=== PATIENT | male | born 1950 | race Caucasian/White ===

== ENCOUNTER → 2017-08-23 | Outpatient (CLI) | payer OTHER ==
[~2017-08-23] MED LIST: ASPI81TA28 PO; ATOR-24 PO; ISOS30TA3 PO; LISI20TA3 PO; METO50TA16 PO; NAPR-1169 PO; NTRGSL/4 UT; OMEG10007 PO; PANT40TA PO; TRAM-10 PO
[2017-08-23 12:14] LABS: ESTIMATED AVERAGE GLUCOSE 105 mg/dl; HA1C FLAG Normal (Normal)
[2017-08-23 12:17] LABS: ALT/SGPT 36 U/L (12-78); BLOOD UREA NITROGEN 20 mg/dl (7-18); BUN/CREATININE RATIO 21.2 (10-20); CALCIUM 8.8 mg/dl (8.5-10.1); CARBON DIOXIDE 29 mmol/L (21-32); CHLORIDE 105 mmol/L (98-107); CHOLESTEROL 154 mg/dl (0-200); CREATININE 0.94 mg/dl (0.60-1.40); GLUCOSE 99 mg/dl (70-99); POTASSIUM 4.2 mmol/L (3.5-5.1); SODIUM 140 mmol/L (136-145)
[2017-08-23 12:21] LABS: ALKALINE PHOSPHATASE 67 U/L (45-117); AST/SGOT 23 U/L (15-37); CHOLESTEROL/HDL RATIO 3.3; HDL CHOLESTEROL 46 mg/dl; HEMATOCRIT 42.5 % (42-52); LDL CHOLESTEROL CALCULATED 81 mg/dl; MEAN CELL VOLUME 97.9 fL (80-100); MEAN CORPUSCULAR HEMOGLOBIN 33.6 pg (25-34); MEAN CORPUSCULAR HGB CONC 34.4 g/dl (32-36); MEAN PLATELET VOLUME 10.1 fL (7.4-10.4); PLATELET COUNT 168 K/uL (130-400); RED BLOOD COUNT 4.34 M/uL (4.7-6.1); TRIGLYCERIDES 134 mg/dl (0-150); VERY LOW DENSITY LIPOPROT CALC 27 mg/dl; WHITE BLOOD COUNT 7.11 K/uL (4.8-10.8)
== END | disposition home or self-care (01) ==
LOC: C.LABPBG 08:07
PROVIDERS: ATTEND Family Medicine
DX: E78.5 Hyperlipidemia, unspecified (principal); I25.10 Atherosclerotic heart disease of native coronary artery without angina pectoris

== ENCOUNTER 2017-11-07 10:19 | Inpatient (IN) | payer OTHER ==
[2017-10-24 08:58] VITALS: Ht 170.2 cm; Wt 81.6 kg
--- NOTE | 2017-10-24 09:38 | PAT Medication Instructions ---
Service Date Oct 24, 2017. Current Home Medication List Aspirin (Aspirin Ec), 81 MG PO QAM Atorvastatin (Lipitor), 40 MG PO QPM Fish Oil (Shickley-3), 1,200 MG PO BID Isosorbide Mononitrate Ext Rel (Imdur Ext Rel), 30 MG PO QAM Lidocaine Hcl (Lidocaine), 1 APPLN EX DAILY PRN for Pain Losartan Potassium (Cozaar), 1 TAB PO QAM Metoprolol Tartrate (Lopressor) (Lopressor), 50 MG PO BID Nitroglycerin (Nitrostat), 0.4 MG UT PRN Tramadol (Ultram), 50 MG PO Q6H PRN for Pain Medication Instructions For Your Scheduled Surgery -Continue as directed: Nitroglycerin (Nitrostat), 0.4 MG UT PRN - Hold the following medications 2 weeks prior to surgery: Fish Oil (Shickley-3), 1,200 MG PO BID - Hold the following medications 24 hours prior to surgery: Lidocaine Hcl (Lidocaine), 1 APPLN EX DAILY PRN for Pain - Hold the following medications the morning of surgery: Losartan Potassium (Cozaar), 1 TAB PO QAM - Take the following medications the morning of surgery with a sip of water: Metoprolol Tartrate (Lopressor) (Lopressor), 50 MG PO BID Aspirin (Aspirin Ec), 81 MG PO QAM Isosorbide Mononitrate Ext Rel (Imdur Ext Rel), 30 MG PO QAM Tramadol (Ultram), 50 MG PO Q6H PRN for Pain (if needed, can be taken up to four hours before surgery) - Take the following medications as scheduled the night before surgery: Metoprolol Tartrate (Lopressor) (Lopressor), 50 MG PO BID Atorvastatin (Lipitor), 40 MG PO QPM Tramadol (Ultram), 50 MG PO Q6H PRN for Pain (if needed) If you have any questions please call us at [phone] or [phone] or [phone]
[2017-10-24 10:07] LABS: BASO % 1.1 %; BASO ABS # 0.06 K/uL (0-0.2); EOS % 3.5 %; EOS ABS # 0.19 K/uL (0-0.5); HEMATOCRIT 42.1 % (42-52); HEMOGLOBIN 14.6 g/dL (14.0-18.0); IG# 0.01 K/uL (0.00-0.02); LYMPH % 32.3 %; LYMPH ABS # 1.75 K/uL (1.2-3.4); MEAN CELL VOLUME 95.5 fL (80-100); MEAN CORPUSCULAR HEMOGLOBIN 33.1 pg (25-34); MEAN CORPUSCULAR HGB CONC 34.7 g/dl (32-36); MEAN PLATELET VOLUME 9.4 fL (7.4-10.4); MONO % 12.6 %; MONO ABS # 0.68 K/uL (0.11-0.59); NEUT % 50.3 %; NEUT ABS # 2.72 K/uL (1.4-6.5); PLATELET COUNT 158 K/uL (130-400); RED CELL DISTRIBUTION WIDTH CV 12.6 % (11.5-14.5); RED CELL DISTRIBUTION WIDTH SD 43.8 fL (36.4-46.3); WHITE BLOOD COUNT 5.41 K/uL (4.8-10.8)
[2017-10-24 10:14] LABS: INR 0.9 (0.9-1.1); PTT PATIENT 25.5 SECONDS (21.0-31.0)
--- NOTE | 2017-10-24 10:26 | DIAGNOSTIC IMAGING REPORT ---
TWO VIEW CHEST CLINICAL HISTORY: Preoperative examination. FINDINGS: PA and lateral chest radiographs are compared to correlated with chest CT dated 02/19/2016. The heart is top normal for projection. The mediastinal contour is within normal limits. An accessory azygous fissure is incidentally noted. There is mild elevation of right hemidiaphragm and bibasilar atelectasis. The lungs and pleural spaces are otherwise clear. There is no pneumothorax. The skeletal structures are osteopenic. Degenerative change is noted in the thoracic spine. IMPRESSION: No active disease in the chest. Electronically signed by: Jaden Bah M.D. 10/24/2017 10:25 AM Dictated Date/Time: 10/24/2017 10:24 AM
[2017-10-24 11:30] LABS: CALCIUM 8.7 mg/dl (8.5-10.1); CREATININE 1.03 mg/dl (0.60-1.40); POTASSIUM 4.5 mmol/L (3.5-5.1)
--- NOTE | 2017-11-03 21:11 | HISTORY & PHYSICAL EXAMINATION ---
DATE OF ADMISSION: 11/07/2017 CHIEF COMPLAINT: Left knee pain. HISTORY OF PRESENT ILLNESS: A 67-year-old fairly active gentleman who presents for surgical treatment of his left knee. I last saw him back in May, we put a shot in his knee and really did not help much. He describes mostly medial sided knee pain. The more he walks, the more it hurts. He tries to cut lawn having more and more trouble doing this over the summer months due to pain. His pain gets worse going up and down stairs. He does wear a brace that gives him little bit support and helps a little bit. He would now like to proceed with left knee replacement and like to get it done before the summer months. PAST MEDICAL HISTORY: 1. Hypertension. 2. Back arthritis. 3. Coronary artery disease, status post cardiac stent placement in 2006 at [facility]. PAST SURGICAL HISTORY: Include: 1. Right knee arthroscopy. 2. Right rotator cuff repair. 3. Bilateral herniorrhaphy. 4. Cardiac stent placed at [facility] in 2006. ALLERGIES: 1. NIASPAN/NIACIN 2. PENICILLIN. REACTIONS UNKNOWN. CURRENT MEDICINES: Include: 1. Fish oil twice a day. 2. Atorvastatin 40 mg. 3. Tramadol 50 mg 4 times a day. 4. Metoprolol 50 mg twice a day. 5. Isosorbide 30 mg a day. 6. Aspirin 81 mg a day. 7. Lidocaine cream twice a day. SOCIAL HISTORY: A 67-year-old male. He is . Rare alcohol intake. No tobacco use. Fairly active and does yard work in the summer months. FAMILY HISTORY: Significant for heart disease, no history of diabetes or cancer. REVIEW OF SYSTEMS: Negative for diabetes, neurologic problems, vascular problems, bleeding disorders. Denies any current chest pain or shortness of breath. No evidence of DVT or PE. PHYSICAL EXAMINATION: GENERAL: Physical examination reveals a healthy, pleasant, middle-aged male. He looks to be in good health. HEENT: Benign. NECK: Supple. No lymphadenopathy. LUNGS: Clear to auscultation. HEART: Regular rate and rhythm. ABDOMEN: Soft, nontender, nondistended. EXTREMITIES: Grossly neurovascularly intact except as follows: Examination of left knee reveals the patient ambulates with a slight bit of a limp. He has varus alignment to his knee. Slight varus thrust. He has bony hypertrophy medially. A small knee effusion. Range of motion is 5-120. No instability. No pain with hip motion. X-RAYS: X-rays of the left knee were reviewed. It shows advanced left knee DJD. He has complete loss of his medial joint space. He has tibial, femoral subluxation. ASSESSMENT: A 67-year-old fairly active gentleman with advanced left knee pain and degenerative joint disease. He has failed conservative treatment and would like to have his left knee replaced. PLAN: We will take him to the operating room and do a left total knee replacement. The risks and benefits of this procedure were explained to the patient including but not limited to DVT, PE, , infection, neurological injury, vascular injury, bleeding problem, pain, limited range of motion, stiffness, failure to relieve symptoms, incomplete relief of symptoms, need for further surgery in the future, fracture, leg length inequality, nerve palsy, persistent pain, etc. The patient understands and desires to proceed. Informed consent was obtained. He was seen by his media liaison officer, Dr. Hilario on 10/26/2017 and cleared for surgery. We did talk to him about taking metoprolol the morning of surgery. We will use aspirin for DVT prophylaxis along with TEDs and SCDs. He is planning to be discharged to home to do outpatient therapy. DENIS
[~2017-11-07] VITALS: Ht 170.2 cm; Wt 81.6 kg
[2017-11-07] VITALS (9 sets, daily range): BP systolic 111–169; BP diastolic 61–94; PULSE 53–62; TEMP 36.6–37; O2SAT 95–100
[~2017-11-07 10:19] MED LIST changes: +ACETAMINOPHEN 500 MG TAB PO SCH; +BUPIVACAINE 0.25% 30 ML VIAL ONE; +BUPIVACAINE 0.5 % 5 MG/1 ML PF 10ML VIAL ONE; +BUPIVACAINE LIPOSOME 266 MG, BUPIVACAINE/EPINEPHRINE INJ 50 ML, SODIUM CHLORIDE 0.9% PF... INFIL SCH; +CEFAZOLIN 2000MG IV PUSH 10 ML IV SCH; +FAMOTIDINE 20 MG TAB PO SCH; +GABAPENTIN 300 MG CAP PO SCH; +LACTATED RINGER'S 1000ML 1,000 ML IV SCH; +LACTATED RINGER'S 1000ML 500 ML IV SCH; +LACTATED RINGER'S 1000ML IV SCH; +LIDO1CRE EX; -LISI20TA3 PO; +LOSA100T65 PO; +METOCLOPRAMIDE HCL 10 MG TAB PO SCH; -NAPR-1169 PO; -PANT40TA PO; +SCOPOLAMINE 1.5 MG TDSY TD SCH; +TRANEXAMIC ACID INJ 1,000 MG in SYRINGE 0 ML IV SCH
--- NOTE | 2017-11-07 11:24 | History & Physical Bridge Note ---
H&P Re-Evaluation Bridge Note: I have examined the patient, reviewed the History & Physical and in the interval since the performance of the History & Physical I have noted the following changes of clinical significance: No changes noted
[2017-11-07] MEDS ORDERED: PROPOFOL IV EMULSION 10 MG/ML 20 ML VIAL IV ONE (12:15)
[2017-11-07] MEDS ORDERED: LIDOCAINE HCL 2% 2 ML VIAL (20MG/ML) ONE (12:15)
[2017-11-07] MEDS ORDERED: MIDAZOLAM HCL 1 MG/ML 2ML VIAL ONE ×2 (12:15)
[2017-11-07] MEDS ORDERED: BUPIVACAINE/EPINEPHRINE 0.25% 1:200,000 30 ML VIAL ONE (13:22)
[2017-11-07] MEDS ORDERED: BACITRACIN 50000 UNIT VIAL ONE (13:23)
[2017-11-07] MEDS ORDERED: SODIUM CHLORIDE 0.9% PF 50 ML VIAL ONE (13:23)
[2017-11-07] MEDS ORDERED: BUPIVACAINE LIPOSOME 1/3% 266 MG/20 ML VIAL INFIL ONE (13:23)
[2017-11-07] MEDS ORDERED: LABETALOL HCL IV 5 MG/ML 20ML IV PRN (14:00)
[2017-11-07] MEDS ORDERED: ONDANSETRON INJ 2 MG/ML 2 ML VIAL IV PRN ×2 (14:00→15:30)
[2017-11-07] MEDS ORDERED: FENTANYL CITRATE INJ 50 MCG/1 ML 2 ML VIAL IV PRN (14:00)
[2017-11-07] MEDS ORDERED: EpHEDrine SULFATE INJ 50 MG/ML AMP IV PRN (14:00)
[2017-11-07] MEDS ORDERED: ATROPINE SULFATE 0.1 MG/ML 5ML SYR IV PRN (14:00)
[2017-11-07] MEDS ORDERED: HYDROmorphone INJ 1 MG/ML SYR IV PRN (14:00)
[2017-11-07] MEDS ORDERED: MEPERIDINE HCL 25 MG/ML CARP IV PRN (14:00)
--- NOTE | 2017-11-07 15:27 | [facility] Post Operative Brief Note ---
Immediate Operative Summary Operative Date Nov 07, 2017. Pre-Operative Diagnosis Advanced Left Knee Degenerative Joint Disease and pain Post-Operative Diagnosis Advanced Left Knee Degenerative Joint Disease and pain Procedure(s) Performed Left Total Knee Arthroplasty Surgeon Dr. Talha Garcia Hospitality Recruiter Surgeon(s) Jaun Valdez PA-C Estimated Blood Loss 50ml Findings Consistent with Post-Op Diagnosis Fluids (cc crystalloids) 1500 cc Specimens a. left knee bone and tissue Drains None Anesthesia Type MAC Spinal Regional Complication(s) none Disposition Disposition: Recovery Room / PACU
[2017-11-07] MEDS ORDERED: SILVER SULFADIAZINE 1% CR 50 GM JAR EXT PRN (15:30)
[2017-11-07] MEDS ORDERED: HYDROmorphone INJ 0.5 MG/0.5 ML SYR IV PRN (15:30)
[2017-11-07] MEDS ORDERED: METOCLOPRAMIDE HCL INJ 5 MG/ML 2 ML VIAL IV PRN (15:30)
[2017-11-07] MEDS ORDERED: NITROGLYCERIN 0.4 MG SL PER TAB CHARGE UT PRN (15:30)
[2017-11-07] MEDS ORDERED: MAGNESIUM HYDROXIDE SUSP 30 ML UDC PO PRN (15:30)
[2017-11-07] MEDS ORDERED: ZOLPIDEM TARTRATE 5 MG TAB PO PRN (15:30)
[2017-11-07] MEDS ORDERED: BISACODYL 10 MG SUPP PR PRN (15:30)
[2017-11-07] MEDS ORDERED: DiphenhydrAMINE HCL 50 MG/ML VIAL IV PRN (15:30)
[2017-11-07] MEDS ORDERED: ALUMINUM/MAGNESIUM/SIMETH (MAALOX MAX) 30 ML UDC PO PRN (15:30)
[2017-11-07] MEDS ORDERED: TAMSULOSIN HCL 0.4 MG CAP PO PRN (15:30)
[2017-11-07] MEDS: CHECK SCOPOLAMINE PATCH PLACEMENT SCH ×2 (16:00→23:18)
--- NOTE | 2017-11-07 16:24 | Anesthesiology Progress Note ---
Anesthesia Post Op Note Date & Time Nov 07, 2017 at 16:23 Vital Signs Pain Intensity: 0 Vital Signs Past 12 Hours Date Time Temp Pulse Resp B/P (MAP) Pulse Ox O2 Delivery O2 Flow Rate FiO2 11/07/17 16:20 36.8 58 19 115/57 98 Nasal Cannula 2 11/07/17 16:10 55 15 112/63 100 Nasal Cannula 2 11/07/17 16:00 62 19 106/57 100 Nasal Cannula 2 11/07/17 15:50 54 13 121/63 99 Nasal Cannula 2 11/07/17 15:40 53 17 109/56 99 Nasal Cannula 2 11/07/17 15:32 36.1 62 14 123/55 96 Nasal Cannula 2 11/07/17 11:11 36.8 57 18 169/94 97 Room Air Notes Mental Status: alert / awake / arousable, participated in evaluation Pt Amnestic to Procedure: Yes Nausea / Vomiting: adequately controlled Pain: adequately controlled Airway Patency, RR, SpO2: stable & adequate BP & HR: stable & adequate Hydration State: stable & adequate Neuraxial Anesthesia: was administered, sensory block is resolving Anesthetic Complications: no major complications apparent
--- NOTE | 2017-11-07 16:36 | DIAGNOSTIC IMAGING REPORT ---
Left knee 2 views THE CLINICAL HISTORY: Degenerative arthritis. Postoperative study COMPARISON: Outside radiograph dated 11/02/2017 DISCUSSION: There are postsurgical changes of a total left knee arthroplasty and patellar resurfacing. The femoral and tibial components appear well seated. Overlying skin marcela are evident. There is air within the soft tissues consistent with recent surgery. IMPRESSION: Postsurgical changes of a total left knee arthroplasty. Electronically signed by: Edward Cohen M.D. 11/07/2017 4:35 PM Dictated Date/Time: 11/07/2017 4:34 PM
[2017-11-07] MEDS: D5W AND 1/2NSS + 20MEQ KCL 1,000 ML IV SCH (17:15)
[2017-11-07] MEDS: FERROUS GLUCONATE 324 MG TAB PO SCH (17:48)
[2017-11-07] MEDS: KETOROLAC TROMETHAMINE 15 MG/ML VIAL IV. SCH ×2 (17:49→23:17)
--- NOTE | 2017-11-07 19:36 | OPERATIVE REPORT ---
DATE OF OPERATION: 11/07/2017 SURGEON: Talha Garcia MD. BUSINESS EXCELLENCE LEADER: DARRION Marshall. PREOPERATIVE DIAGNOSIS: Left knee degenerative joint disease. POSTOPERATIVE DIAGNOSIS: Same. PROCEDURE PERFORMED: Left cemented posterior stabilized total knee arthroplasty. COMPLICATIONS: None. ESTIMATED BLOOD LOSS: 50 mL. FLUID REPLACEMENT: 1500 mL crystalloid fluid replacement. TOURNIQUET TIME: 58 minutes at 300 mmHg. ANESTHESIA: Spinal with adductor canal block. DRAINS: None. SPECIMENS: Left knee sent for pathology. OPERATIVE INDICATIONS: The patient is a 67-year-old fairly active gentleman who had a long history of left knee pain and discomfort. He has been through extensive conservative treatment without much relief at all. The injections really did not help much at all. He developed bothering knee pain. 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 He elected to proceed with left total knee arthroplasty. OPERATIVE FINDINGS: Operative findings revealed advanced left knee DJD. He had extensive grade 4 changes of the medial femoral condyle and medial tibial plateau with a fixed varus deformity to his knee. Moderate size joint effusion. OPERATIVE IMPLANTS: Operative implants consisted of: 1. Biomet Vanguard size 67.5 left posterior stabilized femoral component. 2. Biomet size 75 tibial tray. 3. A 10 mm posterior stabilized polyethylene insert. 4. A 31 x 8 all poly patella. OPERATIVE PROCEDURE: The patient taken to the operating room, identified and placed on the operating table in supine position. All contact areas were appropriately padded. IV antibiotics were provided by the anesthesia team. A spinal anesthetic and adductor canal block had been provided in the holding area. Edmonds catheter was placed in a sterile fashion. Left thigh tourniquet was then placed. The left lower extremity was then prepped and draped in the usual sterile fashion. Left leg was elevated and exsanguinated with Esmarch and tourniquet was placed at 300 mmHg. An anterior approach to the left knee was then performed through a longitudinal incision centered over the patella. Sharp dissection was carried through the subcutaneous tissues down to the level of the extensor mechanism. A medial parapatellar arthrotomy incision was made. Some subperiosteal dissection was carried out medially. The fat pad was resected from beneath the patellar tendon. The lateral patellofemoral ligament was released. The patella was everted and the knee was flexed. The osteophytes were taken off the distal femur. The ACL and PCL were then released from the distal femur and the tibia subluxated anteriorly. The external tibial alignment jig was then placed in the anterior face of the tibia and adjusted about 16 mm medially. Proximal tibial cut was made to remove about a millimeter of bone from the most deficient aspect of the medial tibial plateau. Tibia was sized to a size 75. Some osteophytes were taken off medial and posteromedially. Attention was then drawn to the femur. The distal femur was entered with a sharp drill. Intramedullary canal was suctioned. A left 6-degree valgus cutting guide was placed. Distal femoral cutting block was pinned in place. Distal femoral cut was made to take an additional 3 mm of bone off the distal femur. The femur was then sized to a size 67.5. We did downsize this slightly. The AP cutting block was pinned parallel to the epicondylar axis, which was 4 degrees of external rotation. The anterior cut, anterior chamfer cut, posterior cut, posterior chamfer cuts were made. Box cutting guide was placed and adjusted slightly lateral and the box cut was made. The knee was flexed. The remnants of the medial and lateral menisci were excised. The osteophytes were taken off the posterior aspect of the femur. A trial femoral component was placed. Tibial tray was pinned in maximum external rotation and drill and stem punch were used to create defect in proximal tibia for the tibial tray. I then trialed the knee, the 10 mm insert fit most appropriately. It was still a little bit tight, so I did a pretty extensive release medially as it was tight medially. Attention was then drawn to the patella. The patella was cleaned of all soft tissues. Patella thickness measured 22 mm in thickness and was cut down to 13. It was sized to a size 31 patella. Lateral osteophyte was removed. Patella button was placed. Knee was taken through range of motion and the patella tracked nicely with no thumbs test. Attention was then drawn toward placement of the permanent component. All trial components were removed. A bone plug was placed in the distal femur to limit blood loss. A double batch of Palacos G cement was mixed. A left size 67.5 posterior stabilized femoral component, size 75 tibial tray, a 10 mm posterior stabilized polyethylene insert, and a 31 x 8 all poly patella were then cemented in place. Knee was brought out into full extension until cement hardened. A final cement check was then performed. Pericapsular tissues were injected with a total of 100 mL of a combination of 20 mL of Exparel, 30 mL of normal saline, 50 mL of 0.25% Marcaine with epinephrine. The patient did receive 1 gram of tranexamic acid. The tourniquet was then let down for a tourniquet time of 58 minutes. Hemostasis was assured with use of electrocautery. The wound was once again irrigated. The extensor mechanism was then closed with a combination of #1 PDS suture and #1 Vicryl suture in a [id number] fashion. Extensor mechanism was checked and found to be intact. Subcutaneous tissues were then closed with 2-0 Dexon suture in a buried interrupted fashion. Skin was closed with skin marcela. Leg was then cleaned and dried and a sterile dressing of Xeroform, 4 x 4, sterile cast padding and Reagan bandage were applied. The patient was then transferred to the recovery room in stable condition. The patient tolerated the procedure with no complications. All needle and sponge counts were correct at the end of the operation. I attest to the content of the Intraoperative Record and any orders documented therein. Any exception s are noted below.
--- NOTE | 2017-11-07 20:32 | PROGRESS NOTE ---
DATE: 11/07/2017 SUBJECTIVE: A 67-year-old gentleman postop from a left knee replacement. He is doing well. Not have any pain yet. Legs are still numb. No chest pain or shortness of breath. Not feeling dizzy or lightheaded. OBJECTIVE: VITAL SIGNS: Temperature is 36.6. Vital signs stable. GENERAL: Reveals a healthy, pleasant, middle-aged male. He is sitting up on the bed and looks pretty comfortable. He is talking to his and eating his dinner. LUNGS: Clear to auscultation. HEART: Regular rate and rhythm. ABDOMEN: Soft, nontender, nondistended. EXTREMITIES: Grossly neurovascularly intact except as follows: Examination of the left leg reveals the dressing to be clean, dry and intact. Leg is well aligned. He has no significant sensory or motor function yet. He has got brisk refill with good distal pulses. IMAGING DATA: X-rays of the left knee from recovery room were reviewed. It shows a left cemented stabilized total knee arthroplasty. Component looks to be in good position. No signs of problems. ASSESSMENT: A 67-year-old gentleman postop from a left knee replacement, doing pretty well. Pain is controlled. The block is still in effect. PLAN: 1. DVT prophylaxis including thigh-high TEDs and aspirin. 2. PT/OT. Weightbear as tolerated. Left total knee protocol. 3. Pain control. Doing well with current pain regimen. Obviously, as his spinal wears off, we will need to add oral medicines. 4. IV antibiotics x24 hours. 5. Disposition: He is planning to discharge to home likely with some home health once adequately recovered. DENIS
[2017-11-07] MEDS: OXYCODONE HCL IR 5 MG TAB (IMMEDIATE RELEASE) PO PRN (21:12)
[2017-11-07] MEDS: ASPIRIN 325 MG ECTAB PO SCH (21:13)
[2017-11-07] MEDS: SENNA 8.6 MG TAB PO SCH (21:13)
[2017-11-07] MEDS: DOCUSATE SODIUM 100 MG CAP PO SCH (21:13)
[2017-11-07] MEDS: ATORVASTATIN 40 MG TAB PO SCH (21:14)
[2017-11-07] MEDS: METOPROLOL TARTRATE 50 MG TAB PO SCH (21:14)
[2017-11-07] MEDS: ACETAMINOPHEN 500 MG TAB PO SCH (21:22)
[2017-11-07] MEDS: TAPENTADOL ER 50 MG TABCR PO SCH (21:22)
[2017-11-07] MEDS: CEFAZOLIN IV 2,000 MG in SYRINGE 5 ML IV SCH (21:23)
[2017-11-07] MEDS ORDERED: TRANEXAMIC ACID INJ 1,000 MG in SODIUM CHLORIDE 0.9% 100ML 100 ML IV SCH (22:00)
[2017-11-08] MEDS: D5W AND 1/2NSS + 20MEQ KCL 1,000 ML IV SCH ×2 (01:04→08:58)
[2017-11-08 03:20] VITALS: BP 135/85; PULSE 60; TEMP 36.8; O2SAT 94
[2017-11-08] MEDS: OXYCODONE HCL IR 5 MG TAB (IMMEDIATE RELEASE) PO PRN ×3 (03:34→19:21)
[2017-11-08] MEDS: KETOROLAC TROMETHAMINE 15 MG/ML VIAL IV. SCH ×4 (05:40→23:21)
[2017-11-08] MEDS: ACETAMINOPHEN 500 MG TAB PO SCH ×3 (05:40→22:30)
[2017-11-08] MEDS: CEFAZOLIN IV 2,000 MG in SYRINGE 5 ML IV SCH (05:42)
[2017-11-08 06:28] LABS: HEMATOCRIT 36.6 % (42-52); HEMOGLOBIN 12.7 g/dL (14.0-18.0); MEAN CELL VOLUME 94.8 fL (80-100); MEAN CORPUSCULAR HEMOGLOBIN 32.9 pg (25-34); MEAN CORPUSCULAR HGB CONC 34.7 g/dl (32-36); MEAN PLATELET VOLUME 9.8 fL (7.4-10.4); PLATELET COUNT 129 K/uL (130-400); RED CELL DISTRIBUTION WIDTH CV 12.9 % (11.5-14.5); RED CELL DISTRIBUTION WIDTH SD 44.3 fL (36.4-46.3); WHITE BLOOD COUNT 7.35 K/uL (4.8-10.8)
[2017-11-08 06:45] VITALS: BP 129/76; PULSE 64; TEMP 37.4; O2SAT 91
[2017-11-08 07:02] LABS: CALCIUM 7.8 mg/dl (8.5-10.1); CREATININE 0.93 mg/dl (0.60-1.40); POTASSIUM 4.2 mmol/L (3.5-5.1)
[2017-11-08] MEDS: CHECK SCOPOLAMINE PATCH PLACEMENT SCH ×3 (07:15→23:21)
[2017-11-08] MEDS: METOPROLOL TARTRATE 50 MG TAB PO SCH ×2 (08:58→22:32)
[2017-11-08] MEDS: FERROUS GLUCONATE 324 MG TAB PO SCH ×3 (08:58→19:16)
[2017-11-08] MEDS: DOCUSATE SODIUM 100 MG CAP PO SCH ×2 (08:58→22:29)
[2017-11-08] MEDS: ASPIRIN 325 MG ECTAB PO SCH ×2 (08:59→22:29)
[2017-11-08] MEDS: MULTIVITAMIN TAB PO SCH (08:59)
[2017-11-08] MEDS: ISOSORBIDE MONONITRATE 30 MG TABCR PO SCH (08:59)
[2017-11-08] MEDS: PANTOprazole SOD 40 MG TAB PO SCH (08:59)
[2017-11-08] MEDS: LOSARTAN POTASSIUM 50 MG TAB PO SCH (09:00)
[2017-11-08] MEDS: TAPENTADOL ER 50 MG TABCR PO SCH ×2 (09:08→22:29)
--- NOTE | 2017-11-08 09:34 | PROGRESS NOTE ---
DATE: 11/08/2017 SUBJECTIVE: A 67-year-old gentleman postop day #1 from a left knee replacement. He is doing pretty well. He had a pretty good night. No chest pain or shortness of breath. Not feeling dizzy or lightheaded. OBJECTIVE: VITAL SIGNS: Temperature 37.4. Vital signs stable. GENERAL: Physical examination reveals a healthy, pleasant, middle-aged male. He is sitting up in bed and looks pretty comfortable this morning. EXTREMITIES: Examination of the left leg reveals the dressing to be clean, dry and intact. Leg is well aligned. He can dorsiflex and plantarflex his foot appropriately. Good brisk refill. Good distal pulse. LABORATORY DATA: Hemoglobin 12.7. Hematocrit 36.6. Electrolytes are stable. ASSESSMENT: A 67-year-old gentleman postop day #1 from a left knee replacement, doing pretty well. Pain is controlled. He is neurologically intact. PLAN: 1. DVT prophylaxis including thigh-high TEDs, SCDs, and aspirin twice a day. 2. PT/OT. Weightbear as tolerated. Left total knee protocol. 3. Pain control. Doing pretty well with current pain regimen. 4. Disposition: He is planning to be discharged to home likely with some home health once adequately recovered.
--- NOTE | 2017-11-08 10:59 | Anesthesiology Progress Note ---
Anesthesia Post Op Note Date & Time Nov 08, 2017 at 10:59 Vital Signs Vital Signs Past 12 Hours Date Time Temp Pulse Resp B/P (MAP) Pulse Ox O2 Delivery O2 Flow Rate FiO2 11/08/17 07:21 Room Air 11/08/17 06:45 37.4 64 17 129/76 (93) 91 Room Air 11/08/17 03:20 36.8 60 18 135/85 (102) 94 Room Air 11/07/17 23:20 Room Air 11/07/17 23:15 37.0 58 18 156/86 (109) 96 Room Air Notes Mental Status: alert / awake / arousable, participated in evaluation Pt Amnestic to Procedure: Yes Nausea / Vomiting: adequately controlled Pain: adequately controlled Airway Patency, RR, SpO2: stable & adequate BP & HR: stable & adequate Hydration State: stable & adequate Neuraxial Anesthesia: sensory block resolved Anesthetic Complications: no major complications apparent
[2017-11-08 11:14] VITALS: BP 104/60; PULSE 52; TEMP 37.1; O2SAT 92
[2017-11-08 14:56] VITALS: BP 120/72; PULSE 59; TEMP 36.8; O2SAT 95
[2017-11-08] MEDS: ATORVASTATIN 40 MG TAB PO SCH (22:29)
[2017-11-08] MEDS: SENNA 8.6 MG TAB PO SCH (22:29)
[2017-11-08 22:50] VITALS: BP 143/76; PULSE 74; TEMP 37.5; O2SAT 95
[2017-11-08 22:53] VITALS: TEMP 37.3
[2017-11-09] MEDS: KETOROLAC TROMETHAMINE 15 MG/ML VIAL IV. SCH ×2 (05:30→12:00)
[2017-11-09] MEDS: ACETAMINOPHEN 500 MG TAB PO SCH (05:31)
[2017-11-09 06:40] VITALS: BP 134/79; PULSE 62; TEMP 36.8; O2SAT 95
[2017-11-09] MEDS: FERROUS GLUCONATE 324 MG TAB PO SCH (07:29)
[2017-11-09] MEDS: OXYCODONE HCL IR 5 MG TAB (IMMEDIATE RELEASE) PO PRN (07:29)
[2017-11-09] MEDS: ISOSORBIDE MONONITRATE 30 MG TABCR PO SCH (07:30)
[2017-11-09] MEDS: MULTIVITAMIN TAB PO SCH (07:30)
[2017-11-09] MEDS: LOSARTAN POTASSIUM 50 MG TAB PO SCH (07:30)
[2017-11-09] MEDS: PANTOprazole SOD 40 MG TAB PO SCH (07:30)
[2017-11-09] MEDS: CHECK SCOPOLAMINE PATCH PLACEMENT SCH (07:30)
[2017-11-09] MEDS ORDERED: ASPEC325 PO (07:31)
[2017-11-09] MEDS ORDERED: ACET-24 PO (07:31)
[2017-11-09] MEDS ORDERED: TRAM-10 PO (07:31)
--- NOTE | 2017-11-09 07:33 | Discharge Instructions ---
Discharge Instructions Date of Service Nov 09, 2017. Admission Reason for Admission: Left Knee Degenerative Joint Disease Discharge Discharge Diagnosis / Problem: Left Knee REplacement Discharge Goals Goal(s): Decrease discomfort, Improve function, Increase independence, Improve disease control, Therapeutic intervention Activity Recommendations Activity Limitations: per Instructions/Follow-up section Weightbearing Status: Left weightbearing . Instructions / Follow-Up Instructions / Follow-Up ACTIVITY RECOMMENDATIONS: Physical Therapy: * You will go to physical therapy three times each week for four to six weeks after your surgery in order to regain your knee range of motion and to retrain your knee to work properly. * It is just as important to make sure you are getting your knee perfectly straight as it is to regain your knee bend. * Taking a pain pill an hour before therapy can help you have a more productive and comfortable therapy session. Home Exercise: * You were shown a series of exercises (heel props, heel slides, etc.) in the hospital. Do these exercises three to four times each day including the exercises you were shown in physical therapy. Walking: * Get up and walk several times each day. For the first four weeks, try not to stand or walk for more than one hour at a time. If you do stand or walk for more than one hour, you will not hurt anything, but your knee and leg will likely swell. * As you feel comfortable, you may change from the walker or crutches to a cane and then to independent walking. MEDICATIONS: New Medicine: * You will likely be taking one or more of these medications: 1. Tramadol - A quick and shorter-acting pain medication. Take one to two tablets every four to six hours to lessen your pain. 2. Aspirin - Thins your blood to lessen the chance of forming a blood clot. * The most common side effects of pain medicine and iron are nausea and constipation. If nausea or constipation is too much of a problem or if you have any questions about your new medicines or doses, call [facility] at . We will try to help you manage these issues. VERY IMPORTANT TO READ AND REVIEW" Pain: * The immediate post-operative period after knee replacement surgery is often quite painful. * You are given a prescription for pain medicine. You should take it, as directed, when you need it, especially before physical therapy and before going to bed. Pain that interferes with sleep is very common and can last several months. * You will likely need pain medicine for the first four to six weeks. It will not stop all of the pain. The pain will lessen and as you feel better, you may change to milder pain medicine such as Tylenol. * The most common side effects of pain medicine are nausea and constipation, so don't take more than you need. SPECIAL CARE INSTRUCTIONS: TEDs/Elastic Stockings: * The white elastic stockings help limit swelling and prevent blood clots from forming in your legs. The more you wear them, the more they work. * Wear them for six weeks after knee replacement surgery and four weeks after partial knee replacement. Prevention of Infection: * Take antibiotics one hour before any dental cleaning, dental work, urological procedure, gastrointestinal procedure or any invasive surgery in order to prevent your new joint from getting infected. * You may get the antibiotics from the doctor performing the procedure or you may call our office at before and we will call in a prescription to the pharmacy of your choice. Things to Watch For: * Drainage from the incision site that occurs more than one week after your surgery. * Severely increased knee/leg pain or swelling. * Increased redness at the incision site. * Fever above 102 degrees Fahrenheit. * Unusual chest pain or shortness of breath. * Unusual pain or burning with urination. Call [facility] at with any of the above problems or if you have any questions about your medicines or recovery. FOLLOW UP VISIT: Make an appointment to see your doctor for approximately two weeks after surgery for a progress check and staple removal by calling the office at . Current Hospital Diet Patient's current hospital diet: Regular Diet Discharge Diet Recommended Diet: Regular Diet Procedures Procedures Performed: Left Total Knee Arthroplasty Pending Studies Studies pending at discharge: no Laboratory Results Hemoglobin A1c Test 08/23/17 08:11 Range/Units Estimated Average Glucose 105 mg/dl Hemoglobin A1c 5.3 4.5-5.6 % Lipid Panel Test 08/23/17 08:11 Range/Units Triglycerides Level 134 0-150 mg/dl Cholesterol Level 154 0-200 mg/dl HDL Cholesterol 46 mg/dl Cholesterol/HDL Ratio 3.3 LDL Cholesterol, Calculated 81 mg/dl Medical Emergencies . Who to Call and When: Medical Emergencies: If at any time you feel your situation is an emergency, please call 911 immediately. . Non-Emergent Contact Non-Emergency issues call your: Surgeon . "Provider Documentation" section prepared by Talha Garcia. . VTE Core Measure Inpt VTE Proph given/why not?: Other Anticoagulation, T.E.D. Stockings, SCD's
--- NOTE | 2017-11-09 07:36 | PROGRESS NOTE ---
DATE: 11/09/2017 SUBJECTIVE: A 67-year-old gentleman postop day 2 from a left knee replacement. He is doing well. Pain is controlled. No chest pain or shortness of breath. Not feeling dizzy or lightheaded. Anxious to get home and out of the hospital. OBJECTIVE: VITAL SIGNS: Temperature 36.8. Vital signs stable. GENERAL: Reveals a healthy, pleasant, middle-aged male. He is sitting up in his bedside chair eating breakfast and looks comfortable. EXTREMITIES: Examination of the left leg reveals the dressing to be clean, dry and intact. Calf is soft and supple. He can dorsiflex and plantarflex his foot appropriately. He is neurologically intact. ASSESSMENT: A 67-year-old gentleman postop day 2 from left knee replacement, doing well. Pain is controlled. He is neurologically intact. PLAN: 1. DVT prophylaxis including thigh-high TEDs, SCDs, and aspirin twice a day. 2. PT/OT. Weight bear as tolerated. Left total knee protocol. 3. Pain control. Doing well with current pain regimen. 4. Disposition: Plan to discharge to home with some home health later today.
[2017-11-09] MEDS: TAPENTADOL ER 50 MG TABCR PO SCH (07:51)
[2017-11-09] MEDS: ASPIRIN 325 MG ECTAB PO SCH (08:05)
[2017-11-09] MEDS: DOCUSATE SODIUM 100 MG CAP PO SCH (08:05)
[2017-11-09] MEDS: METOPROLOL TARTRATE 50 MG TAB PO SCH (08:06)
[2017-11-09 10:01] VITALS: BP 134/79; PULSE 62; TEMP 36.8; O2SAT 95
== END 2017-11-09 13:29 | disposition home health service (06) | DRG 470 ==
LOC: C.ACU 10:19 → C.3E 15:32 → ENRESERV 16:17
PROVIDERS: ADMIT Orthopaedic Surgery Sports Medicine; ATTEND Orthopaedic Surgery Sports Medicine
PROC: 0SRD0J9 Replacement of Left Knee Joint with Synthetic Substitute, Cemented, Open Approach (ICD-10-PCS; principal; 2017-11-07 13:00)
DX: M17.12 Unilateral primary osteoarthritis, left knee (principal); I10 Essential (primary) hypertension; I25.10 Atherosclerotic heart disease of native coronary artery without angina pectoris; Z95.5 Presence of coronary angioplasty implant and graft; Z88.0 Allergy status to penicillin; Z79.82 Long term (current) use of aspirin; Z82.49 Family history of ischemic heart disease and other diseases of the circulatory system

== ENCOUNTER 2022-10-11 07:44 | Inpatient (IN) ==
--- NOTE | 2022-09-07 15:52 | PAT Medication Instructions ---
Medication Instructions Date of Service September 07, 2022 Home Medications Medication Instructions Recorded potassium chloride 20 mEq 10 meq PO BID #45 tabs 05/26/21 tablet,extended release folic acid 1 mg tablet 1 mg PO DAILY #90 tabs 12/24/21 tramadol 50 mg tablet 50 mg PO Q6H PRN pain #120 tabs 03/15/22 losartan 100 mg tablet 100 mg PO HS #90 tabs 03/24/22 metoprolol tartrate 25 mg tablet 25 mg PO BID #180 tabs 03/24/22 diclofenac sodium 1 % topical gel 2 g topical QID PRN pain #100 grams 03/26/22 ferrous sulfate 325 mg (65 mg 325 mg PO BID #180 tabs 06/14/22 iron) tablet isosorbide mononitrate 60 mg 60 mg PO QAM #90 tabs 08/02/22 tablet,extended release 24 hr omega-3 acid ethyl esters 1 gram capsule 1 cap PO BID aspirin 81 mg tablet,delayed release 81 mg PO QAM acetaminophen 650 mg tablet,extended release (Tylenol Arthritis Pain) 650 mg PO BID potassium chloride 20 mEq tablet,extended release 10 meq PO BID folic acid 1 mg tablet 1 mg PO DAILY tramadol 50 mg tablet 50 mg PO Q6H PRN pain losartan 100 mg tablet 100 mg PO HS metoprolol tartrate 25 mg tablet 25 mg PO BID diclofenac sodium 1 % topical gel 2 g topical QID PRN pain ferrous sulfate 325 mg (65 mg iron) tablet 325 mg PO BID isosorbide mononitrate 60 mg tablet,extended release 24 hr 60 mg PO QAM atorvastatin 80 mg tablet 80 mg PO QAM cholecalciferol (vitamin D3) 125 mcg (5,000 unit) capsule 125 mcg PO QAM cyanocobalamin (vitamin B-12) 1,000 mcg tablet 1,000 mcg PO QAM hydrochlorothiazide 25 mg tablet 25 mg PO QAM nitroglycerin 0.4 mg sublingual tablet 0.4 mg sublingual UD PRN Chest Pain nortriptyline 25 mg capsule 25 mg PO HS Continue as directed nitroglycerin 0.4 mg sublingual tablet 0.4 mg sublingual UD PRN Chest Pain (if needed) ASK your surgeon for instructions diclofenac sodium 1 % topical gel 2 g topical QID PRN pain ASK your prescriber and surgeon nortriptyline 25 mg capsule 25 mg PO HS aspirin 81 mg tablet,delayed release 81 mg PO QAM STOP taking 2 weeks before surgery (or as soon as possible if surgery is within 2 weeks) omega-3 acid ethyl esters 1 gram capsule 1 cap PO BID DO NOT take the morning of surgery potassium chloride 20 mEq tablet,extended release 10 meq PO BID folic acid 1 mg tablet 1 mg PO DAILY ferrous sulfate 325 mg (65 mg iron) tablet 325 mg PO BID cholecalciferol (vitamin D3) 125 mcg (5,000 unit) capsule 125 mcg PO QAM cyanocobalamin (vitamin B-12) 1,000 mcg tablet 1,000 mcg PO QAM hydrochlorothiazide 25 mg tablet 25 mg PO QAM Take morning of surgery With a small sip of water, OTHERWISE NOTHING TO EAT OR DRINK AFTER MIDNIGHT: acetaminophen 650 mg tablet,extended release (Tylenol Arthritis Pain) 650 mg PO BID tramadol 50 mg tablet 50 mg PO Q6H PRN pain (if needed) metoprolol tartrate 25 mg tablet 25 mg PO BID isosorbide mononitrate 60 mg tablet,extended release 24 hr 60 mg PO QAM atorvastatin 80 mg tablet 80 mg PO QAM Take evening before surgery acetaminophen 650 mg tablet,extended release (Tylenol Arthritis Pain) 650 mg PO BID potassium chloride 20 mEq tablet,extended release 10 meq PO BID tramadol 50 mg tablet 50 mg PO Q6H PRN pain (if needed) losartan 100 mg tablet 100 mg PO HS metoprolol tartrate 25 mg tablet 25 mg PO BID ferrous sulfate 325 mg (65 mg iron) tablet 325 mg PO BID Other Notes If you have any questions please call us at [phone] or [phone] or [phone] or [phone]
--- NOTE | 2022-09-13 13:31 | Anesthesiology Consultation ---
Date of Service September 13, 2022 Assessment & Plan (1) Encounter for pre-operative examination: - COVID screening: Per assessment on 09/13: No known COVID-19 positive contacts or current COVID-19 related symptoms. Travel screen negative. Patient vaccinated. At surgeon discretion if preop Covid testing being done. - Cardiology addendum (07/20/22): "Based on the patient's functional status without limiting cardiopulmonary symptoms, normal LV systolic function, negative dobutamine stress echocardiogram January 2022 -- patient is an acceptable surgical risk to proceed with surgery as scheduled provide any take his usual doses of Aspirin 81 mg and Imdur ER 60 mg of morning of surgery with sips of water" Chart Review Chart Review: Acceptable Risk for Surgery and Patient seen in Pre Admission Testing Teaching & Discussion Pre-Anesthesia Teaching/Discussion Notes: Instructed NPO after midnight before surgery,except medications with 15 cc of water. Medication instructions provided according to the PAT guidelines. History Surgery Operation Date: 10/11/22 11:05 Proposed Procedures p L4-S1 Decompression and Fusion, Spinal Cord Monitoring - Jeff James DO Height/Weight Height: 5 ft 7 in Weight: 84.1 kg Allergies Allergy/AdvReac Type Severity Reaction Status Date / Time Penicillins Allergy Mild Unknown Verified 09/13/22 13:44 (remote reaction) niacin Allergy Unknown Itchy and Verified 09/08/22 14:24 hot Medications Home Medications Medication Instructions Recorded Confirmed Last Taken omega-3 acid ethyl esters 1 gram 1 cap PO BID 06/04/19 09/07/22 04/05/20 capsule aspirin 81 mg tablet,delayed 81 mg PO QAM 06/06/19 09/07/22 04/05/20 release acetaminophen 650 mg 650 mg PO BID 03/13/20 09/07/22 04/05/20 tablet,extended release (Tylenol Arthritis Pain) potassium chloride 20 mEq 10 meq PO BID #45 tabs 05/26/21 09/07/22 Unknown tablet,extended release folic acid 1 mg tablet 1 mg PO DAILY #90 tabs 12/24/21 09/07/22 Unknown tramadol 50 mg tablet 50 mg PO Q6H PRN pain #120 tabs 03/15/22 09/07/22 Unknown losartan 100 mg tablet 100 mg PO HS #90 tabs 03/24/22 09/07/22 Unknown metoprolol tartrate 25 mg tablet 25 mg PO BID #180 tabs 03/24/22 09/07/22 Unknown diclofenac sodium 1 % topical gel 2 g topical QID PRN pain #100 grams 03/26/22 09/07/22 Unknown ferrous sulfate 325 mg (65 mg 325 mg PO BID #180 tabs 06/14/22 09/07/22 Unknown iron) tablet isosorbide mononitrate 60 mg 60 mg PO QAM #90 tabs 08/02/22 09/07/22 Unknown tablet,extended release 24 hr atorvastatin 80 mg tablet 80 mg PO QAM 09/07/22 09/07/22 Unknown cholecalciferol (vitamin D3) 125 125 mcg PO QAM 09/07/22 09/07/22 Unknown mcg (5,000 unit) capsule cyanocobalamin (vitamin B-12) 1,000 mcg PO QAM 09/07/22 09/07/22 Unknown 1,000 mcg tablet hydrochlorothiazide 25 mg tablet 25 mg PO QAM 09/07/22 09/07/22 Unknown nitroglycerin 0.4 mg sublingual 0.4 mg sublingual UD PRN Chest Pain 09/07/22 09/07/22 Unknown tablet nortriptyline 25 mg capsule 25 mg PO HS 09/07/22 09/07/22 Unknown Past Medical History Medical History Allergic rhinitis CAD (coronary artery disease) PCI x 2 (2006) JORDAN to LAD (2018) Cervical disc disease GERD (gastroesophageal reflux disease) History of COVID-19 Summer 2021 (home test), rhinorrhea > resolved Hx of fracture of nose Multiple, no surgical intervention Hyperlipidemia Hypertension Lumbar disc disease Lumbar spinal stenosis Osteoarthritis Peptic ulcer disease hx Exercise / Class Metabolic Activity III < 4 Walking/Shop/Light housework Past Family History Family History Father Coronary heart disease Myocardial infarction Prostate cancer Colorectal cancer Mother Lung disease Brother Anxiety Cardiac disorder Depression Denies family history of Ovarian cancer Breast cancer Past Surgical History Surgical History H/O hernia repair R/L inguinal H/O repair of left rotator cuff History of esophagogastroduodenoscopy (EGD) History of heart artery stent PCI x 2 (2006) JORDAN to LAD (2019) History of total knee arthroplasty Left Hx of colonoscopy S/P cardiac cath 2006, 2018 (BINTA Kim) S/P carpal tunnel release Right wrist Status post open reduction and internal fixation (ORIF) of fracture Left elbow Past Anesthesia History No Hx of Anesthesia Complications and No Family Hx of Anesthesia Complications History of PONV No Hx of PONV and No Hx of Motion Sickness Social History Smoking Status: Never smoker Do You Dip or Chew Tobacco: No Hx Alcohol Use: No (No ETOH x 30 years) Hx Substance Use: No substance use type: does not use Review of Systems Occasional exertional SOB s/p unremarkable stress echo/PCP workup- no recent changes/stable. Patient denies chest pain, fever, chills, cough, wheezing, palpitations. Physical Exam Vital Signs VITALS BP 111/76 P 67 TEMP 98.5 SP02 95%RA RESP 18 PHYSICAL Mildly decreased cervical extension range of motion. Full TMJ range of motion. TMD 4 finger breaths Mallampati Score 3 Dentition: several missing teeth Lungs: clear throughout to auscultation Cardiac: regular rate and rhythm, no murmurs noted Spine: normal Carotid arteries: negative bruit Extremities: no edema + Hall Lab Results Anesthesia Preop Results Results Anesthesia Widget: WBC 6.63 K/ul (4.8-10.8) 09/13/22 Hgb 15.4 g/dl (14.0-18.0) 09/13/22 Hct 43.4 % (40.1-51.0) 09/13/22 Plt 181 K/uL (130-400) 09/13/22 Na 138 mmol/L (136-145) 09/13/22 K 3.6 mmol/L (3.5-5.1) 09/13/22 Cl 102 mmol/L (98-107) 09/13/22 CO2 30 mmol/L (21-32) 09/13/22 BUN 19 mg/dl (6-23) 09/13/22 Creat 1.10 mg/dl (0.6-1.4) 09/13/22 Glucose Level 101 mg/dl (70-99(Fasting)) H 09/13/22 PT 10.1 Seconds (9.0-12.0) 09/13/22 PTT 26.9 Seconds (21.0-31.0) 09/13/22 INR 0.9 (0.9-1.1) 09/13/22 Urine Color Yellow 09/13/22 Urine Appearance Clear (Clear) 09/13/22 Urine pH 5.5 (4.5-7.5) 09/13/22 Urine Specific [place] 1.013 (1.000-1.030) 09/13/22 Urine Protein Negative (Negative) 09/13/22 Urine Glucose (UA) Negative (Negative) 09/13/22 Urine Ketones Negative (Negative) 09/13/22 Urine Blood Negative (Negative) 09/13/22 Urine Nitrite Negative (Negative) 09/13/22 Urine Bilirubin Negative (Negative) 09/13/22 Urine Urobilinogen Negative (Negative) 09/13/22 Urine Leukocyte Esterase Negative (Negative) 09/13/22 Blood Type A Positive 09/13/22 Antibody Screen NEGATIVE 09/13/22 Testing Electrocardiogram Date: 09/13/22 Findings: + NSR @ (60) Chest X-Ray Date: 09/13/22 FINDINGS: There is mild elevation the right hemidiaphragm. Bibasilar linear densities favor subsegmental atelectasis or scarring. Otherwise, no new focal lung consolidations to suggest a pneumonia. No evidence for pulmonary edema. The heart is top normal in size. No pneumothorax. No pleural effusions. Calcified mediastinal lymph nodes again noted. IMPRESSION: No significant change compared to the prior study. No acute process. Stress Test Date: 02/22/22 Type: DSE Negative dobutamine stress echo/ECG for ischemia 96% MPHR. No chest pain reported. Rest echo EF 60-65%. Mild cLVH. No significant valvular disease. Type I DD. Cardiac Catheterization Date: 03/01/19 Significant proximal LAD stenosis of 70% reduced to 0% residual after placement of Xience JORDAN. Nonobstructive circumflex and RCA disease. Normal EF. COVID-19 Risk Screen Screening Information COVID-19 Screen Date: 09/13/22 Exposure 21 Days Family/Household +COVID Last 21 Days: No Exposure 10 Days Any COVID Exposure Last 10 Days: No Symptoms Last 10 Days Experienced COVID Sx Last 10 Days: No + COVID 0-90 Days COVID + in Last 0-90 Days: No
[~2022-10-11 07:44] MED LIST changes: -ASPI81TA28 PO; -ATOR-24 PO; -BUPIVACAINE 0.25% 30 ML VIAL ONE; -BUPIVACAINE 0.5 % 5 MG/1 ML PF 10ML VIAL ONE; -BUPIVACAINE LIPOSOME 266 MG, BUPIVACAINE/EPINEPHRINE INJ 50 ML, SODIUM CHLORIDE 0.9% PF... INFIL SCH; -CEFAZOLIN 2000MG IV PUSH 10 ML IV SCH; +CLINDAMYCIN/D5W 900 MG/50 ML BAG IV SCH; +CeleBREX 200 MG CAP PO SCH; -FAMOTIDINE 20 MG TAB PO SCH; -ISOS30TA3 PO; -LACTATED RINGER'S 1000ML 1,000 ML IV SCH; -LACTATED RINGER'S 1000ML 500 ML IV SCH; -LACTATED RINGER'S 1000ML IV SCH; -LIDO1CRE EX; -LOSA100T65 PO; +LR 15ML/HR IV SCH; -METO50TA16 PO; -METOCLOPRAMIDE HCL 10 MG TAB PO SCH; -NTRGSL/4 UT; -OMEG10007 PO; -SCOPOLAMINE 1.5 MG TDSY TD SCH; -TRAM-10 PO; -TRANEXAMIC ACID INJ 1,000 MG in SYRINGE 0 ML IV SCH
[2022-10-11] MEDS ORDERED: fentaNYL citrate 100 MCG/2 ML VIAL IV PRN (08:12)
[2022-10-11] MEDS ORDERED: ATROPINE SULFATE 0.1 MG/ML 10ML SYR IV PRN (08:12)
[2022-10-11] MEDS ORDERED: ONDANSETRON INJ 2 MG/ML 2 ML VIAL IV PRN ×2 (08:12→17:06)
[2022-10-11] MEDS ORDERED: ePHEDrine sulfate 50 MG/ML AMP IV PRN (08:12)
[2022-10-11] MEDS ORDERED: PROMETHAZINE HCL 6.25 MG in SODIUM CHLORIDE 0.9% 50 ML IV PRN (08:12)
[2022-10-11] MEDS ORDERED: MIDAZOLAM HCL 1 MG/ML 2ML VIAL ONE (10:33)
[2022-10-11] MEDS ORDERED: ROCURONIUM BROMIDE 10 MG/ML 5 ML VIAL IV ONE (10:33)
[2022-10-11] MEDS ORDERED: PROPOFOL IV EMULSION 10 MG/ML 20 ML VIAL IV ONE (10:33)
[2022-10-11] MEDS ORDERED: fentaNYL citrate 100 MCG/2 ML VIAL ONE (10:33)
[2022-10-11] MEDS ORDERED: LIDOCAINE 2% MPF LOCAL 5 ML VIAL INFIL ONE (10:33)
--- NOTE | 2022-10-11 11:36 | History & Physical Bridge Note ---
Date of Service October 11, 2022 History & Physical Bridge Note I have examined the patient, reviewed the History & Physical and in the interval since the performance of the History & Physical I have noted the following changes of clinical significance: no changes noted
--- NOTE | 2022-10-11 11:37 | History & Physical Report ---
Date of Service October 11, 2022 Assessment & Plan (1) Neurogenic claudication due to lumbar spinal stenosis: Plan: L4-S1 decompression and fusion History of Present Illness Chief Complaint: Back and leg pain Primary Care Provider: Talha Matias This is a 72-year-old male that presents with chronic persistent back and leg pain after failing steps course of nonoperative care is here for surgical invention. Allergies Allergy/AdvReac Type Severity Reaction Status Date / Time Penicillins Allergy Mild Unknown Verified 10/11/22 08:15 (remote reaction) niacin Allergy Unknown Itchy and Verified 10/11/22 08:15 hot Home Medications Medication Instructions Recorded Confirmed Type omega-3 acid ethyl esters 1 gram 1 cap PO BID 06/04/19 10/11/22 History capsule aspirin 81 mg tablet,delayed 81 mg PO QAM 06/06/19 10/11/22 History release acetaminophen 650 mg 650 mg PO BID 03/13/20 10/11/22 History tablet,extended release (Tylenol Arthritis Pain) potassium chloride 20 mEq 10 meq PO BID #45 tabs 05/26/21 10/11/22 Rx tablet,extended release folic acid 1 mg tablet 1 mg PO DAILY #90 tabs 12/24/21 10/11/22 Rx tramadol 50 mg tablet 50 mg PO Q6H PRN pain #120 tabs 03/15/22 10/11/22 Rx losartan 100 mg tablet 100 mg PO HS #90 tabs 03/24/22 10/11/22 Rx metoprolol tartrate 25 mg tablet 25 mg PO BID #180 tabs 03/24/22 10/11/22 Rx diclofenac sodium 1 % topical gel 2 g topical QID PRN pain #100 grams 03/26/22 10/11/22 Rx ferrous sulfate 325 mg (65 mg 325 mg PO BID #180 tabs 06/14/22 10/11/22 Rx iron) tablet isosorbide mononitrate 60 mg 60 mg PO QAM #90 tabs 08/02/22 10/11/22 Rx tablet,extended release 24 hr atorvastatin 80 mg tablet 80 mg PO QAM 09/07/22 10/11/22 History cholecalciferol (vitamin D3) 125 125 mcg PO QAM 09/07/22 10/11/22 History mcg (5,000 unit) capsule cyanocobalamin (vitamin B-12) 1,000 mcg PO QAM 09/07/22 10/11/22 History 1,000 mcg tablet hydrochlorothiazide 25 mg tablet 25 mg PO QAM 09/07/22 10/11/22 History nitroglycerin 0.4 mg sublingual 0.4 mg sublingual UD PRN Chest Pain 09/07/22 10/11/22 History tablet nortriptyline 25 mg capsule 25 mg PO HS 09/07/22 10/11/22 History Past Med/Surg History Medical History Allergic rhinitis CAD (coronary artery disease) PCI x 2 (2007) JORDAN to LAD (2019) Cervical disc disease GERD (gastroesophageal reflux disease) History of COVID-19 Summer 2021 (home test), rhinorrhea > resolved Hx of fracture of nose Multiple, no surgical intervention Hyperlipidemia Hypertension Lumbar disc disease Lumbar spinal stenosis Osteoarthritis Peptic ulcer disease hx Surgical History H/O hernia repair R/L inguinal H/O repair of left rotator cuff History of esophagogastroduodenoscopy (EGD) History of heart artery stent PCI x 2 (2007) JORDAN to LAD (2019) History of total knee arthroplasty Left Hx of colonoscopy S/P cardiac cath 2006, 2018 (BINTA Kim) S/P carpal tunnel release Right wrist Status post open reduction and internal fixation (ORIF) of fracture Left elbow Family History Father Coronary heart disease Myocardial infarction Prostate cancer Colorectal cancer Mother Lung disease Brother Anxiety Cardiac disorder Depression Denies family history of Ovarian cancer Breast cancer Social History Smoking Status: Never smoker Second Hand Exposure: Yes (parents smoked); Do You Dip or Chew Tobacco: No; Tobacco Cessation Education Requested by Patient: No Hx Alcohol Use: No Hx Substance Use: No Preferred Language: Serbian Communication Ability: Effective Visual Impairment: No Limitations Hearing Ability: Normal Jewel Gauger Required: No Beliefs That Will Affect Care: None marital status: Current Living Situation: Spouse and Family Current Living Situation Comment: Lives w/ spouse and granddaughter current occupational status: disabled Other Information That Helps Us Care for You: No Feels Safe at Home: Yes Safety Concerns: Feels Safe At This Time Childhood Exposure to Second-Hand Smoke: Yes caffeine: No during the past year weight has: remained stable Dental Care, Regularly: No Physical Activity Frequency: Does not Exercise Seatbelt Use: always Sunscreen Use: No Assistive Devices: None Physical Exam Physical Exam: Patient is alert and oriented Heart regular rhythm Lungs clear Results & Data Results & Data ([facility]) Vital Signs (Past 12 Hours) Vital Signs Temp Pulse Resp BP Pulse Ox O2 Del Method 10/11/22 08:23 36.8 C 56 L 20 122/77 97 Room Air
[2022-10-11] MEDS ORDERED: ONDANSETRON INJ 2 MG/ML 2 ML VIAL ONE (11:45)
[2022-10-11] MEDS ORDERED: DEXAMETHASONE SOD INJ 4 MG/ML VIAL ONE (11:45)
[2022-10-11] MEDS ORDERED: BUPIVACAINE/EPINEPHRINE 0.25% 1:200,000 30 ML VIAL ONE (11:55)
[2022-10-11] MEDS: ceFAZolin 330 MG/ML 1 GM VIAL ONE ×2 (12:49→14:32)
[2022-10-11] MEDS ORDERED: FLOSEAL HEMOSTATIC MATRIX 10ML TOP ONE (12:50)
[2022-10-11] MEDS ORDERED: PHENYLEPHRINE HCL 10 MG/ML VIAL ONE (12:51)
[2022-10-11] MEDS ORDERED: PHENYLEPHRINE 100MCG/ML 5ML SYR ONE (12:51)
--- NOTE | 2022-10-11 13:57 | Operative Report ---
Post Operative Report Pre & Post Diagnosis Operation Date: 10/11/22 09:35 Pre-Op Diagnosis: Spinal Stenosis, Lumbar Region with Neurogenic Claudication Post-Op Diagnosis: Spinal Stenosis, Lumbar Region with Neurogenic Claudication I identified the patient and participated in the time-out.: Yes Procedure Operation Date: 10/11/22 09:35 Actual Procedures #1 lumbar decompression bilateral medial facetectomies and foraminotomies L3-L4, L4-5 and L5-S1. #2 posterior spinal fusion L4-S1. #3 placement posterior instrumentation L4-S1. #4 interbody fusion L4-L5 L5-S1. #5 placement of Spira 15 x 26 mm at L4-5 and 10 x 26 mm at L5-S1. #6 placement locally harvested morselized autograft in the posterior gutters. #7 placement of I factor combined with V toss in the interbody space and posterior gutters. Surgeon Jeff James, Financial Recording Clerk Lucy Staton Estimated Blood Loss 200 Findings Consistent with Post-Op Diagnosis Specimens None Indications This is a 72-year-old male who presents above-mentioned diagnosis after an extensive course of nonoperative care is here for surgical invention. Description of Procedure Patient was met with identified informed consent obtained. Patient was then taken to the operative suite underwent a patient placed in prone position the Tyler table top Manas frame. All bony prominences well-padded eyes inspected to ensure no external pressure placed upon the. This point the lumbar spine was prepped and draped in a sterile fashion. Sharp dissection with the assistance of Bovie cautery was performed down to and exposing the lamina transverse processes of L4-5 and sacral ala bilaterally. From caudal to cephalad fashion complete laminectomy of L5 L4 and partial anatomy of L3 was performed including bilateral medial facetectomies and foraminotomies addressing severe spinal stenosis. Pedicle screws then placed in L4-L5 and S1 levels bilaterally with assistance of fluoroscopy and appropriate sized dolores placed. By way the transforaminal approach and right complete discectomy of L5-S1 was performed endplates curetted to subcortical being bone and a 10 x 26 mm spiral cage with I factor tapped in position. Then proceeded to L4-L5 and again by way of a transforaminal approach and right complete discectomy performed endplates cur etted to subcortical bleeding bone and a 15 x 26 mm spiral cage with I factor tapped in position. Rods were then locked into final position bilaterally. The transverse processes of L4-5 and sacral ala burred to subcortical bleeding bone. I factor combined with V toss and locally harvested morselized autograft was placed in the posterior gutters. 15 round MATTHEW drain inserted. Incision was then closed with 1 Vicryl in the fascia 2-0 Vicryl subcutaneously and 4 Monocryl for final skin closure. Steri-Strips dressings placed. Patient awakened taken to PACU stable condition. Please note Lucy Staton was present at the entire procedure involved in patient positioning complex portions of the surgery and final skin closure. I attest to the content of the Intraoperative Record and any orders documented therein. Any exceptions are noted below.
--- NOTE | 2022-10-11 14:40 | Fluoroscopy Report ---
FL lumbar spine 2-3V CLINICAL HISTORY: L4-S1 DECOMPRESSION AND FUSION POSSIBLE INTERBODY COMPARISON STUDY: None. FLUOROSCOPY TIME: 30 seconds. FINDINGS: 2 fluoroscopic spot images of the lumbar spine demonstrate posterior decompression fusion f rom L4 to S1 with pedicle screws and rods. The hardware is intact. Disc spacers are placed. IMPRESSION: Fluoroscopic assistance provided for L4-S1 posterior decompression and fusion. ACT 112: Negative or not required by law. Electronically signed by: Ed Blancas M.D. 10/11/2022 2:38 PM
[2022-10-11] MEDS ORDERED: ETOMIDATE 2 MG/ML 20 ML VIAL IV ONE (15:05)
[2022-10-11] MEDS ORDERED: KETOROLAC 30 MG/ML VIAL ONE (15:40)
[2022-10-11] MEDS ORDERED: ALBUMIN HUMAN 5% 12.5 GM/250 ML VIAL IV ONE (15:42)
[2022-10-11] MEDS ORDERED: KETOROLAC 30 MG/ML VIAL IV ONE (15:42)
[2022-10-11] MEDS ORDERED: SUCCINYLCHOLINE CHLORIDE 20 MG/ML 10 ML VIAL IV ONE (15:53)
[2022-10-11] MEDS ORDERED: GLYCOPYRROLATE 0.2 MG/ML VIAL ONE (16:05)
[2022-10-11] MEDS ORDERED: NEOSTIGMINE METHYLSULFATE 1 MG/ML 10ML VIAL ONE (16:05)
--- NOTE | 2022-10-11 16:37 | Anesthesiology Progress Note ---
Date of Service October 11, 2022 Anesthesia Post Procedure Vital Signs Vital Signs: Temp Pulse Pulse Resp BP Pulse Ox O2 Del Method 10/11/22 16:32 66 13 112/61 97 Oxymask 10/11/22 16:25 36.6 C 65 17 109/59 L 94 Oxymask 10/11/22 16:15 66 21 102/57 L 95 Oxymask 10/11/22 16:05 62 17 104/54 L 95 Oxymask 10/11/22 15:55 63 15 94/54 L 94 Oxymask 10/11/22 15:45 36.5 C 59 L 14 95/53 L 94 Oxymask 10/11/22 15:35 60 16 90/63 L 94 Oxymask 10/11/22 15:25 59 L 18 101/55 L 95 Oxymask 10/11/22 15:15 57 L 17 86/54 L 94 Oxymask 10/11/22 14:55 58 L 17 100/62 95 Oxymask 10/11/22 14:45 59 L 19 100/56 L 96 Oxymask 10/11/22 14:35 65 16 86/62 L 99 Oxymask 10/11/22 14:25 65 15 77/49 L 97 Oxymask 10/11/22 15:05 58 L 17 94/55 L 95 Oxymask 10/11/22 14:15 36.1 C L 66 14 96/59 L 97 Oxymask 10/11/22 08:23 36.8 C 56 L 20 122/77 97 Room Air O2 Flow Rate 10/11/22 16:32 4 10/11/22 16:25 4 10/11/22 16:15 4 10/11/22 16:05 4 10/11/22 15:55 4 10/11/22 15:45 4 10/11/22 15:35 4 10/11/22 15:25 4 10/11/22 15:15 4 10/11/22 14:55 4 10/11/22 14:45 4 10/11/22 14:35 6 10/11/22 14:25 8 10/11/22 15:05 4 10/11/22 14:15 8 10/11/22 08:23 Pain Intensity Back: Pain Intensity: 5 Transfer of Care Handoff Completed per policy Notes Mental Status: alert / awake / arousable and participated in evaluation Patient Amnestic to Procedure: Yes Nausea / Vomiting: adequately controlled Pain: adequately controlled Airway Patency, RR, SpO2: stable & adequate BP & HR: stable & adequate Hydration State: stable & adequate Anesthetic Complications: no major complications apparent
[2022-10-11] MEDS ORDERED: MAGNESIUM HYDROXIDE SUSP 30 ML UDC PO PRN (17:06)
[2022-10-11] MEDS ORDERED: traMADol HCL 50 MG TABLET PO PRN (17:06)
[2022-10-11] MEDS ORDERED: LORazepam 2 MG/1 ML VIAL IV PRN (17:06)
[2022-10-11] MEDS ORDERED: NITROGLYCERIN SL 0.4 MG/TAB TAB SL PRN (17:06)
[2022-10-11] MEDS ORDERED: oxyCODONE HCL IR 5 MG TAB (IMMEDIATE RELEASE) PO PRN (17:06)
[2022-10-11] MEDS ORDERED: DO NOT ADMINISTER PNEUMOCOCCAL VACCINE PRN (17:06)
[2022-10-11] MEDS ORDERED: FAMOTIDINE 20 MG TAB PO PRN (17:06)
[2022-10-11] MEDS ORDERED: hydrOXYzine HCl 25 MG TAB PO PRN (17:06)
[2022-10-11] MEDS ORDERED: DO NOT ADMINISTER FLU VACCINE PRN (17:06)
[2022-10-11] MEDS ORDERED: HYDROmorphone INJ 1 MG/ML SYRINGE IV PRN (17:06)
[2022-10-11] MEDS ORDERED: ONDANSETRON 4 MG OD TAB PO PRN (17:06)
[2022-10-11] MEDS ORDERED: ACETAMINOPHEN 1,000 MG/100 ML VIAL IV PRN (17:06)
[2022-10-11] MEDS ORDERED: SOD PHOSPHATE/SOD BIPHOSPHATE ENEMA 132 ML BTL PR PRN (17:06)
[2022-10-11] MEDS ORDERED: NALOXONE HCL 0.4 MG/1 ML VIAL/CARP IV PRN (17:06)
[2022-10-11] MEDS ORDERED: ALUMINUM/MAGNESIUM SUSP 30 ML UDC PO PRN (17:06)
[2022-10-11] MEDS ORDERED: PROMETHAZINE HCL 12.5 MG in SODIUM CHLORIDE 0.9% 50 ML IV PRN (17:06)
[2022-10-11] MEDS ORDERED: diphenhydrAMINE Capsule 25 MG CAP PO PRN (17:06)
[2022-10-11] MEDS ORDERED: bisacodyL 10 MG SUPP PR PRN (17:06)
[2022-10-11] MEDS ORDERED: HYDROmorphone INJ 0.5 MG/0.5 ML SYR IV PRN (17:06)
[2022-10-11] MEDS ORDERED: METOCLOPRAMIDE HCL INJ 5 MG/ML 2 ML VIAL IV PRN (17:06)
[2022-10-11] MEDS ORDERED: LORazepam 0.5 MG TAB PO PRN (17:06)
[2022-10-11] MEDS: SODIUM CHLORIDE 0.9% 1000ML 1,000 ML IV SCH (17:33)
--- NOTE | 2022-10-11 18:34 | Consultation ---
Date of Consultation October 11, 2022 Assessment & Plan (1) Neurogenic claudication due to lumbar spinal stenosis: POD# 0 s/p decompression and fusion under the care of Dr. James. Per ortho for pain control, wound care, anticoagulation and activities Monitor H&H, hemoglobin 13.8 yesterday; trend in a.m. EBL 200 mL continue incentive spirometry PT/OT when appropriate (2) CAD (coronary artery disease): S/P JORDAN to LAD 2017 On aspirin; continue (3) Hypertension: Takes HCTZ, Imdur, losartan, metoprolol; continue Normotensive postop (4) Hyperlipidemia: takes Atorvastatin; continue (5) Depression: Takes nortriptyline; continue Plan Disposition PCP: Dr. Matias CODE STATUS: Full code VTE prophylaxis: Teds and SCDs per admitting team A total of 44 minutes was spent with greater than 50% of that time personally reviewing all current laboratory work and diagnostic imaging studies obtained in the ED. Additionally, I was able to review the patients past medication reconciliation and history with direct visualization in the patients chart. Included in the time above, a portion of that time was spent assessing the patie nt while discussing and collaborating with specialists, if necessary, and making medical decisions regarding orders to be placed. All of the aforementioned completed while collaborating wit Dr. Bullock for a full treatment plan. Please see his addendum for further details. Supervising Physician Co-Signing Physician Notes Seen at bedside for medical consult for lumbar decompression and fusion. Patient reports low back pain radiating down to right greater than left lower extremity prior to surgery, reports improvement in the symptoms. Patient is not on blood thinner, is on aspirin at home. Patient denies any new acute problems or fever or sore throat or cough in the last 1 week preceding surgery. Patient seems rested, not in acute distress. Upon examination: Patient on 2 L nasal cannula oxygen, no BLE edema, distal neurovascular status normal, lower back dressing clean dry and intact, MATTHEW drain with moderate serosanguineous collection noted, heart lungs and abdomen examination fairly WNL. Rest of the examination as above. I have seen and examined the patient and have discussed the case with the provider above. I agree with the assessment and plan as stated. History of Present Illness Requesting Physician: Dr. James Reason for Consultation: Postop medical management Attending Physician: Jeff James, DO History of Present Illness Mr. Hernandez is a 72-year-old male that presented to [facility] for L4-S1 decompression and fusion surgery under the care of Dr. James after failed conservative management. Patient has a past medical history that includes CAD diagnosed 2006 and a JORDAN to the LAD in 2019, HTN, HLD, OA, PVD, depression. Patient tolerated the surgical procedure well with 200 mL EBL. When I examined the patient he was sitting upright in his hospital bed in no apparent distress. He is AOx4 and denies numbness or tingling in his lower extremities, loss of bowel or bladder, chest pain, dizziness, headache, shortness of breath, nausea, vomiting, diarrhea. Patient tolerated clear liquid diet without complications. [facility] hospitalist were consulted for postoperative medical management. Please see A/P for further details. Thank you kindly for involving the hospitalist group with this patient. We are available via [employer] text 24 7. Allergies Allergy/AdvReac Type Severity Reaction Status Date / Time Penicillins Allergy Mild Unknown Verified 10/11/22 08:15 (remote reaction) niacin Allergy Unknown Itchy and Verified 10/11/22 08:15 hot Home Medications Medication Instructions Recorded Confirmed Type omega-3 acid ethyl esters 1 gram 1 cap PO BID 06/04/19 10/11/22 History capsule aspirin 81 mg tablet,delayed 81 mg PO QAM 06/06/19 10/11/22 History release acetaminophen 650 mg 650 mg PO BID 03/13/20 10/11/22 History tablet,extended release (Tylenol Arthritis Pain) potassium chloride 20 mEq 10 meq PO BID #45 tabs 05/26/21 10/11/22 Rx tablet,extended release folic acid 1 mg tablet 1 mg PO DAILY #90 tabs 12/24/21 10/11/22 Rx tramadol 50 mg tablet 50 mg PO Q6H PRN pain #120 tabs 03/15/22 10/11/22 Rx losartan 100 mg tablet 100 mg PO HS #90 tabs 03/24/22 10/11/22 Rx metoprolol tartrate 25 mg tablet 25 mg PO BID #180 tabs 03/24/22 10/11/22 Rx diclofenac sodium 1 % topical gel 2 g topical QID PRN pain #100 grams 03/26/22 10/11/22 Rx ferrous sulfate 325 mg (65 mg 325 mg PO BID #180 tabs 06/14/22 10/11/22 Rx iron) tablet isosorbide mononitrate 60 mg 60 mg PO QAM #90 tabs 08/02/22 10/11/22 Rx tablet,extended release 24 hr atorvastatin 80 mg tablet 80 mg PO QAM 09/07/22 10/11/22 History cholecalciferol (vitamin D3) 125 125 mcg PO QAM 09/07/22 10/11/22 History mcg (5,000 unit) capsule cyanocobalamin (vitamin B-12) 1,000 mcg PO QAM 09/07/22 10/11/22 History 1,000 mcg tablet hydrochlorothiazide 25 mg tablet 25 mg PO QAM 09/07/22 10/11/22 History nitroglycerin 0.4 mg sublingual 0.4 mg sublingual UD PRN Chest Pain 09/07/22 10/11/22 History tablet nortriptyline 25 mg capsule 25 mg PO HS 09/07/22 10/11/22 History oxycodone 5 mg tablet 5 mg PO Q6H PRN pain, severe #30 10/12/22 Rx tabs tramadol 50 mg tablet 50 mg PO Q6H PRN pain, moderate 10/12/22 Rx #30 tabs Patient History Medical History Allergic rhinitis CAD (coronary artery disease) PCI x 2 (2006) JORDAN to LAD (2018) Cervical disc disease Depression GERD (gastroesophageal reflux disease) History of COVID-19 Summer 2021 (home test), rhinorrhea > resolved Hx of fracture of nose Multiple, no surgical intervention Hyperlipidemia Hypertension Lumbar disc disease Lumbar spinal stenosis Osteoarthritis Peptic ulcer disease hx Surgical History H/O hernia repair R/L inguinal H/O repair of left rotator cuff History of esophagogastroduodenoscopy (EGD) History of heart artery stent PCI x 2 (2006) JORDAN to LAD (2019) History of total knee arthroplasty Left Hx of colonoscopy S/P cardiac cath 2006, 2018 (BINTA Kim) S/P carpal tunnel release Right wrist Status post open reduction and internal fixation (ORIF) of fracture Left elbow Family History Father Coronary heart disease Myocardial infarction Prostate cancer Colorectal cancer Mother Lung disease Brother Anxiety Cardiac disorder Depression Denies family history of Ovarian cancer Breast cancer Social History Smoking Status: Never smoker Second Hand Exposure: Yes (parents smoked); Do You Dip or Chew Tobacco: No; Tobacco Cessation Education Requested by Patient: No Hx Alcohol Use: No Hx Substance Use: No Preferred Language: Syriac Communication Ability: Effective Visual Impairment: No Limitations Hearing Ability: Normal Portfolio Lead Required: No Beliefs That Will Affect Care: None marital status: Current Living Situation: Spouse and Family Current Living Situation Comment: Lives w/ spouse and granddaughter current occupational status: disabled Other Information That Helps Us Care for You: No Feels Safe at Home: Yes Safety Concerns: Feels Safe At This Time Childhood Exposure to Second-Hand Smoke: Yes caffeine: No during the past year weight has: remained stable Dental Care, Regularly: No Physical Activity Frequency: Does not Exercise Seatbelt Use: always Sunscreen Use: No Assistive Devices: Walker Review of Systems Review of Systems: Neuro: (-) Falls, trauma, slurred speech HEENT: (-) CREWS, dizziness, dysphagia, visual or auditory changes CV: (-) CP, palpitations, swelling Resp: (-) SOB GI: (-) appetite changes, N/V/D, bowel changes : (-) urinary changes Skin: (-) rashes Psych: (-) anxiety, depression Physical Exam Physical Exam: Neuro: AAOx4, PERRLA, no aphagia, memory changes, CNII-XII grossly intact HEENT: head normocephalic, moist mucus membranes CV: S1/S2, (-) M/G/R, (-) edema, cap refill < 3 seconds MATTHEW drain x1 naeem red blood Resp: Lungs CTA in all shepherd. On RA GI: Abdomen S/NT/ND, Ax4 bowel sounds, (-) CVA tenderness Musculoskeletal: 5/5 B/L UE strength, 5/5 B/L LE strength. No gait disturbance Skin: (-) rashes , (-) erythema. Lower back vertical surgical dressing clean dry intact Psych: euthymic mood Results & Data ([facility]) Vital Signs (Past 12 Hours) Vital Signs Temp Pulse Pulse Resp BP Pulse Ox O2 Del Method 10/11/22 17:45 36.3 C L 65 18 120/67 96 Oxymask 10/11/22 17:00 Oxymask 10/11/22 17:15 36.7 C 61 16 102/59 L 99 Nasal Cannula 10/11/22 16:45 36.7 C 71 16 107/66 96 Oxymask 10/11/22 16:35 66 13 112/61 97 Oxymask 10/11/22 16:25 36.6 C 65 17 109/59 L 94 Oxymask 10/11/22 16:15 66 21 102/57 L 95 Oxymask 10/11/22 16:05 62 17 104/54 L 95 Oxymask 10/11/22 15:55 63 15 94/54 L 94 Oxymask 10/11/22 15:45 36.5 C 59 L 14 95/53 L 94 Oxymask 10/11/22 15:35 60 16 90/63 L 94 Oxymask 10/11/22 15:25 59 L 18 101/55 L 95 Oxymask 10/11/22 15:15 57 L 17 86/54 L 94 Oxymask 10/11/22 14:55 58 L 17 100/62 95 Oxymask 10/11/22 14:45 59 L 19 100/56 L 96 Oxymask 10/11/22 14:35 65 16 86/62 L 99 Oxymask 10/11/22 14:25 65 15 77/49 L 97 Oxymask 10/11/22 15:05 58 L 17 94/55 L 95 Oxymask 10/11/22 14:15 36.1 C L 66 14 96/59 L 97 Oxymask 10/11/22 08:23 36.8 C 56 L 20 122/77 97 Room Air O2 Flow Rate 10/11/22 17:45 2 10/11/22 17:00 4 10/11/22 17:15 3 10/11/22 16:45 4 10/11/22 16:35 4 10/11/22 16:25 4 10/11/22 16:15 4 10/11/22 16:05 4 10/11/22 15:55 4 10/11/22 15:45 4 10/11/22 15:35 4 10/11/22 15:25 4 10/11/22 15:15 4 10/11/22 14:55 4 10/11/22 14:45 4 10/11/22 14:35 6 10/11/22 14:25 8 10/11/22 15:05 4 10/11/22 14:15 8 10/11/22 08:23 Diagnostic Findings Lumbar Spine X-Ray 10/11/22 09:35 FL lumbar spine 2-3V CLINICAL HISTORY: L4-S1 DECOMPRESSION AND FUSION POSSIBLE INTERBODY COMPARISON STUDY: None. FLUOROSCOPY TIME: 30 seconds. FINDINGS: 2 fluoroscopic spot images of the lumbar spine demonstrate posterior decompression fusion from L4 to S1 with pedicle screws and rods. The hardware is intact. Disc spacers are placed. IMPRESSION: Fluoroscopic assistance provided for L4-S1 posterior decompression and fusion. ACT 112: Negative or not required by law. Electronically signed by: Ed Blancas M.D. 10/11/2022 2:38 PM
[2022-10-11] MEDS: ACETAMINOPHEN 500 MG TAB PO PRN ×2 (20:04→20:12)
[2022-10-11] MEDS: CLINDAMYCIN/D5W 600 MG/50 ML BAG IV SCH (20:04)
[2022-10-11] MEDS: DOCUSATE SODIUM/SENNA 50/8.6MG TAB PO SCH (20:12)
[2022-10-11] MEDS: FERROUS SULFATE 325 MG TAB PO SCH (20:12)
[2022-10-11] MEDS: LOSARTAN POTASSIUM 50 MG TAB PO SCH (20:12)
[2022-10-11] MEDS: METOPROLOL TARTRATE 25 MG TAB PO SCH (20:13)
[2022-10-11] MEDS: NORTRIPTYLINE HCL 25 MG CAP PO SCH (20:32)
[2022-10-12] MEDS ORDERED: SODIUM CHLORIDE 0.9% 500 ML IV SCH (03:45)
[2022-10-12] MEDS: SODIUM CHLORIDE 0.9% 1000ML 1,000 ML IV SCH ×2 (05:00→15:52)
[2022-10-12] MEDS: CLINDAMYCIN/D5W 600 MG/50 ML BAG IV SCH (05:00)
[2022-10-12] MEDS: POLYETHYLENE (MIRALAX) 17 GM PACK PO SCH ×3 (05:15→18:21)
[2022-10-12] MEDS: FERROUS SULFATE 325 MG TAB PO SCH ×2 (08:06→21:16)
[2022-10-12] MEDS: CHOLECALCIFEROL 5,000 UNITS 125 MCG TAB PO SCH (08:06)
[2022-10-12] MEDS: FOLIC ACID 1 MG TAB PO SCH (08:07)
[2022-10-12] MEDS: CYANOCOBALAMIN (B-12) 500 MCG TABLET PO SCH (08:08)
[2022-10-12] MEDS: ASPIRIN 81 MG ECTAB PO SCH (08:08)
[2022-10-12] MEDS: ATORVASTATIN 40 MG TAB PO SCH (08:08)
[2022-10-12] MEDS: dexAMETHasone 6 MG in SYRINGE 0 ML IV SCH (08:09)
[2022-10-12 08:21] LABS: Basophils # (auto) 0.01 K/uL (0-0.2); Basophils % (auto) 0.1 %; Hematocrit (blood only) 33.7 % (40.1-51.0); Hemoglobin 11.6 g/dl (14.0-18.0); Immature Granulocytes # (auto) 0.06 K/uL (0.00-0.02); Immature Granulocytes % (auto) 0.5 %; Lymphocytes # (auto) 1.24 K/uL (1.2-3.4); Lymphocytes % (auto) 9.9 %; Mean Corpuscular Hemoglobin 34.1 pg (25.0-34.0); Mean Corpuscular Hgb Conc 34.4 g/dL (32.0-36.0); Mean Corpuscular Volume 99.1 fL (80.0-100.0); Mean Platelet Volume 9.3 fL (9.4-12.4); Monocytes # (auto) 1.16 K/uL (0.24-0.82); Monocytes % (auto) 9.3 %; Neutrophils # (auto) 10.03 K/uL (1.4-6.5); Neutrophils % (auto) 80.2 %; Platelet Count 144 K/uL (130-400); RDW Coefficient of Variation 12.4 % (11.5-14.5); RDW Standard Deviation 45.6 fL (36.4-46.3)
--- NOTE | 2022-10-12 08:28 | Orthopedic Progress Note ---
Date of Service October 12, 2022 Assessment & Plan (1) Neurogenic claudication due to lumbar spinal stenosis: Plan: This time initiate physical therapy monitor his MATTHEW operatively discharge home in the next day or so. Admission and Anticipated Discharge Date Admission Date: October 11, 2022 Subjective Patient's back pain is controlled leg symptoms improved Physical Exam Physical Exam: On exam he is in bed. Is comfortable. Is good strength testin g. Results & Data ([facility]) Vital Signs (Past 12 Hours) Vital Signs Temp Pulse Pulse Resp BP BP Pulse Ox 10/12/22 08:03 99/62 L 10/12/22 07:56 10/12/22 07:32 36.6 C 70 16 98/64 L 95 10/12/22 05:58 95/68 L 10/12/22 03:19 36.7 C 70 16 95/59 L 96/61 L 94 10/11/22 22:31 36.7 C 73 16 105/65 94 O2 Del Method O2 Flow Rate 10/12/22 08:03 10/12/22 07:56 Nasal Cannula 1 10/12/22 07:32 Room Air 10/12/22 05:58 10/12/22 03:19 Nasal Cannula 1 10/11/22 22:31 Nasal Cannula 3.0
[2022-10-12 08:49] LABS: BUN Creatinine Ratio 24.5 (10-20); Calcium 7.8 mg/dl (8.5-10.1); Creatinine Clr Calc Pharmacy 74.4 ml/min; Est GFR (African American) 94.2 ml/min; Est GFR (Non-African American) 81.2 ml/min; Potassium 3.9 mmol/L (3.5-5.1)
[2022-10-12] MEDS: METOPROLOL TARTRATE 25 MG TAB PO SCH ×2 (09:53→21:16)
[2022-10-12] MEDS: hydroCHLOROthiazide 25 MG TAB PO SCH (09:53)
[2022-10-12] MEDS: ISOSORBIDE MONO EXTENDED REL 60 MG TABCR PO SCH (09:54)
--- NOTE | 2022-10-12 13:37 | Hospitalist Progress Note ---
Date of Service October 12, 2022 Assessment & Plan (1) Neurogenic claudication due to lumbar spinal stenosis: Plan (1) Neurogenic claudication due to lumbar spinal stenosis: s/p Lumbar Sx 10/11/22 Acute blood loss anemia/likely postoperative w/ some dilutional component POD# 1 s/p decompression and fusion under the care of Dr. James. Per ortho for pain control, wound care, anticoagulation and activities Monitor H&H, hemoglobin above 11, patient without any chest pain or headache or dizziness or other symptoms. continue incentive spirometry PT/OT when appropriate (2) CAD (coronary artery disease): S/P JORDAN to LAD 2017 On aspirin; continue (3) Hypertension: Takes HCTZ, Imdur, losartan, metoprolol; continue Normotensive postop (4) Hyperlipidemia: takes Atorvastatin; continue (5) Depression: Takes nortriptyline; continue Admission and Anticipated Discharge Date Admission Date: October 11, 2022 Subjective Patient seen and examined at bedside as a follow-up of medical management for status post lumbar decompression and fusion for neurogenic claudication due to lumbar spinal stenosis. Patient was sitting up in chair, on room air, NAD, reports eating okay, is moving gas, he had to move his bowel, reports pain under control, reports LLE radicular symptoms getting better, denies other review of symptoms. Physical Exam Physical Exam: GENERAL: Alert and oriented x3. NAD, on RA. HEENT: No pallor, no icterus. Pupils equal, round and reactive to light. Oral mucosa moist. NECK: No JVD, no neck masses. HEART: S1 and S2 heard. Regular rate and rhythm. No murmur, no gallop. RESPIRATORY SYSTEM: Normal AP diameter. No accessory muscle use. No wheezing, no crackles. ABDOMEN: Soft, bowel sounds present, nontender, no distention. CENTRAL NERVOUS SYSTEM: No facial droop. Speech is clear. Obeys simple commands. Moves extremities. EXTREMITIES: No edema, no erythema seen. Back with clean dressing without soakage, MATTHEW drain with moderate serosanguineous collection noted. Results & Data Results & Data ([facility]) Vital Signs (Past 12 Hours) Vital Signs Temp Pulse Pulse Resp BP BP Pulse Ox 10/12/22 10:44 91 10/12/22 09:59 92 10/12/22 09:52 85 115/65 10/12/22 08:03 99/62 L 10/12/22 07:56 10/12/22 07:32 36.6 C 70 16 98/64 L 95 10/12/22 05:58 95/68 L 10/12/22 03:19 36.7 C 70 16 95/59 L 96/61 L 94 O2 Del Method O2 Flow Rate 10/12/22 10:44 10/12/22 09:59 Room Air 10/12/22 09:52 10/12/22 08:03 10/12/22 07:56 Nasal Cannula 1 10/12/22 07:32 Room Air 10/12/22 05:58 10/12/22 03:19 Nasal Cannula 1
[2022-10-12] MEDS: NORTRIPTYLINE HCL 25 MG CAP PO SCH (21:16)
[2022-10-12] MEDS: LOSARTAN POTASSIUM 50 MG TAB PO SCH (21:16)
[2022-10-12] MEDS: DOCUSATE SODIUM/SENNA 50/8.6MG TAB PO SCH (21:16)
[2022-10-13] MEDS: POLYETHYLENE (MIRALAX) 17 GM PACK PO SCH ×3 (00:31→13:33)
[2022-10-13] MEDS: METOPROLOL TARTRATE 25 MG TAB PO SCH (09:06)
[2022-10-13] MEDS: dexAMETHasone 6 MG in SYRINGE 0 ML IV SCH (09:06)
[2022-10-13] MEDS: ISOSORBIDE MONO EXTENDED REL 60 MG TABCR PO SCH (09:07)
[2022-10-13] MEDS: ATORVASTATIN 40 MG TAB PO SCH (09:07)
[2022-10-13] MEDS: FERROUS SULFATE 325 MG TAB PO SCH (09:07)
[2022-10-13] MEDS: CYANOCOBALAMIN (B-12) 500 MCG TABLET PO SCH (09:07)
[2022-10-13] MEDS: hydroCHLOROthiazide 25 MG TAB PO SCH (09:07)
[2022-10-13] MEDS: CHOLECALCIFEROL 5,000 UNITS 125 MCG TAB PO SCH (09:08)
[2022-10-13] MEDS: FOLIC ACID 1 MG TAB PO SCH (09:08)
[2022-10-13] MEDS: ASPIRIN 81 MG ECTAB PO SCH (09:08)
[2022-10-13 09:16] LABS: Hematocrit (blood only) 32.5 % (40.1-51.0); Hemoglobin 11.2 g/dl (14.0-18.0); Mean Corpuscular Hemoglobin 34.5 pg (25.0-34.0); Mean Corpuscular Hgb Conc 34.5 g/dL (32.0-36.0); Mean Platelet Volume 9.3 fL (9.4-12.4); Platelet Count 139 K/uL (130-400); RDW Coefficient of Variation 12.3 % (11.5-14.5); Red Blood Count 3.25 M/uL (4.63-6.08); White Blood Count 11.49 K/ul (4.8-10.8)
--- NOTE | 2022-10-13 10:09 | Discharge Summary ---
Date of Service October 13, 2022 Admission HPI Per Admitting Provider This is a 72-year-old male that presents with chronic persistent back and leg pain after failing steps course of nonoperative care is here for surgical invention. Principal Diagnosis Lumbar spinal stenosis with neurogenic claudication Discharge Data Allergies Allergy/AdvReac Type Severity Reaction Status Date / Time Penicillins Allergy Mild Unknown Verified 10/11/22 08:15 (remote reaction) niacin Allergy Unknown Itchy and Verified 10/11/22 08:15 hot Consultations 10/11/22 17:06 Consult Hospitalist Routine Procedures Performed Operation Date: 10/11/22 09:35 Actual Procedures p L4-S1 Decompression, Possible L4-S1 Fusion, Spinal Cord Monitoring(Not Applicable) - Jeff James DO Ordered Studies 10/11/22 09:35 [place] lumbar spine 2-3V Routine Hospital Course (1) Neurogenic claudication due to lumbar spinal stenosis: Patient with lumbar decompression fusion tolerated this well was taken to orthopedic for postoperative. Postop day 1 is up and ambulating Lino postop day #2. MATTHEW drain decreased appropriate. Pain well controlled. Excellent strength testing. Safely discharged home. Discharge orders instructions from the chart for further review. Total Time Total Time Spent Total Time Spent (In Minutes): 20 minutes Discharge Plan Discharge Items Patient Disposition: Home - Self-Care Reason For Visit: Spinal Stenosis, Lumbar Region with Neurogenic Discharge Diagnosis: Lumbar spinal stenosis with neurogenic claudication Activity: As commented below Non-emergency contact: Primary Care Provider Call non-emergency contact if: you have any medication questions Follow-up/Referrals: Talha Matias [Primary Care Provider] - Diet: Regular Addtl Attending Provider Instructions: ACTIVITY RECOMMENDATIONS: SELF CARE INSTRUCTIONS AFTER THORACIC/LUMBAR FUSIONS 1. You may walk to your tolerance. It is good exercise for your legs and back. Expect some back and intermittent leg aches and pains. 2. You may perform "counter-top" level activities (make a sandwich, gaby with a project, etc.). 3. No bending or lifting of more than 10 pounds or back twisting of any nature (roll like a log when turning in bed). 4. You may ride in a car for 20-30 minutes at a time. No driving until after your first visit with your doctor. 5. Frequent changes of position and restricting sitting to 30 minutes at a time will help limit the amount of back spasms and stiffness you may experience. 6. You may discontinue the use of ambulatory aids (cane, crutches, etc.) once your strength and confidence allow. 7. You may transmission line engineer the shower and let water strike your incision when you arrive home at least once daily. Do not take a tub bath, sit in a hot tub or go into a swimming pool until after your first recheck in the office. SPECIAL CARE INSTRUCTIONS: VERY IMPORTANT TO READ AND REVIEW A. Your surgical incision has been closed with a cosmetic suture under the skin that will dissolve in about 6 weeks. In 14 days, you can use a pair of clean scissors and cut the suture that is left outside of the skin at the ends of your incision. 1. The small skin tapes can be removed 7 days after surgery if they have not fallen off by that point. 2. You may keep the wound open to air as much as possible to promote healing after post-op day number 5 unless told otherwise by your doctor. 3. If you think the wound looks like it is becoming infected (redness or worsening drainage) and/or you are experiencing fever, chill or worsening back pain and muscle spasms, contact the office so that we may evaluate you as soon as possible. B. Complications are uncommon, but please contact us if you have any signs or symptoms of: 1. wound infection (fever higher than 102.5 degrees F, redness, separation of wound, drainage, or increasing pain from the incision) 2. blood clots in legs (pain, swelling, redness and warmth in legs) 3. urinary tract infection (fever higher than 102.5 degrees F, burning upon urination or increased frequency of urination) 4. nerve problems (inability to walk on your toes or heels, numbness, loss of bowel or bladder control) 5. any other symptoms that concern you C. Please call the office at if you have any concerns or questions about your operation or recovery. D. No smoking! Smoking drastically decreases the chance of a solid fusion. E. Do not take any anti-inflammatory medications (Indocin, Advil, Motrin, Aspirin, Naprosyn, etc.) as these may inhibit the chance of a solid fusion. Tylenol is okay to take for pain. MANAGING PAIN AFTER SPINAL SURGERY 1. Narcotic medication is intended for short-term use and will be provided for surgical pain. Surgical pain usually lasts for a period of 4-6 weeks. Narcotic medication includes Percocet, Vicodin, Darvocet, Tylenol #3 or Lortab. 2. Longer-term pain is more appropriately treated with non-narcotic medication such as Tylenol ES. 3. Muscle spasm is not appropriately treated with narcotics. Muscle relaxers such as Soma, Flexeril or Skelaxin can be used along with Tylenol ES. 4. Remember that we all live with some "aches and pains". This is not unusual or uncommon after an injury or as we get older. a. Back pain is expected and may include muscle spasms for 4 to 6 weeks after surgery. The pain should gradually improve. If the pain worsens for no apparent reason, please contact the office. b. Intermittent leg pain may also be experienced and should not be concerned about unless it worsens for no apparent reason. If so, please contact the office. 5. We will provide appropriate medication within the normal guidelines of their prescribed use. We will also be very cautious and aware of potential abuse and extended duration of patients' medication needs. a. Pain medications are for your comfort and to assist with sleep and rest so that the tissue can heal. They are not provided in order to return to normal activity and should not be used through the day. To do so or worsening pain at night can result from ongoing tissue damage and development of tolerance to the prescribed medicine. 6. Please allow 2-3 days to process refills. Prescriptions will not be mailed but must be picked up at the office. FOLLOW UP VISIT: Keep your scheduled follow-up appointment. Any questions, please call the office at . Pending Studies at Discharge: No Stand-Alone Forms: [facility] [employer] Runner, Smoking Cessation Medications and DC Order Prescriptions: New tramadol 50 mg tablet 50 mg PO Q6H PRN (Reason: pain, moderate) Qty: 30 0RF oxycodone 5 mg tablet 5 mg PO Q6H PRN (Reason: pain, severe) Qty: 30 0RF Continued potassium chloride 20 mEq tablet extended release 10 meq PO BID Qty: 45 5RF folic acid 1 mg tablet 1 mg PO DAILY Qty: 90 1RF tramadol 50 mg tablet 50 mg PO Q6H PRN (Reason: pain) Qty: 120 0RF metoprolol tartrate 25 mg tablet 25 mg PO BID Qty: 180 1RF losartan 100 mg tablet 100 mg PO HS Qty: 90 1RF diclofenac sodium 1 % gel 2 g topical QID PRN (Reason: pain) Qty: 100 5RF ferrous sulfate 325 mg (65 mg iron) tablet 325 mg PO BID Qty: 180 1RF Label Comments: dr stopped medication until further notice. isosorbide mononitrate 60 mg tablet extended release 24 hr 60 mg PO QAM Qty: 90 3RF omega-3 acid ethyl esters 1 gram capsule 1 cap PO BID aspirin 81 mg tablet,delayed release (DR/EC) 81 mg PO QAM acetaminophen [Tylenol Arthritis Pain] 650 mg tablet extended release 650 mg PO BID nortriptyline 25 mg Capsule 25 mg PO HS atorvastatin 80 mg tablet 80 mg PO QAM cyanocobalamin (vitamin B-12) 1,000 mcg tablet 1,000 mcg PO QAM nitroglycerin 0.4 mg tablet, sublingual 0.4 mg SL UD PRN (Reason: Chest Pain) hydrochlorothiazide 25 mg tablet 25 mg PO QAM cholecalciferol (vitamin D3) 125 mcg (5,000 unit) capsule 125 mcg PO QAM Discharge Orders: Discharge Order (Routine); Ordered 10/13/22 Ordered By: Jeff James Admission Data Admit Date/Time: 10/11/22 14:01 Attending Provider: Jeff James Admit Provider: Jeff James Primary Care Provider: Talha Matias Other Providers: Sinai Salguero
--- NOTE | 2022-10-13 14:46 | Hospitalist Progress Note ---
Date of Service October 13, 2022 Assessment & Plan (1) Neurogenic claudication due to lumbar spinal stenosis: Plan (1) Neurogenic claudication due to lumbar spinal stenosis: s/p Lumbar Sx 10/11/22 Acute blood loss anemia/likely postoperative w/ some dilutional component POD# 2 s/p decompression and fusion under the care of Dr. James. Per ortho for pain control, wound care, anticoagulation and activities Monitor H&H, hemoglobin above 11, patient without any chest pain or headache or dizziness or other symptoms. continue incentive spirometry PT/ot. (2) CAD (coronary artery disease): S/P JORDAN to LAD 2017 On aspirin; continue (3) Hypertension: Takes HCTZ, Imdur, losartan, metoprolol; continue Normotensive postop (4) Hyperlipidemia: takes Atorvastatin; continue (5) Depression: Takes nortriptyline; continue Admission and Anticipated Discharge Date Admission Date: October 11, 2022 Subjective Patient seen and examined at bedside as a follow-up of medical management for status post lumbar decompression and fusion for neurogenic claudication due to lumbar spinal stenosis. Patient was standing/talking over the phone, on room air, NAD, reports eating okay, is moving bowels, reports pain under control, reports no LLE radicular symptoms, denies other review of symptoms. Physical Exam Physical Exam: GENERAL: Alert and oriented x3. NAD, on RA. HEENT: No pallor, no icterus. Pupils equal, round and reactive to light. Oral mucosa moist. NECK: No JVD, no neck masses. HEART: S1 and S2 heard. Regular rate and rhythm. No murmur, no gallop. RESPIRATORY SYSTEM: Normal AP diameter. No accessory muscle use. No wheezing, no crackles. ABDOMEN: Soft, bowel sounds present, nontender, no distention. CENTRAL NERVOUS SYSTEM: No facial droop. Speech is clear. Obeys simple commands. Moves extremities. EXTREMITIES: No edema, no erythema seen. Back with clean dressing without soakage. Results & Data Results & Data ([facility]) Vital Signs (Past 12 Hours) Vital Signs Temp Pulse Resp BP Pulse Ox O2 Del Method O2 Flow Rate 10/13/22 12:23 36.7 C 69 18 112/66 93 Room Air 10/13/22 09:45 93 Room Air 10/13/22 09:05 Nasal Cannula 1 10/13/22 07:41 36.6 C 74 18 120/76 94 Nasal Cannula 1
== END 2022-10-13 15:18 | disposition home or self-care (01) | DRG 454 ==
LOC: ASU 07:44 → 3W 14:01

== ENCOUNTER 2024-06-15 14:12 | Inpatient (IN) ==
--- NOTE | 2024-06-15 14:28 | Emergency Department Note ---
Impression & Plan Syncope, Acute dehydration, ALEXANDRA (acute kidney injury) ED Provider Note NAME: MIKE OLSON AGE: 74 SEX: M : 1950 ARRIVES VIA: Ambulance INFORMANT: Patient, ED PROVIDER(S): Mitch Griffith DO CHIEF COMPLAINT: Syncope HPI: The patient is a 74-year-old male who presented to the emergency department for an evaluation after having a syncopal episode. The patient is status post cervical spine fusion. The patient was initially seen in our facility for neck pain and right sided weakness. Ultimately he was diagnosed with cervical radiculopathy and transferred to [facility] for surgical management. He did have surgical management. He has recovered from this nicely. He had an episode today where he was on the commode moving his bowels. He stated he was not straining but he had a syncopal episode. He denies having any headache or nausea at this time. He denies having any chest pain or difficulty breathing. He states he has not been drinking as much as usual. The patient denies having any lower extremity pain or swelling. ROS: See above HPI for pertinent positives & negatives. A total of 10 systems reviewed and were otherwise negative. PAST MEDICAL HISTORY: See Below PAST SURGICAL HISTORY: See Below FAMILY HISTORY: See Below SOCIAL HISTORY: See Below HOME MEDICATIONS: See Below ALLERGIES: See Below VITALS: See Below PHYSICAL EXAMINATION: GENERAL: Patient is awake alert in no acute distress patient is resting comfortably and showing no signs of anxiety EYES: The conjunctivae are clear. The pupils are round and reactive. EARS, NOSE, MOUTH AND THROAT: The nose is without any evidence of any deformity. Mucous membranes are moist. NECK: Rigid cervical collar was in place postoperatively. The posterior cervical spine does have a postoperative site which is clean. There is no erythema drainage or dehiscence noted. RESPIRATORY: Normal respiratory effort is noted there is no evidence of wheezing rhonchi or rales CARDIOVASCULAR: Regular rate and rhythm noted there no murmurs rubs or gallops normal S1 normal S2. GASTROINTESTINAL: The abdomen is soft. Abdomen is nontender. MUSCULOSKELETAL/EXTREMITIES: There is no evidence of gross deformity full range of motion is noted in the hips and shoulders. SKIN: There is no obvious evidence of any rash. There are no petechiae, pallor or cyanosis noted. NEUROLOGIC: Patient is awake alert and oriented x3 strength is symmetric patellar reflexes are 2+ bilaterally MEDICAL DECISION MAKING: The patient is a 74-year-old male who is status post cervical spine fusion who presented to the emergency department after having a syncopal episode. The patient has no focal neurologic deficits. He is having intermittent episodes of vision issues but at this time his NIH is 0. The patient was found to be hypotensive. His creatinine is also elevated compared to baseline. This could be just postoperative recovery but the patient's son came the emergency department with him and is very concerned about his father. He does not feel as though he is doing well. The patient initially refused inpatient rehab. His son is concerned that he might need inpatient rehab. He was treated with IV fluids in the emergency department. I discussed the patient's laboratory and radiographic studies with him and his family. Because of their concerns I discussed the case with the on-call [facility] hospitalist. Triage Nursing notes reviewed. Prior medical records reviewed Vital Signs: reviewed and remarkable for initial hypotension. Differential diagnosis: Vasovagal event, dehydration, infection, hypoglycemia, electrolyte abnormalities, cardiac sources, intracerebral event, pulmonary embolism, seizure, toxicologic, neurologic, as well as other pathologies. ER treatment provided: See below Diagnostics interpreted by me: ECG: EKG was obtained in the emergency department. My interpretation is normal sinus rhythm at 63 bpm. There is no ectopy. There is no acute ST segment abnormalities noted. This was compared to a tracing from June 04, 2024. No changes were noted. Cardiac Monitoring: An order was placed for continuous cardiac monitoring. The monitor shows a rate of 88 bpm with sinus rhythm. Laboratory studies: As stated above and show below. Imaging studies: See below. Radiographic imaging was reviewed by myself Consultation(s): I discussed this case with Rachelle who is on for the [facility]ist group. Past Med/Surg History Problem List (Updated 06/15/24 @ 16:28 by Mitch Griffith DO) ALEXANDRA (acute kidney injury) (Acute) Acute dehydration (Acute) Syncope (Acute) Edema of spinal cord (Acute) Cervical radiculopathy (Acute) Hypotension due to medication Depression Neurogenic claudication due to lumbar spinal stenosis Encounter for pre-operative examination Esophageal dysphagia Vitamin D deficiency TOBIN (dyspnea on exertion) Abnormal stress echocardiogram On anticoagulant therapy Hyperlipidemia Lumbar disc disease Cervical disc disease Osteoarthritis GERD (gastroesophageal reflux disease) Lumbar spinal stenosis Allergic rhinitis CAD (coronary artery disease) (Chronic) PCI x 2 (2007) JORDAN to LAD (2019) History of heart artery stent (Chronic) PCI x 2 (2007) JORDAN to LAD (2019) Hypertension (Chronic) Medical History Hx of fracture of nose Multiple, no surgical intervention History of COVID-19 Summer 2021 (home test), rhinorrhea > resolved Peptic ulcer disease hx Surgical History Hx of colonoscopy History of esophagogastroduodenoscopy (EGD) Status post open reduction and internal fixation (ORIF) of fracture Left elbow S/P carpal tunnel release Right wrist S/P cardiac cath 2006, 2018 (PH Julio) H/O hernia repair R/L inguinal H/O repair of left rotator cuff History of total knee arthroplasty Left Family History Father Coronary heart disease Myocardial infarction Prostate cancer Colorectal cancer Mother Lung disease Brother Anxiety Cardiac disorder Depression Denies family history of Ovarian cancer Breast cancer Social History Smoking Status: Never smoker Second Hand Exposure: Yes (parents smoked); Do You Dip or Chew Tobacco: No; Hx Alcohol Use: No (No ETOH x 30 years) Hx Substance Use: No Preferred Language: Sinhala Communication Ability: Effective Visual Impairment: No Limitations Hearing Ability: Normal 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 Beliefs That Will Affect Care: None marital status: Current Living Situation: Spouse and Family Current Living Situation Comment: Lives w/ spouse and granddaughter current occupational status: disabled Feels Safe at Home: Yes Childhood Exposure to Second-Hand Smoke: Yes Diet: regular caffeine: No during the past year weight has: remained stable Dental Care, Regularly: No Physical Activity Frequency: Does not Exercise Seatbelt Use: always Sunscreen Use: No Assistive Devices: Walker Allergies Allergies Allergy/AdvReac Type Severity Reaction Status Date / Time Penicillins Allergy Mild Unknown Verified 04/21/24 16:48 (remote reaction) niacin Allergy Unknown Itchy and Verified 04/21/24 16:48 hot Home Meds Home Medications Medication Instructions Recorded Confirmed omega-3 acid ethyl esters 1 gram 1 cap PO BID 06/04/19 06/04/24 capsule aspirin 81 mg tablet,delayed 81 mg PO QAM 06/06/19 06/04/24 release acetaminophen 650 mg 650 mg PO Q6H PRN Pain 03/13/20 06/04/24 tablet,extended release (Tylenol Arthritis Pain) cholecalciferol (vitamin D3) 125 125 mcg PO QAM 09/07/22 06/04/24 mcg (5,000 unit) capsule cyanocobalamin (vitamin B-12) 1,000 mcg PO QAM 09/07/22 06/04/24 1,000 mcg tablet nitroglycerin 0.4 mg sublingual 0.4 mg sublingual UD PRN Chest Pain 09/07/22 06/04/24 tablet diclofenac sodium 1 % topical gel 2 g topical QID PRN JOINT PAIN 04/21/24 06/04/24 gabapentin 300 mg capsule 300 mg PO TID 04/21/24 06/04/24 potassium chloride 20 mEq 20 meq PO QAM 04/21/24 06/04/24 tablet,extended release cyclobenzaprine 10 mg tablet 10 mg PO HS PRN Pain 06/04/24 06/04/24 Previous Rx's Medication Instructions Recorded folic acid 1 mg tablet 1 mg PO DAILY #90 tabs 12/24/21 losartan 100 mg tablet 100 mg PO HS #90 tabs 03/24/22 atorvastatin 80 mg tablet 80 mg PO QAM #90 tabs 08/04/23 isosorbide mononitrate 60 mg 60 mg PO QAM #90 tabs 08/11/23 tablet,extended release 24 hr metoprolol tartrate 25 mg tablet 25 mg PO BID #180 tabs 04/18/24 Results & Data (ED) Vital Signs Vital Signs - 24 hr 06/15/24 14:23 06/15/24 14:23 06/15/24 14:27 Temperature 36.4 C L Temperature Source Oral Pulse Rate - Lying Pulse Rate - Sitting Pulse Rate - Standing Pulse Rate 71 68 Pulse Rate from SpO2 Sensor Respiratory Rate 20 Blood Pressure - Lying Blood Pressure - Sitting Blood Pressure- Standing Blood Pressure 92/56 L Blood Pressure Mean 68 Pulse Oximetry 95 Oxygen Delivery Method Room Air Room Air Sepsis Recent Fever Within 48 Hours No Sepsis New/Unexplained Change in Mental Status No Sepsis Action Taken by Nursing No Action Required 06/15/24 14:27 06/15/24 15:00 06/15/24 15:57 Temperature Temperature Source Pulse Rate - Lying 62 Pulse Rate - Sitting 66 Pulse Rate - Standing 68 Pulse Rate 70 62 Pulse Rate from SpO2 Sensor 69 Respiratory Rate 21 15 Blood Pressure - Lying 109/68 Blood Pressure - Sitting 122/73 Blood Pressure- Standing 142/73 H Blood Pressure 88/56 L 97/61 L Blood Pressure Mean 66 73 Pulse Oximetry 94 Oxygen Delivery Method Sepsis Recent Fever Within 48 Hours Sepsis New/Unexplained Change in Mental Status Sepsis Action Taken by Nursing 06/15/24 15:57 06/15/24 16:00 06/15/24 16:30 Temperature Temperature Source Pulse Rate - Lying Pulse Rate - Sitting Pulse Rate - Standing Pulse Rate 78 68 68 Pulse Rate from SpO2 Sensor 64 68 Respiratory Rate 36 H 18 27 H Blood Pressure - Lying Blood Pressure - Sitting Blood Pressure- Standing Blood Pressure 109/68 122/73 93/69 L Blood Pressure Mean 81 89 77 Pulse Oximetry 88 L 96 Oxygen Delivery Method Sepsis Recent Fever Within 48 Hours Sepsis New/Unexplained Change in Mental Status Sepsis Action Taken by Shelter Medications Current Medication List: was personally reviewed by me Laboratory Data Attestation: I reviewed the patient's lab results. 06/15/24 14:30 06/15/24 14:30 Lab Results 06/15/24 06/15/24 Range/Units 14:30 16:19 WBC 10.03 (4.8-10.8) K/ul RBC 3.90 L (4.70-6.10) M/uL Hgb 12.8 L (14.0-18.0) g/dl Hct 39.1 L (42.0-52.0) % MCV 100.3 H (80.0-100.0) fL MCH 32.8 (25.0-34.0) pg MCHC 32.7 (32.0-36.0) g/dL RDW Std Deviation 48.0 H (36.4-46.3) fL RDW Coeff of Delmis 13.2 (11.5-14.5) % Plt Count 262 (130-400) K/uL MPV 9.1 L (9.4-12.4) fL Immature Gran % (Auto) 1.7 % Neut % (Auto) 64.0 % Lymph % (Auto) 17.2 % [place] % (Auto) 14.9 % Eos % (Auto) 1.7 % Baso % (Auto) 0.5 % Neut # (Auto) 6.42 (1.40-6.50) K/uL Lymph # (Auto) 1.73 (1.20-3.40) K/uL [place] # (Auto) 1.49 H (0.11-0.59) K/uL Eos # (Auto) 0.17 (0.00-0.50) K/uL Baso # (Auto) 0.05 (0.00-0.20) K/uL Immature Gran # (Auto) 0.17 (0.01-0.20) K/uL PT 10.3 (9.0-12.0) Seconds INR 0.9 (0.9-1.1) APTT 25 (21-31) Seconds PTT Ratio 0.9 Sodium 136 (136-145) mmol/L Potassium 4.5 (3.5-5.1) mmol/L Chloride 100 (98-107) mmol/L Carbon Dioxide 31 (21-32) mmol/L Anion Gap 5 (3-11) BUN 32 H (6-23) mg/dl Creatinine 1.64 H (0.6-1.4) mg/dl Est Cr Clr Drug Dosing 20.7 ml/min Est GFR ( Amer) 47.4 ml/min Est GFR (Non-Af Amer) 40.9 ml/min BUN/Creatinine Ratio 19.5 (10-20) Glucose 121 H (70-99(Fasting)) mg/dl Calcium 9.2 (8.6-10.3) mg/dl Magnesium 2.4 (1.7-2.4) mg/dl Total Bilirubin 0.7 (0.2-1.0) mg/dl AST 25 (13-39) U/L ALT 36 (7-52) U/L Alkaline Phosphatase 75 (34-104) U/L Total Creatine Kinase 62 (30-223) U/L Troponin I High Sens 3.6 (0-20) pg/ml Total Protein 6.5 (6.0-8.3) gm/dl Albumin 3.4 (3.4-5.0) gm/dl Globulin 3.1 (2.5-4.0) gm/dl Albumin/Globulin Ratio 1.1 (0.9-2) TSH 3.231 (0.300-4.500) uIu/ml Urine Color Yellow Urine Appearance Clear (Clear) Urine pH 6.0 (4.5-7.5) Ur Specific [place] 1.011 (1.000-1.030) Urine Protein Negative (Negative) Urine Glucose (UA) Negative (Negative) Urine Ketones Negative (Negative) Urine Blood Negative (Negative) Urine Nitrite Negative (Negative) Urine Bilirubin Negative (Negative) Urine Urobilinogen Negative (Negative) Ur Leukocyte Esterase Negative (Negative) Administered Medications Discontinued Medications Sodium Chloride (Nss) 1,000 mls @ 999 mls/hr IV .Q1H1M ONE Stop: 06/15/24 15:23 Last Infusion: 06/15/24 16:24 Dose: Infused Documented By: Admin: 06/15/24 14:47 Dose: 999 mls/hr Documented By: BONY Imaging Data Attestation: I personally reviewed and interpreted this imaging study as follows: My Impression: CT the brain was obtained in the emergency department. I interpretation is no intracranial hemorrhage or mass effect, final report below. 1 view chest x-ray was obtained in the emergency department. My interpretation is no free air or definite infiltrate, final report below. Radiologist's Impression: Cervical Spine CT 06/15/24 14:23 CT cervical spine wo con CLINICAL HISTORY: post op syncope TECHNIQUE: Multidetector row helical CT of the cervical spine was performed without administration of intravenous contrast. Coronal and sagittal reformations were obtained. Automated dose lowering techniques and/or adjustment according to patient size were utilized for this exam. Comparison: Comparison is made to cervical spine CT 04/21/2024 FINDINGS: No acute fractures or subluxations are identified. Degenerative changes are seen in the visualized spine. Posterior fixation hardware is seen. The alignment is normal. Subcutaneous emphysema is seen. There is a small amount of soft tissue edema which is likely postoperative. IMPRESSION: Expected postsurgical changes in this patient status post C1-C4 fixation. No evidence of acute fracture. ACT 112: Negative or not required by law. Electronically signed by: Justin Alonzo M.D. 06/15/2024 3:20 PM Chest X-Ray 06/15/24 14:23 XR chest 1V portable CLINICAL HISTORY: syncope TECHNIQUE: Single frontal radiograph of the chest was obtained. Comparison: Comparison is made to chest radiograph 06/04/2024 FINDINGS: No lines and tubes are seen. Calcified aortic knob is seen. Elevation of the right hemidiaphragm is seen. No evidence of pleural effusion or pneumothorax. IMPRESSION: No acute chest disease. ACT 112: Negative or not required by law. Electronically signed by: Justin Alonzo M.D. 06/15/2024 3:[address] 06/15/24 14:23 CT head/brain wo con CLINICAL HISTORY: 74 years-old Male with syncope. Acute syncope TECHNIQUE: Multiple axial CT images of the head were obtained without contrast. A dose lowering technique was utilized adhering to the principles of ALARA. COMPARISON: CT cervical spine same day, brain MRI June 04, 2024 FINDINGS: No acute intracranial hemorrhage, midline shift, intracranial mass, hydrocephalus, territorial ischemia or abnormal extra-axial collection. Age related involutional changes. The calvarium is intact. The paranasal sinuses, mastoid air cells, and middle ear cavities are clear. Postoperative changes of the upper cervical spine are partially imaged. IMPRESSION: No acute intracranial abnormality. ACT 112: Negative or not required by law. The above report was generated using voice recognition software. It may contain grammatical, syntax or spelling errors. Electronically signed by: Tommy Nicole M.D. 06/15/2024 3:32 PM Discharge Plan Visit Data Chief Complaint: Syncope Stated Complaint: SYNCOPE ED Provider: Mitch Griffith Discharge Problem: Syncope, Acute dehydration, ALEXANDRA (acute kidney injury) Patient Disposition: Being Evaluated by Hospitalist Forms Stand Alone Forms: [facility] Prescriptions Prescriptions: No Action folic acid 1 mg tablet 1 mg PO DAILY Qty: 90 1RF losartan 100 mg tablet 100 mg PO HS Qty: 90 1RF atorvastatin 80 mg tablet 80 mg PO QAM Qty: 90 3RF isosorbide mononitrate 60 mg tablet extended release 24 hr 60 mg PO QAM Qty: 90 3RF metoprolol tartrate 25 mg tablet 25 mg PO BID Qty: 180 3RF omega-3 acid ethyl esters 1 gram capsule 1 cap PO BID aspirin 81 mg tablet,delayed release (DR/EC) 81 mg PO QAM acetaminophen [Tylenol Arthritis Pain] 650 mg tablet extended release 650 mg PO Q6H PRN (Reason: Pain) cyanocobalamin (vitamin B-12) 1,000 mcg tablet 1,000 mcg PO QAM nitroglycerin 0.4 mg tablet, sublingual 0.4 mg SL UD PRN (Reason: Chest Pain) cholecalciferol (vitamin D3) 125 mcg (5,000 unit) capsule 125 mcg PO QAM gabapentin 300 mg capsule 300 mg PO TID diclofenac sodium [Voltaren] 1 % Gel 2 g TOPICAL QID PRN (Reason: JOINT PAIN) potassium chloride 20 mEq tablet extended release 20 meq PO QAM cyclobenzaprine 10 mg tablet 10 mg PO HS PRN (Reason: Pain) Referrals Referrals: Mayo Friend MD [Primary Care Provider] - Discharge Problem: Syncope Qualifiers: Syncope type: unspecified Qualified Code(s): R55 - Syncope and collapse
[2024-06-15 14:44] LABS: Basophils # (auto) 0.05 K/uL (0.00-0.20); Basophils % (auto) 0.5 %; Eosinophils # (auto) 0.17 K/uL (0.00-0.50); Eosinophils % (auto) 1.7 %; Hematocrit (blood only) 39.1 % (42.0-52.0); Hemoglobin 12.8 g/dl (14.0-18.0); Immature Granulocytes # (auto) 0.17 K/uL (0.01-0.20); Immature Granulocytes % (auto) 1.7 %; Lymphocytes # (auto) 1.73 K/uL (1.20-3.40); Lymphocytes % (auto) 17.2 %; Mean Corpuscular Hemoglobin 32.8 pg (25.0-34.0); Mean Corpuscular Hgb Conc 32.7 g/dL (32.0-36.0); Mean Corpuscular Volume 100.3 fL (80.0-100.0); Mean Platelet Volume 9.1 fL (9.4-12.4); Monocytes # (auto) 1.49 K/uL (0.11-0.59); Monocytes % (auto) 14.9 %; Neutrophils # (auto) 6.42 K/uL (1.40-6.50); Platelet Count 262 K/uL (130-400); RDW Coefficient of Variation 13.2 % (11.5-14.5); White Blood Count 10.03 K/ul (4.8-10.8)
[2024-06-15] MEDS: SODIUM CHLORIDE 0.9% 1,000 ML IV ONE (14:47)
[2024-06-15 14:57] LABS: Albumin Globulin Ratio 1.1 (0.9-2); Albumin Level 3.4 gm/dl (3.4-5.0); BUN Creatinine Ratio 19.5 (10-20); Bilirubin,Total 0.7 mg/dl (0.2-1.0); Calcium 9.2 mg/dl (8.6-10.3); Creatinine Clr Calc Pharmacy 20.7 ml/min; Est GFR (African American) 47.4 ml/min; Est GFR (Non-African American) 40.9 ml/min; Globulin 3.1 gm/dl (2.5-4.0); Magnesium 2.4 mg/dl (1.7-2.4); Potassium 4.5 mmol/L (3.5-5.1); Total Protein 6.5 gm/dl (6.0-8.3)
[2024-06-15 15:03] LABS: Troponin I High Sensitivity 3.6 pg/ml (0-20)
--- NOTE | 2024-06-15 15:10 | XRay Report ---
XR chest 1V portable CLINICAL HISTORY: syncope TECHNIQUE: Single frontal radiograph of the chest was obtained. Comparison: Comparison is made to chest radiograph 06/04/2024 FINDINGS: No lines and tubes are seen. Calcified aortic knob is seen. Elevation of the right hemidiaphragm is s een. No evidence of pleural effusion or pneumothorax. IMPRESSION: No acute chest disease. ACT 112: Negative or not required by law. Electronically signed by: Justin Alonzo M.D. 06/15/2024 3:08 PM
[2024-06-15 15:12] LABS: Thyroid Stimulating Hormone 3.231 uIu/ml (0.300-4.500)
--- NOTE | 2024-06-15 15:21 | CT Scan Report ---
CT cervical spine wo con CLINICAL HISTORY: post op syncope TECHNIQUE: Multidetector row helical CT of the cervical spine was performed without administration of intravenous contrast. Coronal and sagittal reformations were obtained. Automated dose lowering techn iques and/or adjustment according to patient size were utilized for this exam. Comparison: Comparison is made to cervical spine CT 04/21/2024 FINDINGS: No acute fractures or subluxations are identified. Degenerative changes are seen in the visualized sp ine. Posterior fixation hardware is seen. The alignment is normal. Subcutaneous emphysema is seen. Th ere is a small amount of soft tissue edema which is likely postoperative. IMPRESSION: Expected postsurgical changes in this patient status post C1-C4 fixation. No evidence of acute fractu re. ACT 112: Negative or not required by law. Electronically signed by: Justin Alonzo M.D. 06/15/2024 3:20 PM
--- NOTE | 2024-06-15 15:34 | CT Scan Report ---
CT head/brain wo con CLINICAL HISTORY: 74 years-old Male with syncope. Acute syncope TECHNIQUE: Multiple axial CT images of the head were obtained without contrast. A dose lowering tech nique was utilized adhering to the principles of ALARA. COMPARISON: CT cervical spine same day, brain MRI June 04, 2024 FINDINGS: No acute intracranial hemorrhage, midline shift, intracranial mass, hydrocephalus, territorial ischem ia or abnormal extra-axial collection. Age related involutional changes. The calvarium is intact. The paranasal sinuses, mastoid air cells, and middle ear cavities are clear . Postoperative changes of the upper cervical spine are partially imaged. IMPRESSION: No acute intracranial abnormality. ACT 112: Negative or not required by law. The above report was generated using voice recognition software. It may contain grammatical, syntax o r spelling errors. Electronically signed by: Tommy Nicole M.D. 06/15/2024 3:32 PM
--- NOTE | 2024-06-15 15:37 | Electrocardiogram Report ---
Test Reason : Blood Pressure : */* mmHG Vent. Rate : 63 BPM Atrial Rate : 63 BPM P-R Int : 136 ms QRS Dur : 64 ms QT Int : 372 ms P-R-T Axes : 13 -4 8 degrees QTcB Int : 380 ms Normal sinus rhythm Normal ECG When compared with ECG of 04-Jun-2024 16:05, QRS duration has decreased ST now depressed in Anterior leads Confirmed by Mitch Hernandez ([id number]) on 06/15/2024 3:37:07 PM Referred By: REFERRED SELF Confirmed By: Mitch Hernandez
[2024-06-15 15:45] LABS: INR 0.9 (0.9-1.1); Partial Thromboplastin Ratio 0.9; Partial Thromboplastin Time 25 Seconds (21-31); Prothrombin Time 10.3 Seconds (9.0-12.0)
[2024-06-15 16:27] LABS: Appearance Urine Clear (Clear); Bilirubin Urine Negative (Negative); Blood Urine Negative (Negative); Color Urine Yellow; Glucose Urine UA Negative (Negative); Ketones Urine Negative (Negative); Leukocyte Esterase Urine Negative (Negative); Nitrite Urine Negative (Negative); Protein Urine Negative (Negative); Specific Gravity Urine 1.011 (1.000-1.030); Urobilinogen Urine Negative (Negative)
--- NOTE | 2024-06-15 17:14 | History & Physical Report ---
<Statement entered by Jose A Muñiz MD - 06/17/24 10:16> Attending Addendum: Case reviewed with the advanced practitioner. I have personally performed a history and physical examination on the patient. I have reviewed the advanced practitioner's documentation on the date of service referenced in note, and I agree with, and take responsibility for the plan of care. Syncope likely 2/2 orthostatic hypotension given hypotensive presentation in the ED. Responded well to IVF with significant symptom improvement. Will monitor. Date of Service June 15, 2024 Assessment & Plan (1) Syncope: Plan Dalton Hernandez is a 74y/o M with PMHx of HLD, HTN, esophageal dysphagia, generalized osteoarthritis, CAD s/p LAD stent placement, benign neoplasm of the colon, chronic lower back pain, chronic right-sided upper and lower extremity weakness, degenerative disc disease, prediabetes and other problems listed below who presented to the ED via EMS for evaluation after a syncopal episode. Patient was recently seen in [facility] ED on 06/04/24 due to worsening chronic right- sided upper and lower extremity weakness. Patient has history of cervical radiculopathy. He was on steroids twice since that diagnosis was made in April. He was having significant difficulty ambulating due to the increasing weakness. Cervical spine MRI at that time revealed severe multilevel degenerative disc disease and facet arthrosis within the cervical spine in addition to minimal right-sided cord edema at the C1 level. Case was discussed with Dr. James - decided patient needed transferred. Ultimately patient was transferred to [facility] for further evaluation. He was evaluated by neurosurgery at [facility]. He underwent surgical intervention with neurosurgery on 06/08/24 including segmental fixation of posterior cervical spine C1 through C4. The patient was also evaluated by rheumatology while admitted given concern for possible inflammatory arthropathy. Rheumatoid factor and anti cyclic citrullinated protein antibodies were both negative. No other physical examination or imaging manifestations of rheumatoid arthritis were noted. He was advised to follow-up with rheumatology outpatient if he were to develop inflammatory symptoms in the future. His symptoms improved post-surgically with improved strength. He also worked with PT/OT - however he denied rehabilitation placement. He was discharged home from [facility] on 06/12/24 with home health services. ASA on hold until 06/23/24 per neurosurgery recommendations. He is scheduled to see neurosurgery at [facility] on 06/26/24. He has a O'Brien-J hard collar for OOB use and therapy [not needed while resting in bed/sleeping]. He was also instructed to follow-up with vascular surgery due to ICA stenosis noted on neck CTA. Syncopal Episode: Mildly anemic with Hgb of 12.8 - anemia workup in AM. No active source of bleeding per patient. Head CT negative. CXR negative. Cervical spine CT shows expected post-surgical changes in this patient status post C1-C4 fixation. Syncope likely 2/2 dehydration and hypotension. Patient was hypotensive with SBP in 90s on arrival. SBP improved to 120s s/p 1L NSS in ED. Additional 500cc NSS bolus and 1L NSS ordered. Orthostatic vitals pending. UA negative. Will hold off on additional IV fluids for now. Closely monitor BP. Cervical Radiculopathy S/P Recent Cervical Spine Operation: Underwent segmental fixation of posterior cervical spine C1-C4 on 06/08/24 at [facility]. He has a O'Brien-J hard collar for OOB use and therapy. He is scheduled to see neurosurgery at [facility] on 06/26/24. ASA on hold until 06/23/24 per neurosurgery recommendations. PT/OT evals pending. Can continue home Flexeril HS PRN, gabapentin. HTN: Continue Imdur for now --> hold for SBP<150. Will hold losartan dosing for tonight, continue metoprolol tartrate. HLD: Chronic, stable. Continue home atorvastatin. DVT Prophylaxis: SCDs/TEDs for now. Code Status: FULL CODE PCP: Mayo Friend MD Disposition: Admit to Med/Surg + Telemetry Patient seen in collaboration with Dr. Muñiz. Please see addendum. I spent a total of 60 minutes coordinating, documenting, and providing care for this patient excluding time spent in the performance of separately billed services. This included personally reviewing all current laboratories and imaging studies, medical reconciliation, outpatient chart review and discussion with specialists. This chart was completed in part utilizing Speech Voice Recognition Software. Grammatical errors, random word insertions, pronoun errors, and incomplete sentences are an occasional consequence of this system due to software limitations, ambient noise, and hardware issues. Any formal questions or concerns about the content, text, or information contained within the body of this dictation should be directly addressed to the provider for clarification. History of Present Illness Chief Complaint: Syncope Primary Care Provider: Mayo Friend MD Dalton Hernandez is a 74y/o M with PMHx of HLD, HTN, esophageal dysphagia, generalized osteoarthritis, CAD s/p LAD stent placement, benign neoplasm of the colon, chronic lower back pain, chronic right-sided upper and lower extremity weakness, degenerative disc disease, prediabetes and other problems listed below who presented to the ED via EMS for evaluation after a syncopal episode. History obtained from patient, family at bedside and associated chart review. Patient was recently seen in [facility] ED on 06/04/24 due to worsening chronic right- sided upper and lower extremity weakness. Patient has history of cervical radiculopathy. He was on steroids twice since that diagnosis was made in April. He was having significant difficulty ambulating due to the increasing weakness. Cervical spine MRI at that time revealed severe multilevel degenerative disc disease and facet arthrosis within the cervical spine in addition to minimal right-sided cord edema at the C1 level. Case was discussed with Dr. James - decided patient needed transferred. Ultimately patient was transferred to [facility] for further evaluation. He was evaluated by neurosurgery at [facility] and repeat imaging was obtained. 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 Multilevel degenerative changes causing varying degrees of bilateral bony neural foraminal narrowing, most severe on the right at T11-T12 and on the left at T10-T11. Neck CTA with focal atherosclerotic stenosis of the proximal right ICA measuring 65% by NASCET criteria. Focal atherosclerotic stenosis of the proximal left ICA measuring 69% by NASCET criteria. Focal stenoses involving the V2 segments of both vertebral arteries at the C5-6 level due to extrinsic compression by degenerative osteophytes. He underwent surgical intervention with neurosurgery on 06/08/24 including segmental fixation of posterior cervical spine C1 through C4. The patient was also evaluated by rheumatology while admitted given concern for possible inflammatory arthropathy. Rheumatoid factor and anti cyclic citrullina aimee protein antibodies were both negative. No other physical examination or imaging manifestations of rheumatoid arthritis were noted. He was advised to follow-up with rheumatology outpatient if he were to develop inflammatory symptoms in the future. His symptoms improved post-surgically with improved strength. He also worked with PT/OT - however he denied rehabilitation placement. He was discharged home from [facility] on 06/12/24 with home health services. ASA on hold until 06/23/24 per neurosurgery recommendations. He is scheduled to see neurosurgery at [facility] on 06/26/24. He has a O'Brien-J hard collar for OOB use and therapy [not needed while resting in bed/sleeping]. He was also instructed to follow-up with vascular surgery due to ICA stenosis noted on neck CTA. Patient reports he was passing a bowel movement on the toilet today when he subsequently passed out. Did not hit his head. His son was home to assist him immediately as this was a witnessed event. He is currently living at home with the assistance of his son since having his cervical spine operation done at [facility]. Patient states he has not been hydrating appropriately, but has been eating. Mentions he has not been that active recently since having his neck operation. He reports that they checked his blood pressure after the syncopal event and it was pretty low, he is unsure of the exact reading. Denies any lightheadedness or dizziness. Thought maybe his c-collar was too tight and that was what caused him to pass out. No chest pain or SOB. All imaging in the ED was negative for any acute findings. Reports he feels much better in the ED after receiving IV fluids. Agreeable to staying at least overnight for close observation and PT/OT evaluations in the morning. Allergies Allergy/AdvReac Type Severity Reaction Status Date / Time Penicillins Allergy Mild Unknown Verified 04/21/24 16:48 (remote reaction) niacin Allergy Unknown Itchy and Verified 04/21/24 16:48 hot Home Medications Medication Instructions Recorded Confirmed Type omega-3 acid ethyl esters 1 gram 1 cap PO BID 06/04/19 06/15/24 History capsule aspirin 81 mg tablet,delayed 81 mg PO UD 06/06/19 06/15/24 History release acetaminophen 650 mg 650 mg PO Q6H PRN Pain 03/13/20 06/15/24 History tablet,extended release (Tylenol Arthritis Pain) folic acid 1 mg tablet 1 mg PO DAILY #90 tabs 12/24/21 06/15/24 Rx losartan 100 mg tablet 100 mg PO HS #90 tabs 03/24/22 06/15/24 Rx cholecalciferol (vitamin D3) 125 125 mcg PO QAM 09/07/22 06/15/24 History mcg (5,000 unit) capsule cyanocobalamin (vitamin B-12) 1,000 mcg PO QAM 09/07/22 06/15/24 History 1,000 mcg tablet nitroglycerin 0.4 mg sublingual 0.4 mg sublingual UD PRN Chest Pain 09/07/22 06/15/24 History tablet atorvastatin 80 mg tablet 80 mg PO QAM #90 tabs 08/04/23 06/15/24 Rx isosorbide mononitrate 60 mg 60 mg PO QAM #90 tabs 08/11/23 06/15/24 Rx tablet,extended release 24 hr metoprolol tartrate 25 mg tablet 25 mg PO BID #180 tabs 04/18/24 06/15/24 Rx gabapentin 300 mg capsule 300 mg PO TID 04/21/24 06/15/24 History Biofreeze 1 applic topical DIRECTED PRN 06/15/24 06/15/24 History Pain cyclobenzaprine 10 mg tablet 10 mg PO HS PRN Pain 06/15/24 06/15/24 History oxycodone 5 mg tablet 5 mg PO Q8H PRN Severe Pain (Scale 06/15/24 06/15/24 History Score 7-10) polyethylene glycol 3350 17 17 g PO DAILY PRN Constipation 06/15/24 06/15/24 History gram/dose oral powder Past Med/Surg History Problem List ALEXANDRA (acute kidney injury) (Acute) Acute dehydration (Acute) Syncope (Acute) Edema of spinal cord (Acute) Cervical radiculopathy (Acute) Hypotension due to medication Depression Neurogenic claudication due to lumbar spinal stenosis Encounter for pre-operative examination Esophageal dysphagia Vitamin D deficiency TOBIN (dyspnea on exertion) Abnormal stress echocardiogram On anticoagulant therapy Hyperlipidemia Lumbar disc disease Cervical disc disease Osteoarthritis GERD (gastroesophageal reflux disease) Lumbar spinal stenosis Allergic rhinitis CAD (coronary artery disease) (Chronic) PCI x 2 (2006) JORDAN to LAD (2018) History of heart artery stent (Chronic) PCI x 2 (2006) JORDAN to LAD (2018) Hypertension (Chronic) Medical History Hx of fracture of nose Multiple, no surgical intervention History of COVID-19 Summer 2021 (home test), rhinorrhea > resolved Peptic ulcer disease hx Surgical History Hx of colonoscopy History of esophagogastroduodenoscopy (EGD) Status post open reduction and internal fixation (ORIF) of fracture Left elbow S/P carpal tunnel release Right wrist S/P cardiac cath 2018 (BINTA Kim) H/O hernia repair R/L inguinal H/O repair of left rotator cuff History of total knee arthroplasty Left Family History Father Coronary heart disease Myocardial infarction Prostate cancer Colorectal cancer Mother Lung disease Brother Anxiety Cardiac disorder Depression Denies family history of Ovarian cancer Breast cancer Social History Smoking Status: Never smoker Second Hand Exposure: Yes (parents smoked); Do You Dip or Chew Tobacco: No; Hx Alcohol Use: No (No ETOH x 30 years) Hx Substance Use: No Preferred Language: [place]an Communication Ability: Effective Visual Impairment: No Limitations Hearing Ability: Normal Joint Cutter Machine Required: No Beliefs That Will Affect Care: None marital status: Current Living Situation: Spouse and Family Current Living Situation Comment: Lives w/ spouse and granddaughter current occupational status: disabled Feels Safe at Home: Yes Childhood Exposure to Second-Hand Smoke: Yes Diet: regular caffeine: No during the past year weight has: remained stable Dental Care, Regularly: No Physical Activity Frequency: Does not Exercise Seatbelt Use: always Sunscreen Use: No Assistive Devices: Walker Review of Systems Review of Systems: At least ten systems reviewed and negative, except as noted in the HPI. Physical Exam 2 Physical Exam: General Appearance: WD/WN, vitals as above, NAD, laying back in bed, pleasant, conversing. A+Ox3, euthymic affect. HEENT: Normocephalic, atraumatic. PERRL, conjunctivae normal, anicteric sclerae, oropharynx appears mildly dry. Neck: Normal visual inspection, trachea midline, cervical collar in place. Respiratory: Normal respiratory effort, lungs clear to auscultation, no wheeze, rales, rhonchi. No accessory muscle use. Cardiovascular: Regular rate, rhythm, no murmur, normal peripheral pulses, no BLE edema. Vessels: No JVD. Abdomen/GI: Normal bowel sounds, soft, nontender, no hepatosplenomegaly. Extremities/Musculoskeletal: No cyanosis or clubbing, extremities motor strength significantly improved on the right side. Neurologic: EOMI, no focal deficits, CN's II-XI not formally tested but appear grossly intact bilaterally. Skin: No rashes, normal color, warm/dry. Results & Data Results & Data Vital Signs (Past 12 Hours) Vital Signs Temp Pulse Resp BP Pulse Ox O2 Del Method 06/15/24 16:30 68 27 H 93/69 L 06/15/24 16:00 68 18 122/73 96 06/15/24 15:57 78 36 H 109/68 88 L 06/15/24 15:00 62 15 97/61 L 06/15/24 14:27 70 21 88/56 L 94 06/15/24 14:27 68 06/15/24 14:23 Room Air 06/15/24 14:23 36.4 C L 71 20 92/56 L 95 Room Air Laboratory Results Short CBC 06/15/24 Range/Units 14:30 WBC 10.03 (4.8-10.8) K/ul Hgb 12.8 L (14.0-18.0) g/dl Hct 39.1 L (42.0-52.0) % Plt Count 262 (130-400) K/uL BMP 06/15/24 14:30 Sodium 136 Potassium 4.5 Chloride 100 Carbon Dioxide 31 BUN 32 H Creatinine 1.64 H Glucose 121 H Calcium 9.2 Cardiac Enzymes 06/15/24 Range/Units 14:30 Total Creatine Kinase 62 (30-223) U/L Liver Function 06/15/24 Range/Units 14:30 Total Bilirubin 0.7 (0.2-1.0) mg/dl AST 25 (13-39) U/L ALT 36 (7-52) U/L Alkaline Phosphatase 75 (34-104) U/L Albumin 3.4 (3.4-5.0) gm/dl Urine 06/15/24 Range/Units 16:19 Urine Color Yellow Urine Appearance Clear (Clear) Urine pH 6.0 (4.5-7.5) Ur Specific [place] 1.011 (1.000-1.030) Urine Protein Negative (Negative) Urine Glucose (UA) Negative (Negative) Diagnostic Findings Cervical Spine CT 06/15/24 14:23 CT cervical spine wo con CLINICAL HISTORY: post op syncope TECHNIQUE: Multidetector row helical CT of the cervical spine was performed without administration of intravenous contrast. Coronal and sagittal reformations were obtained. Automated dose lowering techniques and/or adjustment according to patient size were utilized for this exam. Comparison: Comparison is made to cervical spine CT 04/21/2024 FINDINGS: No acute fractures or subluxations are identified. Degenerative changes are seen in the visualized spine. Posterior fixation hardware is seen. The alignment is normal. Subcutaneous emphysema is seen. There is a small amount of soft tissue edema which is likely postoperative. IMPRESSION: Expected postsurgical changes in this patient status post C1-C4 fixation. No evidence of acute fracture. ACT 112: Negative or not required by law. Electronically signed by: Justin Alonzo M.D. 06/15/2024 3:20 PM Chest X-Ray 06/15/24 14:23 XR chest 1V portable CLINICAL HISTORY: syncope TECHNIQUE: Single frontal radiograph of the chest was obtained. Comparison: Comparison is made to chest radiograph 06/04/2024 FINDINGS: No lines and tubes are seen. Calcified aortic knob is seen. Elevation of the right hemidiaphragm is seen. No evidence of pleural effusion or pneumothorax. IMPRESSION: No acute chest disease. ACT 112: Negative or not required by law. Electronically signed by: Justin Alonzo M.D. 06/15/2024 3:[address] 06/15/24 14:23 CT head/brain wo con CLINICAL HISTORY: 74 years-old Male with syncope. Acute syncope TECHNIQUE: Multiple axial CT images of the head were obtained without contrast. A dose lowering technique was utilized adhering to the principles of ALARA. COMPARISON: CT cervical spine same day, brain MRI June 04, 2024 FINDINGS: No acute intracranial hemorrhage, midline shift, intracranial mass, hydrocephalus, territorial ischemia or abnormal extra-axial collection. Age related involutional changes. The calvarium is intact. The paranasal sinuses, mastoid air cells, and middle ear cavities are clear. Postoperative changes of the upper cervical spine are partially imaged. IMPRESSION: No acute intracranial abnormality. ACT 112: Negative or not required by law. The above report was generated using voice recognition software. It may contain grammatical, syntax or spelling errors. Electronically signed by: Tommy Nicole M.D. 06/15/2024 3:32 PM Medications Administered Discontinued Medications Sodium Chloride (Nss) 1,000 mls @ 999 mls/hr IV .Q1H1M ONE Stop: 06/15/24 15:23 Last Infusion: 06/15/24 16:24 Dose: Infused Documented By: Admin: 06/15/24 14:47 Dose: 999 mls/hr Documented By: NA Code Status & VTE Plan Code Status FULL CODE (1) Syncope Syncope type: unspecified Qualified Code(s): R55 - Syncope and collapse
[2024-06-15] MEDS: SODIUM CHLORIDE 0.9% 500 ML IV SCH (18:09)
[2024-06-15] MEDS: SODIUM CHLORIDE 0.9% 500 ML IV ONE (18:10)
--- OUTSIDE RECORDS SUMMARY | 2024-06-15 19:23 | External Medical Summary | Summary of Care ---
Author Name Unknown Organization [facility] Address [address] [place] [address] Phone [phone] Care Team Providers Care Portrait Consultant Name Role Phone Mayo Friend MD Primary Care Provide r Encounter Details Date Type Department Care Team (Late st Contact Info) Description 06/04/2024 Orders Only Family Medicine [address] [phone] Mayo Friend MD [address] [place] [address] [place] [phone] Allergies Active Allergy Reactions Criticality Noted Date Comments Niacin 12/31/2010 Jittery, trouble sleeping, heart racing Penicillins Anaphylaxis High 10/26/2006 As a young kid had injections of penicillin whenever he had a runny nose and he does not recall the reaction but his mother told him he was allergic. He has not had penicillin as an adult. Penicillins 04/05/2020 documented as of this encounter (statuses as of 06/15/2024) Medications Medication Sig Dispensed Refills Start Date End Date Status NITROSTAT 0.4 MG SL SUBLIndications:Other chest pain DISSOLVE ONE TABLET UNDER TONGUE EVERY 5 MINUTES NEEDED FOR CHESTPAIN. MAX OF 3 TABLETS 25 Tab 5 08/27/2014 Active metoprolol tartrate (LOPRESSOR) 25 MG Tablet Take 1 Tablet by mouth in the morning and 1 Tablet before bedtime. Active losartan (COZAAR) 100 MG Tablet Take 1 Tablet by mouth at bedtime. Active Folic Acid 1 MG Oral Tablet Take 1 Tablet by mouth in the morning. 02/16/2024 Active Diclofenac Sodium 1 % External Gel (Voltaren) Apply 2 g topically to affected area 4 times a day as needed for Pain. Apply to joints Active Isosorbide Mononitrate ER 60 MG Oral Tablet Extended Release 24 Hour (Imdur) Take 1 Tablet by mouth in the morning. Active Mzahf-7-Dane Eth Est (Dietary) 1 GM Oral Capsule Take 1 g by mouth in the morning and 1 g before bedtime. Active Acetaminophen ER 650 MG Oral Tablet Extended Release (Acetaminophen 8 Hour) Take 1 Tablet by mouth every 8 hours as needed. Active Cyanocobalamin 1000 MCG Oral Tablet (Cyanocobalamin) Take 1 Tablet by mouth in the morning. Active Vitamin D 125 MCG (5000 UT) Oral Capsule Take by mouth. Active Atorvastatin Calcium 80 MG Oral Tablet (Lipitor)Indications: Coronary artery disease involving [place]ki[place] coronary artery of [place]ki[place] heart without angina pectoris Take 1 Tablet by mouth every evening. 02/28/2024 Active Zoster Vac Recomb Adjuvanted 50 MCG/0.5ML Intramuscular Suspension Reconstituted (Shingrix)Indications :Need for shingles vaccine Inject 0.5 mL into a large muscle now and repeat dose in 60 to 180 days 1 Each 1 04/10/2024 Active Cyclobenzaprine HCl 10 MG Oral Tablet (Flexeril)Indications :Neck pain,DDD (degenerative disc disease), cervical Take 1 Tablet by mouth at bedtime as needed for Pain. 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 FAM HX-DIABETES MELLITUS 01/25/2003 Hyperlipidemia with target LDL less than 100 Overview: ICD-10 update of inactive term documented as of this encounter (statuses as of 06/15/2024) Resolved Problems Problem Noted Date Diagnosed Date Resolved Date Generalized weakness 06/05/2024 024 Edema of spinal cord 06/05/2024 024 Prediabetes 03/12/2024 06/14/2024 Overview: Per Prediabetes protocol Acute blood loss anemia 04/07/202002/01 Fall from roof 04/06/2020 02/28/2024 Closed fracture of transvers e process of lumbar vertebra 04/06/2020 02/28/2024 Overview: L2-L5 fx Sacral fracture 04/06/2020 02/28/2024 Overview: Inferior left sacral ala Pelvis ilium fracture 04/06/20202023 Overview: Bilateral medial iliac fracture Fracture of olecranon process of left ulna 04/06/2020 02/28/2024 Intramuscular hematoma 04/06/202002/27 Overview: Medial left gluteal with extravasation Closed fracture of ilium 04/06/2020 Overview: Bilateral medial iliac fractures Dyslipidemia, goal LDL below 70 04/13/2010 02/23/2012 Dyslipidemia, goal LDL below 100 09/11/2009 12/31/2010 Overview: Per Lipid Taxonomy. Biceps tendon rupture 01/25/20072023 Atherosclerosis of [place]ki[place] coronary artery 10/29/2006 02/28/2024 Overview: stent to LAD PURE HYPERCHOLESTEROLEM 01/25/200309/02 Overview: Per Lipid Taxonomy. Arora's cyst of knee 024 Overview: left Postsurgical percutaneous tr ansluminal coronary angioplasty status 02/28/2024 Generalized osteoarthrosis, unspecified site 04/28/2015 Primary localized osteoarthrosis, lower leg 02/28/2024 Overview: especially left medial compartment knee documented as of this encounter (statuses as of 06/15/2024) Immunizations Name Administration Dates Next Due COVID-19 mRNA, LNP-s, No Pre serve, 2-Dose Series (Pfizer) 09/01/2021 Pneumococcal Polysaccharide PPV23 (Pneumovax) 11/17/2006 Seasonal Influenza, Trivalen t, (IIV3), with Preserv, (Fluzone) 07/03/2014,07/03/2013,06/13/2012,07/22,08/03/2006 Varicella Zoster Vaccine (Adult) 06/14/2013 documented as of this encounter Social History Tobacco Use Types Packs/Day Years Used Date Smoking Tobacco: Never Smokeless Tobacco: Never Alcohol Use Standard Drinks/Week Comments Not Currently 0 (1 standard drink = 0.6 oz pur e alcohol) hasn't drank in 40 years Sex and Gender Information Value Date Recorded Sex Assigned at Not on file Gender Identity Not on file Sexual Orientation Not on file Job Start Date Occupation Industry Not on file Not on file Not on file documented as of this encounter Functional Status Functional Status Response Date of Assess ment Are you deaf or do you have serious difficulty h earing? No 04/05/2020 Are you blind or do you have serious difficulty seeing, even when wearing glasses? No 04/05/2020 Do you have serious difficul ty walking or climbing stairs? (5 years old or older) No 04/05/2020 Do you have difficulty dress ing or bathing? (5 years old or older) No 04/05/2020 Because of a physical, menta l, or emotional condition, do you have difficulty doing errands alone such as visiting a doctor s office or shopping? (15 years old or older) No 04/05/20 20 Cognitive Status Response Date of Assessm ent Because of a physical, menta l, or emotional condition, do you have serious difficulty concentrating, remembering, or making decisions? (5 years old or older) No 04/05/2020 documented as of this encounter Plan of Treatment Upcoming Encounters Date Type Department Care Team (Late st Contact Info) Description 06/20/2024 11:20 AM EDT Office Visit [address] [place] [phone] Mayo Friend MD [address] [place] [address] [place] [phone] 06/25/2024 9:40 AM EDT Office Visit [address] [place] [phone] Jenae Jolly PA-C [address] [place] [address] [place] [phone] 06/26/2024 9:30 AM EDT Office Visit Neurosurgery, [place] [address] [place] [address] Khadar Mayer MD [address] [place] [address] 10/08/2024 1:00 PM EST Office Visit Dermatology [address] [place] [address] Jeni Stevens PA-C [address] [place] [address] [place] [address] 12/17/2024 10:00 AM EDT Office Visit [address] [place] [phone] Mayo Friend MD [address] [place] [address] [place] [phone] Scheduled Procedures Name Priority Associated Diagnoses Date/Ti me COLONOSCOPY FLEXIBLE PROXIMAL DIAGNOSTIC Recall History of colon polyps Health Maintenance Due Date Last Done Comments Cologuard 1996 Sigmoidoscopy 1996 DTap/Tdap Vaccines (1 - Tdap) 01/17/2003 01/16/2003, 01/16/2003 Zoster Vaccines (2 of 3) 08/09/2013 06/14/2013 Fecal Occult Blood Test 11/02/2013 11/02/2012 Adult Wellness Visit 2017 COVID-19 Vaccine ( season) 2024 04/19/2022, 09/01/2021, 01/29/2021, Additional history exists Influenza Vaccine (FLU shot) (#1) 2024 06/16/2020, 07/19/2019, 07/08/2017, Additional history exists Depression Screening 02/27/2025 02/28/2024 GFR 06/11/2025 06/11/2024, 0905/2024, 06/09/2024, Additional history exists Colonoscopy 11/16/2025 11/16/2022, 11/03, 12/11/2012 Colorectal Cancer Screening 11/16/2025 Albumin/Creatinine Ratio 02/27/2027 02/28/2024 Lipid Panel 02/27/2029 02/28/2024, 06/0 11/2014, 05/03/2013, Additional history exists Pneumococcal Vaccine: 65+ Years Completed 12/10/2019, 08/09/2017, 11/17/2006 RETIRED - COLONOSCOPY-EVERY 5 YRS AGES 18-100 Discontinued 11/16/2022, 11/16/2022, 12/11/2012 HPV (Gardasil) Vaccine Aged Out No lo nger eligible based on patient's age to complete this topic Hepatitis B Vaccine Aged Out No longe r eligible based on patient's age to complete this topic MENINGOCOCCAL (MENACTRA/MENVEO) Aged Out No longer eligible based on patient's age to complete this topic documented as of this encounter Medical Devices Implanted Type Area Supervisor Blood Donor Recruiters Device Identifier Shelf Expiration Date Model / Serial / Lot Plate 2.7 3.5 Prx Ol 2h Lt 73 - [id number] Implanted:Qty: 1 on 04/06/2020 by Van Virk DO at OR [facility] Left: Elbow SYNTHES 02.107.102 / / Screw Slf Tap Strdr 2.7x38mm - [id number] Implanted:Qty: 1 on 04/06/2020 by Van Virk DO at OR [facility] Left: Elbow SYNTHES 02.118.538 / / Screw Selftap 3.5x24 204.824 - [id number] Implanted:Qty: 1 on 04/06/2020 by Van Virk DO at OR [facility] Left: Elbow SYNTHES 204.824 / / Screw Selftap 3.5x28 204.828 - [id number] Implanted:Qty: 1 on 04/06/2020 by Van Virk DO at OR [facility] Left: Elbow SYNTHES 204.828 / / Screw Slftap T8 2.7x16mm - [id number] Implanted:Qty: 1 on 04/06/2020 by Van Virk DO at OR [facility] Left: Elbow SYNTHES 02.211.016 / / Screw Slftap T8 2.7x10mm - [id number] Implanted:Qty: 2 on 04/06/2020 by Van Virk DO at OR [facility] Left: Elbow SYNTHES 02.211.010 / / Screw Slftap T8 2.7x12mm - [id number] Implanted:Qty: 1 on 04/06/2020 by Van Virk DO at OR [facility] Left: Elbow SYNTHES 02.211.012 / / Screw Slftap T8 2.7x50mm - [id number] Implanted:Qty: 1 on 04/06/2020 by Van Virk DO at OR [facility] Left: Elbow SYNTHES 02.211.050 / / Screw Set [id number] - [id number] Implanted:Qty: 8 on 06/08/2024 by Khadar Mayer MD at OR [facility] N/A: Spine Cervical LUIZA : SPINE [id number] / / Lu[place] Screw Implanted:Qty: 1 on 06/08/2024 by Khadar Mayer MD at OR [facility] N/A: Spine Cervical [id number] / / Luiza [place] Screw Implanted:Qty: 1 on 06/08/2024 by Khadar Mayer MD at OR [facility] N/A: Spine Cervical [id number] / / [place] Screw Implanted:Qty: 4 on 06/08/2024 by Khadar Mayer MD at OR [facility] N/A: Spine Cervical [id number] / / [place] Screw Implanted:Qty: 2 on 06/08/2024 by Khadar Mayer MD at OR [facility] N/A: Spine Cervical [id number] / / [place] 3.5 X 55mm Abiel Implanted:Qty: 2 on 06/08/2024 by Khadar Mayer MD at OR [facility] [id number] / / Vitoss Bimodal Foam Pack [facility] - [id number] Implanted:Qty: 1 on 06/08/2024 by Khadar Mayer MD at OR [facility] N/A: Spine Cervical LUIZA : SPINE 10/30/2025 [id number] / / [id number] documented as of this encounter Procedures Procedure Name Priority Date/Time Associated Diagnosis Comments RADIOLOGY EXAM - MRI (IMAGES ONLY, NO REPORT) Routine 06/04/2024 4:30 PM EDT documented in this encounter Results * RADIOLOGY EXAM - MRI (IMAGES ONLY, NO REPORT) (06/04/2024 4:30 PM EDT) 06/04/2024 4:29 PM EDT Narrative Scheduling, Silent - 06/15/2024 1:15 AM EDT This is an imaging study not interpreted or resulted by a [facility] or [facility] contracted radiologist. Mayo Friend MD RAD MRI-MRA documented in this encounter Advance Directives * Full Code (Latest Code Status on File) Date Activated Date Inactivated Comments 06/08/2024 3:57 PM 06/12/2024 7:09 PM This order re flects the patients wishes and were consensually agreed upon. Question Answer Comments Discussion of Advance Direct jus occurred with: Not Discussed due to patient's condition * Full Code Date Activated Date Inactivated Comments 06/05/2024 5:12 AM 06/08/2024 3:57 PM This order ref lects the patients wishes and were consensually agreed upon. Question Answer Comments Discussion of Advance Directives occurred with: Patient * Full Code Date Activated Date Inactivated Comments 04/06/2020 10:01 PM 04/08/2020 7:48 PM This order re flects the patients wishes and were consensually agreed upon. Question Answer Comments Discussion of Advance Directives occurred with: Patient Healthcare Agents on File Name Relationship Healthcare Agent Relationship Communication [facility] calvin (per Health Care Power of Etl Data Architect document) Care Teams Portrait Consultant Relationship Specialty Start Date End Date Mayo Friend MD [address] [place] [address] [place] [phone] PCP - General Family Medicine 02/28/24 documented as of this encounter
--- OUTSIDE RECORDS SUMMARY | 2024-06-15 19:23 | External Medical Summary | Summary of Care ---
Author Name Unknown Organization [facility] Address [address] [place] [address] Phone [phone] Care Team Providers Care Side Panel Hanger Name Role Phone Mayo Friend MD Primary Care Provide r Reason for Referral * Evaluate & Treat - Unlimited Visits (Within 3 days (urgent)) - Authorized Specialty Diagnoses / Procedures Referred By Deni urias Referred To Contact Package Dyer Diagnoses Generalized weakness Nae Barrientos, [facility] Stenographer [address] [place] [address] Referral ID Status Reason Start Date Expiration Date Visits Requested Visits Authorized [id number] Authorized Specialty Services Required 06/14/2024 [id number] Question Answer Referral Priority Within 3 days (urgent) Where should this appointment be scheduled? [facility] Type Case Management Complex Case Management [facility] Device(s) Requested Other (See Comment) Comments Primary Package Dyer: Nae Monroy at Home patient: No Is the patient already enrolled with another [facility] device/service? (If no, will need to "push the button") No Does the patient have a physical address? (If no, provide physical address if requesting device) Yes Requested Devices/IVR: IVR Non complex siria Start date: 06/19/2024 How many weeks: 3 If want time other than 9am, note time here: Reason for Visit * Reason Comments [facility] Care Coordination Services Encounter Details Date Type Department Care Team (Late st Contact Info) Description 06/14/2024 Documentation Care Coordination and Integration [address] [place] [address] Nae Barrientos, [facility] Sten[facility] [address] [place] [address] Generalized weakness* Allergies Active Allergy Reactions Criticality Noted Date [...] as of this encounter (statuses as of 06/14/2024) Medications Medication Sig Dispensed Refills Start Date End Date Status NITROSTAT 0.4 MG SL SUBLIndications:Othe r chest pain DISSOLVE ONE TABLET UNDER TONGUE [...] Tablet by mouth in the morning. Active Lnwxb-6-Eyfg Eth Est (Dietary) 1 GM Oral Capsule [...] Active Atorvastatin Calcium 80 MG Oral Tablet (Lipitor)Indications :Coronary artery disease involving iroquois coronary artery of iroquois heart without angina pectoris Take 1 Tablet by mouth every evening. 02/28/2024 Active Zoster Vac Recomb Adjuvanted 50 MCG/0.5ML Intramuscular Suspension Reconstituted (Shingrix)Indication s:Need for shingles vaccine Inject 0.5 mL into a large muscle now and repeat dose in 60 to 180 days 1 Each 1 04/10/2024 Active Cyclobenzaprine HCl 10 MG Oral Tablet (Flexeril)Indication s:Neck pain,DDD (degenerative disc disease), cervical Take 1 Tablet by mouth at bedtime as needed for Pain. 30 Tablet 1 06/01/2024 Active Aspirin 81 MG Oral Tablet Delayed Release Take 1 Tablet by mouth in the morning. Do not start before June 23, 2024. 30 Tablet 06/23/2024 07/23/2024 Active oxyCODONE HCl 5 MG Oral Tablet (Oxy IR) Take 1 Tablet by mouth every 8 hours as needed for Pain, Severe for up to 3 doses. 3 Tablet 06/12/2024 Active Gabapentin 300 MG Oral Capsule (Neurontin)Indicatio ns:Chronic bilateral low back pain without sciatica Take 2 Capsules by mouth in the morning and 2 Capsules at noon and 2 Capsules before bedtime. 180 Capsule 2 06/12/2024 Active Polyethylene Glycol 3350 17 GM Oral Packet (MiraLax) Take 1 Packet by mouth daily as needed for Other (constipation). 14 Each 06/12/2024 Active documented as of this encounter (statuses as of 06/14/2024) Active Problems Problem Noted Date Diagnosed Date [...] as of this encounter (statuses as of 06/14/2024) Resolved Problems Problem Noted Date Diagnosed Date [...] Taxonomy. Biceps tendon rupture 01/25/20072023 Atherosclerosis of iroquois coronary artery 10/29/2006 02/28/2024 Overview: stent to LAD PURE HYPERCHOLESTEROLEM 01/25/200309/02 Overview: Per Lipid Taxonomy. Arora's cyst of knee 024 Overview: left Postsurgical percutaneous tr ansluminal coronary angioplasty status 02/28/2024 Generalized osteoarthrosis, unspecified site 04/28/2015 Primary localized osteoarthrosis, lower leg 02/28/2024 Overview: especially left medial compartment knee documented as of this encounter (statuses as of 06/14/2024) Immunizations Name Administration Dates Next Due COVID-19 [...] you have serious difficulty h earing? No 06/05/2024 Are you blind or do you have serious difficulty seeing, even when wearing glasses? No 06/05/2024 Do you have serious difficul ty walking or climbing stairs? (5 years old or older) Yes 06/05/2024 Do you have difficulty dress ing or bathing? (5 years old or older) Yes 06/05/2024 Because of a physical, menta l, or emotional condition, do you have difficulty doing errands alone such as visiting a doctor s office or shopping? (15 years old or older) No 09/03/20 24 Cognitive Status Response Date of Assessm ent Because of a physical, menta l, or emotional condition, do you have serious difficulty concentrating, remembering, or making decisions? (5 years old or older) No 06/05/2024 documented as of this encounter Progress Notes * Nae Barrientos, [facility] Health Hearing Stenographer - 06/14/2024 1:02 PM EDT SIRIA-A: - New Non-complex SIRIA IVR enrollment: - Please Enroll in NON-COMPLEX [facility] SIRIA IVR weekly x 3 weeks. Begin calls 06/19/2024. Thank you PCP: Dr Mayo Friend Dx: Generalized weakness CTN: [id number]. VERNA Lopez SIRIA-A [phone] Electronically signed by Nae Barrientos, [facility] Health Hearing Stenographer at 06/14/2024 1:04 PM EDT documented in this encounter Plan of Treatment Upcoming Encounters Date Type Department Care Team (Late st Contact Info) Description 06/20/2024 11:20 AM EDT Office Visit Family Medicine [address] [phone] Mayo Friend MD [address] [place] [address] [place] [phone] 06/25/2024 9:40 AM EDT Office Visit Family Medicine [address] [place] [address] Jenae Jolly PA-C [address] [place] [address] [place] [phone] 06/26/2024 9:30 AM EDT Office Visit Neurosurgery, [place] [address] [place] [address] Khadar Mayer MD [address] [facility] [place] [address] 10/08/2024 1:00 PM EST Office Visit Dermatology [address] [place] [address] Jeni Stevens PA-C [address] [place] [address] [place] [address] 12/17/2024 10:00 AM EDT Office Visit Family Medicine [address] [place] [phone] Mayo Friend MD [address] [place] [address] [place] [phone] Scheduled Procedures Name Priority Associated Diagnoses Date/Ti me COLONOSCOPY FLEXIBLE PROXIMAL DIAGNOSTIC Recall History of colon polyps Scheduled Referrals Name Type Priority Associated Diagnoses Orde r Schedule REMOTE PATIENT MONITORING REFERRAL Referral Within 3 days (urgent) Generalized weakness Ordered: 06/14/2024 Health Maintenance Due Date Last Done Comments [...] Ratio 02/27/2027 02/28/2024 Lipid Panel 02/27/2029 02/28/2024, 06/11/2014, 05/03/2013, Additional history exists Pneumococcal Vaccine: 65+ [...] this encounter Medical Devices Implanted Type Area Grievance Coordinator Device Identifier Shelf Expiration Date Model / Serial / Lot Plate 2.7 3.5 Prx Ol 2h Lt 73 - [id number] Implanted:Qty: 1 on 04/06/2020 by Van Virk DO at [place] [facility] Left: Elbow SYNTHES 02.107.102 / / Screw Slf Tap Strdr 2.7x38mm - [id number] Implanted:Qty: 1 on 04/06/2020 by Van Virk DO at OR [facility] [place] Left: Elbow SYNTHES 02.118.538 / / Screw Selftap 3.5x24 204.824 - [id number] Implanted:Qty: 1 on 04/06/2020 by Van Virk DO at OR [facility] Left: Elbow SYNTHES 204.824 / / Screw Selftap 3.5x28 204.828 - [id number] Implanted:Qty: 1 on 04/06/2020 by Van Virk DO at OR [facility] [place] Left: Elbow SYNTHES 204.828 / / Screw Slftap T8 2.7x16mm - [id number] Implanted:Qty: 1 on 04/06/2020 by Van Virk DO at OR [facility] [place] Left: Elbow SYNTHES 02.211.016 / / Screw Slftap T8 2.7x10mm - [id number] Implanted:Qty: 2 on 04/06/2020 by Van Virk DO at OR [facility] [place] Left: Elbow SYNTHES 02.211.010 / / Screw Slftap T8 2.7x12mm - [id number] Implanted:Qty: 1 on 04/06/2020 by Van Virk DO at OR [facility] Left: Elbow SYNTHES 211.012 / / Screw Slftap T8 2.7x50mm - [id number] Implanted:Qty: 1 on 04/06/2020 by Van Virk DO at OR [facility] Left: Elbow SYNTHES 211.050 / / Screw Set [id number] - [id number] Implanted:Qty: 8 on 06/08/2024 by Khadar Mayer MD at OR [facility] N/A: Spine Cervical LUIZA : SPINE [id number] / / [place] Screw Implanted:Qty: 1 on 06/08/2024 by Khadar Mayer MD at OR [facility] N/A: Spine Cervical [id number] / / [place] Screw Implanted:Qty: 1 on 06/08/2024 by Khadar Mayer MD at OR [facility] N/A: Spine Cervical [id number] / / Luiza [place] Screw Implanted:Qty: 4 on 06/08/2024 by Khadar Mayer MD at OR [facility] N/A: Spine Cervical [id number] / / Luiza [place] Screw Implanted:Qty: 2 on 06/08/2024 by Khadar Mayer MD at OR [facility] N/A: Spine Cervical [id number] / / Styker [place] 3.5 X 55mm Abiel Implanted:Qty: 2 on 06/08/2024 by Khadar Mayer MD at OR [facility] [id number] / / Vitoss Bimodal Foam Pack 10cc - [id number] Implanted:Qty: 1 on 06/08/2024 by Khadar Mayer MD at OR [facility] N/A: Spine Cervical LUIZA : SPINE 10/30/2025 [id number] / / [id number] documented as of this encounter Visit Diagnoses Diagnosis Generalized weakness- Primary Other malaise and fatigue documented in this encounter Advance Directives * [...] File Name Relationship Healthcare Agent Relationship Communication [facility] calvin (per Health Care Power of Continuous Improvement Director document) Care Teams Side Panel Hanger Relationship Specialty Start Date End Date Mayo Friend MD [address] [place] [address] [place] [phone] PCP - General Family Medicine 02/28/24 documented as of this encounter
--- OUTSIDE RECORDS SUMMARY | 2024-06-15 19:23 | External Medical Summary | Summary of Care ---
Author Name Unknown Organization [facility] Address [address] [place] [address] Phone [phone] Care Team Providers Care Cabin Cleaner Name Role Phone Mayo Friend MD Primary Care Provide r Encounter Details Date Type Department Care Team (Late st Contact Info) Description 06/04/2024 Orders Only Family Medicine [address] [phone] Mayo Friend MD [address] [place] [address] [place] [address] Allergies Active Allergy Reactions [...] Tablet by mouth in the morning. Active Moemt-1-Pxyc Eth Est (Dietary) 1 GM Oral Capsule [...] Oral Tablet (Lipitor)Indications: Coronary artery disease involving [place] coronary artery of [place] heart without angina pectoris Take 1 Tablet [...] Taxonomy. Biceps tendon rupture 01/25/20072023 Atherosclerosis of [place] coronary artery 10/29/2006 02/28/2024 Overview: stent to [...] Description 06/20/2024 11:20 AM EDT Office Visit [address] [place] [phone] Mayo Friend MD [address] [place] [address] [place] [phone] 06/25/2024 9:40 AM EDT Office Visit [address] [place] [phone] Jenae Jolly PA-C [address] [place] [address] [place] [address] 06/26/2024 9:30 AM EDT Office Visit Neurosurgery, [place] [address] [place] [address] Khadar Mayer MD [address] [place] [address] 10/08/2024 1:00 PM EST Office Visit Dermatology [address] [place] [address] Jeni Stevens PA-C [address] [place] [address] [place] [address] 12/17/2024 10:00 AM EDT Office Visit [address] [place] [phone] Mayo Friend MD [address] [place] [address] [place] [phone] Scheduled Procedures Name Priority Associated Diagnoses Date/Ti [...] this encounter Medical Devices Implanted Type Area Offshoring Manager Device Identifier Shelf Expiration Date Model / Serial / Lot Plate 2.7 3.5 Prx Ol 2h Lt 73 - [id number] Implanted:Qty: 1 on 04/06/2020 by Van Virk DO at OR [facility] [place] Left: Elbow SYNTHES 02.107.102 / / Screw Slf Tap Strdr 2.7x38mm - [id number] Implanted:Qty: 1 on 04/06/2020 by Van Virk DO at OR [facility] Left: Elbow SYNTHES 02.118.538 / / Screw Selftap 3.5x24 204.824 - [id number] Implanted:Qty: 1 on 04/06/2020 by Van Virk DO at OR [facility] [place] Left: Elbow SYNTHES 204.824 / / Screw Selftap 3.5x28 204.828 - [id number] Implanted:Qty: 1 on 04/06/2020 by Van Virk DO at OR [facility] [place] Left: Elbow SYNTHES 204.828 / / Screw Slftap T8 2.7x16mm - [id number] Implanted:Qty: 1 on 04/06/2020 by Van Virk DO at OR [facility] [place] Left: Elbow SYNTHES 02.211.016 / / Screw Slftap T8 2.7x10mm - [id number] Implanted:Qty: 2 on 04/06/2020 by Van Virk DO at OR [facility] [place] Left: Elbow SYNTHES 02.211.010 / / Screw Slftap T8 2.7x12mm - [id number] Implanted:Qty: 1 on 04/06/2020 by Van Virk DO at OR [facility] Left: Elbow SYNTHES 02.211.012 / / Screw Slftap T8 2.7x50mm - [id number] Implanted:Qty: 1 on 04/06/2020 by Van Virk DO at OR [facility] Left: Elbow SYNTHES 02.211.050 / / Screw Set [id number] - [id number] Implanted:Qty: 8 on 06/08/2024 by Khadar Mayer MD at OR [facility] [place] N/A: Spine Cervical LUIZA : SPINE [id number] / / Luiza [place] Screw Implanted:Qty: 1 on 06/08/2024 by Khadar Mayer MD at OR [facility] [place] N/A: Spine Cervical [id number] / / Luiza [place] Screw Implanted:Qty: 1 on 06/08/2024 by Khadar Mayer MD at OR [facility] [place] N/A: Spine Cervical [id number] / / [place] Screw Implanted:Qty: 4 on 06/08/2024 by Khadar Mayer MD at OR [facility] [place] N/A: Spine Cervical [id number] / / [place] Screw Implanted:Qty: 2 on 06/08/2024 by Khadar Mayer MD at OR [facility] [place] N/A: Spine Cervical [id number] L / / Styker [place] 3.5 X 55mm Abiel Implanted:Qty: 2 on 06/08/2024 by Khadar Mayer MD at OR [facility] [id number] / / Vitoss Bimodal Foam Pack [facility] - [id number] Implanted:Qty: 1 on 06/08/2024 by Khadar Mayer MD at OR [facility] N/A: Spine Cervical LUIZA : SPINE 10/30/2025 [id number] / / [id number] documented as of this encounter Procedures Procedure Name Priority Date/Time Associated Diagnosis Comments RADIOLOGY EXAM - MRI (IMAGES ONLY, NO REPORT) Routine 06/04/2024 4:50 PM EDT documented in this encounter Results * RADIOLOGY EXAM - MRI (IMAGES ONLY, NO REPORT) (06/04/2024 4:50 PM EDT) 06/04/2024 4:47 PM EDT Narrative Scheduling, Silent - 06/15/2024 1:13 AM EDT This is an imaging study not interpreted or resulted by a [facility] or [facility] contracted radiologist. Mayo Friend MD RAD MRI-MRA [...] File Name Relationship Healthcare Agent Relationship Communication [facility] calvin (per Health Care Power of Dough Panner document) Care Teams Cabin Cleaner Relationship Specialty Start Date End Date Mayo Friend MD [address] [place] [address] [place] [phone] PCP - General Family Medicine 02/28/24 documented as of this encounter
--- OUTSIDE RECORDS SUMMARY | 2024-06-15 19:23 | External Medical Summary | Summary of Care ---
Author Name Unknown Organization [facility] Address [address] [place] [address] Phone [phone] Care Team Providers Care Bath Solution Maker Name Role Phone Mayo Friend MD Primary Care Provide r Encounter Details Date Type Department Care Team (Late st Contact Info) Description 06/04/2024 Orders Only Family Medicine [address] [phone] Mayo Friend MD [address] [place] [address] [place] [address] Allergies Active Allergy Reactions [...] Tablet by mouth in the morning. Active Azfqx-6-Sbbo Eth Est (Dietary) 1 GM Oral Capsule [...] Oral Tablet (Lipitor)Indications: Coronary artery disease involving round valley coronary artery of round valley heart without angina pectoris Take 1 [...] Taxonomy. Biceps tendon rupture 01/25/20072023 Atherosclerosis of [place] coronary artery 10/29/2006 02/28/2024 Overview: stent [...] Description 06/20/2024 11:20 AM EDT Office Visit [address] [place] [phone] Mayo Friend MD [address] [place] [address] [place] [address] 06/25/2024 9:40 AM EDT Office Visit [address] [place] [phone] Jenae Jolly PA-C [address] [place] [address] [place] [address] 06/26/2024 9:30 AM EDT Office Visit Neurosurgery, [place] [address] [place] [address] Khadar Mayer MD [address] [place] [address] 10/08/2024 1:00 PM EST Office Visit Dermatology [address] [place] [address] Jeni Stevens PA-C [address] [place] [address] [place] [address] 12/17/2024 10:00 AM EDT Office Visit [address] [place] [phone] Mayo Friend MD [address] [place] [address] [place] [address] Scheduled Procedures Name Priority Associated Diagnoses Date/Ti [...] this encounter Medical Devices Implanted Type Area Master Esthetician Device Identifier Shelf Expiration Date Model / Serial / Lot Plate 2.7 3.5 Prx Ol 2h Lt 73 - [id number] Implanted:Qty: 1 on 04/06/2020 by [place] [facility]: Elbow SYNTHES 02.107.102 / / Screw Slf Tap Strdr 2.7x38mm - [id number] Implanted:Qty: 1 on 04/06/2020 by Van Virk DO [place] [facility] [place]: Elbow SYNTHES 02.118.538 / / Screw Selftap 3.5x24 204.824 - [id number] Implanted:Qty: 1 on 04/06/2020 by Van Virk DO [place] [facility] [place]: Elbow SYNTHES 204.824 / / Screw Selftap 3.5x28 204.828 - [id number] Implanted:Qty: 1 on 04/06/2020 by Van Virk DO [place] [facility] [place]: Elbow SYNTHES 204.828 / / Screw Slftap T8 2.7x16mm - [id number] Implanted:Qty: 1 on 04/06/2020 by Van Virk DO [place] [facility] [place]: Elbow SYNTHES 02.211.016 / / Screw Slftap T8 2.7x10mm - [id number] Implanted:Qty: 2 on 04/06/2020 by Van Virk DO [place] [facility] Left: Elbow SYNTHES 02.211.010 / / Screw Slftap T8 2.7x12mm - [id number] Implanted:Qty: 1 on 04/06/2020 by Van Virk DO at [place] [facility] Left: Elbow SYNTHES 02.211.012 / / Screw Slftap T8 2.7x50mm - [id number] Implanted:Qty: 1 on 04/06/2020 by Van Virk DO [place] [facility] [place]: Elbow SYNTHES 02.211.050 / / Screw Set 7601-36540 - [id number] Implanted:Qty: 8 on 06/08/2024 by Khadar Mayer MD [place] [facility] N/A: Spine Cervical LUIZA : SPINE [id number] / / Luiza [place] Screw Implanted:Qty: 1 on 06/08/2024 by Khadar Mayer MD at [place] [facility] N/A: Spine Cervical [id number] / / Luiza [place] Screw Implanted:Qty: 1 on 06/08/2024 by Khdaar Mayer MD at [place] [facility] N/A: Spine Cervical [id number] / / [place] Screw Implanted:Qty: 4 on 06/08/2024 by Khadar Mayer MD at [place] [facility] N/A: Spine Cervical [id number] / / Whiting [place] Screw Implanted:Qty: 2 on 06/08/2024 by Khadar Mayer MD at [place] [facility] N/A: Spine Cervical [id number] L / / Styker [place] 3.5 X 55mm Abiel Implanted:Qty: 2 on 06/08/2024 by Khadar Mayer MD at [place] [facility] [id number] / / Vitoss Bimodal Foam Pack [facility] - [id number] Implanted:Qty: 1 on 06/08/2024 by Khadar Mayer MD [place] [facility] N/A: Spine Cervical LUIZA : SPINE 10/30/2025 [id number] / / [id number] documented as of this encounter Procedures Procedure Name Priority Date/Time Associated Diagnosis Comments RADIOLOGY EXAM - GENERAL RAD (IMAGES ONLY,NO REPORT) Routine 06/04/2024 5:25 PM EDT documented in this encounter Results * RADIOLOGY EXAM - GENERAL RAD (IMAGES ONLY,NO REPORT) (06/04/2024 5:25 PM EDT) 06/04/2024 5:25 PM EDT Narrative Scheduling, Silent - 06/15/2024 1:04 AM EDT This is an imaging study not interpreted or resulted by a [facility] or [facility] contracted radiologist. Mayo Friend MD RADIOLOGY (RA D GENERAL) documented in this encounter Advance Directives * [...] File Name Relationship Healthcare Agent Relationship Communication [facility] calvin (per Health Care Power of Seismograph Computer document) Care Teams Bath Solution Maker Relationship Specialty Start Date End Date Mayo Friend MD [address] [place] [address] [place] [phone] PCP - General Family Medicine 02/28/24 documented as of this encounter
--- OUTSIDE RECORDS SUMMARY | 2024-06-15 19:24 | External Medical Summary | Summary of Care ---
Author Name Unknown Organization [facility] Address [address] [place] [address] Phone [phone] Care Team Providers Care Awnings Mechanic Name Role Phone Mayo Friend MD Primary Care Provide r Reason for Visit * Reason Onset Date Comments FYI 06/14/2024 Post discharge c tiburciok Encounter Details Date Type Department Care Team (Late st Contact Info) Description 06/14/2024 10:30 AM EDT Scheduled Telephone Neurosurgery, [place] [address] [place] [phone] [place], Nurse Follow Up Phone Call Neurosurg [address] [place] [address] Allergies Active Allergy Reactions Criticality Noted Date [...] Tablet by mouth in the morning. Active Bfonn-8-Wjku Eth Est (Dietary) 1 GM Oral Capsule [...] Oral Tablet (Lipitor)Indications :Coronary artery disease involving cowlitz coronary artery of cowl[place] heart without angina pectoris Take 1 Tablet [...] Taxonomy. Biceps tendon rupture 01/25/20072023 Atherosclerosis of cowl[place] coronary artery 10/29/2006 02/28/2024 Overview: stent to [...] shopping? (15 years old or older) No 06/05/20 24 Cognitive Status Response Date of Assessm ent Because of a physical, menta l, or emotional condition, do you have serious difficulty concentrating, remembering, or making decisions? (5 years old or older) No 06/05/2024 documented as of this encounter Miscellaneous Notes * Telephone Encounter - Baron Luo RN - 06/14/2024 9:35 AM EDT Outgoing call to patient to do post discharge check. Patient doing well at home. He reports he is ambulating frequently. He has his son living with him temporarily to take care of him. He has not showered yet but plans to shower today. No issues with incision to report. We reviewed how to keep wound clean. He is aware of post op date and time. documented in this encounter Plan of Treatment Upcoming Encounters Date Type Department Care Team (Late st Contact Info) Description 06/20/2024 11:20 AM EDT Office Visit [address] [phone] Mayo Friend MD [address] [place] [address] [place] [address] 06/25/2024 9:40 AM EDT Office Visit Family [address] [place] [phone] Jenae Jolly PA-C [address] [place] [address] [place] [address] 06/26/2024 9:30 AM EDT Office Visit Neurosurgery, [place] [address] [place], [place] [phone] Khadar Mayer MD [address] [place], [place] [phone] 10/08/2024 1:00 PM EST Office Visit Dermatology [address] [place] [address] Jeni Stevens PA-C [address] [place] [address] [place] [address] 12/17/2024 10:00 AM EDT Office Visit [address] [place] [phone] Mayo Friend MD [address] [place] [address] [place] [address] Scheduled Procedures Name Priority Associated Diagnoses Date/Ti [...] Depression Screening 02/27/2025 02/28/2024 GFR 06/11/2025 06/11/2024, 05/2024, 06/09/2024, Additional history exists Colonoscopy 11/16/2025 11/16/2022, 11/03, 12/11/2012 Colorectal Cancer Screening 11/16/2025 Albumin/Creatinine Ratio 02/27/2027 02/28/2024 Lipid Panel 02/27/2029 02/28/2024, 11/2014, 05/03/2013, Additional history exists Pneumococcal Vaccine: [...] this encounter Medical Devices Implanted Type Area Flash Welding Machine Operator Device Identifier Shelf Expiration Date Model / Serial / Lot Plate 2.7 3.5 Prx Ol 2h Lt 73 - [id number] Implanted:Qty: 1 on 04/06/2020 by Van Virk DO at OR [facility] [place] Left: Elbow SYNTHES 02.107.102 / / Screw Slf Tap Strdr 2.7x38mm - [id number] Implanted:Qty: 1 on 04/06/2020 by Van Virk DO at OR [facility] Left: Elbow SYNTHES 02.118.538 / / Screw Selftap 3.5x24 204.824 - [id number] Implanted:Qty: 1 on 04/06/2020 by Van Virk DO at OR [facility] Left: Elbow SYNTHES 204.824 / / Screw Selftap 3.5x28 204.828 - [id number] Implanted:Qty: 1 on 04/06/2020 by Van Virk DO at OR [facility] Left: Elbow SYNTHES 204.828 / / Screw Slftap T8 2.7x16mm - [id number] Implanted:Qty: 1 on 04/06/2020 by Van Virk DO at OR [facility] Left: Elbow SYNTHES 02.211.016 / / Screw Slftap T8 2.7x10mm - [id number] Implanted:Qty: 2 on 04/06/2020 by Van Virk DO at OR [facility] Left: Elbow SYNTHES 02.211.010 / / Screw Slftap T8 2.7x12mm - [id number] Implanted:Qty: 1 on 04/06/2020 by Van Virk DO at OR [facility] Left: Elbow SYNTHES 02.211.012 / / Screw Slftap T8 2.7x50mm - [id number] Implanted:Qty: 1 on 04/06/2020 by Van Virk DO at OR [facility] Left: Elbow SYNTHES 02.211.050 / / Screw Set 7601-22984 - [id number] Implanted:Qty: 8 on 06/08/2024 by Khadar Mayer MD at OR [facility] N/A: Spine Cervical LUIZA : SPINE [id number] / / Luiza [place] Screw Implanted:Qty: 1 on 06/08/2024 by Khadar Mayer MD at OR [facility] N/A: Spine Cervical 7601-53944 / / [place] Screw Implanted:Qty: 1 on 06/08/2024 by Khadar Mayer MD at OR [facility] N/A: Spine Cervical [id number] / / [place] Screw Implanted:Qty: 4 on 06/08/2024 by Khadar Mayer MD at OR [facility] N/A: Spine Cervical 7601-64807 / / Luiza [place] Screw Implanted:Qty: 2 on 06/08/2024 by Khadar Mayer MD at OR [facility] N/A: Spine Cervical 7601-01408 L / / Styker [place] 3.5 X 55mm Abiel Implanted:Qty: 2 on 06/08/2024 by Khadar Mayer MD at OR [facility] 7601-47523 / / Vitoss Bimodal Foam Pack [facility] - [id number] Implanted:Qty: 1 on 06/08/2024 by Khadar Mayer MD at OR [facility] N/A: Spine Cervical LUIZA : SPINE 10/30/2025 5171-1209 / / [id number] documented as of this encounter Advance Directives * Full Code [...] Name Relationship Healthcare Agent Relationship Communication [facility] Asha simpson (per Health Care Power of Refueler document) Care Teams Awnings Mechanic Relationship Specialty Start Date End Date Mayo Friend MD [address] [place] [address] [place] [address] PCP - General Family Medicine 02/28/24 documented as of this encounter
--- OUTSIDE RECORDS SUMMARY | 2024-06-15 19:24 | External Medical Summary | Summary of Care ---
Author Name Unknown Organization [facility] Address [address] [place] [address] Phone [phone] Care Team Providers Care Computational Biologist Name Role Phone Mayo Friend MD Primary Care Provide r Encounter Details Date Type Department Care Team (Late st Contact Info) Description 06/13/2024 Population Health External Data Unspecified Department Allergies Active Allergy Reactions Criticality Noted Date [...] as of this encounter (statuses as of 06/13/2024) Medications Medication Sig Dispensed Refills Start Date [...] Tablet by mouth in the morning. 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 Biceps tendon rupture 01/25/20072023 Atherosclerosis of red devil coronary artery 10/29/2006 02/28/2024 Overview: stent to LAD PURE HYPERCHOLESTEROLEM 01/25/200309/02 Overview: Per Lipid Taxonomy. Arora's cyst of knee 024 Overview: left Postsurgical percutaneous tr ansluminal coronary angioplasty status 02/28/2024 Generalized osteoarthrosis, unspecified site 04/28/2015 Primary localized osteoarthrosis, lower leg 02/28/2024 Overview: especially left medial compartment knee documented as of this encounter (statuses as of 06/13/2024) Immunizations Name Administration Dates Next Due COVID-19 [...] (15 years old or older) No 06/05/20 Cognitive Status Response Date of Assessm ent Because of a physical, menta l, or emotional condition, do you have serious difficulty concentrating, remembering, or making decisions? (5 years old or older) No 06/05/2024 documented as of this encounter Plan of Treatment Upcoming Encounters Date Type Department Care Team (Late st Contact Info) Description 06/14/2024 10:30 AM EDT Scheduled Telephone [facility] [address] [place] [address] [place] Call Neurosurg [address] [place] [phone] 06/20/2024 11:20 AM EDT Office Visit Family [address] [phone] Mayo Friend MD [address] [place] [address] [place] [address] 06/25/2024 9:40 AM EDT Office Visit [address] [phone] Jenae Jolly PA-C [address] [place] [address] [place] [address] 06/26/2024 9:30 AM EDT Office Visit Neurosurgery [place] [address] [place] [address] Khadar Mayer MD [address] [place] [address] 10/08/2024 1:00 PM EST Office Visit Dermatology [address] [place] [address] Jeni Stevens PA-C [address] [place] [address] [place] [address] 12/17/2024 10:00 AM EDT Office Visit Family Medicine [address] [place] [phone] Mayo Friend MD [address] [place] [address] [place] [phone] Scheduled Procedures Name Priority Associated Diagnoses Date/Ti [...] Additional history exists Depression Screening 02/27/2025 02/28/2024 HbA1c 02/27/2025 02/28/2024, 10/28/2006 GFR 06/11/2025 06/11/2024, 05/2024, 06/09/2024, Additional history [...] this encounter Medical Devices Implanted Type Area Provider Relations Manager Device Identifier Shelf Expiration Date Model / Serial / Lot Plate 2.7 3.5 Prx Ol 2h Lt 73 - [id number] Implanted:Qty: 1 on 04/06/2020 by Van Virk DO at OR [facility] Left: Elbow SYNTHES 02.107.102 / / Screw Slf Tap Strdr 2.7x38mm - [id number] Implanted:Qty: 1 on 04/06/2020 by Van Virk DO at OR [facility] Left: Elbow SYNTHES 02.118.538 / / Screw Selftap 3.5x24 204.824 - [id number] Implanted:Qty: 1 on 04/06/2020 by Van Virk DO at OR [facility] Left: Elbow SYNTHES 204.824 / / Screw Selftap 3.5x28 204.828 - [id number] Implanted:Qty: 1 on 04/06/2020 by Van Virk DO at OR [facility] Left: Elbow SYNTHES 204.828 / / Screw Slftap T8 2.7x16mm - [id number] Implanted:Qty: 1 on 04/06/2020 by Van Virk DO at OR [facility] Left: Elbow SYNTHES 02.211.016 / / Screw Slftap T8 2.7x10mm - [id number] Implanted:Qty: 2 on 04/06/2020 by Van Virk DO at OR [facility] Left: Elbow SYNTHES 02.211.010 / / Screw Slftap T8 2.7x12mm - [id number] Implanted:Qty: 1 on 04/06/2020 by Van Virk DO at OR [facility] Left: Elbow SYNTHES 02.211.012 / / Screw Slftap T8 2.7x50mm - [id number] Implanted:Qty: 1 on 04/06/2020 by Van Virk DO at OR [facility] Left: Elbow SYNTHES 02.211.050 / / Screw Set 7601-93594 - [id number] Implanted:Qty: 8 on 06/08/2024 by Khadar Mayer MD at OR [facility] N/A: Spine Cervical LUIZA : SPINE [id number] / / Luiza [place] Screw Implanted:Qty: 1 on 06/08/2024 by Khadar Mayer MD at OR [facility] N/A: Spine Cervical 7601-43707 / / Luiza [place] Screw Implanted:Qty: 1 on 06/08/2024 by Khadar Mayer MD at OR [facility] N/A: Spine Cervical [id number] / / Luiza [place] Screw Implanted:Qty: 4 on 06/08/2024 by Khadar Mayer MD at OR [facility] N/A: Spine Cervical 7601-47637 / / [place] Screw Implanted:Qty: 2 on 06/08/2024 by Khadar Mayer MD at OR [facility] N/A: Spine Cervical 7601-68980 L / / Styker [place] 3.5 X 55mm Abiel Implanted:Qty: 2 on 06/08/2024 by Khadar Mayer MD at OR [facility] 7601-94020 / / Vitoss Bimodal Foam Pack 10cc - [id number] Implanted:Qty: 1 on 06/08/2024 by Khadar Mayer MD at [place] [facility] N/A: Spine Cervical LUIZA : SPINE 10/30/2025 2629-0208 / / [id number] documented as of this encounter Advance Directives [...] File Name Relationship Healthcare Agent Relationship Communication [facility] calvin (per Health Care Power of Terrazzo Polisher document) Care Teams Computational Biologist Relationship Specialty Start Date End Date Mayo Friend MD [address] [place] [address] [place] [address] PCP - General Family Medicine 02/28/24 documented as of this encounter
--- OUTSIDE RECORDS SUMMARY | 2024-06-15 19:24 | External Medical Summary | Summary of Care ---
Author Name Unknown Organization [facility] Address [address] [place] [address] Phone [phone] Care Team Providers Care [employer]en [employer]ing Shrinker Name Role Phone Mayo Syed MD Primary Care Provide r Reason for Visit * Reason Comments transfer of records Weakness, Generalized R upper * Auth/Cert Specialty Diagnoses / Procedures Referred By Contac t Referred To Contact Diagnoses Cervical nerve root compression neck pain , inability to ambulate Shaji Chacon MD [address] [place] [address] Emergency Medicine [facility] [address] [place] [address] Referral ID Status Reason Start Date Expiration Date Visits Re quested Visits Authorized [id number] Encounter Details Date Type Department Care Team (Latest Contact Info) Description 06/05/2024 12:40 AM EDT - 06/12/2024 3:04 PM EDT Hospital Encounter [id number] [facility] [place] [place] 4TH FLOOR [address] [place] [address] Huong Carver MD [address] [place] [address] Shaji Chacon MD [address] [place] [address] Court Schofield MD [address] [facility] [place] [address] Concepcion Cole MD [address] [facility] [place] [address] Jaz Perez DO [address] [facility] [place] [id number] Colette Manzano MD [address] [facility] [place] [address] Diagnostic Clarification Discharge Disposition: Home with Services Allergies Active Allergy Reactions Criticality Noted Date [...] End Date Status NITROSTAT 0.4 MG SL SUBLIndications:Ot her chest pain DISSOLVE ONE TABLET UNDER TONGUE [...] Tablet by mouth in the morning. Active Eghjw-9-Hpcy Eth Est (Dietary) 1 GM Oral Capsule [...] Active Atorvastatin Calcium 80 MG Oral Tablet (Lipitor)Indicatio ns:Coronary artery disease involving [place] coronary artery of [place] heart without angina pectoris Take 1 Tablet by mouth every evening. 02/28/2024 Active Zoster Vac Recomb Adjuvanted 50 MCG/0.5ML Intramuscular Suspension Reconstituted (Shingrix)Indicati ons:Need for shingles vaccine Inject 0.5 mL into a large muscle now and repeat dose in 60 to 180 days 1 Each 1 04/10/2024 Active Cyclobenzaprine HCl 10 MG Oral Tablet (Flexeril)Indicati ons:Neck pain,DDD (degenerative disc disease), cervical Take 1 Tablet by mouth at bedtime as needed for Pain. 30 Tablet 1 06/01/2024 Active Aspirin 81 MG Oral Tablet Delayed Release Take 1 Tablet by mouth in the morning. Do not start before June 23, 2024. 30 Tablet 06/23/2024 07/23/20 24 Active oxyCODONE HCl 5 MG Oral Tablet (Oxy IR) Take 1 Tablet by mouth every 8 hours as needed for Pain, Severe for up to 3 doses. 3 Tablet 06/12/2024 Active Gabapentin 300 MG Oral Capsule (Neurontin)Indicat ions:Chronic bilateral low back pain without sciatica Take 2 Capsules by mouth in the morning and 2 Capsules at noon and 2 Capsules before bedtime. 180 Capsule 2 06/12/2024 Active Polyethylene Glycol 3350 17 GM Oral Packet (MiraLax) Take 1 Packet by mouth daily as needed for Other (constipation) . 14 Each 06/12/2024 Active aspirin enteric coated 81 MG TBEC Take 1 Tablet by mouth in the morning. 06/12/20 24 Discontinued Potassium Chloride ER 20 MEQ Oral Tablet Extended Release Take 1 Tablet by mouth in the morning. 02/28/2024 06/12/20 24 Discontinued predniSONE 10 MG Oral Tablet (Deltasone)Indicat ions:Neck pain,DDD (degenerative disc disease), cervical Take 5 tabs for 2 days, 4 tabs for 2 days, 3 tabs for 2 days, 2 tabs for 2 days 1 tab for 2 days 30 Tablet 05/02/2024 06/12/20 24 Discontinued predniSONE 20 MG Oral Tablet (Deltasone)Indicat ions:Cervical neuropathy One daily 10 Tablet 05/10/2024 06/12/20 24 Discontinued Gabapentin 300 MG Oral Capsule (Neurontin)Indicat ions:Chronic bilateral low back pain without sciatica Take 2 Capsules by mouth in the morning and 2 Capsules at noon and 2 Capsules before bedtime. 180 Capsule 2 06/01/2024 06/12/20 24 Discontinued documented as of this encounter (statuses as [...] Taxonomy. Biceps tendon rupture 01/25/20072023 Atherosclerosis of [place] coronary artery 10/29/2006 02/28/2024 Overview: stent to [...] on file documented as of this encounter Last Filed Vital Signs Vital Sign Reading Time Taken Comments Blood Pressure 92/61 06/12/2024 10:56 AM EDT Pulse 88 06/12/2024 10:56 AM EDT Temperature 35.7 C (96.3 F) 06/12/2024 10:56 AM E DT Respiratory Rate 18 06/12/2024 10:56 AM EDT Oxygen Saturation 93% 06/12/2024 10:56 AM EDT Inhaled Oxygen Concentration - - Weight 79.5 kg (175 lb 4.8 oz) 06/12/2024 2:52 A M EDT Height 170.2 cm (5' 7") 06/05/2024 4:22 AM EDT Body Mass Index 27.46 06/05/2024 4:22 AM EDT documented in this encounter Functional Status Functional Status Response [...] No 06/05/2024 documented as of this encounter Discharge Summaries * Colette Manzano MD - 06/12/2024 11:12 AM EDT [address] [address] Admission Date: 06/05/2024 Discharge Date: 06/12/2024 RECOMMENDED TO DO FOR NEXT PROVIDER(S): Neurosurgery outpatient follow up in 2 weeks, scheduled for 06/14/2024. [place]-J hard collar for OOB use and therapy; not needed while resting in bed/sleeping. Please follow up with vascular surgery for ICA stenosis noted on CTA, largest 69% prox L ICA. Holding [employer] for 2 weeks post-op, can resume 06/23/2022. REASON(S) FOR MEDICATION CHANGE(S): NEW medications -Miralax as needed for constipation -Oxycodone 5 mg every 8 hours as needed for severe pain. (Three tablets prescribed) CHANGES to previous medications -Holding [employer]SA for 2 weeks post-op, can resume 06/23/2022. Discontinued the following medications -Potassium, as potassium levels have been within limits throughout admission. -Prednisone All other medications as previously prescribed. DISPOSITION ON DISCHARGE: home with home health. Active Hospital Problems Diagnosis Cervical spinal stenosis Atlantoaxial instability Bone erosion Arthralgia Esophageal dysphagia Prediabetes Chronic bilateral low back pain without sciatica HTN, goal below 140/90 S/P angioplasty with stent History of heart artery stent Benign neoplasm of colon Hyperlipidemia with target LDL less than 100 Degenerative cervical disc Resolved Hospital Problems Diagnosis Date Resolved *Principal Diagnosis - Generalized weakness 06/12/2024 Edema of spinal cord (HCC) 06/12/2024 ADMISSION HISTORY & PHYSICAL EXAM (focused): Per admitting staff, PRESENTING PROBLEM: Chronic generalized weakness HPI: Dalton Hernandez is a 74 year old male with a significant medical history of benign neoplasm of the colon, lower back pain chronic, chronic right-sided upper and lower extremity weakness, degenerative disc disease, esophageal dysphagia, HTN, HLD, prediabetes, angioplasty with stent presents to the hospital with a chief complaint of worsening chronic right-sided upper and lower extremity weakness. Patient was states inciting event was a pinched nerve while mowing the grass several months ago. Patient endorses that he was treated with courses of steroids stating a little bit of steroids usually clears it right up Patient was initially seen at [facility] where an MRI brain/C- spine was completed and showed central canal narrowing OC 1 and a few scattered T2 hyperdensities in right-sided cord edema. He was treated with IV steroids at [facility] and transferred to [facility] for Neurosurgery evaluation. associated symptoms include mild SOB. Denies fever, chills, facial droop, stuttering, drooling, cough, dysuria, hematuria, abdominal pain, nausea, vomiting, diarrhea, CP, melena or other associated symptoms. In the ED patient was afebrile without leukocytosis remainder of workup unremarkable with the exception of MRI as noted above. Patient initially seen by Neurosurgery in ED who determined no intervention needed at this time however recommended admission to Medicine for medical optimization. Patient was admitted to Medicine BP: 116 mmHg/71 mmHg (06/05/24199) Pulse: 70 (06/05/24199) Resp: 15 (06/05/24199) Temp: 36.11 C (06/05/24 0041) Temp Summary: Temp Min: 36.1 C (97 F) Max: 36.1 C (97 F) SpO2: 93 % (06/05/24199) O2 flow rate: Supplemental O2 Delivery: Room Air, None (06/05/24199) Constitutional: No Apparent distress HEENT: normocephalic, atraumatic; no masses, tenderness, or adenopathy Eyes: PERRLA, sclera and conjunctiva normal Neck: supple, normal range of motion CV: Normal Rate and Normal Rhythm, no murmur, gallops or rub Chest: normal respiratory effort, lungs clear to auscultation Abdomen: normal: soft, bowel sounds normal, no masses, tenderness or organomegaly Musculoskeletal: (-) negative Extremities: no clubbing, cyanosis, or edema, otherwise grossly normal, warm, and dry Skin: warm, dry, intact: Neuro: alert, oriented to person, place, and time, normal mental status exam Psych: normal mood and affect, nonsuicidal, judgement normal, memory normal HOSPITAL COURSE (focused): The patient is a 74 year old male who was admitted to the hospital as a transfer from [facility] after imaging findings at OSH revealing severe C spine canal narrowing. He initiallypresented with complaints of bilateral upper and lower extremities weakness. He was evaluated by neurosurgery and repeat imaging was obtained as recommended by neurosurgery. CT C- and T- spine revealed chronic cystic/erosive changes of the dens with progression of dorsal pannus formation causing severe spinal canal stenosis at the C1-C2 level, widening of the atlanto-dens interval compatible withatlantoaxial instability. Multilevel degenerative changes causing varying degrees of bilateral bony neural foraminal narrowing, most severe on the right at T11-T12 and on the left at T10- T11. CTA neck with focal atherosclerotic stenosis of the proximal right ICA measuring 65% by NASCET criteria. Focal atherosclerotic stenosis of the proximal left ICA measuring 69% by NASCET criteria. Focal stenoses involving the V2 segments of both vertebral arteries at the C5-6 level due to extrinsic compression by degenerative osteophytes. He underwent surgical intervention with neurosurgery on 06/08/24 including segmental fixation of posterior cervical spine C1 through C4. His symptoms improved post-surgically with improved strength. cO worked with PT/OT. The patient was also evaluated by rheumatology while admitted given concern for possible inflammatory arthropathy. Rheumatoid factor and anti cyclic citrullinated protein antibodies were both negative. No other physical examination or imaging manifestations of rheumatoid arthritis were noted. He was advised to follow-up with Rheumatology outpatient if he were to develop inflammatory symptoms in the future. Patient had a bowel movement was tolerating a regular diet with well-controlled pain and improved strength. The patient was deemed to be medically ready and stable for discharge on 06/12/2024 with . Day of discharge Physical Examination: BP 92/61 | Pulse 88 | Temp 35.7 C (96.3 F) (Tympanic) | Resp 18 | Ht 1.702 m (5' 7") | Wt 79.5 kg (175 lb 4.8 oz) | SpO2 93% | BMI 27.46 kg/m | BSA 1.94 m General: Pleasant elderly male resting comfortably in bed, no apparent distress HEENT: Sclera white, extraocular muscles intact, oral mucosa pink and moist Neck: Incision clean dry intact Cardiovascular: Regular rate and rhythm, S1 and S2 present, no murmurs on auscultation Respiratory: Clear to auscultation bilaterally, no wheezes, rhonchi, crackles Abdomen: Soft, non-tender, non-distended, normal bowel sounds Extremities: No lower extremity edema bilaterally Neuro: AAOx3. Moves all extremities equally 5/5 Skin: Warm, dry. Operations & Procedures: OR on 06/08/2024, underwent: 1) Carey of iliac crest bone graft, right side, through a separate incision 2) segmental fixation of the posterior cervical spine: C1, C2, C3, C4 3) open reduction of C1-C2 subluxation 4) laminectomy, cervical 1, cervical 2, cervical 3 5) Partial laminectomy cervical 4 6) Partial facetectomy right side cervical 3-4 7) Posterior arthrodesis with decortication and grafting: C1, C2, C3, C4 8) use and interpretation of fluoroscopy 9) Use of intraoperative neurophysiologic monitoring 10) use of intraoperative ultrasonography 11) use of allograft Complications: none significant Significant Lab and Imaging Results: As mentioned above Results Pending at Discharge: Lab Results Pending at Discharge: CBC Routine MEDICATION UPDATES AT DISCHARGE START taking these medications INSTRUCTIONS oxyCODONE 5 MG immediate release tablet Commonly known as: Oxy IR Take 1 Tablet by mouth every 8 hours as needed for Pain, Severe for up to 3 doses. Polyethylene Glycol 3350 packet Commonly known as: MiraLax Take 1 Packet by mouth daily as needed for Other (constipation). CHANGE how you take these medications INSTRUCTIONS aspirin enteric coated 81 MG Tbec Start taking on: June 23, 2024 What changed: These instructions start on June 23, 2024. If you are unsure what to do until then, ask your doctor or other care provider. Take 1 Tablet by mouth in the morning. Do not start before June 23, 2024. CONTINUE taking these medications INSTRUCTIONS Acetaminophen 8 Hour 650 MG Tbcr Generic drug: Acetaminophen ER Take 1 Tablet by mouth every 8 hours as needed. atorvaSTATin 80 MG Tablet Commonly known as: Lipitor Take 1 Tablet by mouth every evening. cyclobenzaprine 10 MG Tablet Commonly known as: Flexeril Take 1 Tablet by mouth at bedtime as needed for Pain. Diclofenac 1 % Gel Commonly known as: Voltaren Apply 2 g topically to affected area 4 times a day as needed for Pain. Apply to joints folic acid 1 MG Tablet Take 1 Tablet by mouth in the morning. Gabapentin 300 MG Capsule Commonly known as: Neurontin Take 2 Capsules by mouth in the morning and 2 Capsules at noon and 2 Capsules before bedtime. isosorbide mononitrate SA 60 MG Tb24 Commonly known as: Imdur Take 1 Tablet by mouth in the morning. losartan 100 MG Tablet Commonly known as: Cozaar Take 1 Tablet by mouth at bedtime. Metoprolol Tartrate 25 MG Tablet Commonly known as: Lopressor Take 1 Tablet by mouth in the morning and 1 Tablet before bedtime. Nitrostat 0.4 MG Subl Generic drug: Nitroglycerin DISSOLVE ONE TABLET UNDER TONGUE EVERY 5 MINUTES NEEDED FOR CHESTPAIN. MAX OF 3 TABLETS Czgpz-2-Efde Eth Est (Dietary) 1 g Caps Take 1 g by mouth in the morning and 1 g before bedtime. vitamin b 12 1000 MCG Tabs Commonly known as: Cyanocobalamin Take 1 Tablet by mouth in the morning. Vitamin D 125 MCG (5000 UT) Caps Take by mouth. Zoster Vac Recomb Adjuvanted 50 MCG/0.5ML injection Commonly known as: Shingrix Inject 0.5 mL into a large muscle now and repeat dose in 60 to 180 days STOP taking these medications Potassium Chloride ER 20 MEQ Tbcr predniSONE 10 MG Tabs Tablet Commonly known as: Deltasone predniSONE 20 MG Tabs Tablet Commonly known as: Deltasone CONTINUE taking these medications but follow up with your Primary Care Physician (PCP). INSTRUCTIONS Baclofen 20 MG Tablet Ask about: Should I take this medication? Take 1 Tablet by mouth in the morning and 1 Tablet at noon and 1 Tablet before bedtime. Do all thisfor 10 days. SCHEDULED FOLLOW-UP: Future Appointments Appt Date/Time Provider Department 06/20/2024 11:20 AM Mayo Syed MD [facility] 06/25/2024 9:40 AM Jenae Jolly PA-C [facility] 06/26/2024 9:30 AM [facility]08[facility] 1:00 PM Jeni Stevens PA-C Dermatology [facility] 12/17/2024 10:00 AM Mayo Syed MD [facility] Other Information Indwelling Devices: LINES ALL Duration Peripheral Line Left;Lower 20 Gauge 4 days Peripheral Line Right Arm 20 Gauge 4 days Drain Jake Posterior Neck 3 days Vital Signs (last recorded): Most Recent Systolic BP: 92 mmHg (06/12/24 1056) Most Recent Diastolic BP: 61 mmHg (06/12/24 1056) Pulse: 88 (06/12/24 1056) Resp: 18 (06/12/24 105) Most Recent Temperature: 35.72 C (06/12/24 105) Weight: 79.5 kg (175 lb 4.8 oz) (06/12/24 0252) SpO2: 93 % (06/12/24 105) O2 flow rate: 2 L/MIN (06/08/24 1800) Allergies: Pcn [penicillins], Niaspan [niacin], and Penicillins Activity: as tolerated Diet: age appropriate diet Code Status: Full Code Condition on Discharge: stable Isolation status: None Cognition: normal HOSPITAL CONSULTS ORDERED: ADULT PHYSICAL THERAPY CONSULT IP ADULT OCCUPATIONAL THERAPY CONSULT IP NEUROSURGERY CONSULT IP RHEUMATOLOGY CONSULT IP ADULT PHYSICAL THERAPY CONSULT IP ADULT OCCUPATIONAL THERAPY CONSULT IP REFERRING PHYSICIAN: REF: SELF NO STREET ADDRESS AVAILABLE PRIMARY CARE PROVIDER: PCP: Mayo Syed MD [address] [place] [address] / Carmen [place]IER [phone] (office) [phone] (fax) Note: To contact a physician responsible for this patients hospital care, please call [email or web address] [phone]. I certify this patient is confined to the home and needs intermittent detention care, physical therapy and/or speech therapy, or continues to need occupational therapy. The patient is under my care and I have authorized services on this plan of care. The clinical findings of decrease in functional mobility secondary to decreased strength, decreased balance, and decreased endurance due to recent hospitalization and overall medical condition support the need for home health, and the patientdemonstrates a considerable and taxing effort when attempting to leave the home. The patient had a xuwe-al-ulyh encounter with an allowed provider type on 06/12/2024 and the encounter was related to the primary reason for home health care. Under situations in which I am an acute/post acute facility physician who will not be following the patient's plan of care, I authorized services on this plan of care and I transfer the patient for plan of care certification to the primary care physician kathy who will follow the patient and update the plan of care. Primary care physician Mayo Syed MD I spent a total of 50 minutes coordinating, documenting, and providing care for this patient excluding time spent in the performance of separately billed services. documented in this encounter Discharge Instructions * Discharge Instr - AVS* Colette Manzano MD - 06/11/2024 5:14 PM EDT Discharge Date: 06/12/2024 The information below provides you with the instructions and the list of medications you need to betaking following discharge from the hospital. If you have any questions, please ask before leaving. If you have questions after leaving, you can reach us at the numbers below. YOUR HOSPITAL PROVIDERS: Discharging Provider: Colette Manzano MD Provider Department: Hospital Medicine To reach this Provider Tuesday through Tuesday (8:00 AM to 4:30 PM) for any questions or test results: Call [phone] For after-hours concerns: Call [phone] and have your provider paged, or the provider separations scientist for the Department of Hospital Medicine paged. Please note, the discharging provider will not be able to provide you with any medications refills.Please discuss these with your primary care provider. Worsening Symptoms: If you have new symptoms, or your symptoms get worse, please contact your Discharge Provider or Primary Care Provider (PCP). If these providers are not available, you can go to your local [facility] or Urgent Care Clinic during their business hours. In an EMERGENCY situation: Call [phone] or go to the nearest emergency room. A BRIEF SUMMARY OF YOUR HOSPITAL STAY: You came to the hospital with: complaint of progressive weakness. You were evaluated by neurosurgery and underwent surgical fixation of your cervical spine. You were evaluated by physical and occupational therapy. Your strength significantly improved after surgery and you were deemed to be medically stable and ready for discharge home. Your main diagnosis at discharge was: cervical spine stenosis Operations & Procedures performed: 1) Carey of iliac crest bone graft, right side, through a separate incision 2) segmental fixation of the posterior cervical spine: C1, C2, C3, C4 3) open reduction of C1-C2 subluxation 4) laminectomy, cervical 1, cervical 2, cervical 3 5) Partial laminectomy cervical 4 6) Partial facetectomy right side cervical 3-4 7) Posterior arthrodesis with decortication and grafting: C1, C2, C3, C4 Complications: none significant Inpatient test results that are pending at discharge: none Advance Directive Documented: Advance Directive Does the Patient have an Advance Directive? Yes YOUR FOLLOW UP APPOINTMENTS: Primary Care Provider Information: PCP: Mayo Syed MD [address] [place] [address] / Carmen [place] [phone] (office) [phone] (fax) An appointment was requested with your PCP (Mayo Syed MD) within 7 days. (Please take this form to this visit with your primary care physician.) You have an scheduled outpatient follow up with Neurosurgery in 2 weeks on 06/14/2024. You need the following studies in the future: none INSTRUCTIONS: You are being discharged with a cervical collar, please use it when out of bed and therapy; not needed while resting in bed/sleeping. Diet: Normal diet Activity: per PT/OT Additional Instructions: You were found to have stenosis of your internal carotid artery, this will need to be followed up and monitored by your primary care provider. Please START taking the following medications -Miralax as needed for constipation -Oxycodone 5 mg every 8 hours as needed for severe pain. Please note the following CHANGES to your previous medications -You will need to not take your previously prescribed aspirin for 2 weeks post- operative, can resume taking this medication on 06/23/2022. Please STOP taking the following medications -Potassium, as your potassium levels have been normal throughout your admission. -Prednisone Please continue taking all other medications as previously prescribed. - Call your primary care physician or seek medical attention if experiencing any fevers, dizziness,chest pain or worsening symptoms. * Joselo Carrillo - AVS* Iman Nugent RN - 06/12/2024 12:34 PM EDT [facility] will call you for details to set up home visit for physical and occupational therapy. documented in this encounter Progress Notes * Annia Pérez, - 06/11/2024 11:43 AM EDT PROGRESS NOTE - Rheumatology [facility] [place] [facility] [address] Name: Dalton Hernandez Location: [facility] A464/A Date: 06/11/2024 Time: 11:44 AM PATIENT ASSESSMENT AND FINDINGS: He endorses generally feeling well. Reports some mild neck stiffness persisting after the surgery. Otherwise endorses that is having improved strength in his bilateral arms and hands. Neuropathic pain has also improved. Continues to deny any synovitis symptoms at the small joints of the hands or feet. MUSCULOSKELETAL ROS: Conducted as above and in initial consult. OTHER ROS: All other ROS negative. PHYSICAL EXAM: Most Recent Vital Signs: BP: 92 mmHg/56 mmHg (06/11/24 1000) Pulse: 73 (06/11/24 1000) Resp: 18 (06/11/24 1000) Temp: 36.39 C (06/11/24 1000) Temp Summary: Temp Min: 36.2 C (97.2 F) Max: 37.3 C (99.1 F) SpO2: 93 % (06/11/24 1000) O2 flow rate: 2 L/MIN (06/08/24 1800) Supplemental O2 Delivery: Room Air, None (06/11/24 1000) Vital Signs Last 24 Hours: Temperature: Most Recent Temperature Av.7 C Min: 36.22 C Max: 37.28 C Pulse: Pulse Av.5 Min: 70 Max: 86 Respirations: Resp Av.8 Min: 17 Max: 18 SpO2: SpO2 Av % Min: 91 % Max: 94 % Systolic BP: Most Recent Systolic BP Av.6 mmHg Min: 92 mmHg Max: 126 mmHg General: Well appearing, in no acute distress HEENT: Atraumatic, normocephalic, non-icteric sclera, moist mucous membranes Neurologic: Alert and oriented, no focal deficits, following commands, appropriate responses to questions, CN grossly intact, power equal and normal in UL and LL bilaterally Neck: No JVD, atraumatic CVS: RRR, normal S1 and S2, no murmurs, rubs, or gallops Respiratory: Normal effort, breath sounds normal and equal bilaterally, no crackles, no rales Abdominal: Soft, nondistended, nontender, normoactive bowel sounds Extremities: No edema, peripheral pulses are regular and equal Skin: Warm, dry, intact MSK: no evidence of synovitis or inflammation throughout LABS: Labs reviewed as indicated below: RF and ccp negative Esr and crp wnl Latest Reference Range & Units 06/07/24 07:05 06/07/24 19:50 CRP (Inflammatory Marker) <=5 mg/L <3 ESR <20 mm/hour 15 Rheumatoid Factor <14 IU/mL <10 Cyclic Citrullinated Peptide IgG Antibody Value <7 U/mL 0.6 Cyclic Citrullinated Peptide IgG Antibody Interpretation Negative Negative Bmp wnl Cbc w/ chronic macrocytic anemia U alb/cr ratio wnl Latest Reference Range & Units 02/28/24 10:21 Albumin / Creatinine Ratio, Urine <30 mg/g Creat <10 Albumin, Random Urine mg/dL <1.20 Creatinine, Random Urine mg/dL 118 RADIOLOGY: MRI c spine: IMPRESSION 1. Prominent pannus formation at the C1-C2 level with erosive changes and enhancement of the odontoid and dorsal ligamentous thickening and enhancement. Findings contribute to severe spinal canal stenosis with asymmetric compression, T2 hyperintensity, and volume loss of the right hemicord at the C1-C2 level- consistent with myelomalacia. 2. Very advanced multilevel degenerative changes of the cervical spine, as described above. CT cspine: IMPRESSION CERVICAL SPINE: 1. Chronic cystic/erosive changes of the dens with progression of dorsal pannus formation causing severe spinal canal stenosis at the C1-C2 level. These findings raise the possibility of underlying rheumatoid arthritis. Recommend dedicated MRI cervical spine to evaluate for underlying spinal cord compression. 2. 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 3. Multilevel degenerative changes throughout the cervical spine with at least moderate spinal canal stenosis at C2-C3, C3-C4, C4-C5, and C5-C6. 4. Multilevel neural foraminal narrowing, most severe bilaterally at C2-C3, C3- C4, C4-C5, and on the right at C5-C6. THORACIC SPINE: 1. Multilevel degenerative changes causing varying degrees of bilateral bony neural foraminal narrowing, most severe on the right at T11-T12 and on the left at T10-T11. 2. Additional chronic findings. Dalton Hernandez is a 74 year old male with a significant medical history of benign neoplasm of the colon, lower back pain chronic, chronic right-sided upper and lower extremity weakness, degenerative disc disease, esophageal dysphagia, HTN, HLD, prediabetes, angioplasty with stent who presented to the hospital with a chief complaint of worsening chronic right-sided upper and lower extremity weakness of whome rheumatology is being consulted to evaluate for RA in light of imaging findings. Received IV abx at [facility] and transferred for neursurgery evaluation. It would be odd to see RA involve the dens as such without evidence of other progressive disease, notably there are case reports of such but these individuals are usually seropositive of which this patient is negative for both RA and anti-ccp. However, he does not have evidence of cppd without hook osteophytes or chondrocalcinosis or hand xrays nor other xray modalities. Ultimately his only manifestation of an inflammatory arthropathy has been corrected with neurosurgical intervention. Therefore, at this point he does not require any further evaluation or follow up from a rheumatology perspective. He was directed to reach out to rheumatology of he develops inflammatory symptoms in the smalljoints of the hands or the feet. RHEUMATOLOGY CONSULTATION SUGGESTION(S): Patient was directed to reach out to rheumatology if he develops inflammatory symptoms in the smalljoints of the hands or the feet. Rheumatology will sign off. Please reach out if further questions or changes in clinical condition. Patient was seen and discussed with Dr. 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 Associated attestation - David Hameed III, MD - 06/11/2024 4:47 PM EDT I saw and evaluated the patient today. I have reviewed the resident/fellow physician note and agree. Cause of inflammatory pannus C1-2 not established. Possible CPPD. Possible RA. No other manifestations of either on hx and physical nor imaging. Making good progress post op. Will sign off remain available. David Hameed III, MD * Colette Manzano MD - 06/11/2024 7:39 AM EDT Images from the original note were not included. [facility] A464/A INTERVAL HISTORY: NAOE. Patient reports he feels well, states he is only experiencing minimal pain in his upper back.Worked with physical therapy yesterday and states feels strong enough to be safe at home, states hehas help from his son and uses a ramp to get into the home. Using c-hard collar with OOB without issues. Reports he is passing gas however still no bowel movements since his surgery on Tuesday. Patient denies any headache, dizziness, chest pain, shortness of breath, nausea or vomiting. Tolerating regular meals. Objective Physical Exam Most Recent Vital Signs: BP: 104 mmHg/67 mmHg (06/11/24541) Pulse: 78 (06/11/24 0308) Resp: 18 (06/11/24541) Temp: 37 C (06/11/24541) Temp Summary: Temp Min: 36.2 C (97.2 F) Max: 37.3 C (99.1 F) SpO2: 94 % (06/11/24541) O2 flow rate: 2 L/MIN (06/08/24 1800) Supplemental O2 Delivery: Room Air, None (06/11/24541) PHYSICAL EXAM General: Sitting can sulma in recliner, no apparent distress. HEENT: Sclera white, extraocular muscles intact Cardiovascular: Regular rate rhythm, no murmurs appreciated Respiratory: Normal work of breathing. Clear to auscultation. Abdomen: Soft, nontender distended. bowel sounds present. Extremities: No lower extremity edema. Neuro: AAOx3. Strength is 5/5 in bilateral upper and lower extremities. Sensation is grossly intact Skin: Warm, dry. Peripheral Line Left;Lower 20 Gauge (Active) Number of days: 4 Peripheral Line Right Arm 20 Gauge (Active) Number of days: 3 Drain Jake Posterior Neck (Active) Number of days: 3 STUDIES: Encounter Orders Labs and other studies reviewed with pertinent findings noted below: Cr , Hb 11.7 Assessment and Plan IMPRESSION : Principal Problem: Generalized weakness Active Problems: Degenerative cervical disc Hyperlipidemia with target LDL less than 100 HTN, goal below 140/90 Chronic bilateral low back pain without sciatica S/P angioplasty with stent Prediabetes Benign neoplasm of colon Esophageal dysphagia History of heart artery stent Edema of spinal cord (HCC) Atlantoaxial instability Bone erosion Arthralgia Cervical spinal stenosis Resolved Problems: * No resolved hospital problems. * DIFFERENTIAL AND PLAN: Dalton Hernandez is a 74 year old male with PMHx of CAD s/p LAD stent (2006), HTN, HLD, chronic back pain and GERD presenting with progressive upper and lower extremity weakness R>L. The patient was transferred here from [facility] after MRI of the C-spine reveals central canal narrowing. He was treated with IV antibiotics at outside hospital and transferred to [facility] for Neurosurgery evaluation. Advanced multilevel as spondylosis of the cervical spine Severe Spinal Stenosis C1-C2 level Bilateral upper and lower extremity weakness Degenerative cervical disc Edema of spinal cord (mild, right-sided) CT C spine and T spine with chronic cystic/erosive changes of the dens with progression of dorsal pannus formation causing severe spinal canal stenosis at the C1-C2 level. Findings concerning for possible underlying rheumatoid arthritis. 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 Multilevel degenerative changes causing varying degrees of bilateral bony neural foraminal narrowing, most severe on the right at T11-T12 and on the left at T10-T11. XR C spine, flexion-extension with increased widening of atlantodental interval on the lateral flexion view as suggested on the 06/05/[address] CTA neck with focal atherosclerotic stenosis of the proximal right ICA measuring 65% by NASCET criteria. Focal atherosclerotic stenosis of the proximal left ICA measuring 69% by NASCET criteria. Focal stenoses involving the V2 segments of both vertebral arteries at the C5-6 level due to extrinsic compression by degenerative osteophytes. -Neurosurgery consulted, OR on 06/08/2024, underwent: 1) Carey of iliac crest bone graft, right side, through a separate incision 2) segmental fixation of the posterior cervical spine: C1, C2, C3, C4 3) open reduction of C1-C2 subluxation 4) laminectomy, cervical 1, cervical 2, cervical 3 5) Partial laminectomy cervical 4 6) Partial facetectomy right side cervical 3-4 7) Posterior arthrodesis with decortication and grafting: C1, C2, C3, C4 8) use and interpretation of fluoroscopy 9) Use of intraoperative neurophysiologic monitoring 10) use of intraoperative ultrasonography 11) use of allograft -Multilevel chronic cystic/erosive changes of the dens with progression of dorsal pannus formation causing severe spinal canal stenosis concerning for possible underlying rheumatoid arthritis. Per chart review, patient has followed up with rheumatology in the past however does not have a dx of RA. -Rheumatology consulted, appreciated recommendations. Repeat MRI c spine ordered per rheum requestsin order to determine pannus extension and degree of inflammation given concern for inflammatory arthritis. Remarkable for prominent pannus formation at the C1-C2 level with erosive changes and enhancement of the odontoid and dorsal ligamentous thickening and enhancement. -ESR/CRP and Rheumatoid factor negative. Anti-CCP Ab negative. -Q4H neuro check -Fall precautions -PT/OT -Neurosurgery outpatient follow up in 2 weeks. -Will require outpatient follow up with vascular surgery for ICA stenosis, largest 69% prox L ICA. -pain control with as needed oxycodone for moderate and severe pain. Flexeril as needed for muscle spasms. 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 Holding DREDGE OPERATOR SUPERVISOR ASA for 2 weeks post-op, can resume 06/23/2022. Hyperlipidemia Chronic, stable, continue DREDGE OPERATOR SUPERVISOR statin Diet: Regular DVT PPx: Mechanical plus SQH PHARMACOLOGIC VTE PROPHYLAXIS: hEParin CODE STATUS: Full Code EXPECTED DISCHARGE DATE: 06/12/2024 I spent a total of 36 minutes coordinating, documenting, and providing care for this patient excluding time spent in the performance of separately billed services. * Colette Manzano MD - 06/10/2024 7:23 AM EDT Images from the original note were not included. [facility] [place] A464/A INTERVAL HISTORY: NAOE. Patient reports he feels well this morning states he has not in pain. Did receive a dose of oxycodone yesterday for moderate pain. He otherwise offers no complaints. Passing gas however has nothad a bowel movement since his surgery. Denies any headache, dizziness, chest pain, shortness of breath, focal weakness or saddle anesthesia. Objective Physical Exam Most Recent Vital Signs: BP: 100 mmHg/61 mmHg (06/10/24634) Pulse: 64 (06/10/24634) Resp: 16 (06/10/24634) Temp: 36.78 C (06/10/24634) Temp Summary: Temp Min: 36.1 C (97 F) Max: 37.4 C (99.3 F) SpO2: 91 % (06/10/24634) O2 flow rate: 2 L/MIN (06/08/24 1800) Supplemental O2 Delivery: Room Air, None (06/10/24634) PHYSICAL EXAM General: Lying comfortably in bed in no apparent distress. HEENT: Sclera white, extraocular muscles intact Cardiovascular: Regular rate and rhythm, no murmurs on auscultation Respiratory: Normal work of breathing. Clear to auscultation. Abdomen: Soft, nontender, nondistended. Extremities: No lower extremity edema. Neuro: AAOx3. Strength is 5/5 in bilateral upper and lower extremities. Sensation is grossly intact. Skin: Warm, dry. Peripheral Line Left;Lower 20 Gauge (Active) Number of days: 3 Peripheral Line Right Arm 20 Gauge (Active) Number of days: 2 Drain Jake Posterior Neck (Active) Number of days: 2 Arterial Line Left Radial (Active) Number of days: 2 STUDIES: Encounter Orders Labs and other studies reviewed with pertinent findings noted below: Cr 1.0, H/H stable, WBC 9.20 Radiographic Studies (last 72 hours): reviewed. MRI C SPINE W WO CONTRAST Result Date: 06/08/2024 IMPRESSION 1. Prominent pannus formation at the C1-C2 level with erosive changes and enhancement ofthe odontoid and dorsal ligamentous thickening and enhancement. Findings contribute to severe spinal canal stenosis with asymmetric compression, T2 hyperintensity, and volume loss of the right hemicord at the C1-C2 level-consistent with myelomalacia. 2. Very advanced multilevel degenerative changesof the cervical spine, as described above. XR HAND 3 OR MORE VIEWS Result Date: 06/08/2024 IMPRESSION 1. No discrete evidence of CPPD. 2. Minimal scattered interphalangeal joint osteoarthritis. Assessment and Plan IMPRESSION : Principal Problem: Generalized weakness Active Problems: Degenerative cervical disc Hyperlipidemia with target LDL less than 100 HTN, goal below 140/90 Chronic bilateral low back pain without sciatica S/P angioplasty with stent Prediabetes Benign neoplasm of colon Esophageal dysphagia History of heart artery stent Edema of spinal cord (HCC) Atlantoaxial instability Bone erosion Arthralgia Cervical spinal stenosis Resolved Problems: * No resolved hospital problems. * DIFFERENTIAL AND PLAN: Dalton Hernandez is a 74 year old male with PMHx of CAD s/p LAD stent (2006), HTN, HLD, chronic back pain and GERD presenting with progressive upper and lower extremity weakness R>L. The patient was transferred here from [facility] after MRI of the C-spine reveals central canal narrowing. He was treated with IV antibiotics at outside hospital and transferred to [facility] for Neurosurgery evaluation. Advanced multilevel as spondylosis of the cervical spine Severe Spinal Stenosis C1-C2 level Bilateral upper and lower extremity weakness Degenerative cervical disc Edema of spinal cord (mild, right-sided) CT C spine and T spine with chronic cystic/erosive changes of the dens with progression of dorsal pannus formation causing severe spinal canal stenosis at the C1-C2 level. Findings concerning for possible underlying rheumatoid arthritis. 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 Multilevel degenerative changes causing varying degrees of bilateral bony neural foraminal narrowing, most severe on the right at T11-T12 and on the left at T10-T11. XR C spine, flexion-extension with increased widening of atlantodental interval on the lateral flexion view as suggested on the 06/05/[address] CTA neck with focal atherosclerotic stenosis of the proximal right ICA measuring 65% by NASCET criteria. Focal atherosclerotic stenosis of the proximal left ICA measuring 69% by NASCET criteria. Focal stenoses involving the V2 segments of both vertebral arteries at the C5-6 level due to extrinsic compression by degenerative osteophytes. -Neurosurgery consulted, OR on 06/08/2024, underwent: 1) Carey of iliac crest bone graft, right side, through a separate incision 2) segmental fixation of the posterior cervical spine: C1, C2, C3, C4 3) open reduction of C1-C2 subluxation 4) laminectomy, cervical 1, cervical 2, cervical 3 5) Partial laminectomy cervical 4 6) Partial facetectomy right side cervical 3-4 7) Posterior arthrodesis with decortication and grafting: C1, C2, C3, C4 8) use and interpretation of fluoroscopy 9) Use of intraoperative neurophysiologic monitoring 10) use of intraoperative ultrasonography 11) use of allograft -Multilevel chronic cystic/erosive changes of the dens with progression of dorsal pannus formation causing severe spinal canal stenosis concerning for possible underlying rheumatoid arthritis. Per chart review, patient has followed up with rheumatology in the past however does not have a dx of RA. -Rheumatology consulted, appreciated recommendations. Repeat MRI c spine ordered per rheum requestsin order to determine pannus extension and degree of inflammation given concern for inflammatory arthritis. Remarkable for prominent pannus formation at the C1-C2 level with erosive changes and enhancement of the odontoid and dorsal ligamentous thickening and enhancement. -ESR/CRP and Rheumatoid factor negative. Anti-CCP Ab negative. -Q4H neuro check -Fall precautions -PT/OT -Will require outpatient follow up with vascular surgery for ICA stenosis, largest 69% prox L ICA. -pain control with as needed oxycodone for moderate and severe pain. Flexeril as needed for muscle spasms. 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 Holding DREDGE OPERATOR SUPERVISOR ASA for 2 weeks post-op, can resume 06/23/2022. Hyperlipidemia Chronic, stable, continue DREDGE OPERATOR SUPERVISOR statin Diet: Regular DVT PPx: Mechanical plus SQH PHARMACOLOGIC VTE PROPHYLAXIS: hEParin CODE STATUS: Full Code EXPECTED DISCHARGE DATE: 06/11/2024 I spent a total of 50 minutes coordinating, documenting, and providing care for this patient excluding time spent in the performance of separately billed services. * Chivo Dominguez CPO - 06/09/2024 11:08 AM EDT Fit delivered [place] cervical orthosis. Orthosis Rx by Carmen Chen PA-C. Dx cervical fusion. Fit [place] cervical collar. Height of collar adjusted at this time. With correct donning, orthosis stabilized cervical vertebra in neutral alignment. The orthosis was examined for structural integrity and animal herder guidelines were followed. Correct donning doffing wearing schedule care explainedto patient. Written instructions given to patient. Will follow as needed. Chivo Dominguez CPO 06/09/2024 11:12 AM * Colette Manzano MD - 06/09/2024 7:32 AM EDT Images from the original note were not included. [facility] A464/A INTERVAL HISTORY: No acute overnight events. States he feels well this morning and reports improved strength in his right upper extremity. States he is passing gas. No bowel movements since his surgery yesterday. Denies any nausea or vomiting. Tolerated clear liquid diet. Denies any headache, dizziness, chest pain, s hortness of breath, saddle anesthesia. Objective Physical Exam Most Recent Vital Signs: BP: 161 mmHg/79 mmHg (06/09/24 0804) Pulse: 67 (06/09/24 0804) Resp: 17 (06/09/24641) Temp: 36.78 C (06/09/24641) Temp Summary: Temp Min: 36.2 C (97.2 F) Max: 36.8 C (98.2 F) SpO2: 94 % (06/09/24641) O2 flow rate: 2 L/MIN (06/08/24 1800) Supplemental O2 Delivery: Room Air, None (06/09/24 0800) PHYSICAL EXAM General: Resting comfortably in bed in no apparent distress. HEENT: Sclera white, extraocular muscles intact Cardiovascular: Regular rate and rhythm, no murmurs on auscultation Respiratory: Normal work of breathing. Clear to auscultation. Abdomen: Soft, nontender, nondistended. Extremities: No lower extremity Neuro: AAOx3. Strength is 5/5 in bilateral upper and lower extremities. Sensation is grossly intact. Skin: Warm, dry, well-perfused Urethral Catheter Coude (Active) Number of days: 1 Peripheral Line Left;Lower 20 Gauge (Active) Number of days: 2 Peripheral Line Right Arm 20 Gauge (Active) Number of days: 1 Drain Jake Posterior Neck (Active) Number of days: 1 Arterial Line Left Radial (Active) Number of days: 1 STUDIES: Encounter Orders Labs and other studies reviewed with pertinent findings noted below: Cr at baseline 0.8, H/H stable, WBC 11.82 Radiographic Studies (last 72 hours): reviewed. MRI C SPINE W WO CONTRAST Result Date: 06/08/2024 IMPRESSION 1. Prominent pannus formation at the C1-C2 level with erosive changes and enhancement ofthe odontoid and dorsal ligamentous thickening and enhancement. Findings contribute to severe spinal canal stenosis with asymmetric compression, T2 hyperintensity, and volume loss of the right hemicord at the C1-C2 level-consistent with myelomalacia. 2. Very advanced multilevel degenerative changesof the cervical spine, as described above. XR HAND 3 OR MORE VIEWS Result Date: 06/08/2024 IMPRESSION 1. No discrete evidence of CPPD. 2. Minimal scattered interphalangeal joint osteoarthritis. Assessment and Plan IMPRESSION : Principal Problem: Generalized weakness Active Problems: Degenerative cervical disc Hyperlipidemia with target LDL less than 100 HTN, goal below 140/90 Chronic bilateral low back pain without sciatica S/P angioplasty with stent Prediabetes Benign neoplasm of colon Esophageal dysphagia History of heart artery stent Edema of spinal cord (HCC) Atlantoaxial instability Bone erosion Arthralgia Resolved Problems: * No resolved hospital problems. * DIFFERENTIAL AND PLAN: Dalton Hernandez is a 74 year old male with PMHx of CAD s/p LAD stent (2006), HTN, HLD, chronic back pain and GERD presenting with progressive upper and lower extremity weakness R>L. The patient was transferred here from [facility] after MRI of the C-spine reveals central canal narrowing. He was treated with IV antibiotics at outside hospital and transferred to [facility] for Neurosurgery evaluation. Advanced multilevel as spondylosis of the cervical spine Severe Spinal Stenosis C1-C2 level Bilateral upper and lower extremity weakness Degenerative cervical disc Edema of spinal cord (mild, right-sided) CT C spine and T spine with chronic cystic/erosive changes of the dens with progression of dorsal pannus formation causing severe spinal canal stenosis at the C1-C2 level. Findings concerning for possible underlying rheumatoid arthritis. 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 Multilevel degenerative changes causing varying degrees of bilateral bony neural foraminal narrowing, most severe on the right at T11-T12 and on the left at T10-T11. XR C spine, flexion-extension with increased widening of atlantodental interval on the lateral flexion view as suggested on the 06/05/[address] CTA neck with focal atherosclerotic stenosis of the proximal right ICA measuring 65% by NASCET criteria. Focal atherosclerotic stenosis of the proximal left ICA measuring 69% by NASCET criteria. Focal stenoses involving the V2 segments of both vertebral arteries at the C5-6 level due to extrinsic compression by degenerative osteophytes. -Neurosurgery consulted, OR on 06/08/2024, underwent: 1) Carey of iliac crest bone graft, right side, through a separate incision 2) segmental fixation of the posterior cervical spine: C1, C2, C3, C4 3) open reduction of C1-C2 subluxation 4) laminectomy, cervical 1, cervical 2, cervical 3 5) Partial laminectomy cervical 4 6) Partial facetectomy right side cervical 3-4 7) Posterior arthrodesis with decortication and grafting: C1, C2, C3, C4 8) use and interpretation of fluoroscopy 9) Use of intraoperative neurophysiologic monitoring 10) use of intraoperative ultrasonography 11) use of allograft -Multilevel chronic cystic/erosive changes of the dens with progression of dorsal pannus formation causing severe spinal canal stenosis concerning for possible underlying rheumatoid arthritis. Per chart review, patient has followed up with rheumatology in the past however does not have a dx of RA. -Rheumatology consulted, appreciated recommendations. Repeat MRI c spine ordered per rheum requestsin order to determine pannus extension and degree of inflammation given concern for inflammatory arthritis. Remarkable for prominent pannus formation at the C1-C2 level with erosive changes and enhancement of the odontoid and dorsal ligamentous thickening and enhancement. -ESR/CRP and Rheumatoid factor negative. Anti-CCP Ab negative. -Q4H neuro check -Fall precautions -PT/OT -Will require outpatient follow up with vascular surgery for ICA stenosis, largest 69% prox L ICA. -pain control with as needed oxycodone for moderate and severe pain. Flexeril as needed for muscle spasms. -MATTHEW to suction -Mechanical DVT ppx, resume SQH for DVT ppx today. Hypertension H/o CAD s/p JORDAN to LAD and diag in 2006 Continue DREDGE OPERATOR SUPERVISOR isosorbide mononitrate, losartan, metoprolol. Holding DREDGE OPERATOR SUPERVISOR ASA for 2 weeks post-op, can resume 06/23/2022. Hyperlipidemia Chronic, stable, continue DREDGE OPERATOR SUPERVISOR statin Diet: Regular DVT PPx: Resume [facility] PHARMACOLOGIC VTE PROPHYLAXIS: hEParin CODE STATUS: Full Code EXPECTED DISCHARGE DATE: 06/11/2024 I spent a total of 60 minutes coordinating, documenting, and providing care for this patient excluding time spent in the performance of separately billed services. * Colette Manzano MD - 06/08/2024 8:04 AM EDT Images from the original note were not included. 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 Reports he feels well overall and was experiencing some pain however this is well controlled with pain meds in the PACU. Denies any upper or lower extremity weakness or saddle anesthesia. No headaches or dizziness. Objective Physical Exam Most Recent Vital Signs: BP: 149 mmHg/72 mmHg (06/08/24 1730) Pulse: 72 (06/08/24 1730) Resp: 19 (06/08/24 1730) Temp: 36.61 C (06/08/24 1630) Temp Summary: Temp Min: 35.9 C (96.6 F) Max: 36.6 C (97.9 F) SpO2: 98 % (06/08/24 1730) O2 flow rate: 2 L/MIN (06/08/24 1630) Supplemental O2 Delivery: Nasal Cannula (06/08/24 1630) PHYSICAL EXAM General: Patient evaluated in the PACU. Lying flat comfortably, in no apparent distress HEENT: Sclera white, extraocular muscles intact Cardiovascular: Regular rate and rhythm, no murmurs on auscultation Respiratory: Normal work of breathing. No wheezing or crackles Abdomen: Soft nontender nondistended Extremities: No lower extremity Neuro: AAOx3. Skin: Warm, dry, well-perfused Urethral Catheter Coude (Active) Number of days: 0 Peripheral Line Left;Lower 20 Gauge (Active) Number of days: 1 Peripheral Line Right Arm 20 Gauge (Active) Number of days: 0 Drain Jake Posterior Neck (Active) Number of days: 0 Arterial Line Left Radial (Active) Number of days: 0 STUDIES: Encounter Orders Labs and other studies reviewed with pertinent findings noted below: Cr at baseline 0.9, H/H stable Radiographic Studies (last 72 hours): reviewed. MRI C SPINE W WO CONTRAST Result Date: 06/08/2024 IMPRESSION 1. Prominent pannus formation at the C1-C2 level with erosive changes and enhancement ofthe odontoid and dorsal ligamentous thickening and enhancement. Findings contribute to severe spinal canal stenosis with asymmetric compression, T2 hyperintensity, and volume loss of the right hemicord at the C1-C2 level-consistent with myelomalacia. 2. Very advanced multilevel degenerative changesof the cervical spine, as described above. XR HAND 3 OR MORE VIEWS Result Date: 06/08/2024 IMPRESSION 1. No discrete evidence of CPPD. 2. Minimal scattered interphalangeal joint osteoarthritis. XR C SPINE FLEXION AND EXTENSION VIEWS ONLY Result Date: 06/06/2024 IMPRESSION Increased widening of atlantodental interval on the lateral flexion view as suggested onthe 06/05/[address] Extensive degenerative changes as outlined. Noted changes better demonstrated on the prior day's CT scan. Assessment and Plan IMPRESSION : Principal Problem: Generalized weakness Active Problems: Degenerative cervical disc Hyperlipidemia with target LDL less than 100 HTN, goal below 140/90 Chronic bilateral low back pain without sciatica S/P angioplasty with stent Prediabetes Benign neoplasm of colon Esophageal dysphagia History of heart artery stent Edema of spinal cord (HCC) Atlantoaxial instability Bone erosion Arthralgia Resolved Problems: * No resolved hospital problems. * DIFFERENTIAL AND PLAN: Dalton Hernandez is a 74 year old male with PMHx of CAD s/p LAD stent (2006), HTN, HLD, chronic back pain and GERD presenting with progressive upper and lower extremity weakness R>L. The patient was transferred here from [facility] after MRI of the C-spine reveals central canal narrowing. He was treated with IV antibiotics at outside hospital and transferred to [facility] for Neurosurgery evaluation. Advanced multilevel as spondylosis of the cervical spine Severe Spinal Stenosis C1-C2 level Bilateral upper and lower extremity weakness Degenerative cervical disc Edema of spinal cord (mild, right-sided) CT C spine and T spine with chronic cystic/erosive changes of the dens with progression of dorsal pannus formation causing severe spinal canal stenosis at the C1-C2 level. Findings concerning for possible underlying rheumatoid arthritis. 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 Multilevel degenerative changes causing varying degrees of bilateral bony neural foraminal narrowing, most severe on the right at T11-T12 and on the left at T10-T11. XR C spine, flexion-extension with increased widening of atlantodental interval on the lateral flexion view as suggested on the 06/05/[address] CTA neck with focal atherosclerotic stenosis of the proximal right ICA measuring 65% by NASCET criteria. Focal atherosclerotic stenosis of the proximal left ICA measuring 69% by NASCET criteria. Focal stenoses involving the V2 segments of both vertebral arteries at the C5-6 level due to extrinsic compression by degenerative osteophytes. -Neurosurgery consulted, OR today 06/08/2024, underwent: 1) Carey of iliac crest bone graft, right side, through a separate incision 2) segmental fixation of the posterior cervical spine: C1, C2, C3, C4 3) open reduction of C1-C2 subluxation 4) laminectomy, cervical 1, cervical 2, cervical 3 5) Partial laminectomy cervical 4 6) Partial facetectomy right side cervical 3-4 7) Posterior arthrodesis with decortication and grafting: C1, C2, C3, C4 8) use and interpretation of fluoroscopy 9) Use of intraoperative neurophysiologic monitoring 10) use of intraoperative ultrasonography 11) use of allograft -Multilevel chronic cystic/erosive changes of the dens with progression of dorsal pannus formation causing severe spinal canal stenosis concerning for possible underlying rheumatoid arthritis. Per chart review, patient has followed up with rheumatology in the past however does not have a dx of RA. -Rheumatology consulted, appreciated recommendations. Repeat MRI c spine ordered per rheum requestsin order to determine pannus extension and degree of inflammation given concern for inflammatory arthritis. -ESR/CRP and Rheumatoid factor negative. Anti-CCP Ab negative. -Q4H neuro check -Fall precautions -Continue with prednisone 60 mg -PT/OT -Will require outpatient follow up with vascular surgery for ICA stenosis, largest 69% prox L ICA. -pain control with as needed oxycodone for moderate and severe pain. Flexeril as needed for muscle spasms. Patient's sister updated at bedside in the PACU. All questions answered to apparent satisfaction. CAD/Hypertension Continue DREDGE OPERATOR SUPERVISOR isosorbide mononitrate, losartan, metoprolol. Holding DREDGE OPERATOR SUPERVISOR ASA prior to procedure. Hyperlipidemia Chronic, stable, continue DREDGE OPERATOR SUPERVISOR statin Diet: Regular DVT PPx: Holding Enoxaparin 40 mg, resume per neurosurgery. PHARMACOLOGIC VTE PROPHYLAXIS: This patient does not have an active medication from one of the medication groupers. CODE STATUS: Full Code EXPECTED DISCHARGE DATE: 06/11/2024 I spent a total of 55 minutes coordinating, documenting, and providing care for this patient excluding time spent in the performance of separately billed services. * Khadar Mayer MD - 06/08/2024 7:52 AM EDT The primary team apparently ordered an MRI of the C-spine overnight. I did review this after becoming aware of its presence. I spent about 15 minutes reviewing it. The previous MRI from the outside facility was done on June 04, this is only 4 days ago. Given the differences in technique I do not see a substantial change. I do not think the patient needs a foramen magnum decompression and again on the CT scan there is no evidence of instability or involvement of the occiput/C1 joints. I donot think the new imaging changes the operative plan, I will plan for C1-C2 decompression and fusion, possible extension to C3 as needed in terms of the decompression. Khadar Mayer [facility] Neurosurgery This document was dictated using voice recognition software. Please excuse any errors. A total of 15 minutes were spent in review of the patient's charts, direct assessment of the patient during bedside rounds with the resident/PA team, discussion of the clinical scenario with the patient and/or family members, formulating a treatment plan, conveying the treatment plan to all other relevant parties including co-managing services, coordinating/effecting the treatment plan, and documenting the treatment plan. Review of the patient's chart includes review of all relevant notes, vital signs, laboratory investigations, imaging studies, medications, past medical history/medical comorbidities, and all other factors related to the current presenting condition. * Colette Manzano MD - 06/07/2024 7:36 AM EDT Images from the original note were not included. [facility] A464/A INTERVAL HISTORY: No acute overnight events. Patient reports he feels the same as yesterday with some bilateral upperextremity weakness right greater than left. Denies any saddle anesthesia, bowel or bladder incontinence. No headache or dizziness. States he is looking forward to surgery tomorrow. Objective Physical Exam Most Recent Vital Signs: BP: 116 mmHg/76 mmHg (06/07/24628) Pulse: 67 (06/07/24628) Resp: 16 (06/07/24628) Temp: 36.39 C (06/07/24628) Temp Summary: Temp Min: 36.2 C (97.2 F) Max: 36.6 C (97.9 F) SpO2: 99 % (06/07/24628) O2 flow rate: Supplemental O2 Delivery: Room Air, None (06/07/24628) PHYSICAL EXAM General: Sitting up in bed,no apparent distress HEENT: Sclera white, extraocular muscles intact Cardiovascular: Regular rate and rhythm, no murmurs on auscultation Respiratory: CTAB Abdomen: Soft, non-tender, non-distended, normal bowel sounds Extremities: No lower extremity edema bilaterally Neuro: AAOx3. Skin: Warm, dry, well-perfused Peripheral Line Left;Lower Arm 20 Gauge (Active) Number of days: STUDIES: Encounter Orders Labs and other studies reviewed with pertinent findings noted below: Cr 0.9, H/H stable Radiographic Studies (last 72 hours): reviewed. XR C SPINE FLEXION AND EXTENSION VIEWS ONLY Result Date: 06/06/2024 IMPRESSION Increased widening of atlantodental interval on the lateral flexion view as suggested onthe 06/05/[address] Extensive degenerative changes as outlined. Noted changes better demonstrated on the prior day's CT scan. CT C SPINE WO CONTRAST Result Date: 06/05/2024 IMPRESSION CERVICAL SPINE: 1. Chronic cystic/erosive changes of the dens with progression of dorsalpannus formation causing severe spinal canal stenosis at the C1-C2 level. These findings raise the possibility of underlying rheumatoid arthritis. Recommend dedicated MRI cervical spine to evaluate for underlying spinal cord compression. 2. 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 3. Multilevel degenerative changes throughout the cervical spine with at leastmoderate spinal canal stenosis at C2-C3, C3-C4, C4- C5, and C5-C6. 4. Multilevel neural foraminal narrowing, most severe bilaterally at C2-C3, C3-C4, C4-C5, and on the right at C5-C6. THORACIC SPINE: 1. Multilevel degenerative changes causing varying degrees of bilateral bony neural foraminal narrowing, most severe on the right at T11-T12 and on the left at T10-T11. 2. Additional chronic findings. CT T SPINE WO CONTRAST Result Date: 06/05/2024 IMPRESSION CERVICAL SPINE: 1. Chronic cystic/erosive changes of the dens with progression of dorsalpannus formation causing severe spinal canal stenosis at the C1-C2 level. These findings raise the possibility of underlying rheumatoid arthritis. Recommend dedicated MRI cervical spine to evaluate for underlying spinal cord compression. 2. 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 3. Multilevel degenerative changes throughout the cervical spine with at leastmoderate spinal canal stenosis at C2-C3, C3-C4, C4- C5, and C5-C6. 4. Multilevel neural foraminal narrowing, most severe bilaterally at C2-C3, C3-C4, C4-C5, and on the right at C5-C6. THORACIC SPINE: 1. Multilevel degenerative changes causing varying degrees of bilateral bony neural foraminal narrowing, most severe on the right at T11-T12 and on the left at T10-T11. 2. Additional chronic findings. CTA NECK Result Date: 06/05/2024 IMPRESSION 1. Focal atherosclerotic stenosis of the proximal right ICA measuring 65% by NASCET criteria. 2. Focal atherosclerotic stenosis of the proximal left ICA measuring 69% by NASCET criteria. 3. Focal stenoses involving the V2 segments of both vertebral arteries at the C5-6 level due to extrinsic compression by degenerative osteophytes. 4. Additional findings as above. Assessment and Plan IMPRESSION : Principal Problem: Generalized weakness Active Problems: Degenerative cervical disc Hyperlipidemia with target LDL less than 100 HTN, goal below 140/90 Chronic bilateral low back pain without sciatica S/P angioplasty with stent Prediabetes Benign neoplasm of colon Esophageal dysphagia History of heart artery stent Edema of spinal cord (HCC) Resolved Problems: * No resolved hospital problems. * DIFFERENTIAL AND PLAN: Dalton Hernandez is a 74 year old male with PMHx of CAD s/p LAD stent (2006), HTN, HLD, chronic back pain and GERD presenting with progressive upper and lower extremity weakness R>L. The patient was transferred here from [facility] after MRI of the C-spine reveals central canal narrowing. He was treated with IV antibiotics at outside hospital and transferred to [facility] for Neurosurgery evaluation. Advanced multilevel as spondylosis of the cervical spine Severe Spinal Stenosis C1-C2 level Bilateral upper and lower extremity weakness Degenerative cervical disc Edema of spinal cord (mild, right-sided) CT C spine and T spine with chronic cystic/erosive changes of the dens with progression of dorsal pannus formation causing severe spinal canal stenosis at the C1-C2 level. Findings concerning for possible underlying rheumatoid arthritis. 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 Multilevel degenerative changes causing varying degrees of bilateral bony neural foraminal narrowing, most severe on the right at T11-T12 and on the left at T10-T11. XR C spine, flexion-extension with increased widening of atlantodental interval on the lateral flexion view as suggested on the 06/05/[address] CTA neck with focal atherosclerotic stenosis of the proximal right ICA measuring 65% by NASCET criteria. Focal atherosclerotic stenosis of the proximal left ICA measuring 69% by NASCET criteria. Focal stenoses involving the V2 segments of both vertebral arteries at the C5-6 level due to extrinsic compression by degenerative osteophytes. -Neurosurgery consulted, plan for OR tomorrow NPO after 2400 -Multilevel chronic cystic/erosive changes of the dens with progression of dorsal pannus formation causing severe spinal canal stenosis concerning for possible underlying rheumatoid arthritis. Per chart review, patient has followed up with rheumatology in the past however does not have a dx of RA. -Rheumatology consulted, appreciated recommendations. -Q4H neuro check -Fall precautions -Continue with prednisone 60 mg daily while awaiting surgery -PT/OT -Will require outpatient follow up with vascular surgery for ICA stenosis, largest 69% prox L ICA. Cardiovascular Risk Assessment: Does patient have Coronary artery disease? Yes Has patient had a coronary stent inserted in the past year? No The patient's functional status is good (greater than 4 METS). The patient's Revised cardiac risk index(RCRI) score is 1/6, with a 6.0% 30-day risk of , [place], or cardiac arrest (4.9-7.4%, 95% CI) CAD/Hypertension ontinue DREDGE OPERATOR SUPERVISOR isosorbide mononitrate, losartan, metoprolol. Holding DREDGE OPERATOR SUPERVISOR ASA prior to procedure. Hyperlipidemia Chronic, stable, continue DREDGE OPERATOR SUPERVISOR statin Diet: Regular DVT PPx: Enoxaparin 40mg Daily, hold for tomorrow morning given plan for OR PHARMACOLOGIC VTE PROPHYLAXIS: Enoxaparin CODE STATUS: Full Code EXPECTED DISCHARGE DATE: 06/08/2024 I spent a total of 45 minutes coordinating, documenting, and providing care for this patient excluding time spent in the performance of separately billed services. * Colette Manzano MD - 06/06/2024 4:41 PM EDT Images from the original note were not included. [facility] A464/A INTERVAL HISTORY: No acute overnight events. Reports progressive right upper extremity weakness and numbness, states symptoms are improved since starting the prednisone. Denies any headache, dizziness, nausea or vomiting. No fevers or chills. Denies any saddle anesthesia bowel or bladder incontinence. Objective Physical Exam Most Recent Vital Signs: BP: 130 mmHg/63 mmHg (06/06/24 1459) Pulse: 78 (06/06/24 1459) Resp: 16 (06/06/24 1459) Temp: 36.61 C (06/06/24 1459) Temp Summary: Temp Min: 36 C (96.8 F) Max: 36.6 C (97.9 F) SpO2: 94 % (06/06/24 1459) O2 flow rate: Supplemental O2 Delivery: Room Air, None (06/06/24 1622) PHYSICAL EXAM General: Well appearing, no apparent distress HEENT: Sclera white, extraocular muscles intact Cardiovascular: Regular rate and rhythm, S1 and S2 present, no murmurs on auscultation Respiratory: Clear to auscultation bilaterally, no wheezes, rhonchi, crackles Abdomen: Soft, non-tender, non-distended, normal bowel sounds Extremities: No lower extremity edema bilaterally Neuro: AAOx3. Strength intact in bilateral upper and lower extremities. Skin: Warm, dry Peripheral Line Left;Lower Arm 20 Gauge (Active) Number of days: STUDIES: Encounter Orders Labs and other studies reviewed with pertinent findings noted below: Radiographic Studies (last 72 hours): reviewed. XR C SPINE FLEXION AND EXTENSION VIEWS ONLY Result Date: 06/06/2024 IMPRESSION Increased widening of atlantodental interval on the lateral flexion view as suggested onthe 06/05/[address] Extensive degenerative changes as outlined. Noted changes better demonstrated on the prior day's CT scan. CT C SPINE WO CONTRAST Result Date: 06/05/2024 IMPRESSION CERVICAL SPINE: 1. Chronic cystic/erosive changes of the dens with progression of dorsalpannus formation causing severe spinal canal stenosis at the C1-C2 level. These findings raise the possibility of underlying rheumatoid arthritis. Recommend dedicated MRI cervical spine to evaluate for underlying spinal cord compression. 2. 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 3. Multilevel degenerative changes throughout the cervical spine with at leastmoderate spinal canal stenosis at C2-C3, C3-C4, C4- C5, and C5-C6. 4. Multilevel neural foraminal narrowing, most severe bilaterally at C2-C3, C3-C4, C4-C5, and on the right at C5-C6. THORACIC SPINE: 1. Multilevel degenerative changes causing varying degrees of bilateral bony neural foraminal narrowing, most severe on the right at T11-T12 and on the left at T10-T11. 2. Additional chronic findings. CT T SPINE WO CONTRAST Result Date: 06/05/2024 IMPRESSION CERVICAL SPINE: 1. Chronic cystic/erosive changes of the dens with progression of dorsalpannus formation causing severe spinal canal stenosis at the C1-C2 level. These findings raise the possibility of underlying rheumatoid arthritis. Recommend dedicated MRI cervical spine to evaluate for underlying spinal cord compression. 2. 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 3. Multilevel degenerative changes throughout the cervical spine with at leastmoderate spinal canal stenosis at C2-C3, C3-C4, C4- C5, and C5-C6. 4. Multilevel neural foraminal narrowing, most severe bilaterally at C2-C3, C3-C4, C4-C5, and on the right at C5-C6. THORACIC SPINE: 1. Multilevel degenerative changes causing varying degrees of bilateral bony neural foraminal narrowing, most severe on the right at T11-T12 and on the left at T10-T11. 2. Additional chronic findings. CTA NECK Result Date: 06/05/2024 IMPRESSION 1. Focal atherosclerotic stenosis of the proximal right ICA measuring 65% by NASCET criteria. 2. Focal atherosclerotic stenosis of the proximal left ICA measuring 69% by NASCET criteria. 3. Focal stenoses involving the V2 segments of both vertebral arteries at the C5-6 level due to extrinsic compression by degenerative osteophytes. 4. Additional findings as above. Assessment and Plan IMPRESSION : Principal Problem: Generalized weakness Active Problems: Degenerative cervical disc Hyperlipidemia with target LDL less than 100 HTN, goal below 140/90 Chronic bilateral low back pain without sciatica S/P angioplasty with stent Prediabetes Benign neoplasm of colon Esophageal dysphagia History of heart artery stent Edema of spinal cord (HCC) Resolved Problems: * No resolved hospital problems. * DIFFERENTIAL AND PLAN: Dalton Hernandez is a 74 year old male with PMHx of CAD s/p LAD stent (2006), HTN, HLD, chronic back pain and GERD presenting with progressive upper and lower extremity weakness R>L. The patient was transferred here from [facility] after MRI of the C-spine reveals central canal narrowing. He was treated with IV antibiotics at outside hospital and transferred to [facility] for Neurosurgery evaluation. Advanced multilevel as spondylosis of the cervical spine Severe Spinal Stenosis C1-C2 level Bilateral upper and lower extremity weakness Degenerative cervical disc Edema of spinal cord (mild, right-sided) CT C spine and T spine with chronic cystic/erosive changes of the dens with progression of dorsal pannus formation causing severe spinal canal stenosis at the C1-C2 level. Findings concerning for possible underlying rheumatoid arthritis. 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 Multilevel degenerative changes causing varying degrees of bilateral bony neural foraminal narrowing, most severe on the right at T11-T12 and on the left at T10-T11. XR C spine, flexion-extension with increased widening of atlantodental interval on the lateral flexion view as suggested on the 06/05/[address] CTA neck with focal atherosclerotic stenosis of the proximal right ICA measuring 65% by NASCET criteria. Focal atherosclerotic stenosis of the proximal left ICA measuring 69% by NASCET criteria. Focal stenoses involving the V2 segments of both vertebral arteries at the C5-6 level due to extrinsic compression by degenerative osteophytes. -Neurosurgery consulted, plan for OR Tuesday -Multilevel chronic cystic/erosive changes of the dens with progression of dorsal pannus formation causing severe spinal canal stenosis concerning for possible underlying rheumatoid arthritis. Per chart review, patient has followed up with rheumatology in the past however does not have a dx of RA. -Q.4 neuro check -Fall precautions -Continue with prednisone 60 mg daily while awaiting surgery -PT/OT -Will require outpatient follow up with vascular surgery for ICA stenosis, largest 69% prox L ICA. Cardiovascular Risk Assessment: Does patient have Coronary artery disease? Yes Has patient had a coronary stent inserted in the past year? No The patient's functional status is good (greater than 4 METS). The patient's Revised cardiac risk index(RCRI) score is 1/6, with a 6.0% 30-day risk of , [place], or cardiac arrest (4.9-7.4%, 95% CI) CAD/Hypertension BP well controlled in ED continue DREDGE OPERATOR SUPERVISOR isosorbide mononitrate, losartan, metoprolol. Holding DREDGE OPERATOR SUPERVISOR ASAprior to procedure. Hyperlipidemia Chronic, stable, continue DREDGE OPERATOR SUPERVISOR statin Diet: Regular DVT PPx: Enoxaparin 40mg Daily PHARMACOLOGIC VTE PROPHYLAXIS: This patient does not have an active medication from one of the medication groupers. CODE STATUS: Full Code EXPECTED DISCHARGE DATE: 06/08/2024 I spent a total of 50 minutes coordinating, documenting, and providing care for this patient excluding time spent in the performance of separately billed services. * Derick Marshall MD - 06/06/2024 9:35 AM EDT NEUROLOGICAL SURGERY PROGRESS NOTE [facility] [place] [address] Name: Dalton Hrenandez Location: [facility] [place] A464/[id number] Date: 06/06/2024 Time: 9:39 AM SUBJECTIVE: No acute events. OBJECTIVE: Most recent vital signs: BP: 119 mmHg/70 mmHg (06/06/24599) Pulse: 60 (06/06/24599) Resp: 16 (06/06/24599) Temp: 36 C (06/06/24599) Temp Summary: Temp Min: 36 C (96.8 F) Max: 36.6 C (97.9 F) SpO2: 96 % (06/06/24599) O2 flow rate: Supplemental O2 Delivery: Room Air, None (06/06/24599) Vital signs over last 24 hours: Systolic BP: Most Recent Systolic BP Av.4 mmHg Min: 108 mmHg Max: 147 mmHg Temperature: Most Recent Temperature Av.4 C Min: 36 C Max: 36.61 C Pulse: Pulse Avg: Pulse Av.6 Min: 60 Max: 80 Respirations: Resp Av Min: 16 Max: 16 SpO2: SpO2 Av.5 % Min: 91 % Max: 98 % SpO2: SpO2 Av.5 % Min: 91 % Max: 98 % FiO2%: No data recorded ICP: No data found.CPP (adult): No data found.Intake Input/Output: (last 24 hours) No intake or output data in the 24 hours ending 06/06/24938 Neurologic Examination [place] Coma Scale (GCS): Eyes Open: 4 = spontaneous Best Verbal Response: 5 = verbally appropriate for age Best Motor Response: 6 = obeys commands appropriate for age Awake, alert, oriented to person, place, time PERRL EOMI No facial droop No pronator drift LI to command RUE 5/5 LUE 5/5 RLE 5/5 LLE 5/5 Sensation grossly intact L garcia LABS: Blood count: Lab Results Component Value Date/Time WBC 7.12 06/05/2024 06:55 AM WBC 5.95 04/23/2020 09:50 AM HGB 13.9 (L) 06/05/2024 06:55 AM HGB 13.4 (A) 04/02/2024 12:00 AM HGB 9.8 (L) 04/23/2020 09:50 AM HCT 41.5 06/05/2024 06:55 AM HCT 31.1 (L) 04/23/2020 09:50 AM PLT 163 06/05/2024 06:55 AM PLT 336 04/23/2020 09:50 AM Coagulation studies: Lab Results Component Value Date/Time INR 1.04 04/07/2020 05:19 AM Chemistry: Lab Results Component Value Date/Time BUN 21 (H) 06/05/2024 06:55 AM BUN 24 (H) 04/08/2020 03:44 AM CREAT 1.0 06/05/2024 06:55 AM CREAT 1.01 04/02/2024 12:00 AM CREAT 1.1 04/08/2020 03:44 AM GFRESTIMATED >60.0 04/08/2020 03:44 AM NA 140 06/05/2024 06:55 AM NA 136 04/08/2020 03:44 AM POTASSIUM 4.3 06/05/2024 06:55 AM POTASSIUM 3.8 04/02/2024 12:00 AM POTASSIUM 3.9 04/08/2020 03:44 AM CO2 25 06/05/2024 06:55 AM CO2 26 04/08/2020 03:44 AM Imaging studies: Flex/ex w/o dynamic instability Problem list: Principal Problem: Generalized weakness Active Problems: Degenerative cervical disc Hyperlipidemia with target LDL less than 100 HTN, goal below 140/90 Chronic bilateral low back pain without sciatica S/P angioplasty with stent Prediabetes Benign neoplasm of colon Esophageal dysphagia History of heart artery stent Edema of spinal cord (HCC) Resolved Problems: * No resolved hospital problems. 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 Please check the phonebook for the neurosurgery first call for any additional questions. Patient was discussed with attending physician Associated attestation - Khadar Mayer MD - 06/07/2024 3:41 PM EDT I saw and evaluated the patient today. I have reviewed the resident/fellow physician note and agree. I saw Dalton again today. He continues to have substantial weakness and signs of myelopathy. I did once again review the scenario in the imaging. He has a history of rheumatoid arthritis with instability at C1-C2. Atlantodental interval on the CT scan about 5.4 mm by my measurement, greater than normal value of 3. Posterior atlantodental interval is about 17 mm. Dynamic imaging of the little bit hard to assess but I think there is dynamic subluxation with the radiologic interpretation indicating further widening of the atlantodental interval with flexion. Relationship of the dens to the clivus is normal by the JED/BDI method, no evidence of basilar invagination. Condylar gap 1.2 mm on the right, 1.0 mm on the left, less than the normal limit of 2 mm. No erosion of the condyles nor the superior surfaces of the C1 lateral masses, I do not believe there is instability at the occiput-C1 joint. The fact that the posterior atlantodental interval is 17 mm i.e. greater than the typical cut off level of 14 mm, I think suggest that the issue is active dynamic subluxation with neck movement, as suggested by the increasing atlantodental interval on the dynamic imaging. I think the patient needs stabilization of the C1-C2 segment with decompression to provide added room, although I do not think there is static compression based on the appearance of the MRI and the measurement of the posterior atlantodental interval. Rather I think the compression is dynamic in nature, and I think this fits with the clinical scenario, specifically the patient said he was worse after the active activity of mowing the lawn as well as with looking upwards as with gazing into the tree stands above his head which caused his onset of the symptoms most recently. Because of the lack of basilar invagination and the normal relationship of the condyles to the C1 lateral masses, I do not see a compelling reason that the patient needs extension of fusion to the occiput. I would plan for C1-C2 posterior fusion with decompression, extension is indicated. We would plan to use iliac crest autograft as an adjunct to fusion. Specific risks include but are not limited to: pain, scarring, bleeding, surgical sitehematoma, remote hematoma, need for transfusion of blood products, surgical site infection, other infection including but not limited to urinary tract infection or pneumonia, cerebrospinal fluid leak, neurologic deficit including new or worsened numbness/weakness/pain, wrong level surgery, failure to ameliorate symptoms, recurrence of symptoms, need for further operations or procedures, C5 palsy, dysphagia, dysphonia, Horners syndrome, injury to mediastinal structures, injury to the structures of the carotid sheath, injury to cranio-cervical vasculature, other vascular injury, retrograde ejaculation, ischemic optic neuropathy, failure to fuse, malposition of spinal instrumentation or hardware, vascular injury, thromboembolic events including deep vein thrombosis and pulmonary embolus, myocardial infarction, stroke, coma, and . The patient voices understanding requests to proceed. All questions answered. [facility] This document was dictated using voice recognition software. Please excuse any errors. A total of 35 minutes were spent in review of the patient's charts, direct assessment of the patient during bedside rounds with the resident/PA team, discussion of the clinical scenario with the patient and/or family members, formulating a treatment plan, conveying the treatment plan to all other relevant parties including co-managing services, coordinating/effecting the treatment plan, and documenting the treatment plan. Review of the patient's chart includes review of all relevant notes, vital signs, laboratory investigations, imaging studies, medications, past medical history/medical comorbidities, and all other factors related to the current presenting condition. documented in this encounter H&P Notes * Khadar Mayer MD - 06/08/2024 7:34 AM EDT HISTORY & PHYSICAL INTERVAL NOTE [address] [address] History and Physical Update: Name: Dalton Hernandez Location: [place] [facility] [place] Date: 06/08/2024 Time: 7:34 AM DATE OF HISTORY AND PHYSICAL: 08 June 2024 BP: 148 mmHg/105 mmHg (06/08/24699) Pulse: 59 (06/08/24699) Resp: 21 (06/08/24699) Temp: 36.28 C (06/08/24699) Temp Summary: Temp Min: 35.9 C (96.6 F) Max: 36.6 C (97.9 F) SpO2: 100 % (06/08/24699) O2 flow rate: Supplemental O2 Delivery: Room Air, None (06/08/24699) Heart Exam: Sinus Wai Lung Exam: No audible wheezing or increased work of breathing Other Pertinent Physical Exam: No clinical changes I have reviewed the H&P previously performed and examined the patient today. There are no new findings noted. Information previously discussed. Rheumatoid arthritis, instability at C1-C2. 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 Please see previous notes regarding the imaging findings. Plan for decompression and fusion, C1-C2, iliac crest autograft today. Extension as indicated. Specific risks include but are not limited to: pain, scarring, bleeding, surgical site hematoma, remote hematoma, need for transfusion of blood products, surgical site infection, other infection including but not limited to urinary tract infection or pneumonia, cerebrospinal fluid leak, neurologic deficit including new or worsened numbness/weakness/pain, wrong level surgery, failure to ameliorate s ymptoms, recurrence of symptoms, need for further operations or procedures, C5 palsy, dysphagia, dysphonia, Horners syndrome, injury to mediastinal structures, injury to the structures of the carotid sheath, injury to cranio- cervical vasculature, other vascular injury, retrograde ejaculation, ischemic optic neuropathy, failure to fuse, malposition of spinal instrumentation or hardware, vascular injury, thromboembolic events including deep vein thrombosis and pulmonary embolus, myocardial infarction, stroke, coma, and . The patient voices understanding and requests to proceed. All questions answered. I spoke with the son yesterday. I also attempted to call his and daughter however they did not answer the telephone. [facility]hadar Mayer [facility] This document was dictated using voice recognition software. Please excuse any errors. * Danie Pierre CRNP - 06/05/2024 3:26 AM EDT HISTORY AND PHYSICAL EXAMINATION - Hospital Medicine [address] [address] Name: Dalton Hernandez Location: Date: 06/05/2024 Time: 3:26 AM PRESENTING PROBLEM: Chronic generalized weakness HPI: Dalton Hernandez is a 74 year old male with a significant medical history of benign neoplasm of the colon, lower back pain chronic, chronic right-sided upper and lower extremity weakness, degenerative disc disease, esophageal dysphagia, HTN, HLD, prediabetes, angioplasty with stent presents to the hospital with a chief complaint of worsening chronic right-sided upper and lower extremity weakness. Patient was states inciting event was a pinched nerve while mowing the grass several months ago. Patient endorses that he was treated with courses of steroids stating a little bit of steroids usually clears it right up Patient was initially seen at [facility] where an MRI brain/C- spine was completed and showed central canal narrowing OC 1 and a few scattered T2 hyperdensities in right-sided cord edema. He was treated with IV steroids at [facility] and transferred to [facility] for Neurosurgery evaluation. associated symptoms include mild SOB. Denies fever, chills, facial droop, stuttering, drooling, cough, dysuria, hematuria, abdominal pain, nausea, vomiting, diarrhea, CP, melena or other associated symptoms. In the ED patient was afebrile without leukocytosis remainder of workup unremarkable with the exception of MRI as noted above. Patient initially seen by Neurosurgery in ED who determined no intervention needed at this time however recommended admission to Medicine for medical optimization. Patient was admitted to Medicine PAST MEDICAL HISTORY: Past Medical History: Diagnosis Date Arora's cyst of knee 4.6.14 left Benign neoplasm of colon 12/01/12 4 mm inflammed tubular adenoma at 45 cm Biceps tendon rupture 01/25/07 left Coronary atherosclerosis of [place] coronary artery 10/29/06 stent to LAD Degenerative cervical disc 11/25/11 Dyslipidemia, goal LDL below 100 Family history of diabetes mellitus Generalized osteoarthrosis, unspecified site H/O carpal tunnel repair left hand Herpes zoster 08/19/06 right lower abdomen Hyperlipidemia LDL goal < 100 MEDICATION USE AGREEMENT 08/27/2014 Other synovitis and tenosynovitis 06/24/08 hurt left arm at work, seen in [facility] Postsurgical percutaneous transluminal coronary angioplasty status Primary localized osteoarthrosis, lower leg especially left medial compartment knee Rotator cuff rupture 05/15/07 left, seen by Dr Lebron Tick bite 2009 PAST SURGICAL HISTORY: Past Surgical History: Procedure Laterality Date CARPAL TUNNEL SURGERY left hand, Dr Wood, [place] COLONOSCOPY THRU STOMA, W/BIOPSY 12/11/2012 adenomatous polyp rpt in 5 years COLONOSCOPY, DIAGNOSTIC (RECTUM) 11/16/2022 benign adenomatous polyps, repeat 3 yrs / COLONOSCOPY FLEXIBLE PROXIMAL DIAGNOSTIC performed by Ghazala Aguilera MD at ENDOSCOPY [facility] COLONOSCOPY, REMOVE LESION, W/SNARE 12/12/2012 4 mm sessile polyp at 45 cm COMBINED RT & LEFT HEART CATHETERS 08/21/2009 LAD 90% ostial stenosis, widely patent stent ECHO, STRESS (EXERCISE) 10/26/2006 resting apex and anterolateral wall mildly hypokinetic, EF 55-60%, no LV size, thickness and function, but with stress, had atypical chest pain and markedly abnormal anteroseptal wall motion abnormalities ELBOW FX/DISLOC, MONTEGGIA, REPAIR Left 04/06/2020 OPEN TREATMENT OF FRACTURE DISLOCATION ELBOW performed by Van Virk DO at OR [facility] [place] EMG & NCV, 2 EXTREMITIES Bilateral 05/30/2024 1. 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 2. 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 3. Chronic right C5-6 polyradiculopathy. 4. 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 MRI C SPINE WO CONTRAST 02/24/2012 multilevel disease with mod-severe foraminal narrowing at multiple levels, jennifer C3-4, 4-5, 5-6 MYOCARDIAL STRESS - PHARMACOLOGIC, NUC MED 07/22/2009 normal wall motion, EF 56% with large reversible anterior and apical defect, suggesting multivesseldisease PLACE INTRACORONARY STENT, FIRST VS 10/28/2006 PCI with 2 Cypher stents placed, 90%-0% REMOVE CATARACT, INSERT LENS PROSTH 11/12/2013 QS, [place] REPAIR INITIAL INGUINAL HERNIA REDUCIBLE AGE 5 OR MORE bilateral hernia repairs REPAIR RUPTURED ROTATOR CUFF, CHRON Left 05/03/2007 Dr Lebron US EXTREMITY Left 01/06/2015 6.5x1.8x3.3 cm left Arora's cyst FAMILY HISTORY: Family History Problem Relation Name Age of Onset Diabetes Grandmother (Maternal) Diabetes Grandfather (Maternal) Heart Disorder Grandmother (Paternal) Heart Disorder Grandfather (Paternal) Heart Disorder Father had triple bypass Cancer Father prostate SOCIAL HISTORY: Social History Tobacco Use Smoking status: Never Smokeless tobacco: Never Vaping Use Vaping status: Never Used Substance Use Topics Alcohol use: Not Currently Comment: hasn't drank in 40 years 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 ALLERGIES: Pcn [penicillins], Niaspan [niacin], and Penicillins ROS: As per HPI, all other systems reviewed and negative PHYSICAL EXAMINATION: Most Recent Vital Signs: BP: 116 mmHg/71 mmHg (06/05/24199) Pulse: 70 (06/05/24199) Resp: 15 (06/05/24199) Temp: 36.11 C (06/05/2440) Temp Summary: Temp Min: 36.1 C (97 F) Max: 36.1 C (97 F) SpO2: 93 % (06/05/24199) O2 flow rate: Supplemental O2 Delivery: Room Air, None (06/05/24199) Constitutional: No Apparent distress HEENT: normocephalic, atraumatic; no masses, tenderness, or adenopathy Eyes: PERRLA, sclera and conjunctiva normal Neck: supple, normal range of motion CV: Normal Rate and Normal Rhythm, no murmur, gallops or rub Chest: normal respiratory effort, lungs clear to auscultation Abdomen: normal: soft, bowel sounds normal, no masses, tenderness or organomegaly Musculoskeletal: (-) negative Extremities: no clubbing, cyanosis, or edema, otherwise grossly normal, warm, and dry Skin: warm, dry, intact: Neuro: alert, oriented to person, place, and time, normal mental status exam Psych: normal mood and affect, nonsuicidal, judgement normal, memory normal LABS: Labs reviewed as indicated below: No labs were obtained prior to admission IMAGING: Cervical spine MRI 2024-06-04 IMPRESSION: Severe multilevel degenerative disc disease and facet arthrosis within the cervical spine, as detailed above, which is similar to the prior study. Moderate multilevel central canal stenosis and severe multilevel neural foraminal stenosis. 2. Severe degenerative changes at the C1-C2 articulation with soft tissue thickening which indents the right ventral aspect of the cervicomedullary junction. This is slightly progressed compared the prior study. There is now minimal right-sided cord edema at the C1 level. IMPRESSION and PLAN: Principal Problem: Generalized weakness (POA: Yes) Active Problems: Degenerative cervical disc (POA: Yes) Hyperlipidemia with target LDL less than 100 (POA: Yes) HTN, goal below 140/90 (POA: Yes) Chronic bilateral low back pain without sciatica (POA: Yes) S/P angioplasty with stent (POA: Yes) Prediabetes (POA: Yes) Benign neoplasm of colon (POA: Yes) Esophageal dysphagia (POA: Yes) History of heart artery stent (POA: Yes) Edema of spinal cord (HCC) (POA: Yes) Resolved Problems: * No resolved hospital problems. * POA = Present On Admission PROBLEM BASED ASSESSMENT WITH DIFFERENTIAL: Generalized weakness Degenerative cervical disc Edema of spinal cord (mild, right-sided) Patient with well known right-sided weakness to upper and lower extremities presents due to worsening weakness over the last several months to right upper and right lower extremities. Edema of spinalcord noted on MRI C-spine, Reportedly seen in the ED by Neurosurgery who recommended no intervention as changes seen on MRI were chronic. 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 I spent a total of 79 minutes coordinating, documenting, and providing care for this patient excluding time spent in the performance of separately billed services. DERRICK Ortiz Department of Hospital Medicine [facility] Associated attestation - Shaji Chacon MD - 06/05/2024 5:56 AM EDT I have reviewed the advanced practitioner's documentation on the date of service referenced in note, and I agree with, and take responsibility for the plan of care. Briefly, Mr. Hernandez is a 74 male with a history of CAD s/p LAD stent (2006), Hypertension, Hyperlipidemia, Chronic back pain and GERD presenting with worsening upper and lower extremity weakness a/w tingling (right>left). Started around 1.5 months ago, imaging evident of central canal narrowing (cervical); treated with IV steroids at [facility] and transferred to [facility] for NSGY evaluation. Labs/vitals/imaging reviewed # Cervical radiculopathy with right-sided cord edema, predominantly C1 Plan: Short course of high-dose oral steroids; will do Prednisone 60 mg/day for five days, followed by a taper over 2 weeks. Monitor closely for any acute changes/worsening of the underlying neurological function Neurochecks every 4 hours. Fall precautions/high risk PT/OT evaluation Follow-up with NSGY in the morning Rest of the care/chronic issues as documented in H&P. I spent a total of 35 minutes coordinating, documenting, and providing care for this patient excluding time spent in the performance of separately billed services or time spent by another provider/QHP. documented in this encounter Procedure Notes * Alan Horn Au.D. - 06/08/2024 3:50 PM EDT INTRAOPERATIVE NEUROPHYSIOLOGIC MONITORING REPORT Date of study: 06/08/2024 Patient name: Dalton Hernandez MR#: [id number] :1950 Age: [age] year old Surgeon: Moreno Service: [facility] [place] Neurosurgery Operation: 1) Carey of iliac crest bone graft, right side, through a separate incision 2) segmental fixation of the posterior cervical spine: C1, C2, C3, C4 3) open reduction of C1-C2 subluxation 4) laminectomy, cervical 1, cervical 2, cervical 3 5) Partial laminectomy cervical 4 6) Partial facetectomy right side cervical 3-4 7) Posterior arthrodesis with decortication and grafting: C1, C2, C3, C4 Intraoperative Neurophysiologic Monitoring was performed for: C1-C2 instability; myelopathy 37349 Somatosensory Evoked Potentials, Upper and Lower Limbs 92516 Central Motor Evoked Potentials, Upper and Lower Limbs 15052 Neuromuscular Junction Test [Train of Four] 87314 EMG 2 Extrem [5 muscles each] - Left upper and Right upper Monitored in real time by neurophysiologist remote 1 patient / 15 mins [G0453]: 24units Slot Technician / 15 mins: 36units Monitorist/technologist: LORAINE Brower Pt in room: 0736 Intubation: 0806 Incision: 0936 Completed closin Conditions of Recording: SSEPs were performed to assess the physiologic integrity of the bilateral upper and lower extremitysomatosensory pathways intraoperatively. Recording electrodes were placed on the scalp, bilateral Erbs points, and over the mastoid. Stimulating electrodes were placed over the bilateral ulnar nerves at the wrists and bilateral posterior tibial nerves at the ankles. TcMEPs were performed to assess the physiologic integrity of the descending motor pathways of the upper and lower extremities intraoperatively. Stimulating electrodes were placed on the scalp. Needle-recording electrodes were placed in the bilateral trapezius, deltoid (DL), biceps (BI), flexor carpi radialis (FCR), thenar (APB), tibialis anterior (TA), and abductor hallucis brevis (AH) muscles. Constant-voltage stimulation was used. Bite blocks were placed by the anesthesiologist prior to TcMEPs. Repetitive avbri-cg-xumk (TOF) stimulation was performed to monitor conduction at the neuromuscular junction. EMG was performed to assess the physiologic integrity of corresponding nerve roots intraoperatively. Free-running EMG was recorded in the bilateral trapezius, deltoid (DL), biceps (BI), flexor carpi radialis (FCR), and thenar (APB) muscles. Description of Record: The bilateral upper extremity SSEPs were reproducible and satisfactory for monitoring at baseline. The bilateral upper extremity SSEP amplitudes and latencies remained stable throughout the operation. The bilateral lower extremity SSEPs were reproducible and satisfactory for monitoring at baseline. The bilateral lower extremity SSEP amplitudes and latencies remained stable throughout the operation. TcMEPs were reproducible and satisfactory for monitoring at baseline. The bilateral upper and lowerTcMEPs remained stable throughout the operation. There were no sustained periods of neurotonic EMG activity intraoperatively. Additional intraoperative details including quantitative baseline data will be available under scanned records in the patient's chart. Summary of Findings: . No significant changes in the bilateral upper or lower extremity SSEPs intraoperatively. . No significant changes in the bilateral upper or lower extremity TcMEPs intraoperatively. . No sustained periods of neurotonic EMG activity intraoperatively. . No complications secondary to IONM. Camila Hall Neurophysiologist documented in this encounter Consult Notes * Bessy Martinez DPT - 06/10/2024 11:56 AM EDTAssociated Order(s): ADULT PHYSICAL THERAPY CONSULT IP GENERAL RE-EVALUATION - Physical Therapy [address] [address] Name: Dalton Hernandez Location: [facility] [place] A464/A Date: 06/10/2024 Time: 2:28 PM Dalton Hernandez is a/an 74 year old male. Patient Status: Inpatient Insurance: Payor: [employer] Plan: [facility] [place] PREFERRED ENHANCED MP-DD Product Type: *No Product type* Patient Seen: at bedside, nursing cleared patient for therapy Patient Identified By: Name, ID Band and Date Diagnosis: cervical nerve root compression now s/p ficxation C1-4, open reduction C1-2, LaminectomyC1-3, Partial Lami C4, Partial facetectomy R C3-4 (06/10/24 115) Status of treatment: Reassessment completed (06/10/24 115) Orders: PT evaluation and treatment;OOB (06/10/24 115) Weight Bearing Status: Weight bearing as tolerated (06/10/24 1156) Precautions: Falls;Safety;Spine precautions (06/10/24 1156) Total Treatment Time--free text: 14 (06/10/24 1156) Past Medical History: Past Medical History: Diagnosis Date Arora's cyst of knee 4.6.14 left Benign neoplasm of colon 12/01/12 4 mm inflammed tubular adenoma at 45 cm Biceps tendon rupture 01/25/07 left Coronary atherosclerosis of [place] coronary artery 10/29/06 stent to LAD Degenerative cervical disc 11/25/11 Dyslipidemia, goal LDL below 100 Family history of diabetes mellitus Generalized osteoarthrosis, unspecified site H/O carpal tunnel repair left hand Herpes zoster 08/19/06 right lower abdomen Hyperlipidemia LDL goal < 100 MEDICATION USE AGREEMENT 08/27/2014 Other synovitis and tenosynovitis 06/24/08 hurt left arm at work, seen in [facility] ER Postsurgical percutaneous transluminal coronary angioplasty status Primary localized osteoarthrosis, lower leg especially left medial compartment knee Rotator cuff rupture 05/15/07 left, seen by Dr Lebron Tick bite 2009 Past Surgical History: Past Surgical History: Procedure Laterality Date CARPAL TUNNEL SURGERY left hand, Dr Wood, [place] COLONOSCOPY THRU STOMA, W/BIOPSY 12/11/2012 adenomatous polyp rpt in 5 years COLONOSCOPY, DIAGNOSTIC (RECTUM) 11/16/2022 benign adenomatous polyps, repeat 3 yrs / COLONOSCOPY FLEXIBLE PROXIMAL DIAGNOSTIC performed by Ghazala Aguilera MD at ENDOSCOPY [facility] COLONOSCOPY, REMOVE LESION, W/SNARE 12/12/2012 4 mm sessile polyp at 45 cm COMBINED RT & LEFT HEART CATHETERS 08/21/2009 LAD 90% ostial stenosis, widely patent stent ECHO, STRESS (EXERCISE) 10/26/2006 resting apex and anterolateral wall mildly hypokinetic, EF 55-60%, no LV size, thickness and function, but with stress, had atypical chest pain and markedly abnormal anteroseptal wall motion abnormalities ELBOW FX/DISLOC, MONTEGGIA, REPAIR Left 04/06/2020 OPEN TREATMENT OF FRACTURE DISLOCATION ELBOW performed by Van Virk DO at OR [facility] [place] EMG & NCV, 2 EXTREMITIES Bilateral 05/30/2024 1. 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 2. 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 3. Chronic right C5-6 polyradiculopathy. 4. 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 MRI C SPINE WO CONTRAST 02/24/2012 multilevel disease with mod-severe foraminal narrowing at multiple levels, jennifer C3-4, 4-5, 5-6 MYOCARDIAL STRESS - PHARMACOLOGIC, NUC MED 07/22/2009 normal wall motion, EF 56% with large reversible anterior and apical defect, suggesting multivesseldisease PLACE INTRACORONARY STENT, FIRST VS 10/28/2006 PCI with 2 Cypher stents placed, 90%-0% REMOVE CATARACT, INSERT LENS PROSTH 11/12/2013 QS, [place] REPAIR INITIAL INGUINAL HERNIA REDUCIBLE AGE 5 OR MORE bilateral hernia repairs REPAIR RUPTURED ROTATOR CUFF, CHRON Left 05/03/2007 Dr Lebron US EXTREMITY Left 01/06/2015 6.5x1.8x3.3 cm left Arora's cyst Subjective: Patient was agreeable to session, Appeared happy to get up as he reports sitting was causing him discomfort in the buttocks. Social History/Disposition Lives with: Spouse (06/05/241112) Assistance available: Yes (limited) (06/05/241112) Dwelling type: Single story home (06/05/241112) Entry steps: Ramp (06/05/241112) Prior Level of Function Reported by: Patient (06/05/241112) Ambulation: Ambulatory without device (06/05/241112) Devices at home: Rolling walker;Straight cane (06/05/241112) Observations Consciousness: Alert (06/10/24 115) Orientation: Oriented times 4 (06/05/241112) Psychosocial: Patient can communicate basic needs;Patient can converse in a social setting (06/05/241112) Other Findings: Yes (06/05/241112) Findings: Light touch sensation;Proprioception;Coordination (06/05/241112) Light Touch Sensation Results: Impaired;LLE;RLE (B peripheral neuropathy at baseline) (06/05/24 111) Proprioception Results: Impaired;RLE (06/05/241112) Coordination Results: Impaired;RLE (06/05/241112) Sitting Posture: Forward head;Rounded shoulders (06/05/24 111) Standing Posture: Forward head;Rounded shoulders (06/05/241112) Pain: Patient has complaints of pain. Pain located buttocks and surgical sites. Unable to rate pain Range of Motion Range of Motion: WFL (06/05/241112) Strength Assessment Strength Assessment: Deficits noted (06/10/24 115) WNL, except: LLE;RLE (06/10/24 115) LLE: 4+/5 (06/10/24 1156) RLE: 4/5 (06/10/24 115) P.T. Bed Mobility Sit-Supine: Supervision (06/05/24 111) Transfers Sit-Stand: Contact Guard (06/10/24 1156) Stand-Sit: Contact Guard (06/10/241155) Ambulation: Distance ambulated (feet): 160 Assistive Device: Rolling walker Assist: Contact Guard with shuffling steps Balance Sit (Static): Fair (06/10/241155) Sit (Dynamic): Fair (-) (06/10/241155) Stand (Static): Fair (06/10/241155) Stand (Dynamic): Fair (-) (06/10/241155) Patient and or Family Goal(s): to get well and to return home Patient Education Review of Precautions: Safety;Fall (06/10/241155) Safety Awareness: Patient verbalizes insight of current deficits;Patient demonstrates carryover of insight during functional tasks (06/10/241155) Preferred learning method: Combination (06/10/241155) Barriers to learning: None (06/05/241112) Method of Education: Verbalized to patient;Demonstrated to patient (06/10/241155) Topic of Education: Safety with mobility, Goals/plan of care, and Use of assistive device Method of Education: Verbal discussion and explanation provided to patient: verbalized understanding and or agreement of this information and demonstrated the exercise and or task Treatment Provided: Re-evaluation: 14 minutes Alarm Status Patient positioned in: Chair (06/10/241155) With: Pressure pad alarm intact and functioning and call flores in reach (06/10/241155) Treatment Status: Treatment at bedside (06/05/241112) Goals: Demonstrate Bed Mobility with: Rolling to right: modified independent (with device or slow) Rolling to left: modified independent (with device or slow) Sidelying to Sit: modified independent (with device or slow) Sit to Sidelying: modified independent (with device or slow) Demonstrate Transfers with: Sit to stand: modified independent (with device or slow) Stand to sit: modified independent (with device or slow) Bed to chair: modified independent (with device or slow) Chair to bed: modified independent (with device or slow) Demonstrate Ambulation: assistive device: rolling walker distance in feet: 250 level of assistance on level surface: modified independent (with device or slow) Demonstrate Stairclimbing: Number of steps: 1-2 for community, two rails, and Level of Assistance: modified independent (with device or slow) Increase Strength of: 1 grade Increase Balance: 1 grade Time Frame: 8 visits Assessment: Patient is a 74 year old male admitted to [facility] on 06/05/2024 withand admitting dx as stated above. The patient was seen today for PT re-evaluation and currently demonstrates a decrease in functionaland gait mobility requiring contact guard assistance secondary to a decrease in balance, strength, and endurance due to deconditioning, pain, shuffling gait, and overall medical condition. At baseline, the patient lives with his in a 1 story home, 0 HUNTER (there is a ramp), and functions with modified independence. The patient would therefore benefit from continued acute care services for PT at this time to try to return to previous level of functioning anticipate he will progresswell. Please consider home with post-acute care services which may include home health or outpatient therapy. The level of care will be determined in collaboration with the patient, family/caregiver and care team members. Deficits requiring P.T. treatment needs: Safety;Mobility;Balance;Weakness;Endurance (06/10/24 1156) Equipment Needs: Equipment needs: No device (06/10/24 1156) Treatment Plan: Bed mobility training, Transfer training, Gait training, Elevation training, Strengthening exercises, and Balance activities Anticipated Frequency (on eval): (1-5x/wk) (06/05/24 1113) AM PAC Score with Stairs: 17 * Krystina Shaikh OTR/Yosvany - 06/10/2024 11:41 AM EDTAssociated Order(s): ADULT OCCUPATIONAL THERAPY CONSULT IP Re-Evaluation GENERAL EVALUATION - Occupational Therapy [address] [address] Name: Dalton Hernandez Location: [facility] [place] A464/A Date: 06/10/2024 Time: 11:41 AM Dalton Hernandez is a 74 year old male. Patient Status: Inpatient Insurance: Payor: [facility] [place] Plan: [facility] PREFERRED ENHANCED MP-DD Product Type: *No Product type* Patient Seen: at bedside, nursing cleared patient for therapy Patient Identified By: Name, ID Band and Date Diagnosis: s/p C1-C4 PSF (06/10/24 1141) Status of treatment: Re-evaluation (06/10/24 114) Orders: OT evaluation and treatment (06/10/24 114) Weight Bearing Status: Weight bearing as tolerated (06/10/24 114) Precautions: Alarms;Falls;Safety;Back/neck brace (06/10/24 1141) Back/Neck Brace: (C collar) (06/10/24 1141) Total Treatment Time: 15 (06/10/24 114) Past Medical History: Past Medical History: Diagnosis Date Arora's cyst of knee 4.6.14 left Benign neoplasm of colon 12/01/12 4 mm inflammed tubular adenoma at 45 cm Biceps tendon rupture 01/25/07 left Coronary atherosclerosis of [place] coronary artery 10/29/06 stent to LAD Degenerative cervical disc 11/25/11 Dyslipidemia, goal LDL below 100 Family history of diabetes mellitus Generalized osteoarthrosis, unspecified site H/O carpal tunnel repair left hand Herpes zoster 08/19/06 right lower abdomen Hyperlipidemia LDL goal < 100 MEDICATION USE AGREEMENT 08/27/2014 Other synovitis and tenosynovitis 06/24/08 hurt left arm at work, seen in [facility] ER Postsurgical percutaneous transluminal coronary angioplasty status Primary localized osteoarthrosis, lower leg especially left medial compartment knee Rotator cuff rupture 05/15/07 left, seen by Dr Lebron Tick bite 2009 Past Surgical History: Past Surgical History: Procedure Laterality Date [facility], W/BIOPSY 12/11/2012 adenomatous polyp rpt in 5 years COLONOSCOPY, DIAGNOSTIC (RECTUM) 11/16/2022 benign adenomatous polyps, repeat 3 yrs / COLONOSCOPY FLEXIBLE PROXIMAL DIAGNOSTIC performed by Ghazala Aguilera MD at ENDOSCOPY [facility] COLONOSCOPY, REMOVE LESION, W/SNARE 12/12/2012 4 mm sessile polyp at 45 cm COMBINED RT & LEFT HEART CATHETERS 08/21/2009 LAD 90% ostial stenosis, widely patent stent ECHO, STRESS (EXERCISE) 10/26/2006 resting apex and anterolateral wall mildly hypokinetic, EF 55-60%, no LV size, thickness and function, but with stress, had atypical chest pain and markedly abnormal anteroseptal wall motion abnormalities ELBOW FX/DISLOC, MONTEGGIA, REPAIR Left 04/06/2020 OPEN TREATMENT OF FRACTURE DISLOCATION ELBOW performed by Van Virk DO at OR [facility] [place] EMG & NCV, 2 EXTREMITIES Bilateral 05/30/2024 1. 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 2. 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 3. Chronic right C5-6 polyradiculopathy. 4. 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 MRI C SPINE WO CONTRAST 02/24/2012 multilevel disease with mod-severe foraminal narrowing at multiple levels, jennifer C3-4, 4-5, 5-6 MYOCARDIAL STRESS - PHARMACOLOGIC, NUC MED 07/22/2009 normal wall motion, EF 56% with large reversible anterior and apical defect, suggesting multivesseldisease PLACE INTRACORONARY STENT, FIRST VS 10/28/2006 PCI with 2 Cypher stents placed, 90%-0% REMOVE CATARACT, INSERT LENS PROSTH 11/12/2013 QS, [place] REPAIR INITIAL INGUINAL HERNIA REDUCIBLE AGE 5 OR MORE bilateral hernia repairs REPAIR RUPTURED ROTATOR CUFF, CHRON Left 05/03/2007 Dr Lebron US EXTREMITY Left 01/06/2015 6.5x1.8x3.3 cm left Arora's cyst Social History/Disposition Lives with: Spouse (06/10/24 114) Assistance available: Yes (limited) (06/10/24 1141) Dwelling type: Single story home (06/10/24 1141) Entry steps: Ramp (06/10/24 114) Prior Level of Function Reported by: Patient;Chart review (06/10/24 114) Ambulation: Ambulatory without device (06/10/24 1141) Grooming: Independent (06/10/24 1141) Bathing: Independent (06/10/24 1141) Dressing: Independent (06/10/24 1141) Feeding: Independent (06/10/24 1141) Toileting: Independent (06/10/24 1141) Meal Prep: Independent (06/10/24 1141) Homemaking: Independent (06/10/24 1141) Shopping: Independent (06/10/24 1141) Driving: Yes (06/10/24 1141) Durable Medical Equipment at home: Rolling walker (06/10/241140) Subjective: Pt sitting in chair, agreeable to OT evaluation. Pain: Patient has complaints of pain. Pain located bottom. Patient did not rate. Observations Consciousness: Alert (06/10/241140) Orientation: Oriented times 4 (06/10/241140) Psychosocial: Patient can communicate basic needs;Patient can converse in a social setting (06/10/24 114) Sitting posture: Forward head;Rounded shoulders (06/10/24 114) Standing posture: Forward head;Rounded shoulders (06/10/24 114) Safety awareness: The Patient verbalizes insight of current deficits. (06/10/24 114) Other Findings Endurance: Fair (06/10/241140) Light touch sensation: LUE;RUE;Impaired (06/10/241140) Coordination: LUE;RUE;Intact (06/10/241140) Current Functional Status: Bilateral Upper Extremity Range of Motion: WFL, except (06/10/241140) LUE: Shoulder (limited to ~ 100 degrees flexion) (06/10/24 114) RUE: Shoulder (limited to ~ 80 degrees flexion) (06/10/24 114) Strength Assessment: Deficits noted (06/10/241140) LUE: Elbow;Grasp;4-/5 (06/10/241140) RUE: Elbow;Grasp;4-/5 (06/10/241140) Dressing Upper Body: Supervision (Please comment) (to angelina gown) (06/10/241140) Lower Body: Contact Guard (to doff/angelina socks) (06/10/241140) Functional Ambulation Assistive Device: Rolling walker (06/10/241140) Distance in feet:: 160 (06/10/241140) Level of Assistance: Contact Guard (06/10/241140) OT Transfers Sit-Stand: Contact Guard (06/10/241140) Stand-Sit: Contact Guard (06/10/241140) Balance Sit (Static): Fair (06/10/241140) Sit (Dynamic): Fair (06/10/241140) Stand (Static): Fair (-) (06/10/241140) Stand (Dynamic): Fair (-) (06/10/241140) Alarm Status Patient positioned in: Chair (06/10/241140) With: Pressure pad alarm intact and functioning and call flores in reach (06/10/241140) Following session patient seated OOB in chair with chair alarm activated. Chair alarm (did not havecord to plug into call flores system and/or room did not have port to plug cord into call flores system). Patient and Family Goals: to get well Patient Education Education Topic: Role of OT;Plan of care goals (06/10/241140) Review of Precautions: Safety;Fall (06/10/241140) Method of Education: Verbalized to patient (06/10/241140) Education Provided to: Patient (06/10/241140) Response to Education: Receptive and agreeable to education (06/10/241140) Barriers to learning: None (06/10/241140) Preferred learning method: Combination (06/10/241140) Treatment Provided: Re-evaluation 15 minutes Assessment: Pt is a 74 yr old male, admitted to the hospital on 06/05 for generalized weakness, s/pC1-C4 PSF. Pt lives with spouse, and completed ADL tasks/IADL tasks and functional mobility with independence. Pt seen for OT re- evaluation on this date, s/p cervical procedure. Pt completed UB dressing task with supervision, and LB dressing task with contact guard. Pt completed sit to stand transfer from chair, and functional mobility of 160 feet in hallway using rolling walker with contact guard for safety. Pt seated in chair with needs met. Pt presents with deficits in strength, balance, endurance, functional transfers, functional mobility, and ADL task completion. Pt would benefit from continued OT to work on strength and endurance in order to maximize independence with self care ADL tasks. Please consider home with post-acute care services which may include home health or outpatient therapy. The level of care will be determined in collaboration with the patient, family/caregiver and care team members. Deficits Requiring O.T. Treatment: Deficits requiring O.T. treatment needs: ADL/self-care;Balance;Endurance;Functional mobility;Safety;Upper extremity strength;Weakness (06/10/241140) Goals: ADLs Demonstrate grooming tasks with independence Demonstrate UB dressing task with independence Demonstrate LB dressing task with modified independence Demonstrate UB bathing task with independence Demonstrate LB bathing task with modified independence Demonstrate toilet task with modified independence Bed Mobility Demonstrate rolling L and R with modified independence Demonstrate supine to sit with modified independence Demonstrate sit to supine with modified independence Functional Transfers Demonstrate sit to stand transfer with modified independence Demonstrate bed to chair transfer with modified independence Demonstrate transfers onto/off of commode with modified independence Functional Mobility Demonstrate functional mobility for ADL task completion with modified independence using least restrictive device Balance Improve static/dynamic seated balance for ADL task completion to a grading of good Improve static/dynamic standing balance for ADL task completion to a grading of fair + Strength Improve bilateral UE strength by 1/2 grade Goal Time Frame: 8 visits Treatment Plan: Safety, Bed mobility training, Functional Ambulation, Transfer training, Upper extremity strengthening, Balance activities, ADL training, and Endurance Anticipated Frequency (on eval): 3 to 5 times per week (06/10/24 114) AM-PAC Help From Another Person Eating Meals: A little (06/10/24 114) Help From Another Person Taking Care of Personal Grooming: A little (06/10/24 114) Help From Another Person To Put On/Take Off Upper Body Clothing: A little (06/10/24 114) Help From Another Person To Put On/Take Off Lower Body Clothing: A little (06/10/24 114) Help From Another Person Toileting: A little (06/10/24 114) Help From Another Person Bathing: A little (06/10/24 114) OT AM-PAC Score: 18 (06/10/24 114) OT AM-PAC t-Scale Score: 38.66 (06/10/24 114) HLM (Highest Level of Mobility) Goal: Level 5 standing (1 or more minutes) (06/10/24 1156) A portion of this AM-PAC assessment not scored based on functional assessment; rather clinical decision making utilized based on current findings and/or prior level of function. Please refer to future AM-PAC calculations of functional ability as they become available. * Annia Pérez, - 06/07/2024 8:45 AM EDTAssociated Order(s): RHEUMATOLOGY CONSULT IP CONSULT - Rheumatology [address] [address] Name: Dalton Hernandez Location: [facility] [place] A464/A Date: 06/07/2024 Time: 8:46 AM REQUESTING SERVICE: General Internal Medicine REASON FOR CONSULT: "Multilevel chronic cystic/erosive changes of the dens with progression of dorsal pannus formation causing severe spinal canal stenosis concerning for possible underlying rheumatoid arthritis" HISTORY OF PRESENT ILLNESS: Dalton Hernandez is a 74 year old male with a significant medical history of benign neoplasm of the colon, lower back pain chronic, chronic right-sided upper and lower extremity weakness, degenerative disc disease, esophageal dysphagia, HTN, HLD, prediabetes, angioplasty with stent who presented to the hospital with a chief complaint of worsening chronic right-sided upper and lower extremity weakness of whome rheumatology is being consulted to evaluate for RA in light of imaging findings. Received IV abx at [facility] and transferred for neursurgery evaluation. Was seen by neurosurgery in light of imaging findings. Per their interpretation of prior imaging, myelopathy has worsened. C1-C2 degenerative changes w/ lucency and an increased atlantodental interval. Could consider C1-C2 fusion, would recommend C1-C2 decompression and fusion. No urgency. Consideration of possible OR on Tuesday. Currently on prednisone 60mg. Rheumatologic History: Was initially seen at [facility] rheumatology in 2014. Was initially referred for chronic degenerative changes of the neck. Did not appear to be concern for inflammatory arthritis and continued tx for OA w/ tramadol. Patient endorses that he has had neck and lower back pain for many years. Has also sounded non-inflammatory in nature in light of no morning predominance, worse after exertion. He has been on tramadol consistently since [id number]. He has also had other MSK mechanical issues lumbar back surgery, riceps and biceps tear, and prior left knee arthroplasty. He endorsed that leading up to this week he was using equipment when he came down with heavy weight bearing on his body. He developed severe painin the neck and developed bilateral arm weakness and neuropathy. He denies any prior history of inflamatory joint pain with negative morning stiffness, swelling, erythema of the shoulders, elbows, knees, ankles, wrists, small joints of the hand. He does endorse having pain in the 2-4 Mcps on the right hand moreso than the left. MUSCULOSKELETAL ROS: Conducted as above in HPI OTHER ROS: All other ROS negative. ALLERGIES: Pcn [penicillins], Niaspan [niacin], and Penicillins PAST MEDICAL HISTORY: Past Medical History: Diagnosis Date Arora's cyst of knee 4.6.14 left Benign neoplasm of colon 12/01/12 4 mm inflammed tubular adenoma at 45 cm Biceps tendon rupture 01/25/07 left Coronary atherosclerosis of [place] coronary artery 10/29/06 stent to LAD Degenerative cervical disc 11/25/11 Dyslipidemia, goal LDL below 100 Family history of diabetes mellitus Generalized osteoarthrosis, unspecified site H/O carpal tunnel repair left hand Herpes zoster 08/19/06 right lower abdomen Hyperlipidemia LDL goal < 100 MEDICATION USE AGREEMENT 08/27/2014 Other synovitis and tenosynovitis 06/24/08 hurt left arm at work, seen in [facility] ER Postsurgical percutaneous transluminal coronary angioplasty status Primary localized osteoarthrosis, lower leg especially left medial compartment knee Rotator cuff rupture 05/15/07 left, seen by Dr Lebron Tick bite 2009 PAST SURGICAL HISTORY: Past Surgical History: Procedure Laterality Date CARPAL TUNNEL SURGERY left hand, Dr Wood, [place] COLONOSCOPY THRU STOMA, W/BIOPSY 12/11/2012 adenomatous polyp rpt in 5 years COLONOSCOPY, DIAGNOSTIC (RECTUM) 11/16/2022 benign adenomatous polyps, repeat 3 yrs / COLONOSCOPY FLEXIBLE PROXIMAL DIAGNOSTIC performed by Ghazala Aguilera MD at ENDOSCOPY [facility] COLONOSCOPY, REMOVE LESION, W/SNARE 12/12/2012 4 mm sessile polyp at 45 cm COMBINED RT & LEFT HEART CATHETERS 08/21/2009 LAD 90% ostial stenosis, widely patent stent ECHO, STRESS (EXERCISE) 10/26/2006 resting apex and anterolateral wall mildly hypokinetic, EF 55-60%, no LV size, thickness and function, but with stress, had atypical chest pain and markedly abnormal anteroseptal wall motion abnormalities ELBOW FX/DISLOC, MONTEGGIA, REPAIR Left 04/06/2020 OPEN TREATMENT OF FRACTURE DISLOCATION ELBOW performed by Van Virk DO at OR [facility] [place] EMG & NCV, 2 EXTREMITIES Bilateral 05/30/2024 1. 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 2. 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 3. Chronic right C5-6 polyradiculopathy. 4. 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 MRI C SPINE WO CONTRAST 02/24/2012 multilevel disease with mod-severe foraminal narrowing at multiple levels, jennifer C3-4, 4-5, 5-6 MYOCARDIAL STRESS - PHARMACOLOGIC, NUC MED 07/22/2009 normal wall motion, EF 56% with large reversible anterior and apical defect, suggesting multivesseldisease PLACE INTRACORONARY STENT, FIRST VS 10/28/2006 PCI with 2 Cypher stents placed, 90%-0% REMOVE CATARACT, INSERT LENS PROSTH 11/12/2013 QS, [place] REPAIR INITIAL INGUINAL HERNIA REDUCIBLE AGE 5 OR MORE bilateral hernia repairs REPAIR RUPTURED ROTATOR CUFF, CHRON Left 05/03/2007 Dr Lebron US EXTREMITY Left 01/06/2015 6.5x1.8x3.3 cm left Arora's cyst FAMILY HISTORY: non-contributory SOCIAL HISTORY: Social History Tobacco Use Smoking status: Never Smokeless tobacco: Never Vaping Use Vaping status: Never Used Substance Use Topics Alcohol use: Not Currently Comment: hasn't drank in 40 years Drug use: No PHYSICAL EXAM: Most Recent Vital Signs: BP: 116 mmHg/76 mmHg (06/07/24628) Pulse: 67 (06/07/24628) Resp: 16 (06/07/24628) Temp: 36.39 C (06/07/24628) Temp Summary: Temp Min: 36.2 C (97.2 F) Max: 36.6 C (97.9 F) SpO2: 99 % (06/07/24628) O2 flow rate: Supplemental O2 Delivery: Room Air, None (06/07/24628) Vital Signs Last 24 Hours: Temperature: Most Recent Temperature Av.4 C Min: 36.22 C Max: 36.61 C Pulse: Pulse Av.4 Min: 56 Max: 78 Respirations: Resp Av.8 Min: 15 Max: 16 SpO2: SpO2 Av.8 % Min: 91 % Max: 99 % Systolic BP: Most Recent Systolic BP Av.9 mmHg Min: 107 mmHg Max: 134 mmHg General: Well appearing, in no acute distress, sitting up comfortably in bed, ambulated to the bathroom without difficulty HEENT: Atraumatic, normocephalic, non-icteric sclera, moist mucous membranes Neurologic: Alert and oriented, no focal deficits, following commands, appropriate responses to questions, CN grossly intact, power equal and normal in UL and LL bilaterally, muscle strength 5/5 throughout Neck: No JVD, atraumatic CVS: RRR, normal S1 and S2, no murmurs, rubs, or gallops Respiratory: Normal effort, breath sounds normal and equal bilaterally, no crackles, no rales Abdominal: Soft, nondistended, nontender, normoactive bowel sounds Extremities: No edema, peripheral pulses are regular and equal Skin: Warm, dry, intact MSK: mild fullness to the 2-4 MCP on the right, no evidence of synovitis, effusion, or ROM limitation LABS: Labs reviewed as indicated below: Bmp wnl Cbc w/ chronic macrocytic anemia Lfts wnl 02/2024 RADIOLOGY: CT C spine: 06/05/2024 IMPRESSION CERVICAL SPINE: 1. Chronic cystic/erosive changes of the dens with progression of dorsal pannus formation causing severe spinal canal stenosis at the C1-C2 level. These findings raise the possibility of underlying rheumatoid arthritis. Recommend dedicated MRI cervical spine to evaluate for underlying spinal cord compression. 2. 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 3. Multilevel degenerative changes throughout the cervical spine with at least moderate spinal canal stenosis at C2-C3, C3-C4, C4-C5, and C5-C6. 4. Multilevel neural foraminal narrowing, most severe bilaterally at C2-C3, C3- C4, C4-C5, and on the right at C5-C6. THORACIC SPINE: 1. Multilevel degenerative changes causing varying degrees of bilateral bony neural foraminal narrowing, most severe on the right at T11-T12 and on the left at T10-T11. 2. Additional chronic findings. CTA neck: 06/05/2024 IMPRESSION 1. Focal atherosclerotic stenosis of the proximal right ICA measuring 65% by NASCET criteria. 2. Focal atherosclerotic stenosis of the proximal left ICA measuring 69% by NASCET criteria. 3. Focal stenoses involving the V2 segments of both vertebral arteries at the C5-6 level due to extrinsic compression by degenerative osteophytes. 4. Additional findings as above. RHEUMATOLOGY CONSULTATION IMPRESSION: 74 year old male with active hospital problems as listed below: Principal Problem: Generalized weakness (POA: Yes) Active Problems: Degenerative cervical disc (POA: Yes) Hyperlipidemia with target LDL less than 100 (POA: Yes) HTN, goal below 140/90 (POA: Yes) Chronic bilateral low back pain without sciatica (POA: Yes) S/P angioplasty with stent (POA: Yes) Prediabetes (POA: Yes) Benign neoplasm of colon (POA: Yes) Esophageal dysphagia (POA: Yes) History of heart artery stent (POA: Yes) Edema of spinal cord (HCC) (POA: Yes) POA = Present On Admission Dalton Hernandez is a 74 year old male with a significant medical history of benign neoplasm of the colon, lower back pain chronic, chronic right-sided upper and lower extremity weakness, degenerative disc disease, esophageal dysphagia, HTN, HLD, prediabetes, angioplasty with stent who presented to the hospital with a chief complaint of worsening chronic right-sided upper and lower extremity weakness of whome rheumatology is being consulted to evaluate for RA in light of imaging findings. Received IV abx at [facility] and transferred for neursurgery evaluation. it would be odd to see RA involve the dens as such without evidence of other progressive disease. however there are few other processes that can present like that. therefore, we will recommend RF andanticcp and well as esr and crp. 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 It would be beneficial to have an MRI C spine w/ and w/o contrast to better assess the surrounding structures and degree of inflammation prior to his surgery. it would also be beneficial if the neurosurgeons has send a specimen to pathology. I will message the neurosurg separations scientist provider shortly. lastly this is not urgent but it would be helpful to have hand xrays as well which could show a chondrocalcinosis seen with cppd RHEUMATOLOGY CONSULTATION SUGGESTION(S): Please obtain RF, anti-CCP, ESR, and CRP Please obtain specimen and send to pathology from C spine fusion tomorrow 06/08. Please obtain MRI C spine w/ and w/o contrast to better assess the surrounding structures and degree of inflammation prior to his surgery. When possible, please obtain hand xrays as well which could show a chondrocalcinosis seen with cppd. Patient was seen and discussed with Dr. Wynn, attending maintenance shop laborer. Associated attestation - Marcela Wynn DO - 06/07/2024 8:10 PM EDT I saw and evaluated the patient today. I have reviewed the resident/fellow physician note and agree. Pleasant 74 year old male admitted with cervical myelopathy and CT findings of C1/C2 panus and erosive changes. Significant improvement in neck pain with prednisone. Endorses mild hand pain/stiffness but no objective synovitis RA a consideration based on imaging, but unusual for AA involvement to manifest in absence of peripheral disease CPPD arthropathy is also a consideration, though no appreciable history to suggest pseudogout Unclear if pannus formation/erosive changes are active, or chronic in nature Would benefit from MRI +/- contrast to better evaluate disease activity Plans to go to OR tomorrow- please obtain synovial biopsy to send to pathology Marcela Wynn DO, [facility] Adult [facility] [address] [place] [id number] Pediatric Rheumatology: , Adult Rheumatology: , * Dillon Walden OTR/Yosvany - 06/05/2024 12:08 PM EDTAssociated Order(s): ADULT OCCUPATIONAL THERAPY CONSULT IP GENERAL EVALUATION - Occupational Therapy [address] [address] Name: Dalton Hernandez Location: [facility] [place] A464/[id number] Date: 06/05/2024 Time: 12:08 PM Dalton Hernandez is a 74 year old male. Patient Status: Inpatient Insurance: Payor: P GOLD Plan: GHP GOLD PREFERRED ENHANCED MP-DD Product Type: *No Product type* Patient Seen: at bedside, nursing cleared patient for therapy Patient Identified By: Name, ID Band and Date Diagnosis: cervical nerve root compression (06/05/24 1058) Status of treatment: Evaluation completed (06/05/24 1058) Orders: OT evaluation and treatment (06/05/24 1058) Weight Bearing Status: Weight bearing as tolerated (06/05/24 1058) Precautions: Falls;Safety (06/05/24 1058) Total Treatment Time: 15 (06/05/24 105) Past Medical History: Past Medical History: Diagnosis Date Arora's cyst of knee 4.6.14 left Benign neoplasm of colon 12/01/12 4 mm inflammed tubular adenoma at 45 cm Biceps tendon rupture 01/25/07 left Coronary atherosclerosis of [place] coronary artery 10/29/06 stent to LAD Degenerative cervical disc 11/25/11 Dyslipidemia, goal LDL below 100 Family history of diabetes mellitus Generalized osteoarthrosis, unspecified site H/O carpal tunnel repair left hand Herpes zoster 08/19/06 right lower abdomen Hyperlipidemia LDL goal < 100 MEDICATION USE AGREEMENT 08/27/2014 Other synovitis and tenosynovitis 06/24/08 hurt left arm at work, seen in [facility] ER Postsurgical percutaneous transluminal coronary angioplasty status Primary localized osteoarthrosis, lower leg especially left medial compartment knee Rotator cuff rupture 05/15/07 left, seen by Dr Lebron Tick bite 2009 Past Surgical History: Past Surgical History: Procedure Laterality Date [facility], W/BIOPSY 12/11/2012 adenomatous polyp rpt in 5 years COLONOSCOPY, DIAGNOSTIC (RECTUM) 11/16/2022 benign adenomatous polyps, repeat 3 yrs / COLONOSCOPY FLEXIBLE PROXIMAL DIAGNOSTIC performed by Ghazala Aguilera MD at ENDOSCOPY [facility] COLONOSCOPY, REMOVE LESION, W/SNARE 12/12/2012 4 mm sessile polyp at 45 cm COMBINED RT & LEFT HEART CATHETERS 08/21/2009 LAD 90% ostial stenosis, widely patent stent ECHO, STRESS (EXERCISE) 10/26/2006 resting apex and anterolateral wall mildly hypokinetic, EF 55-60%, no LV size, thickness and function, but with stress, had atypical chest pain and markedly abnormal anteroseptal wall motion abnormalities ELBOW FX/DISLOC, MONTEGGIA, REPAIR Left 04/06/2020 OPEN TREATMENT OF FRACTURE DISLOCATION ELBOW performed by Van Virk DO at OR [facility] [place] EMG & NCV, 2 EXTREMITIES Bilateral 05/30/2024 1. 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 2. 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 3. Chronic right C5-6 polyradiculopathy. 4. 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 MRI C SPINE WO CONTRAST 02/24/2012 multilevel disease with mod-severe foraminal narrowing at multiple levels, jennifer C3-4, 4-5, 5-6 MYOCARDIAL STRESS - PHARMACOLOGIC, NUC MED 07/22/2009 normal wall motion, EF 56% with large reversible anterior and apical defect, suggesting multivesseldisease PLACE INTRACORONARY STENT, FIRST VS 10/28/2006 PCI with 2 Cypher stents placed, 90%-0% REMOVE CATARACT, INSERT LENS PROSTH 11/12/2013 QS, [place] REPAIR INITIAL INGUINAL HERNIA REDUCIBLE AGE 5 OR MORE bilateral hernia repairs REPAIR RUPTURED ROTATOR CUFF, CHRON Left 05/03/2007 Dr Lebron US EXTREMITY Left 01/06/2015 6.5x1.8x3.3 cm left Arora's cyst Social History/Disposition Lives with: Spouse (06/05/24 1113) Assistance available: Yes (limited) (06/05/24 1113) Dwelling type: Single story home (06/05/24 1113) Entry steps: Ramp (06/05/24 1113) Prior Level of Function Reported by: Patient (06/05/24 1058) Ambulation: Ambulatory without device (06/05/24 1058) Grooming: Independent (06/05/24 1058) Bathing: Independent (06/05/24 1058) Dressing: Independent (06/05/24 1058) Feeding: Independent (06/05/24 1058) Toileting: Independent (06/05/24 1058) Meal Prep: Independent (06/05/24 1058) Homemaking: Independent (06/05/24 1058) Shopping: Independent (06/05/24 1058) Driving: Yes (06/05/24 1058) Durable Medical Equipment at home: Rolling walker (reports having medical equipment at home if needed, did not state further) (06/05/24 1058) Subjective: Patient seated edge of bed upon arrival. Agreeable to OT session Pain: No complaints of pain Observations Consciousness: Alert (06/05/24 1058) Orientation: Oriented times 4 (06/05/241057) Psychosocial: Patient can communicate basic needs;Patient can converse in a social setting (06/05/241057) Sitting posture: Forward head;Rounded shoulders (06/05/241057) Standing posture: Forward head;Rounded shoulders (06/05/241057) Safety awareness: The Patient verbalizes insight of current deficits.;The Patient demonstrates carryover of insight during functional tasks. (06/05/241057) Other Findings Endurance: Fair (06/05/241057) Light touch sensation: LUE;RUE;Intact (but does reports paraesthsia in BUEs, RUE>LUE) (06/05/241057) Coordination: LUE;RUE;Intact (slightly decreased fine motor of RUE) (06/05/241057) Current Functional Status: Bilateral Upper Extremity Range of Motion: WFL, except (b/l shoulders limited to ~90 degrees) (06/05/241057) Strength Assessment: Deficits noted (06/05/241057) LUE: Shoulder;3-/5;Elbow;Grasp;4/5 (06/05/241057) RUE: Shoulder;3-/5;Elbow;Grasp;4-/5 (06/05/241057) Dressing Lower Body: Contact Guard (to doff/don pants and socks) (06/05/241057) Functional Ambulation Assistive Device: No device (06/05/241057) Distance in feet:: 80 (06/05/241057) Level of Assistance: Supervision (Please Comment) (06/05/241057) Bed Mobility Sit-Supine: Supervision (Please comment) (06/05/241057) OT Transfers Sit-Stand: Supervision (Please comment) (06/05/241057) Stand-Sit: Supervision (Please comment) (06/05/241057) Balance Sit (Static): Fair (06/05/241057) Sit (Dynamic): Fair (06/05/241057) Stand (Static): Fair (06/05/241057) Stand (Dynamic): Fair (06/05/241057) Alarm Status Patient positioned in: Bed (06/05/241057) With: Call flores in reach (no alarm set upon arrival) (06/05/241057) Patient and Family Goals: to get well and to return home Patient Education Education Topic: Role of OT;Plan of care goals (06/05/241057) Review of Precautions: Safety;Fall (06/05/241057) Method of Education: Verbalized to patient (06/05/241057) Education Provided to: Patient (06/05/241057) Response to Education: Receptive and agreeable to education (06/05/241057) Barriers to learning: None (06/05/241057) Preferred learning method: Combination (06/05/241057) Treatment Provided: Evaluation Moderate Complexity 15 minutes - [id number]: Patient was cooperative and pleasant during treatment session. Moderate complexity evaluation performed and 3-5 activity limitations were identified, including ADL deficit, functional mobility deficit, bed mobility deficit, decreased strength, decreased endurance, decreased range of motion, impaired balance, and fine motor deficit. Minimal or moderate modification of the functional task was necessary to complete the evaluation. Deficits Requiring O.T. Treatment: Deficits requiring O.T. treatment needs: ADL/self-care;Balance;Endurance;Functional mobility;Safety;Upper extremity strength;Upper extremity range of motion;Fine motor coordination (06/05/241057) Assessment: Patient was admitted to [facility] [place] on 06/05/24 for cervical nerve root compression. Patient was cooperative and agreeable to participate in OT evaluation this date. Prior to admission patient was independent with ADLs/IADLs and mobility. He lives with his however patient typically helps her at home. During session patient reports numbness/tingling of BUEs, RUE>LUE. Slight decrease infine motor coordination also noted with R side as well. Patient was able to complete UB/LB dressingtasks with supervision, however does require extra time for completion of tasks due to sensation/coordination. He performed sit/stand transfers and functional mobility at supervision level; no device required. Following session pt returned supine with all needs met. Currently, patients presents with slight deficits in ADLs, functional transfers and mobility, as well as decreased strength/ROM, endurance, balance and safety. Patient would benefit from continued OT services to improve independencein ADLs and functional mobility. Please consider home with post-acute care services which may include home health or outpatient therapy. The level of care will be determined in collaboration with thepatient, family/caregiver and care team members. Goals: Demonstrates Self-Care at: UB Bathing: modified independent LB Bathing: modified independent UB Dressing: modified independent to don gown/robe/shirt LB Dressing: modified independent to don socks/shoes/pants Grooming: modified independent Toileting: modified independent Demonstrates Bed Mobility at: Supine to sit: modified independent Sit to supine: modified independent Rolling left/right: modified independent Demonstrates balance at: Dynamic/Static Sitting balance: Fair+ Dynamic/Static Standing balance: Fair+ Transfers: Sit to Stand: modified independent Stand to Sit: modified independent Toilet: modified independent Functional Ambulation at modified independent with AD PRN Demonstrates standing/activity endurance at 20 minutes to increase participation in functional mobility and ADL tasks Increase b/l shoulder flexion to WNL Increase Strength of B UEs 1/2 muscle grade Goal Time Frame: 8 visits Treatment Plan: Safety, Bed mobility training, Functional Ambulation, Transfer Training, Upper extremity strengthening, ROM, coordination tasks, Balance activities, ADL training and Endurance Anticipated Frequency (on eval): (1-5) (06/05/241057) AM-PAC Help From Another Person Eating Meals: A little (06/05/241057) Help From Another Person Taking Care of Personal Grooming: A little (06/05/241057) Help From Another Person To Put On/Take Off Upper Body Clothing: A little (06/05/241057) Help From Another Person To Put On/Take Off Lower Body Clothing: A little (06/05/241057) Help From Another Person Toileting: A little (06/05/241057) Help From Another Person Bathing: A little (06/05/241057) OT AM-PAC Score: 18 (06/05/241057) OT AM-PAC t-Scale Score: 38.66 (06/05/241057) HLM (Highest Level of Mobility) Goal: Level 6 walk 10 steps or more (06/05/24 1113) A portion of this AM-PAC assessment not scored based on functional assessment; rather clinical decision making utilized based on current findings and/or prior level of function. Please refer to future AM-PAC calculations of functional ability as they become available. * Callie Chang, PT - 06/05/2024 11:13 AM EDTAssociated Order(s): ADULT PHYSICAL THERAPY CONSULT IP GENERAL EVALUATION - Physical Therapy [address] [address] Name: Dalton Hernandez Location: [address] Date: 06/05/2024 Time: 1113 AM Per Chart Review: Dalton Hernandez is a/an 74 year old male with relevant past medical history of DM, HLD, that presents to our institution due to ambulation issues. MRI c spine: advanced multilevelsponsylosis of the cervical spine worse at C1-2. Patient Status: Inpatient Insurance: Payor: [employer] Plan: [employer] PREFERRED ENHANCED MP-DD Product Type: *No Product type* Patient Seen: at bedside Patient Identified By: Name, ID Band and Date Diagnosis: cervical nerve root compression (06/05/24 1113) Status of treatment: Evaluation completed (06/05/24 111) Orders: PT evaluation and treatment;OOB (06/05/24 111) Weight Bearing Status: Weight bearing as tolerated;RLE;LLE (06/05/24 111) Precautions: Falls;Safety (06/05/24 111) Total Treatment Time--free text: 15 (06/05/24 111) Subjective: Consulted with RN prior to entering room. Patient received semi- reclined in bed. Patient agreeable to working with PT. Past Medical History: Past Medical History: Diagnosis Date Arora's cyst of knee 4.6.14 left Benign neoplasm of colon 12/01/12 4 mm inflammed tubular adenoma at 45 cm Biceps tendon rupture 01/25/07 left Coronary atherosclerosis of [place] coronary artery 10/29/06 stent to LAD Degenerative cervical disc 11/25/11 Dyslipidemia, goal LDL below 100 Family history of diabetes mellitus Generalized osteoarthrosis, unspecified site H/O carpal tunnel repair left hand Herpes zoster 08/19/06 right lower abdomen Hyperlipidemia LDL goal < 100 MEDICATION USE AGREEMENT 08/27/2014 Other synovitis and tenosynovitis 06/24/08 hurt left arm at work, seen in [facility] ER Postsurgical percutaneous transluminal coronary angioplasty status Primary localized osteoarthrosis, lower leg especially left medial compartment knee Rotator cuff rupture 05/15/07 left, seen by Dr Lebron Tick bite 2009 Past Surgical History: Past Surgical History: Procedure Laterality Date CARPAL TUNNEL SURGERY left hand, Dr Wood, [place] COLONOSCOPY THRU STOMA, W/BIOPSY 12/11/2012 adenomatous polyp rpt in 5 years COLONOSCOPY, DIAGNOSTIC (RECTUM) 11/16/2022 benign adenomatous polyps, repeat 3 yrs / COLONOSCOPY FLEXIBLE PROXIMAL DIAGNOSTIC performed by Ghazala Aguilera MD at [facility]OSCOPY [facility] COLONOSCOPY, REMOVE LESION, W/SNARE 12/12/2012 4 mm sessile polyp at 45 cm COMBINED RT & LEFT HEART CATHETERS 08/21/2009 LAD 90% ostial stenosis, widely patent stent ECHO, STRESS (EXERCISE) 10/26/2006 resting apex and anterolateral wall mildly hypokinetic, EF 55-60%, no LV size, thickness and function, but with stress, had atypical chest pain and markedly abnormal anteroseptal wall motion abnormalities ELBOW FX/DISLOC, MONTEGGIA, REPAIR Left 04/06/2020 OPEN TREATMENT OF FRACTURE DISLOCATION ELBOW performed by Van Virk DO at OR [facility] [place] EMG & NCV, 2 EXTREMITIES Bilateral 05/30/2024 1. 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 2. 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 3. Chronic right C5-6 polyradiculopathy. 4. 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 MRI C SPINE WO CONTRAST 02/24/2012 multilevel disease with mod-severe foraminal narrowing at multiple levels, jennifer C3-4, 4-5, 5-6 MYOCARDIAL STRESS - PHARMACOLOGIC, NUC MED 07/22/2009 normal wall motion, EF 56% with large reversible anterior and apical defect, suggesting multivesseldisease PLACE INTRACORONARY STENT, FIRST VS 10/28/2006 PCI with 2 Cypher stents placed, 90%-0% REMOVE CATARACT, INSERT LENS PROSTH 11/12/2013 QS, [place] REPAIR INITIAL INGUINAL HERNIA REDUCIBLE AGE 5 OR MORE bilateral hernia repairs REPAIR RUPTURED ROTATOR CUFF, CHRON Left 05/03/2007 Dr Lebron US EXTREMITY Left 01/06/2015 6.5x1.8x3.3 cm left Arora's cyst Social History/Disposition Lives with: Spouse (06/05/241112) Assistance available: Yes (limited) (06/05/241112) Dwelling type: Single story home (06/05/241112) Entry steps: Ramp (06/05/241112) Prior Level of Function Reported by: Patient (06/05/241112) Ambulation: Ambulatory without device (06/05/241112) Devices at home: Rolling walker;Straight cane (06/05/241112) Observations Consciousness: Alert (06/05/241112) Orientation: Oriented times 4 (06/05/241112) Psychosocial: Patient can communicate basic needs;Patient can converse in a social setting (06/05/241112) Other Findings: Yes (06/05/241112) Findings: Light touch sensation;Proprioception;Coordination (06/05/241112) Light Touch Sensation Results: Impaired;LLE;RLE (B peripheral neuropathy at baseline) (06/05/241112) Proprioception Results: Impaired;RLE (06/05/241112) Coordination Results: Impaired;RLE (06/05/241112) Sitting Posture: Forward head;Rounded shoulders (06/05/241112) Standing Posture: Forward head;Rounded shoulders (06/05/241112) Pain: No complaints of pain Range of Motion Range of Motion: WFL (06/05/241112) Strength Assessment Strength Assessment: Deficits noted (06/05/241112) WNL, except: LLE;RLE (06/05/241112) LLE: 4/5 (06/05/241112) RLE: 3-/5 (06/05/241112) P.T. Bed Mobility Sit-Supine: Supervision (06/05/241112) Transfers Sit-Stand: Supervision (06/05/241112) Stand-Sit: Supervision (06/05/241112) Ambulation: Distance ambulated (feet): 80' Assistive Device: No device Assist: Supervision Balance Sit (Static): Fair (06/05/241112) Sit (Dynamic): Fair (06/05/241112) Stand (Static): Fair (06/05/241112) Stand (Dynamic): Fair (06/05/241112) Patient and or Family Goal(s): to get well Patient Education Review of Precautions: Safety;Fall (06/05/241112) Safety Awareness: Patient verbalizes insight of current deficits (06/05/241112) Preferred learning method: Combination (06/05/241112) Barriers to learning: None (06/05/241112) Method of Education: Verbalized to patient (06/05/241112) Topic of Education: Safety with mobility, Goals/plan of care, and Fall prevention Method of Education: Verbal discussion and explanation provided to pt: verbalized understanding andor agreement of this information Treatment Provided: Evaluation Moderate Complexity 15 minutes - [id number]: Patient was cooperative and pleasant during treatment session. Moderate complexity evaluation performed and 1-2 personal factorsor comorbidities were identified that will impact plan of care, including cardiac history and chronic pain, DM. Patient presents with limitations in strength, bed mobility, transfers, gait, balance, endurance, and safety, which will impact plan of care. These limitations will be addressed by the goals set for this patient. Alarm Status Patient positioned in: Bed (06/05/241112) With: Call flores in reach (no alarm upon arrival, thus left off. Pt confirms he has been calling prior to mobilizing. RN aware.) (06/05/241112) Treatment Status: Treatment at bedside (06/05/241112) Time Frame: 8 visits Assessment: Dalton Hernandez is a/an 74 year old male admitted to [facility] with cervical nerve compression and 1 month of progressive R sided weakness. Upon evaluation, pt presents with functional limitations and impairments including, decreased R LE strength, proprioception, coordination; decreased balance, and decreased activity tolerance. At baseline pt is independent with ambulation and mobility without an AD. Patient lives with his spouse in a single level home with a ramp to enter (largely for ). Patient engaged in sit to stands, standing balance, and hallway ambulation with supervision. Patient demonstrates a mildly unsteady gait with increased R knee flexion, decreased R stance timeand increased trunk sway. Patient presents at a regression from functional baseline and will benefit from skilled therapy while in-house in order to address decreased functional mobility, activity tolerance and optimize function. Please consider home with post-acute care services which may include home health or outpatient therapy. The level of care will be determined in collaboration with the patient, family/caregiver and care team members. Deficits requiring P.T. treatment needs: Weakness;Endurance;Mobility;Balance;Lower extremity strength (06/05/24 1113) Goals: Demonstrate Bed Mobility with: modified independence Demonstrate Sit to/from Stand Transfers with: modified independence Demonstrate bed <> chair transfer with: modified independence Demonstrate Ambulation: modified independence, least restrictive AD, 350' Increase Strength of: B/L LE by 1/2-1 muscle grade Increase Balance: dynamic standing balance to Fair + Increase Safety: of functional mobility Treatment Plan: Bed mobility training, Transfer training, Gait training, Strengthening exercises: BLE, Balance activities, and Educate on safety with mobility Anticipated Frequency (on eval): (1-5x/wk) (06/05/24 1113) AM PAC Score with Stairs: 18 A portion of this AM-PAC assessment not scored based on functional assessment ; rather clinical decision making utilized based on current findings and/or prior level of function. Please refer to future AM-PAC calculations of functional ability as they become available. Callie Chang PT, DPT * Clovis Guerin MD - 06/05/2024 5:00 AM EDTAssociated Order(s): NEUROSURGERY CONSULT IP NEUROLOGICAL SURGERY CONSULT NOTE [facility] [place]-[address] [address] Name: Dalton Hernandez Location: [facility] A464/A Date: 06/05/2024 Time: 6:56 AM HISTORY OF PRESENT ILLNESS: Dalton Hernandez is a 74 year old male patient with relevant past medical history of DM, HLD, thatpresents to our institution due to ambulation issues. 1 month of progressive difficulties with ambulation Worsening right sided weakness Denies prior symptoms No red flags PAST MEDICAL HISTORY: Past Medical History: Diagnosis Date Arora's cyst of knee 4.6.14 left Benign neoplasm of colon 12/01/12 4 mm inflammed tubular adenoma at 45 cm Biceps tendon rupture 01/25/07 left Coronary atherosclerosis of k[place] de[place] coronary artery 1/27/07 stent to LAD Degenerative cervical disc 11/25/11 Dyslipidemia, goal LDL below 100 Family history of diabetes mellitus Generalized osteoarthrosis, unspecified site H/O carpal tunnel repair left hand Herpes zoster 08/19/06 right lower abdomen Hyperlipidemia LDL goal < 100 MEDICATION USE AGREEMENT 08/27/2014 Other synovitis and tenosynovitis 06/24/08 hurt left arm at work, seen in [facility] ER Postsurgical percutaneous transluminal coronary angioplasty status Primary localized osteoarthrosis, lower leg especially left medial compartment knee Rotator cuff rupture 05/15/07 left, seen by Dr Lebron Tick bite 2009 PAST SURGICAL HISTORY: Past Surgical History: Procedure Laterality Date CARPAL TUNNEL SURGERY left hand, Dr Wood, [place] COLONOSCOPY THRU STOMA, W/BIOPSY 12/11/2012 adenomatous polyp rpt in 5 years COLONOSCOPY, DIAGNOSTIC (RECTUM) 11/16/2022 benign adenomatous polyps, repeat 3 yrs / COLONOSCOPY FLEXIBLE PROXIMAL DIAGNOSTIC performed by Ghazala Augilera MD at ENDOSCOPY [facility] COLONOSCOPY, REMOVE LESION, W/SNARE 12/12/2012 4 mm sessile polyp at 45 cm COMBINED RT & LEFT HEART CATHETERS 08/21/2009 LAD 90% ostial stenosis, widely patent stent ECHO, STRESS (EXERCISE) 10/26/2006 resting apex and anterolateral wall mildly hypokinetic, EF 55-60%, no LV size, thickness and function, but with stress, had atypical chest pain and markedly abnormal anteroseptal wall motion abnormalities ELBOW FX/DISLOC, MONTEGGIA, REPAIR Left 04/06/2020 OPEN TREATMENT OF FRACTURE DISLOCATION ELBOW performed by Van Virk DO at OR [facility] EMG & NCV, 2 EXTREMITIES Bilateral 05/30/2024 1. 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 2. 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 3. Chronic right C5-6 polyradiculopathy. 4. 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 MRI C SPINE WO CONTRAST 02/24/2012 multilevel disease with mod-severe foraminal narrowing at multiple levels, jennifer C3-4, 4-5, 5-6 MYOCARDIAL STRESS - PHARMACOLOGIC, NUC MED 07/22/2009 normal wall motion, EF 56% with large reversible anterior and apical defect, suggesting multivesseldisease PLACE INTRACORONARY STENT, FIRST VS 10/28/2006 PCI with 2 Cypher stents placed, 90%-0% REMOVE CATARACT, INSERT LENS PROSTH 11/12/2013 QS, [place] REPAIR INITIAL INGUINAL HERNIA REDUCIBLE AGE 5 OR MORE bilateral hernia repairs REPAIR RUPTURED ROTATOR CUFF, CHRON Left 05/03/2007 Dr Lebron US EXTREMITY Left 01/06/2015 6.5x1.8x3.3 cm left Arora's cyst SOCIAL HISTORY: Social History Socioeconomic History Marital status: Spouse name: Not on file Number of children: 2 Years of education: Not on file Highest education level: Not on file Occupational History Not on file Tobacco Use Smoking status: Never Smokeless tobacco: Never Vaping Use Vaping status: Never Used Substance and Sexual Activity Alcohol use: Not Currently Comment: hasn't drank in 40 years Drug use: No Sexual activity: Yes Partners: Female Other Topics Concern Not on file Social History Narrative Merged History Encounter [facility] Social Determinants of Health Financial Resource Strain: Not on file Food Insecurity: Not on file Transportation Needs: Not on file Social Connections: Unknown (06/05/2024) Social Connections How often do you feel lonely or isolated from those around you? (Adult - for ages 18 years and over): Not on file Housing Stability: Not on file Social History Substance and Sexual Activity Drug Use No FAMILY HISTORY: Family History Problem Relation Name Age of Onset Diabetes Grandmother (Maternal) Diabetes Grandfather (Maternal) Heart Disorder Grandmother (Paternal) Heart Disorder Grandfather (Paternal) Heart Disorder Father had triple bypass Cancer Father prostate MEDICATIONS: Current Medications - Prior to This Encounter Medication Sig Last Dose Discont. Cyclobenzaprine HCl 10 MG Oral Tablet (Flexeril) Take 1 Tablet by mouth at bedtime as needed for Pain. 06/04/2024 Gabapentin 300 MG Oral Capsule (Neurontin) Take 2 Capsules by mouth in the morning and 2 Capsules at noon and 2 Capsules before bedtime. 06/04/2024 predniSONE 10 MG Oral Tablet (Deltasone) Take 5 tabs for 2 days, 4 tabs for 2 days, 3 tabs for 2 days, 2 tabs for 2 days 1 tab for 2 days Past Week Zoster Vac Recomb Adjuvanted 50 MCG/0.5ML Intramuscular Suspension Reconstituted (Shingrix) Inject 0.5 mL into a large muscle now and repeat dose in 60 to 180 days Unknown Acetaminophen ER 650 MG Oral Tablet Extended Release (Acetaminophen 8 Hour) Take 1 Tablet by mouth every 8 hours as needed. Unknown Atorvastatin Calcium 80 MG Oral Tablet (Lipitor) Take 1 Tablet by mouth every evening. 06/04/2024 Cyanocobalamin 1000 MCG Oral Tablet (Cyanocobalamin) Take 1 Tablet by mouth in the morning. 06/04/2024 Diclofenac Sodium 1 % External Gel (Voltaren) Apply 2 g topically to affected area 4 times a day asneeded for Pain. Apply to joints Unknown Folic Acid 1 MG Oral Tablet Take 1 Tablet by mouth in the morning. 06/04/2024 Isosorbide Mononitrate ER 60 MG Oral Tablet Extended Release 24 Hour (Imdur) Take 1 Tablet by mouthin the morning. 06/04/2024 Oesyq-6-Ziex Eth Est (Dietary) 1 GM Oral Capsule Take 1 g by mouth in the morning and 1 g before bedtime. 06/04/2024 Potassium Chloride ER 20 MEQ Oral Tablet Extended Release Take 1 Tablet by mouth in the morning. 06/04/2024 Vitamin D 125 MCG (5000 UT) Oral Capsule Take by mouth. 06/04/2024 aspirin enteric coated 81 MG TBEC Take 1 Tablet by mouth in the morning. 06/04/2024 losartan (COZAAR) 100 MG Tablet Take 1 Tablet by mouth at bedtime. 06/04/2024 metoprolol tartrate (LOPRESSOR) 25 MG Tablet Take 1 Tablet by mouth in the morning and 1 Tablet before bedtime. 06/04/2024 NITROSTAT 0.4 MG SL SUBL DISSOLVE ONE TABLET UNDER TONGUE EVERY 5 MINUTES NEEDED FOR CHESTPAIN. MAX OF 3 TABLETS Unknown Baclofen 20 MG Oral Tablet Take 1 Tablet by mouth in the morning and 1 Tablet at noon and 1 Tablet before bedtime. Do all this for 10 days. predniSONE 20 MG Oral Tablet (Deltasone) One daily ALLERGIES: Review of patient's allergies indicates: Allergen Reactions Pcn [Penicillins] Anaphylaxis As a young kid had injections of penicillin whenever he had a runny nose and he does not recall thereaction but his mother told him he was allergic. He has not had penicillin as an adult. Niaspan [Niacin] Jittery, trouble sleeping, heart racing Penicillins REVIEW OF SYSTEMS: Negative except as per HPI PHYSICAL EXAMINATION: Vital signs over last 24 hours: Systolic BP: Most Recent Systolic BP Av.1 mmHg Min: 112 mmHg Max: 150 mmHg Temperature: Most Recent Temperature Av.1 C Min: 36 C Max: 36.22 C Pulse: Pulse Avg: Pulse Av.4 Min: 62 Max: 81 Respirations: Resp Av.2 Min: 14 Max: 19 SpO2: SpO2 Av.3 % Min: 92 % Max: 100 % NEUROLOGIC EXAMINATION: Motor strength: Biceps (C5) Triceps (C7) Deltoids (C5) Wrist Ext (C6) Wrist Flex Machine Set Up Technician (C8) Hip Flex (L2) Knee Flex Knee Ext (L3) Dorsiflexion (L4) Plantarflexion (S1) EHL (L5) R 4/5 4/5 4/5 4/5 4/5 4/5 4/5 4/5 4/5 4/5 4/5 4/5 L 5/5 5/5 5/5 5/5 5/5 5/5 5/5 5/5 5/5 5/5 5/5 5/5 Sensory examination: Right Left Lateral shoulder/arm (C5) SILT SILT Lateral forearm/thumb (C6) SILT SILT Posterior forearm, middle finger (C7) SILT SILT Medial forearm, ulnar fingers (C8) SILT SILT Medial arm (T1) SILT SILT Right Left Inguinal Region (L1) SILT SILT Upper Thigh (L2) SILT SILT Anteromedial Thigh (L3) SILT SILT Medial leg, ankle, foot (L4) SILT SILT 1st webspace, lateral leg (L5) SILT SILT Lateral foot, posterior leg (S1) SILT SILT Reflexes: Brachioradialis Biceps Triceps Patellar Achilles Plantars Garcia's Right 3+ 3+ 3+ 2+ 2+ Deferred present Left 2+ 2+ 2+ 2+ 2+ Deferred absent LABS: Chemistry: Lab Results Component Value Date/Time BUN 15 02/28/2024 10:21 AM BUN 24 (H) 04/08/2020 03:44 AM CREAT 1.01 04/02/2024 12:00 AM CREAT 1.1 04/08/2020 03:44 AM GFRESTIMATED >60.0 04/08/2020 03:44 AM NA 141 02/28/2024 10:21 AM NA 136 04/08/2020 03:44 AM POTASSIUM 3.8 04/02/2024 12:00 AM POTASSIUM 3.9 04/08/2020 03:44 AM CO2 28 02/28/2024 10:21 AM CO2 26 04/08/2020 03:44 AM Coagulation studies: Lab Results Component Value Date/Time INR 1.04 04/07/2020 05:19 AM Blood count: Lab Results Component Value Date/Time WBC 5.75 02/28/2024 10:21 AM WBC 5.95 04/23/2020 09:50 AM HGB 13.4 (A) 04/02/2024 12:00 AM HGB 9.8 (L) 04/23/2020 09:50 AM HCT 42.9 02/28/2024 10:21 AM HCT 31.1 (L) 04/23/2020 09:50 AM PLT 160 02/28/2024 10:21 AM PLT 336 04/23/2020 09:50 AM IMAGING STUDIES: My Interpretation of Current Images: MRI c spine: 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 RECOMMENDATIONS: No emergent/urgent neurosurgical intervention warranted at this point. CT C and T spine CTA neck Flexion-extension XRs of the cervical spine Medical risk stratification Case discussed with Dr. Moreno Guerin MD Resident Neurological Surgery Associated attestation - Khadar Mayer MD - 06/05/2024 11:08 AM EDT I saw and evaluated the patient today. I have reviewed the resident/fellow physician note and agree. I saw the patient today. He appears to have history of rheumatoid arthritis with a slowly progressive myelopathy over the past several years. He has an MRI for comparison from a couple of years ago which has worsened. There seems to be some degenerative changes at C1-C2 with lucency an increased atlantodental interval. I suspect it will be instability but there are dynamic images still pending. He was cord compression with myelomalacia change. Has a myelopathy worse on the right, he says he woke up after mowing the lawn with substantial numbness in the right arm and leg as well as weakness, although this has improved with a past few days. Still has brisk reflexes and a Garcia's sign. He says that he was experienced this before, and some years ago he developed a Lhermitte's phenomenon with weakness when he looked up at his daughter in a tree stand. I think he has symptomatic myelopathy from instability at C1-C2. He does not appear to have radicular pain although he does have substantial spondylosis throughout the subaxial cervical spine. I think this can probably be ignored and bestaddressed with a C1-C2 fusion although certainly I will evaluate the dynamic images to come up witha plan going forward. Based on this I would probably recommend C1-C2 decompression and fusion. We would like to have medicine clearance and certainly need additional imaging for assessment. No urgency to this. The patient voices understanding and requests to proceed. All questions answered. Khadar Mayer [facility] Neurosurgery This document was dictated using voice recognition software. Please excuse any errors. A total of 45 minutes were spent in review of the patient's charts, direct assessment of the patient during bedside rounds with the resident/PA team, discussion of the clinical scenario with the patient and/or family members, formulating a treatment plan, conveying the treatment plan to all other relevant parties including co-managing services, coordinating/effecting the treatment plan, and documenting the treatment plan. Review of the patient's chart includes review of all relevant notes, vital signs, laboratory investigations, imaging studies, medications, past medical history/medical comorbidities, and all other factors related to the current presenting condition. documented in this encounter Nursing Notes * Yoselin Waldron RN - 06/08/2024 7:30 PM EDT Dual Licensed Skin Assessment completed by jose waldron and jose hicks capp. The patient is/has a N/A Skin Breakdown (includes non blanchable erythema): Yes - Surgical/Procedural changes only. Abrasions noted to denominational (rt and left) glynn. * Tiffanie Preston NA - 06/08/2024 6:15 PM EDT Post Anesthesia Care Unit Transport Note [address] [address] Dept. Dalton Hernandez Transported from [facility] to : 64A Time: 1807 Care of patient transferred to: [facility] Transported via: Bed Belongings with Patient: NO Pulse : 68 Temp : 36.1 BP : 153/87 Respirations : 14 Pulse Ox : 99 O2 : 2L SCDS: On but not activated/no machine * Leo Orellana RN - 06/08/2024 4:48 PM EDT PERIOP TO IP HANDOFF COMMUNICATION NOTE [address] [address] Name: Dalton Hernandez AGE: [id number] year old Location: OR [facility] [place]/OR Date: 06/08/2024 Attention to: Robert Thomson RN Report from: Leo Orellana RN Patient arriving via: Bed Time of call: 5:20 PM Phone Ext: [phone] Reason for SBAR (Situation, Background, Assessment, Recommendation) handoff: Transfer Sending to: A464-A Emotional/Personal Events & Special Needs: n/a Prescriptions in chart: No Code Status: Full Code Safety Concerns: no safety concerns identified Allergies: Pcn [penicillins], Niaspan [niacin], and Penicillins PMH: Past Medical History: Diagnosis Date Arora's cyst of knee 4.6.14 left Benign neoplasm of colon 12/01/12 4 mm inflammed tubular adenoma at 45 cm Biceps tendon rupture 01/25/07 left Coronary atherosclerosis of [place] coronary artery 10/29/06 stent to LAD Degenerative cervical disc 11/25/11 Dyslipidemia, goal LDL below 100 Family history of diabetes mellitus Generalized osteoarthrosis, unspecified site H/O carpal tunnel repair left hand Herpes zoster 08/19/06 right lower abdomen Hyperlipidemia LDL goal < 100 MEDICATION USE AGREEMENT 08/27/2014 Other synovitis and tenosynovitis 06/24/08 hurt left arm at work, seen in [facility] ER Postsurgical percutaneous transluminal coronary angioplasty status Primary localized osteoarthrosis, lower leg especially left medial compartment knee Rotator cuff rupture 05/15/07 left, seen by Dr Lebron Tick bite 2009 PSH: Past Surgical History: Procedure Laterality Date CARPAL TUNNEL SURGERY left hand, Dr Wood, [place] COLONOSCOPY THRU STOMA, W/BIOPSY 12/11/2012 adenomatous polyp rpt in 5 years COLONOSCOPY, DIAGNOSTIC (RECTUM) 11/16/2022 benign adenomatous polyps, repeat 3 yrs / COLONOSCOPY FLEXIBLE PROXIMAL DIAGNOSTIC performed by Ghazala Aguilera MD at [facility]OSCOPY [facility] COLONOSCOPY, REMOVE LESION, W/SNARE 12/12/2012 4 mm sessile polyp at 45 cm COMBINED RT & LEFT HEART CATHETERS 08/21/2009 LAD 90% ostial stenosis, widely patent stent ECHO, STRESS (EXERCISE) 10/26/2006 resting apex and anterolateral wall mildly hypokinetic, EF 55-60%, no LV size, thickness and function, but with stress, had atypical chest pain and markedly abnormal anteroseptal wall motion abnormalities ELBOW FX/DISLOC, MONTEGGIA, REPAIR Left 04/06/2020 OPEN TREATMENT OF FRACTURE DISLOCATION ELBOW performed by Van Virk DO at OR [facility] EMG & NCV, 2 EXTREMITIES Bilateral 05/30/2024 1. 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 2. 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 3. Chronic right C5-6 polyradiculopathy. 4. 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 MRI C SPINE WO CONTRAST 02/24/2012 multilevel disease with mod-severe foraminal narrowing at multiple levels, jennifer C3-4, 4-5, 5-6 MYOCARDIAL STRESS - PHARMACOLOGIC, NUC MED 07/22/2009 normal wall motion, EF 56% with large reversible anterior and apical defect, suggesting multivesseldisease PLACE INTRACORONARY STENT, FIRST VS 10/28/2006 PCI with 2 Cypher stents placed, 90%-0% REMOVE CATARACT, INSERT LENS PROSTH 11/12/2013 QS, [place] REPAIR INITIAL INGUINAL HERNIA REDUCIBLE AGE 5 OR MORE bilateral hernia repairs REPAIR RUPTURED ROTATOR CUFF, CHRON Left 05/03/2007 Dr Lebron US EXTREMITY Left 01/06/2015 6.5x1.8x3.3 cm left Arora's cyst Isolation: Isolation: Procedure: 1) Carey of iliac crest bone graft, right side, through a separate incision 2) segmental fixation of the posterior cervical spine: C1, C2, C3, C4 3) open reduction of C1-C2 subluxation 4) laminectomy, cervical 1, cervical 2, cervical 3 5) Partial laminectomy cervical 4 6) Partial facetectomy right side cervical 3-4 7) Posterior arthrodesis with decortication and grafting: C1, C2, C3, C4 8) use and interpretation of fluoroscopy 9) Use of intraoperative neurophysiologic monitoring 10) use of intraoperative ultrasonography 11) use of allograft Type of Anesthesia: General endotracheal anesthesia Block: n/a IV intake: 4000 mL EBL: OR: 250 mL PACU: 50 mL Urine output: OR 600 mL PACU 400 mL IUBC (Edmonds): Incision location: posterior neck/lumbar Dressing location: posterior neck/lumbar Time of last skin assessment: 1605 Pressure injuries or areas of concern: n/a Lines: Urethral Catheter Coude (Active) Site Assessment Clean;Skin intact 06/08/24 1630 Securement Method Leg strap 06/08/24 1630 Catheter secured to leg? Yes 06/08/24 1630 Catheter bag below bladder? Yes 06/08/24 1630 IUBC Tubing Disconnected This Shift? No 06/08/24 1630 Collection Container Standard drainage 06/08/24 1630 Urine Description Yellow 06/08/24 1630 Number of days: 0 Peripheral Line Left;Lower 20 Gauge (Active) Status Fluids infusing;Flushes easily 06/08/24 1555 Tubing Changed No 06/08/24 1555 Phlebitis Scale 0 06/08/24 1555 Infiltration Scale 0 06/08/24 1555 Site Description (Other) Without redness, swelling or drainage 06/08/24 1555 Site Intervention Flushed 06/08/24 1555 Dressing Assessment Dressing clean, dry, and intact 06/08/24 1555 Dressing Intervention None required 06/08/24 1555 Dressing Change Due 06/14/24 06/07/24 1745 Number of days: 1 Peripheral Line Right Arm 20 Gauge (Active) Status Fluids infusing;Flushes easily 06/08/24 1555 Tubing Changed No 06/08/24 155 Phlebitis Scale 0 06/08/241554 Infiltration Scale 0 06/08/241554 Site Description (Other) Without redness, swelling or drainage 06/08/24 155 Site Intervention None required 06/08/24 155 Dressing Assessment Dressing clean, dry, and intact 06/08/24 155 Dressing Intervention None required 06/08/24 155 Number of days: 0 Drain Jake Posterior Neck (Active) Status Bulb Suction 06/08/241549 Dressing Assessment Dressing clean, dry, and intact 06/08/24 155 Dressing Intervention Applied 06/08/241549 Number of days: 0 Arterial Line Left Radial (Active) Status Zeroed and leveled 06/08/241554 Tubing Changed No 06/08/241554 Site Description Without redness, swelling or drainage 06/08/24 155 Site Intervention None required 06/08/241554 Dressing Assessment Dressing clean, dry, and intact 06/08/241554 Dressing Intervention None required 06/08/241554 Number of days: 0 Vital Signs: BP: 140/75 (06/08/24 164) Temp: 36.6 C (97.9 F) (06/08/24 163) Pulse: 65 (06/08/24 164) Resp: 13 (06/08/241644) SpO2: 99 % (06/08/241644) O2 flow rate: 2 L/MIN (06/08/24 163) Time of last pain medication: Dilaudid Med: 1730 Time of last antibiotic: 0900 Med: Gentamicin Time of last antiemetic: 1508 Med: Zofran UTILITY ENGINEER: no Drips: no Neurological: Neuro WNL: X - Exceptions to WNL as documented below (06/08/24 06) Speech: Clear (06/08/24 163) Level of Consciousness: Alert (06/08/24 163) RUE Motor Strength: 4-Active movement with some resistance (06/08/24 1630) RLE Motor Strength: 4-Active movement with some resistance (06/08/24 163) LUE Motor Strength: 4-Active movement with some resistance (06/08/24 163) LLE Motor Strength: 4-Active movement with some resistance (06/08/24 163) Coma Score: 15 (06/08/24 163) Respiratory: Respiratory WNL: WNL- within normal limits (06/08/24 163) Cough: None (06/07/241929) Oxygen therapy/ Mechanical vent Supplemental O2 Delivery: Nasal Cannula (06/08/241629) O2 flow rate: 2 L/MIN (06/08/24 163) Cardiac: Cardiovascular WNL: WNL - within normal limits (06/08/24 163) Heart Sounds: S1;S2 (06/08/241629) Rhythm: Regular;NSR (06/08/241629) Extremities: - Sensation;Right;Left;Upper;Lower (06/07/24899) Pulses Right: Radial +;Palpable (06/05/24799) Pulses Left: Radial +;Palpable (06/05/24799) Capillary Refill: 3 sec (06/08/24650) GI: GI WNL: WNL - within normal limits (06/08/24 163) : WNL: X - Exceptions to WNL as documented below (06/08/241629) Urine Description: Yellow (06/08/241629) Urethral Catheter Coude (Active) Site Assessment Clean;Skin intact 06/08/241629 Securement Method Leg strap 06/08/241629 Catheter secured to leg? Yes 06/08/24 163 Catheter bag below bladder? Yes 06/08/24 163 IUBC Tubing Disconnected This Shift? No 06/08/24 163 Collection Container Standard drainage 06/08/241629 Urine Description Yellow 06/08/241629 Number of days: 0 Due to Void: Edmonds in place Integumentary:Integumentary WNL: X - Exceptions to WNL as documented below (06/08/241629) Skin Description: Dry;Warm (06/08/241629) Skin Color: Flesh Tone (06/08/241629) Skin Lesion: Other - Describe (s/p surgery charted below) (06/08/241629) Leopoldo Score (auto-calculation): 20 (06/07/241929) Family updated on transfer: no Additional Assessment Information: n/a * Leo Orellana RN - 06/08/2024 4:05 PM EDT Dual Licensed Skin Assessment completed by Guillermo Orellana RN and Lizzeth Christensen RN The patient is/has a N/A Skin Breakdown (includes non blanchable erythema): Yes - Surgical/Procedural changes only. * Lindsay Solomon RN - 06/08/2024 12:04 PM EDT Dual Licensed Skin Assessment completed by myself and Rosalio Herman. The patient is/has a N/A Skin Breakdown (includes non blanchable erythema): No * Flavio Oliva RN - 06/08/2024 6:20 AM EDT Notified by PACU to give gabapentin and metoprolol prior to coming to PACU. Patient not given metoprolol for preoperative medication due to HR in 50s. * Flavio Oliva RN - 06/08/2024 5:53 AM EDT IP TO PERIOP HANDOFF COMMUNICATION NOTE [facility] [place]-[address] [id number] Name: Dalton Hernandez AGE: [age] year old Location: [facility] [place] A464/A Date: 06/08/2024 Attention to: PACU Report from: Flavio Oliva RN Patient arriving via: Bed Time of Call: 0215 Phone Ext.: [phone] Reason for SBAR handoff: OR Consent: Emotional/Personal Events & Special Needs: NONE Allergies: Pcn [penicillins], Niaspan [niacin], and Penicillins PMH: Past Medical History: Diagnosis Date Arora's cyst of knee 4.6.14 left Benign neoplasm of colon 12/01/12 4 mm inflammed tubular adenoma at 45 cm Biceps tendon rupture 01/25/07 left Coronary atherosclerosis of [place] coronary artery 10/29/06 stent to LAD Degenerative cervical disc 11/25/11 Dyslipidemia, goal LDL below 100 Family history of diabetes mellitus Generalized osteoarthrosis, unspecified site H/O carpal tunnel repair left hand Herpes zoster 08/19/06 right lower abdomen Hyperlipidemia LDL goal < 100 MEDICATION USE AGREEMENT 08/27/2014 Other synovitis and tenosynovitis 06/24/08 hurt left arm at work, seen in [facility] ER Postsurgical percutaneous transluminal coronary angioplasty status Primary localized osteoarthrosis, lower leg especially left medial compartment knee Rotator cuff rupture 05/15/07 left, seen by Dr Lebron Tick bite 2009 PSH: Past Surgical History: Procedure Laterality Date CARPAL TUNNEL SURGERY left hand, Dr Wood, [place] COLONOSCOPY THRU STOMA, W/BIOPSY 12/11/2012 adenomatous polyp rpt in 5 years COLONOSCOPY, DIAGNOSTIC (RECTUM) 11/16/2022 benign adenomatous polyps, repeat 3 yrs / COLONOSCOPY FLEXIBLE PROXIMAL DIAGNOSTIC performed by Ghazala Aguilera MD at ENDOSCOPY [facility] COLONOSCOPY, REMOVE LESION, W/SNARE 12/12/2012 4 mm sessile polyp at 45 cm COMBINED RT & LEFT HEART CATHETERS 08/21/2009 LAD 90% ostial stenosis, widely patent stent ECHO, STRESS (EXERCISE) 10/26/2006 resting apex and anterolateral wall mildly hypokinetic, EF 55-60%, no LV size, thickness and function, but with stress, had atypical chest pain and markedly abnormal anteroseptal wall motion abnormalities ELBOW FX/DISLOC, MONTEGGIA, REPAIR Left 04/06/2020 OPEN TREATMENT OF FRACTURE DISLOCATION ELBOW performed by Van Virk DO at OR [facility] [place] EMG & NCV, 2 EXTREMITIES Bilateral 05/30/2024 1. 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 2. 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 3. Chronic right C5-6 polyradiculopathy. 4. 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 MRI C SPINE WO CONTRAST 02/24/2012 multilevel disease with mod-severe foraminal narrowing at multiple levels, jennifer C3-4, 4-5, 5-6 MYOCARDIAL STRESS - PHARMACOLOGIC, NUC MED 07/22/2009 normal wall motion, EF 56% with large reversible anterior and apical defect, suggesting multivesseldisease PLACE INTRACORONARY STENT, FIRST VS 10/28/2006 PCI with 2 Cypher stents placed, 90%-0% REMOVE CATARACT, INSERT LENS PROSTH 11/12/2013 QS, [place] REPAIR INITIAL INGUINAL HERNIA REDUCIBLE AGE 5 OR MORE bilateral hernia repairs REPAIR RUPTURED ROTATOR CUFF, CHRON Left 05/03/2007 Dr Lebron US EXTREMITY Left 01/06/2015 6.5x1.8x3.3 cm left Arora's cyst Isolation: Situation/Background Admission Date: 06/05/2024 Patient Service: Med G Attending: Colette Manzano MD Level of Care: Med Surg [3] Assessment Vital Signs: BP: 143/71 (06/08/24 0238) Temp: 35.9 C (96.6 F) (06/08/24 0238) Pulse: 61 (06/08/24 023) Resp: 18 (06/08/24 023) SpO2: 95 % (06/08/24237) Lines: Peripheral Line Left;Lower Arm 20 Gauge (Active) Status Capped/Locked;Alcohol disinfectant cap 06/08/24 0000 Tubing Changed N/A 06/07/241929 Phlebitis Scale 0 06/07/241929 Infiltration Scale 0 06/07/241929 Site Description (Other) Without redness, swelling or drainage 06/07/241929 Site Intervention Flushed 06/07/241929 Dressing Assessment Dressing clean, dry, and intact 06/07/241929 Dressing Intervention None required 06/07/241929 Number of days: Peripheral Line Left;Lower 20 Gauge (Active) Status Capped/Locked;Alcohol disinfectant cap 06/08/24 0000 Tubing Changed N/A 06/07/241929 Phlebitis Scale 0 06/07/241929 Infiltration Scale 0 06/07/241929 Site Description (Other) Without redness, swelling or drainage 06/07/241929 Site Intervention Flushed 06/07/241929 Dressing Assessment Dressing clean, dry, and intact 06/07/241929 Dressing Intervention None required 06/07/241929 Dressing Change Due 06/14/24 06/07/24 1745 Number of days: 1 Restraints: No orders of the defined types were placed in this encounter. Labs: Please see Lab Flowsheet for lab values. Lab Comments: APTT/PT INR/Type and Screen/BMP/CBC Diet: Orders Placed This Encounter Procedures NPO After 2400 Except Meds NPO: Additional Diet Information: NPO except meds at 0000 Intake and Output: Intake/Output Summary (Last 24 hours) at 06/08/2024 05 Last data filed at 06/07/20241929 Gross per 24 hour Intake 1080 ml Output -- Net 1080 ml Belongings Remaining with Patient: Ring, clothes, phone What were AM meds taken with: Water Time of last pain medication: 2036 Med: tylenol Time of last antibiotic: NA Med: NA Time of last skin assessment: 1929 Pressure injuries or areas of concern: NONE Neurological: Neuro WNL: X - Exceptions to WNL as documented below (06/07/242329) Speech: Clear (06/06/241999) Level of Consciousness: Alert (06/06/241999) RUE Motor Strength: 4-Active movement with some resistance (06/07/242329) RLE Motor Strength: 4-Active movement with some resistance (06/07/242329) LUE Motor Strength: 5-Active movement with full resistance (06/07/242329) LLE Motor Strength: 5-Active movement with full resistance (06/07/242329) Coma Score: 15 (06/07/24 2303) Respiratory: Respiratory WNL: X - Exceptions to WNL as documented below (06/07/241929) Cough: None (06/07/241929) Oxygen therapy/ Mechanical vent Supplemental O2 Delivery: Room Air, None (06/08/24 023) Cardiac: Cardiovascular WNL: X - Exceptions to WNL as documented below (06/07/241929) Heart Sounds: S1;S2 (06/07/241929) Extremities: - Sensation;Right;Left;Upper;Lower (06/07/24899) Pulses Right: Radial +;Palpable (06/05/24799) Pulses Left: Radial +;Palpable (06/05/24799) GI: GI WNL: WNL - within normal limits (06/07/241929) : WNL: WNL - within normal limits (06/07/241929) Urine Description: Other-Describe (no urine to assess at this time) (06/07/24899) Patient individually voids and walks to bathroom Integumentary: Integumentary WNL: WNL - within normal limits (06/07/241929) Skin Description: Dry;Warm (06/05/24799) Skin Color: Flesh Tone (06/05/24799) Leopoldo Score (auto-calculation): 20 (06/07/241929) Additional Assessment Information: NONE * Vivien Shankar RN - 06/07/2024 7:26 PM EDT I have reviewed and agree with the assessment and documentation of Hattie Headley RN * Vivien Shankar RN - 06/06/2024 7:36 PM EDT I have reviewed and agree with the assessment and documentation of Hattie Headley RN * Heri Marroquin RN - 06/05/2024 4:30 AM EDT Dual Licensed Skin Assessment completed by Juan Jose Marroquin RN and Vita Hwang Rn. The patient is/has a N/A Skin Breakdown (includes non blanchable erythema): No Pt presents to us with no open wounds. Some pink spots on left elbow but blanching. documented in this encounter OR Notes * OR Surgeon - Khadar Mayer MD - 06/08/2024 4:02 PM EDT Date: 08 June 2024 Patient: Dalton Hernandez : 1950 Surgeon: Khadar Mayer Puller Over: None Pre-op diagnosis: C1-C2 instability; myelopathy Post-op diagnosis: Same Procedures performed: 1) Carey of iliac crest bone graft, right side, through a separate incision 2) segmental fixation of the posterior cervical spine: C1, C2, C3, C4 3) open reduction of C1-C2 subluxation 4) laminectomy, cervical 1, cervical 2, cervical 3 5) Partial laminectomy cervical 4 6) Partial facetectomy bilaterally, cervical 3-4 7) Posterior arthrodesis with decortication and grafting including autograft and allograft: C1, C2,C3, C4 8) use and interpretation of fluoroscopy 9) Use of intraoperative neurophysiologic monitoring 10) use of intraoperative ultrasonography 11) use of allograft Anesthesia: General endotracheal Blood loss: 200 cc Fluids: 4000 cc crystalloid Colloid: 500 mL Urine: 500 mL Specimen: None Complications: None Condition: Stable to recovery Instrumentation - [place] posterior cervical Drain MATTHEW x1 1) Luiza posterior cervical system 2) allograft Drain - MATTHEW x 1 Details: 74-year-old gentleman that I was asked to see by 1 of my colleagues. He was admitted with acute worsening of cervical myelopathy. He reports a history of rheumatoid arthritis but after discussion with Rheumatology it was not entirely clear if the patient has a rheumatoid arthritis or some other inflammatory spondyloarthropathy. The possibility of something called a crown dens was raised. From my discussion with him, he has a slowly progressive myelopathy of the past several years. He has an MRIfor comparison from a couple of years ago which has worsened. Clinically he was substantial weakness and signs of myelopathy, all worse on the right side. Atlantodental interval on the CT scan about 5.4 mm by my measurement, greater than normal value of 3. Posterior atlantodental interval is about 17 mm. Dynamic imaging of the little bit hard to assess but I think there is dynamic subluxation with the radiologic interpretation indicating further widening of the atlantodental interval with flexion. Relationship of the dens to the clivus is normal by the JED/BDI method, no evidence of basilar invagination. Condylar gap 1.2 mm on the right, 1.0 mm on the left, less than the normal limit of 2 mm. No erosion of the condyles nor the superior surfaces of the C1 lateral masses, I do not believe there is instability at the occiput-C1 joint. The fact that the posterior atlantodental interval is 17 mm i.e. greater than the typical cut off level of 14 mm, I think suggest that the issue is active dynamic subluxation with neck movement, as suggested by the increasing atlantodental interval on thedynamic imaging. I think the patient needs stabilization of the C1-C2 segment with decompression to provide added room, although I do not think there is static compression based on the appearance of the MRI and the measurement of the posterior atlantodental interval. Rather I think the compression is dynamic in nature, and I think this fits with the clinical scenario, specifically the patient said he was worse after the active activity of mowing the lawn as well as with looking upwards as with gazing into the tree stands above his head which caused his onset of the symptoms most recently. Because of the lack of basilar invagination and the normal relationship of the condyles to the C1 lateral masses, I do not see a compelling reason that the patient needs extension of fusion to the occiput. Initially I did plan for C1-C2 posterior fusion with decompression, extension is indicated. Overnight and immediately prior to surgery, the patient did undergo a new MRI, which actually appears worse by my review compared to the 1 done several days got the outside facility. In light of this I explained to the patient and I did recommend doing a laminectomy also at C3, so in sum plan for C1-C4 decompression and fusion given what appears to be worsening radiographic features and compression from the degenerative spondylosis at C3 that is worse compared to the prior film. We would plan to use iliac crest autograft as an adjunct to fusion. Specific risks include but are not limited to: pain, s carring, bleeding, surgical site hematoma, remote hematoma, need for transfusion of blood products,surgical site infection, other infection including but not limited to urinary tract infection or pneumonia, cerebrospinal fluid leak, neurologic deficit including new or worsened numbness/weakness/pain, wrong level surgery, failure to ameliorate symptoms, recurrence of symptoms, need for further operations or procedures, C5 palsy, dysphagia, dysphonia, Horners syndrome, injury to mediastinal structures, injury to the structures of the carotid sheath, injury to cranio-cervical vasculature, other vascular injury, retrograde ejaculation, ischemic optic neuropathy, failure to fuse, malposition of spinal instrumentation or hardware, vascular injury, thromboembolic events including deep vein thrombosis and pulmonary embolus, myocardial infarction, stroke, coma, and . The patient voices understanding of all of this, and requests to proceed. All questions answered. I should note that when the patient was already under general anesthesia, I was contacted by Rheumatology asking for a biopsy of the pannus to rule out a crown dens. I did tell them that I would try my best but there is not a direct means of accessing the ventrally located pannus from a posterior approach. I discussed the case preoperatively with anesthesia, , including the patient's age, myelopathy, theneed for neuro monitoring, the need for arterial line placement and augmentation of mean arterial pressure. After obtaining informed consent, the patient was taken to the operating room, and general anesthesia was induced. IV access was obtained by Anesthesia. SCDs, edmonds and an A-line were In place. Baseline neuro monitoring signals were obtained. the patient's head was pinned in a Baer headholder, and the patient was flipped prone onto the appropriate operating room table , with all pressure points were padded. The patient was affixed to the table. neuro monitoring signals were repeated. Neurophysiologic monitoring signals were unchanged from baseline. Fluoroscopy was used to identify the base of the occiput to the C4 vertebra for the planned extent of the fusion. using anatomic landmarks and direct palpation, the right iliac crest was identified. Both sites were marked out, prepped and draped sterilely. I was happy with the patient's alignment and atlantodental interval on lateral fluoroscopy. Next the patient was draped in the usual sterile fashion. Antibiotics were administered per protocol. A time-out was performed identifying the correct patient, correct surgical sitesand sides, correct procedure. I 1st harvested the iliac crest autograft. The planned incision over the right posterior superior iliac spine was infiltrated with local anesthetic containing epinephrine, and incised with a 10. Blade. The dissection was carried using monopolar cautery through the dermis, subcutaneous fat, and fascia, to the posterior superior iliac spine. This was exposed subperiosteally and a self- retaining retractor placed. Using a reciprocating saw and osteotomes I harvested a segment of posterior superior iliac spine and iliac crest. I then ensured hemostasis , copiously irrigated the wound, and closed this incision in layers, with interrupted 0 Vicryl in the fascia, and interrupted 2-0 Vicryl in the de rmis. The wound was then closed with a nylon on the skin. A sterile dressing was applied and I nextturned my attention back to the plan cervical surgical site. The skin overlying the planned incision from C1-C4 was infiltrated with local anesthetic containingepinephrine. Incision was made in the midline from approximately the c1 to the C4 level with a 10. Scalpel. Dissection was carried to the facia using monopolar cautery. The fascia was opened using monopolar cautery, and the paraspinal musculature and soft tissues were dissected from the spinous processes and lamina of the upper cervical vertebra. I subperiosteally exposed a small portion of the subocciput for orientation purposes, as well as the C1-C4 lamina, spinous processes, and start pointsfor lateral mass screws. Care was taken not to violate the C4-5 facet joint, and obviously to avoidthe location of the vertebral artery at C1. I did place self-retaining retractors. I did dissect upthe isthmus of C2 to locate the C1-C2 joint. I did coagulate the extensive venous plexus, tie off the C2 nerve root proximal to the ganglion with a silk tie, and ligate the nerve. The C1-C2 joint wassubstantially widened, particularly on the right side. At this point I turned my attention to the foley rdware portion of the operation. Start points for the lateral mass screws at C3 and C4 were drilledbilaterally. Next, a 1.7 mm match stick bit was used to cannulate tracts through each of the lateral masses to 15 mm in depth. I did palpate all of the tracts 4 mahmood and a floor. Next I tapped all of the tracts and placed appropriately sized lateral mass screws bilaterally at C3 and C4, based on preoperative measurements and intraoperative appearance/direct palpation. At C2, bilateral pars screws were placed. Based on preoperative measurements and direct visualization, tracts were drilled using a 1.7 mm drill bit. I did palpate all mahmood and a floor, tapped the tract, and placed appropriately sized screws. I was happy with the appearance on AP and lateral fluoroscopy, and there were no changes in neurophysiologic monitoring signals. I then turned my attention to the C1 screws. The medialand lateral extent of the C1 lateral mass was identified, start points were drilled, and then usinga 1.7 mm match stick tracts were cannulated in the direction of the C1 anterior arch in lateral fluoroscopy. I did palpate all mahmood and a floor, tapped the tract, and placed appropriately sized screws. I was happy with the appearance on AP and lateral fluoroscopy, and there were no changes in neurophysiologic monitoring signals. I then performed a laminectomy involving C1, C2, C3, and the proximal portion of C4. There was a rotary component of the subluxation at C3 and C4, and for this reason I did perform medial facetectomies at this level to ensure that I was adequately decompressing the canal. I saved all this autologous bone to mixed with the allograft later. I performed on ultrasound after this in the cord was well decompressed, pulsatile, and freely floating in cerebrospinal fluid. I was very happy with the extent of decompression at this time. Rods were cut and conformed to shape. All locking mechanisms were torqued, and I did place the C1 screws a bit low and attempt to reduce the subluxation of the atlantodental interval with dolores placement. I was happy with the AP and lateral appearance of fluoroscopy atthe conclusion of this. There were no changes to the neuro monitoring signals. the wound was copiously irrigated with antibiotic impregnated saline. I did have anesthesia perform a Valsalva maneuver and there was no CSF leak that I noted. There were no changes to neuro monitoring signals at the conclusion of the procedure. I did not feel like it safely reach the pannus unfortunately from this approach. After copious irrigation and hemostasis, I performed an arthrodesis by decorticating the exposed bone and packing the iliac crest graft along with synthetic allograft with intermixed vancomycininto the wound to facilitate solid arthrodesis. I did drill into the C1-C2 joints and pack graft directly into these joints. 1 subfascial MATTHEW drain was placed, and the wound was closed in layers. Interrupted, inverted zero vicryl sutures were used to reapproximate the muscle and fascia, and 2-0 vicryls were used for subcutaneous tissue and dermis. Running 4-0 Nylon were used to reapproximate the skin, and a sterile dressing was applied. At the end of the procedure all counts were correct. At theconclusion of the case there were no changes to the baseline SSEP and MEP signals from baseline. The patient was flipped supine onto the [facility] and transported in stable condition to the ICU. There were no complications immediately noted. Khadar Mayer Neurosurgery documented in this encounter ED Notes * Breanna Gandhi RN - 06/05/2024 3:04 AM EDT Hand-Off - Nurse Communication Note Name: Dalton Hernandez Location: Date: 06/05/2024 Time: 3:04 AM Sending to: [email or web address] Safety Concerns: Fall Risk Allergies: Pcn [penicillins], Niaspan [niacin], and Penicillins Code Status: Prior Isolation: None Isolation flowsheet: Special Needs: Special Needs comments: Attention to: Heri Griffith RN Report from: Breanna Gandhi RN Phone extension: [phone] Patient arriving via: Stretcher Reason for SBAR handoff: Admission Situation/Background Patient presents to ed as transfer from [facility] to see neuro/spine. Per patient he has been increasingly weak on the R side for the last few months. He reports "feeling drunk when he's walking". RUE weakness noted. Pt went to [facility] today and had MRI and CT (cd uploaded in ED) which showed patient has increased central canal narrowing at the C1 and a few scattered T2 hyperintensity. Prehospital transfer staff reported also compression in spinal cord from swelling. Patient is resting at thistime waiting for neuro reccs. Gcs 15 20 in L forearm from [facility] Admission date: 06/05/2024 Patient Service: Medicine Admit 2 [[id number]] Attending Provider: Shaji Chacon MD Admitting diagnosis: Cervical nerve root compression Chief Complaint: transfer of records and Weakness, Generalized (R upper ) Problem list: Active Problems: * No active hospital problems. * Resolved Problems: * No resolved hospital problems. * Level of Care: Med Surg [3] Assessment Vital Signs: BP: 116/71 (06/05/240) Temp: 36.1 C (97 F) (06/05/2440) Pulse: 70 (06/05/240) Resp: 15 (06/05/24199) SpO2: 93 % (06/05/24199) Weight: 80.7 kg (178 lb) (06/05/2440) Fall Scale: Fall Score: 45 (06/05/2445) Fall Interventions: Bed at low level;Yellow armband applied/intact and on patient;Floor free of clutter;Walk path free of obstacles;Non-skid foot covering on (06/05/2445) Neurological: Ella Coma Scale Eyes Open: Spontaneous (06/05/2440) Best Verbal Response: Verbally appropriate for age (06/05/2440) Best Motor Response: Obeys commands appropriate for age (06/05/2440) Coma Score: 15 (06/05/2440) Additional Neurological Information: aox4 Respiratory: Oxygen therapy/ Mechanical vent Supplemental O2 Delivery: Room Air, None (06/05/24199) Additional Respiratory Information: Cardiac: Extremities: +Sensation;Warm (06/05/2440) Pulses Right: Radial + (06/05/2440) Pulses Left: Radial + (06/05/2440) Additional Cardiac Information: GI/: Additional GI/ Information: Integumentary: Skin Description: Dry;Warm (06/05/2440) Skin Color: Flesh Tone (06/05/2440) Additional Integumentary Information: Restraints: No orders of the defined types were placed in this encounter. Lines: Peripheral Line Left;Lower Arm 20 Gauge (Active) Number of days: Labs: Labs This Encounter - No data to display Diet: No orders of the defined types were placed in this encounter. Additional Diet Information: Intake and Output: No intake or output data in the 24 hours ending 06/05/24 0304 Patient Belongings and Home Medications Recommendations/Follow up Goals/Plan of Care: neuro/spine to follow, MRI/CT complete at [facility]- CD uploaded Consults not completed: spine Anticipated tests/studies/procedures: see h/p Medication Reconcilliation completed for this Admission? Yes documented in this encounter Miscellaneous Notes * Progress Notes - Non-Billable - Khadar Mayer MD - 06/12/2024 2:42 PM EDT Patient looking good today, strength continues to improve and overall he feels very well. Incisional pain coming under better control. Incision clean dry without erythema or swelling. Plan for discharge once able, plan for routine outpatient follow up, collar when out of bed. All questions answered. Khadar Mayer [facility] Neurosurgery This document was dictated using voice recognition software. Please excuse any errors. * Care Plan - Cathy Alegre RN - 06/12/2024 11:43 AM EDT Clinical Goal(s): remain free of injury (06/12/24 0705) Possible barriers to meeting goal(s)/advancing plan of care: weakness, post op Stability of the patient: Moderately stable - low risk of patient condition declining or worsening Summary regarding today's goal(s): Met: free of injury Recommendations: adequate for dc * Ancillary Progress Note - Iman Nugent RN - 06/12/2024 11:25 AM EDT CARE MANAGEMENT - ADULT DISCHARGE NOTE [facility] [place] [address] Name: Dalton Hernandez Location: [facility] [place] A464/A Date: 06/12/2024 Time: 11:25 AM The following coordination of care and discharge plan has been coordinated with the care team, patient, family and/or caregiver according to the patients needs and preferences. Discharge Discharge Second Notice Important Message from Medicare delivered: Yes (06/12/241123) Date Delivered: 06/11/24 (06/12/24 112) Retain copy in EHR: Yes (06/12/241123) Was Caregiver/Family/Facility contacted regarding discharge: Yes (06/12/24 1142) Discharge Transportation: Personal Vehicle;Family/Friends drive (06/12/241123) Date of scheduled discharge transportation: 06/13/24 (06/12/24 112) Time of scheduled discharge transportation: 1200 (06/12/241123) Patient declined post-hospital transition of care recommendation: N/A (06/12/24 1124) Final Discharge Plan (Complete only at time of Discharge): Home - Self Care (06/05/24 1000) Home Medical Care - Admitted Since 06/05/2024 Service Provider Selected Services Address Phone Fax Patient Preferred Last Updated [facility] [address] [facility] [facility] [place] [address] [phone] -- Iman Nugent RN 06/12/2024 1233 Internal Comment last updated by Kristel Dickens OSA 06/12/2024 1232 06/12 Spoke with Leila, they accepted will put him on for 24 to 48hrs SOC. DLK Narrative: Discharge destination time-out called during BOOST rounds, all parties agreeable with transition plan of care. HH referrals placed. Will not hold up discharge. Agency will contact patient with appt details. [facility] transport for dispo. * Ancillary Progress Note - Iman Nugent RN - 06/12/2024 10:57 AM EDT HOME CARE REFERRAL FORM CARE MANAGEMENT [facility] [place] [address] Referred By: Iman Nugent RN Admission Date: 06/05/2024 Discharge Date: 06/12 Discharge Time: 1200 Start Date: Agency Referred To: tbd PATIENT INFORMATION: Name: Dalton Hernandez [address]: [address] [place] [id number] : 1950 Phone: There is no home phone number on file. SSN: [id number] [facility]: [place] Emergency Contacts: Extended Emergency Contact Information Primary Emergency Contact: HernandezAnay Mobile Relation: Spouse Secondary Emergency Contact: Marisol Hernandez Mobile Relation: Adult Child MEDICAL INFORMATION: Principal Diagnosis: Generalized weakness Diet: As per discharge instructions. Allergies: Pcn [penicillins], Niaspan [niacin], and Penicillins Isolation Type: Activity Restrictions: As ordered Isolation For: None HOME CARE ORDERS: (Discipline and Frequency): Snf Assessment Disease Management and Teaching Medication Management and Teaching PT/OT Evaluation and Treat Home Safety Evaluation Medications Dose, Frequency, & Route: As ordered Ordering Physician and Contact Information: Colette Manzano MD Comments: please contact patient directly to set up details PCP: PCP: MAYO SYED [address] [place] [address] DARRION Little [address] D/C Physician: Colette Manzano MD Insurance: See attached facesheet. * Care Plan - Zackary Atwood RN - 06/12/2024 6:17 AM EDT Clinical Goal(s): Patient will be free from falls on this shift. (06/11/24 2310) Possible barriers to meeting goal(s)/advancing plan of care: Weakness, surgery Stability of the patient: Moderately stable - low risk of patient condition declining or worsening Summary regarding today's goal(s): Met: Patient remained free from falls on this shift. Recommendations: Hourly rounds, falls precaution. * Care Plan - Cathy Alegre RN - 06/11/2024 2:09 PM EDT Clinical Goal(s): remain free of injury (06/11/24 0800) Possible barriers to meeting goal(s)/advancing plan of care: weakness, post op Stability of the patient: Moderately stable - low risk of patient condition declining or worsening Summary regarding today's goal(s): Met: free of injury Recommendations: continue safety precautions and hourly rounding * Progress Notes - Post-Op Global - Zach Liang MD - 06/11/2024 8:28 AM EDT NEUROLOGICAL SURGERY PROGRESS NOTE [address] [address] Name: Dalton Hernandez Location: [facility] A464/A Date: 06/11/2024 Time: 8:28 AM SUBJECTIVE: NAEO OBJECTIVE: Most recent vital signs: BP: 104 mmHg/62 mmHg (06/11/24803) Pulse: 70 (06/11/24803) Resp: 18 (06/11/24541) Temp: 37 C (06/11/24541) Temp Summary: Temp Min: 36.2 C (97.2 F) Max: 37.3 C (99.1 F) SpO2: 94 % (06/11/24541) O2 flow rate: 2 L/MIN (06/08/24 1800) Supplemental O2 Delivery: Room Air, None (06/11/24541) Vital signs over last 24 hours: Systolic BP: Most Recent Systolic BP Av.9 mmHg Min: 104 mmHg Max: 126 mmHg Temperature: Most Recent Temperature Av.7 C Min: 36.22 C Max: 37.28 C Pulse: Pulse Avg: Pulse Av.6 Min: 68 Max: 86 Respirations: Resp Av.7 Min: 17 Max: 18 SpO2: SpO2 Av % Min: 91 % Max: 94 % SpO2: SpO2 Av % Min: 91 % Max: 94 % FiO2%: No data recorded ICP: No data found.CPP (adult): No data found.Intake Input/Output: (last 24 hours) Intake/Output Summary (Last 24 hours) at 06/11/2024827 Last data filed at 06/11/2024 0600 Gross per 24 hour Intake 1120 ml Output 2450 ml Net -1330 ml Incision: clean, dry, intact Drains: MATTHEW drain Neurologic Examination Alert and oriented Upper Extremity Strength (out of 5) Deltoid (C5,C6) Biceps (C5,C6) Wrist extension (C6) Triceps (C7,C8) Machine Set Up Technician (C8) Right 5 5 5 5 5 Left 5 5 5 5 5 Lower Extremity Strength (out of 5) Illiopsoas (L2/L3) Quad (L3/L4) Hamstring (L5) TA (L5) EHL (L5/S1) Gastroc (S1) Right 5 5 5 5 5 5 Left 5 5 5 5 5 5 Mild right hoffmans Sensation grossly intact LABS: Blood count: Lab Results Component Value Date/Time WBC 8.34 06/11/2024 07:55 AM WBC 5.95 04/23/2020 09:50 AM HGB 11.7 (L) 06/11/2024 07:55 AM HGB 13.4 (A) 04/02/2024 12:00 AM HGB 9.8 (L) 04/23/2020 09:50 AM HCT 36.1 (L) 06/11/2024 07:55 AM HCT 31.1 (L) 04/23/2020 09:50 AM PLT 148 06/11/2024 07:55 AM PLT 336 04/23/2020 09:50 AM Coagulation studies: Lab Results Component Value Date/Time INR 1.0 06/08/2024 04:08 AM INR 1.04 04/07/2020 05:19 AM Chemistry: Lab Results Component Value Date/Time BUN 21 (H) 06/10/2024 07:50 AM BUN 24 (H) 04/08/2020 03:44 AM CREAT 1.0 06/10/2024 07:50 AM CREAT 1.01 04/02/2024 12:00 AM CREAT 1.1 04/08/2020 03:44 AM GFRESTIMATED >60.0 04/08/2020 03:44 AM NA 139 06/10/2024 07:50 AM NA 136 04/08/2020 03:44 AM POTASSIUM 4.3 06/10/2024 07:50 AM POTASSIUM 3.8 04/02/2024 12:00 AM POTASSIUM 3.9 04/08/2020 03:44 AM CO2 29 06/10/2024 07:50 AM CO2 26 04/08/2020 03:44 AM Imaging studies: No new images Problem list: Principal Problem: Generalized weakness Active Problems: Degenerative cervical disc Hyperlipidemia with target LDL less than 100 HTN, goal below 140/90 Chronic bilateral low back pain without sciatica S/P angioplasty with stent Prediabetes Benign neoplasm of colon Esophageal dysphagia History of heart artery stent Edema of spinal cord (HCC) Atlantoaxial instability Bone erosion Arthralgia Cervical spinal stenosis Resolved Problems: * No resolved hospital problems. 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 Moreno Liang MD Neurosurgery, PGY3 Associated attestation - Khadar Mayer MD - 06/11/2024 4:18 PM EDT I saw and evaluated the patient today. I have reviewed the resident/fellow physician note and agree. Patient looks very good today. Strength continues to improve substantially, his hands feel much much better. Incision is healing well, clean and dry without erythema. Awaiting a bowel movement and discharge. X-rays look good to me. All questions answered. He was very happy so far. Collar when out of bed. Khadar Monroy Neurosurgery This document was dictated using voice recognition software. Please excuse any errors. * Care Plan - Yoselin Waldron RN - 06/11/2024 3:25 AM EDT Clinical Goal(s): maintain patients safety (06/10/24 1922) Possible barriers to meeting goal(s)/advancing plan of care: recent surgery Stability of the patient: Moderately stable - low risk of patient condition declining or worsening Summary regarding today's goal(s): Met: safety maintained Recommendations: bed alarms bed rails * Care Plan - Mary Chaney RN - 06/10/2024 6:39 PM EDT Clinical Goal(s): maintain patient safety (06/10/24 0800) Possible barriers to meeting goal(s)/advancing plan of care: Diagnosis Stability of the patient: Moderately stable - low risk of patient condition declining or worsening Summary regarding today's goal(s): Met: Yes Recommendations: Continue hourly rounds, bed to lowest level, call flores within reach, bed and chairalarms on, maintain a safe environment. * Diagnostic Clarification - Colette Manzano MD - 06/10/2024 7:25 AM EDT The patient has been diagnosed with Prediabetes. Chronic kidney disease is not a valid diagnosis for this admission. * Progress Notes - Post-Op Global - Zach Liang MD - 06/10/2024 7:12 AM EDT NEUROLOGICAL SURGERY PROGRESS NOTE [facility] [place] [address] Name: Dalton Hernandez Location: [facility] [place] A464/A Date: 06/10/2024 Time: 7:12 AM SUBJECTIVE: NAEO. Endorsing some bilateral hand numbness still, unchanged. Deltoid strength improved now able to lift arms above head especially on right side with resistive strength OBJECTIVE: Most recent vital signs: BP: 100 mmHg/61 mmHg (06/10/24634) Pulse: 64 (06/10/24634) Resp: 16 (06/10/24634) Temp: 36.78 C (06/10/24634) Temp Summary: Temp Min: 36.1 C (97 F) Max: 37.4 C (99.3 F) SpO2: 91 % (06/10/24634) O2 flow rate: 2 L/MIN (06/08/24 1800) Supplemental O2 Delivery: Room Air, None (06/10/24634) Vital signs over last 24 hours: Systolic BP: Most Recent Systolic BP Av.4 mmHg Min: 100 mmHg Max: 161 mmHg Temperature: Most Recent Temperature Av.7 C Min: 36.11 C Max: 37.39 C Pulse: Pulse Avg: Pulse Av.4 Min: 60 Max: 78 Respirations: Resp Av.2 Min: 16 Max: 17 SpO2: SpO2 Av.5 % Min: 91 % Max: 99 % SpO2: SpO2 Av.5 % Min: 91 % Max: 99 % FiO2%: No data recorded ICP: No data found.CPP (adult): No data found.Intake Input/Output: (last 24 hours) Intake/Output Summary (Last 24 hours) at 06/10/2024 0712 Last data filed at 06/10/2024 0511 Gross per 24 hour Intake 870 ml Output 2145 ml Net -1275 ml Incision: clean, dry, intact Drains: MATTHEW drain Neurologic Examination Alert and oriented Upper Extremity Strength (out of 5) Deltoid (C5,C6) Biceps (C5,C6) Wrist extension (C6) Triceps (C7,C8) Machine Set Up Technician (C8) Right 4 5 5 5 5 Left 4 5 5 5 5 Lower Extremity Strength (out of 5) Illiopsoas (L2/L3) Quad (L3/L4) Hamstring (L5) TA (L5) EHL (L5/S1) Gastroc (S1) Right 5 5 5 5 5 5 Left 5 5 5 5 5 5 Negative hoffmans Sensation grossly intact LABS: Blood count: Lab Results Component Value Date/Time WBC 11.82 (H) 06/09/2024 07:41 AM WBC 5.95 04/23/2020 09:50 AM HGB 14.1 06/09/2024 07:41 AM HGB 13.4 (A) 04/02/2024 12:00 AM HGB 9.8 (L) 04/23/2020 09:50 AM HCT 40.5 06/09/2024 07:41 AM HCT 31.1 (L) 04/23/2020 09:50 AM PLT 156 06/09/2024 07:41 AM PLT 336 04/23/2020 09:50 AM Coagulation studies: Lab Results Component Value Date/Time INR 1.0 06/08/2024 04:08 AM INR 1.04 04/07/2020 05:19 AM Chemistry: Lab Results Component Value Date/Time BUN 14 06/09/2024 07:41 AM BUN 24 (H) 04/08/2020 03:44 AM CREAT 0.8 06/09/2024 07:41 AM CREAT 1.01 04/02/2024 12:00 AM CREAT 1.1 04/08/2020 03:44 AM GFRESTIMATED >60.0 04/08/2020 03:44 AM NA 141 06/09/2024 07:41 AM NA 136 04/08/2020 03:44 AM POTASSIUM 4.6 06/09/2024 10:47 AM POTASSIUM 3.8 04/02/2024 12:00 AM POTASSIUM 3.9 04/08/2020 03:44 AM CO2 26 06/09/2024 07:41 AM CO2 26 04/08/2020 03:44 AM Imaging studies: No new images Problem list: Principal Problem: Generalized weakness Active Problems: Degenerative cervical disc Hyperlipidemia with target LDL less than 100 HTN, goal below 140/90 Chronic bilateral low back pain without sciatica S/P angioplasty with stent Prediabetes Benign neoplasm of colon Esophageal dysphagia History of heart artery stent Edema of spinal cord (HCC) Atlantoaxial instability Bone erosion Arthralgia Cervical spinal stenosis Resolved Problems: * No resolved hospital problems. 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 Aníbal Liang MD Neurosurgery, PGY3 Associated attestation - Nicholas Spangler III, MD - 06/10/2024 7:20 AM EDT I saw and evaluated the patient today. I have reviewed the resident/fellow physician note and agree. * Care Plan - Yoselin Waldron RN - 06/10/2024 4:04 AM EDT Clinical Goal(s): safety (06/09/24 1900) Possible barriers to meeting goal(s)/advancing plan of care: recent surgery Stability of the patient: Moderately stable - low risk of patient condition declining or worsening Summary regarding today's goal(s): Met: safety maintained Recommendations: bed alarms ,non skid socks when oob, * Ancillary Progress Note - Heri Pantoja RRT - 06/09/2024 10:33 AM EDT PDP RE-EVALUATION NOTE - Respiratory Care Services [facility] [place] [address] Name: Dalton Hernandez Location: [facility] [place] [facility] A464/A Date: 06/09/2024 Time: 10:34 AM Patient Driven Protocol Summary: Re-evaluation . This Treatment Plan and medications will be reviewed by the Primary Care Team for any contraindications. Respiratory Care Treatment Plan Pulmonary Volume Expansion Therapy: Incentive Spirometry PRN to prevent or treat alveolar consolidation and atelectasis. . Respiratory Mechanics: Vital Capacity and Muscle Strengths (NIF, PEF). The patient will be re-evaluated: No re-evaluation needed. Indications for treatment met. The Triage Level is: (Assessment Score = 0 - 5) Level 5. Triage Level Definitions: Level 1 Severe Respiratory/Airway Compromise Level 2 Moderate Respiratory/Airway Compromise or high risk for pulmonary complications Level 3 Mild Respiratory/Airway Compromise or moderate risk for pulmonary complications Level 4 Episodic Respiratory/Airway Compromise or low risk for pulmonary complications Level 5 No Respiratory/Airway Compromise Triage 1 Triage 2 Triage 3 Triage 4 Triage 5 greater than 20 16 - 20 11 - 15 6 - 10 0 - 5 Medical Record Assessment Clinical Findings Pulmonary Status: 0 - No History Surgical Status: 1 - General Surgery Chest X-Ray: 0 - Not Performed or performed greater than 3 days ago Assessment Score: 1 Patient Assessment Clinical Findings Respiratory Pattern: 0 - RR 12 - 20; Patient only gets breathless with strenuous exercise. Breath Sounds: 0 - Clear to auscultation Cough Effectiveness: 0 - Strong non-productive Sputum Production 0 - No sputum production Level of Activity: 2 - Temporarily non-ambulatory O2 needed to keep SpO2 greater than or equal to 92%: 0 - Room Air Assessment Score: 2 Total Assessment Score: 3 Breath Sounds: Inspiratory and expiratory clear bilaterally.. Cough and Sputum: An effective cough produced no sputum... Vital Signs: Resp: 17 (06/09/24641) Pulse: 67 (06/09/24803) Temp: 36.8 C (98.2 F) (06/09/24641) BP: 161/79 (06/09/24803) SpO2: 94 % (06/09/24641) PFT: Minimal Predicted IC: 1.0 L. Inspiratory capacity: 1.0L. Primary Service: Med G. Admitting Diagnosis: Cervical nerve root compression [G54.2] Pulmonary Diagnosis: None . * Progress Notes - Post-Op Global - Zach Liang MD - 06/09/2024 8:31 AM EDT NEUROLOGICAL [place] [address] Name: Dalton Hernandez Location: [facility] [place] [facility] A464/A Date: 06/09/2024 Time: 8:31 AM SUBJECTIVE: NAEO. Endorsing some bilateral hand numbness still OBJECTIVE: Most recent vital signs: BP: 161 mmHg/79 mmHg (06/09/24803) Pulse: 67 (06/09/24803) Resp: 17 (06/09/24641) Temp: 36.78 C (06/09/24641) Temp Summary: Temp Min: 36.2 C (97.2 F) Max: 36.8 C (98.2 F) SpO2: 94 % (06/09/24641) O2 flow rate: 2 L/MIN (06/08/24 1800) Supplemental O2 Delivery: Room Air, None (06/09/24641) Vital signs over last 24 hours: Systolic BP: Most Recent Systolic BP Av.5 mmHg Min: 133 mmHg Max: 173 mmHg Temperature: Most Recent Temperature Av.6 C Min: 36.22 C Max: 36.78 C Pulse: Pulse Avg: Pulse Av.4 Min: 60 Max: 80 Respirations: Resp Av.6 Min: 11 Max: 20 SpO2: SpO2 Av.7 % Min: 91 % Max: 100 % SpO2: SpO2 Av.7 % Min: 91 % Max: 100 % FiO2%: No data recorded ICP: No data found.CPP (adult): No data found.Intake Input/Output: (last 24 hours) Intake/Output Summary (Last 24 hours) at 06/09/2024 0831 Last data filed at 06/09/2024 0800 Gross per 24 hour Intake 3975.13 ml Output 4435 ml Net -459.87 ml Incision: clean, dry, intact Drains: MATTHEW drain Neurologic Examination Alert and oriented Upper Extremity Strength (out of 5) Deltoid (C5,C6) Biceps (C5,C6) Wrist extension (C6) Triceps (C7,C8) Machine Set Up Technician (C8) Right 5 5 5 5 5 Left 5 5 5 5 5 Lower Extremity Strength (out of 5) Illiopsoas (L2/L3) Quad (L3/L4) Hamstring (L5) TA (L5) EHL (L5/S1) Gastroc (S1) Right 5 5 5 5 5 5 Left 5 5 5 5 5 5 Negative hoffmans Sensation grossly intact LABS: Blood count: Lab Results Component Value Date/Time WBC 11.82 (H) 06/09/2024 07:41 AM WBC 5.95 04/23/2020 09:50 AM HGB 14.1 06/09/2024 07:41 AM HGB 13.4 (A) 04/02/2024 12:00 AM HGB 9.8 (L) 04/23/2020 09:50 AM HCT 40.5 06/09/2024 07:41 AM HCT 31.1 (L) 04/23/2020 09:50 AM PLT 156 06/09/2024 07:41 AM PLT 336 04/23/2020 09:50 AM Coagulation studies: Lab Results Component Value Date/Time INR 1.0 06/08/2024 04:08 AM INR 1.04 04/07/2020 05:19 AM Chemistry: Lab Results Component Value Date/Time BUN 14 06/09/2024 07:41 AM BUN 24 (H) 04/08/2020 03:44 AM CREAT 0.8 06/09/2024 07:41 AM CREAT 1.01 04/02/2024 12:00 AM CREAT 1.1 04/08/2020 03:44 AM GFRESTIMATED >60.0 04/08/2020 03:44 AM NA 141 06/09/2024 07:41 AM NA 136 04/08/2020 03:44 AM POTASSIUM 5.2 (H) 06/09/2024 07:41 AM POTASSIUM 3.8 04/02/2024 12:00 AM POTASSIUM 3.9 04/08/2020 03:44 AM CO2 26 06/09/2024 07:41 AM CO2 26 04/08/2020 03:44 AM Imaging studies: No new images Problem list: Principal Problem: Generalized weakness Active Problems: Degenerative cervical disc Hyperlipidemia with target LDL less than 100 HTN, goal below 140/90 Chronic bilateral low back pain without sciatica S/P angioplasty with stent Prediabetes Benign neoplasm of colon Esophageal dysphagia History of heart artery stent Edema of spinal cord (HCC) Atlantoaxial instability Bone erosion Arthralgia Resolved Problems: * No resolved hospital problems. 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 Moreno Liang MD Neurosurgery, PGY3 Associated attestation - Khadar Mayer MD - 06/09/2024 8:38 AM EDT I saw and evaluated the patient today. I have reviewed the resident/fellow physician note and agree. Dalton is looking very good this morning. Strength has improved substantially and he was now able to fully extend both arms overhead, particularly on the right side. Hands still with some numbness. Otherwise he was looking very good. Appropriate incisional pain. I did have a discussion with the patient at bedside in conjunction with the medicine team. Unfortunately was unable to have a safe cord or for a biopsy of the pannus. We will need to defer this to outpatient to see if he has a crown dens versus true rheumatoid arthritis. The patient voices understanding of all this. Continue current management. Drain, PT/OT, collar when out of bed. All questions answered. Khadar Mayer [facility] Neurosurgery This document was dictated using voice recognition software. Please excuse any errors. * Care Plan - Yoselin Waldron RN - 06/09/2024 3:50 AM EDT Clinical Goal(s): safety (06/08/24 1930) Possible barriers to meeting goal(s)/advancing plan of care: lower ext weakness Stability of the patient: Moderately unstable - medium risk of patient condition declining or worsening Summary regarding today's goal(s): Met: safety maintained Recommendations: bed alarms ,call flores within reach * Respiratory Progress Note - Rachel Rollins RRT - 06/08/2024 6:51 PM EDT PDP RE-EVALUATION NOTE - Respiratory Care Services [address] [address] Name: Dalton Hernandez Location: [facility] [place] A464/A Date: 06/08/2024 Time: 6:51 PM Patient Driven Protocol Summary: Re-evaluation . This Treatment Plan and medications will be reviewed by the Primary Care Team for any contraindications. Respiratory Care Treatment Plan Respiratory Mechanics: Vital Capacity and Muscle Strengths (NIF, PEF). The patient will be re-evaluated: No re-evaluation needed. Indications for treatment met. The Triage Level is: (Assessment Score = 0 - 5) Level 5. Triage Level Definitions: Level 1 Severe Respiratory/Airway Compromise Level 2 Moderate Respiratory/Airway Compromise or high risk for pulmonary complications Level 3 Mild Respiratory/Airway Compromise or moderate risk for pulmonary complications Level 4 Episodic Respiratory/Airway Compromise or low risk for pulmonary complications Level 5 No Respiratory/Airway Compromise Triage 1 Triage 2 Triage 3 Triage 4 Triage 5 greater than 20 16 - 20 11 - 15 6 - 10 0 - 5 Medical Record Assessment Clinical Findings Pulmonary Status: 0 - No History Surgical Status: 1 - General Surgery Chest X-Ray: 0 - Not Performed or performed greater than 3 days ago Assessment Score: 0 Patient Assessment Clinical Findings Respiratory Pattern: 0 - RR 12 - 20; Patient only gets breathless with strenuous exercise. Breath Sounds: 2 - Diminished bilaterally Cough Effectiveness: 0 - Strong non-productive Sputum Production 0 - No sputum production Level of Activity: 2 - Temporarily non-ambulatory O2 needed to keep SpO2 greater than or equal to 92%: 1 - Oxygen 1-3 LPM or FiO2 less than 35% Assessment Score: 5 Total Assessment Score: 5 Breath Sounds: Inspiratory and expiratory diminished bilaterally.. Cough and Sputum: No cough was present.. Vital Signs: Resp: 17 (06/08/241799) Pulse: 80 (06/08/241799) Temp: 36.5 C (97.7 F) (06/08/241799) BP: 145/80 (06/08/241799) SpO2: 98 % (06/08/241799) Primary Service: Med G. Admitting Diagnosis: Cervical nerve root compression [G54.2] Pulmonary Diagnosis: none . * Care Plan - Flavio Oliva RN - 06/08/2024 6:04 AM EDT Patient will remain free from injury/falls during the shift. Possible barriers to meeting goal(s)/advancing plan of care: Weakness Stability of the patient: Moderately stable - low risk of patient condition declining or worsening Summary regarding today's goal(s): Met: Patient remained free from injury/falls during the shift. Recommendations: Hourly round for safety/comfort; monitor patient VS/Neuro for changes * Care Plan - Hattie Headley RN - 06/07/2024 6:52 PM EDT Clinical Goal(s): pt will remain free from falls or injury during this shift (06/07/24 0701) Possible barriers to meeting goal(s)/advancing plan of care: numbness Stability of the patient: Moderately stable - low risk of patient condition declining or worsening Summary regarding today's goal(s): Met: met Recommendations: continue purposeful hourly rounds * Diagnostic Clarification - Khadar Mayer MD - 06/07/2024 12:28 PM EDT Unable to determine if right sided hemiplegia is a valid diagnosis. * Respiratory Progress Note - Rachel Rollins RRT - 06/07/2024 8:24 AM EDT PDP RE-EVALUATION NOTE - Respiratory Care Services [facility] [place] [address] Name: Dalton Hernandez Location: [facility] A464/A Date: 06/07/2024 Time: 8:24 AM Patient Driven Protocol Summary: Re-evaluation . This Treatment Plan and medications will be reviewed by the Primary Care Team for any contraindications. Respiratory Care Treatment Plan Respiratory Mechanics: Qday Vital Capacity and Muscle Strengths (NIF, PEF). The patient will be re-evaluated: No re-evaluation needed. Indications for treatment met. The Triage Level is: (Assessment Score = 0 - 5) Level 5. Triage Level Definitions: Level 1 Severe Respiratory/Airway Compromise Level 2 Moderate Respiratory/Airway Compromise or high risk for pulmonary complications Level 3 Mild Respiratory/Airway Compromise or moderate risk for pulmonary complications Level 4 Episodic Respiratory/Airway Compromise or low risk for pulmonary complications Level 5 No Respiratory/Airway Compromise Triage 1 Triage 2 Triage 3 Triage 4 Triage 5 greater than 20 16 - 20 11 - 15 6 - 10 0 - 5 Medical Record Assessment Clinical Findings Pulmonary Status: 0 - No History Surgical Status: 0 - No Surgical History Chest X-Ray: 0 - Not Performed or performed greater than 3 days ago Assessment Score: 0 Patient Assessment Clinical Findings Respiratory Pattern: 0 - RR 12 - 20; Patient only gets breathless with strenuous exercise. Breath Sounds: 0 - Clear to auscultation Cough Effectiveness: 0 - Strong non-productive Sputum Production 0 - No sputum production Level of Activity: 1 - Ambulatory with assist O2 needed to keep SpO2 greater than or equal to 92%: 0 - Room Air Assessment Score: 1 Total Assessment Score: 1 Breath Sounds: Inspiratory and expiratory clear bilaterally.. Cough and Sputum: An effective cough produced no sputum... Vital Signs: Resp: 16 (06/07/24628) Pulse: 67 (06/07/24628) Temp: 36.4 C (97.5 F) (06/07/24628) BP: 116/76 (06/07/24628) SpO2: 99 % (06/07/24628) PFT: Minimal Predicted IC: 1.0 L. Vital capacity: 1.90 L Negative inspiratory force: 79rdK1M press Positive expiratory force: 60 cmH2O press . Primary Service: Med G. Admitting Diagnosis: Cervical nerve root compression [G54.2] Pulmonary Diagnosis: none documented . * Care Plan - Kayleen Phillips RN - 06/07/2024 4:35 AM EDT Clinical Goal(s): Pt will be free from falls (06/06/24 1900) Possible barriers to meeting goal(s)/advancing plan of care: numbness in extremities Stability of the patient: Moderately stable - low risk of patient condition declining or worsening Summary regarding today's goal(s): Met: Pt remained free from falls Recommendations: continue fall precautions and purposeful hourly rounding * Communication - Colette Manzano MD - 06/06/2024 6:41 PM EDT Attempted to contact patient's Luzma, adult son Marisol and Adult grandchild Citlalli however didnot answer phone call. Will continue to attempt to reach family daily to give update. * Care Plan - Hattie Headley RN - 06/06/2024 2:44 PM EDT Clinical Goal(s): pt will remain free from falls or injury during this shift (06/06/24 0705) Possible barriers to meeting goal(s)/advancing plan of care: weakness Stability of the patient: Moderately stable - low risk of patient condition declining or worsening Summary regarding today's goal(s): Met: met Recommendations: continue purposeful hourly rounds * Care Plan - Edward Henry RN - 06/06/2024 5:17 AM EDT Clinical Goal(s): pt will remain free from falls (06/05/241999) Possible barriers to meeting goal(s)/advancing plan of care: weakness Stability of the patient: Moderately stable - low risk of patient condition declining or worsening Summary regarding today's goal(s): Met: Patient remained free from falls Recommendations: Continue implementing fall precautions and purposeful hourly rounding. * Care Plan - Marcela Sun RN - 06/05/2024 2:57 PM EDT Clinical Goal(s): Patient will remain free from falls (06/05/24 0700) Possible barriers to meeting goal(s)/advancing plan of care: Weakness Stability of the patient: Moderately stable - low risk of patient condition declining or worsening Summary regarding today's goal(s): Met: Patient had no falls during this shift Recommendations: Purposeful hourly rounding * Respiratory Progress Note - Rachel Rollins RRT - 06/05/2024 10:26 AM EDT PATIENT DRIVEN PROTOCOL - Respiratory Care Services [facility] [place] [place] [address] Name: Dalton Hernandez Location: [facility] A464/A Date: 06/05/2024 Time: 10:26 AM Patient Driven Protocol Summary: Initial evaluation performed. This Treatment Plan and medications will be reviewed by the Primary Care Team for any contraindications. Respiratory Care Treatment Plan Respiratory Mechanics: BID Vital Capacity and Muscle Strengths (NIF, PEF) The patient will be re-evaluated: within 48 hours. The Triage Level is: (Assessment Score = 0 - 5) Level 5. Triage Level Definitions: Level 1 Severe Respiratory/Airway Compromise Level 2 Moderate Respiratory/Airway Compromise or high risk for pulmonary complications Level 3 Mild Respiratory/Airway Compromise or moderate risk for pulmonary complications Level 4 Episodic Respiratory/Airway Compromise or low risk for pulmonary complications Level 5 No Respiratory/Airway Compromise Triage 1 Triage 2 Triage 3 Triage 4 Triage 5 greater than 20 16 - 20 11 - 15 6 - 10 0 - 5 Medical Record Assessment Clinical Findings Pulmonary Status: 0 - No History Surgical Status: 0 - No Surgical History Chest X-Ray: 0 - Not Performed or performed greater than 3 days ago Assessment Score: 0 Patient Assessment Clinical Findings Respiratory Pattern: 0 - RR 12 - 20; Patient only gets breathless with strenuous exercise. Breath Sounds: 0 - Clear to auscultation Cough Effectiveness: 0 - Strong non-productive Sputum Production: 0 - No sputum production Level of Activity: 2 - Temporarily non-ambulatory O2 needed to keep SpO2 greater than or equal to 92%: 0 - Room Air Assessment Score: 2 Total Assessment Score: 2 Breath Sounds: Inspiratory and expiratory clear bilaterally.. Cough and Sputum: An effective cough produced no sputum... CXR: n/a. Vital Signs: Resp: 16 (06/05/24 1024) Pulse: 75 (06/05/24 1024) Temp: 36.6 C (97.9 F) (06/05/24 1024) BP: 138/88 (06/05/24 1024) SpO2: 94 % (06/05/24 1024) PFT: Minimal Predicted IC: 1.0 L. Vital capacity: 1.70L Negative inspiratory force: 40 cmH2O press Positive expiratory force: 60 cmH2O press . Primary Service: Med Q. Admitting Diagnosis: Cervical nerve root compression [G54.2] Pulmonary Diagnosis: none documented . Prescriptions/Home Medications/Durable Medical Equipment: none . * Ancillary Progress Note - Cameron Dudley RN - 06/05/2024 10:22 AM EDT CARE MANAGEMENT - ADULT INITIAL SCREENING [facility] [place] [place] [address] Name: Dalton Hernandez Location: [facility] A464/A Date: 06/05/2024 Time: 10:22 AM Discussed patient with the interdisciplinary care team. This Cinder Pit Crane Operator performed a chart revie to complete admission screen and assessed needs for transition planning. The home visit field care manager role and services were explained and emotional support was provided. Chief Complaint: transfer of records and Weakness, Generalized (R upper ) Prior Living Arrangements What was your living situation prior to admission/observation?: Independently;With Spouse () Do you have serious difficulty walking or climbing stairs? (5 years old or older): Yes (06/05/24421) History of falling: No (06/05/24799) Prior Level of Functioning Describe the patient's ability prior to admission/observation to perform ADLs: Performs independently (06/05/24421) Describe the patient's mobility status prior to admission: Patient ambulates independently (06/05/24421) Patient uses assistive device: No (06/05/24421) Caregiver Information Patient Contacts Name Relation Home Work Mobile LUZMA HERNANDEZ Spouse [phone] WESLEYJENNIFERMARISOL Adult Child [phone] HERNANDEZ,ROB Adult Child [phone] Citlalli Hernandez Other - (no specific identity) [phone] Lives with spouse and was independent with ADL's. Denies rehab/SNF stays or home health in the pastand used no DME for ambulation prior to admission. PT/OT consults pending for discharge disposition. CM will continue to follow should discharge needs arise. Risk Stratification/Psychosocial/Care Gaps Risk Stratification Psycho Social / Medical Concerns Identified: None Identified (06/05/24999) Accessed [facility] to connect patients to social care resources: No (06/05/24999) OBRA or OPTIONS needed for placement: No (06/05/24999) Readmission Risk Score: 11.14 (06/05/24799) AM-PAC Score With Stairs : 20 (06/05/24799) Prior to Admission Services Services Prior to Admission DREDGE OPERATOR SUPERVISOR Services (Services received within the last 30 days with exception, Psych within last two years): N/A (06/05/24 1000) [place] Dept. of Aging (PDA) Waiver Program: N/A (06/05/24 1000) DREDGE OPERATOR SUPERVISOR Transportation (Services received within the last 30 days): Patient drives self (06/05/24 1000) Outpatient Cinder Pit Crane Operator: No care valve steamer to display Patient/Family Expectations: Return home For further screening information, please refer to the Care Management flow document. * Medical Necessity - Polly Beebe RN - 06/05/2024 5:22 AM EDT AdmissionCare Guideline: Neurology, Inpatient Based on the indications selected for the patient, the bed status of Inpatient was determined to beMET The following indications were selected as present at the time of evaluation of the patient: - Clinical Indications for Admission to Inpatient Care - Hospital admission is needed for appropriate care of the patient because of 1 or more of the following: - Clinically significant neurologic finding, as indicated by ALL of the following: - Finding is acute (not a chronic condition) or acutely worsened - Finding requires inpatient care, as indicated by 1 or more of the following: - Treatment, testing, or monitoring necessitates inpatient care - Clinically significant finding, as indicated by 1 or more of the following: - Weakness Additional Information: right-sided weakness to upper and lower extremities presents due to worsening weakness over the last several months to right upper and right lower extremities. Edema of spinal cord noted on MRI C-spine AdmissionCare documentation entered by: Polly Beebe [facility], 28th edition, Copyright 2023 [facility] [employer] [facility] All Rights Reserved. [id number] Solely for purpose of utilization review and payment; not a diagnostic tool documented in this encounter Plan of Treatment Upcoming Encounters Date Type Department Care Team (Late st Contact Info) Description 06/14/2024 10:30 AM EDT Scheduled Telephone Neurosurgery, [facility] [address] [place] [address] Nurse Liyah Follow Up Phone Call Neurosurg [address] [place] [address] 06/20/2024 11:20 AM EDT Office Visit [address] [phone] Mayo Syed MD [address] [place] [address] [place] [address] 06/25/2024 9:40 AM EDT Office Visit [address] [place] [phone] Jenae Jolly PA-C [address] [place] [address] [place] [address] 06/26/2024 9:30 AM EDT Office Visit [facility] [address] [place] [address] Khadar Mayer MD [address] [place] [address] 10/08/2024 1:00 PM EST Office Visit Dermatology [address] [place] [address] Jeni Stevens PA-C [address] [place] [address] [place] [address] 12/17/2024 10:00 AM EDT Office Visit [address] [place] [address] Mayo Syed MD [address] [place] [address] [place] [address] Scheduled Procedures Name Priority Associated Diagnoses Date/Ti [...] Ratio 02/27/2027 02/28/2024 Lipid Panel 02/27/2029 02/28/2024, 060 11/2014, 05/03/2013, Additional history exists Pneumococcal Vaccine: [...] this encounter Medical Devices Implanted Type Area Rural Sociologist Device Identifier Shelf Expiration Date Model / Serial / Lot Plate 2.7 3.5 Prx Ol 2h Lt 73 - [id number] Implanted:Qty: 1 on 04/06/2020 by Van Virk DO at OR [facility] Left: Elbow SYNTHES 02.107.102 / / Screw Slf Tap Strdr 2.7x38mm - [id number] Implanted:Qty: 1 on 04/06/2020 by Van Virk DO at OR [facility] Left: Elbow SYNTHES 02.118.538 / / Screw Selftap 3.5x24 204.824 - [id number] Implanted:Qty: 1 on 04/06/2020 by Van Virk DO at OR [facility] Left: Elbow SYNTHES 204.824 / / Screw Selftap 3.5x28 204.828 - [id number] Implanted:Qty: 1 on 04/06/2020 by Van Virk DO at OR [facility] Left: Elbow SYNTHES 204.828 / / Screw Slftap T8 2.7x16mm - [id number] Implanted:Qty: 1 on 04/06/2020 by Van Virk DO at OR [facility] Left: Elbow SYNTHES 02.211.016 / / Screw Slftap T8 2.7x10mm - [id number] Implanted:Qty: 2 on 04/06/2020 by Van Virk DO at OR [facility] Left: Elbow SYNTHES 02.211.010 / / Screw Slftap T8 2.7x12mm - [id number] Implanted:Qty: 1 on 04/06/2020 by Van Virk DO at OR [facility] Left: Elbow SYNTHES 02.211.012 / / Screw Slftap T8 2.7x50mm - [id number] Implanted:Qty: 1 on 04/06/2020 by Van Virk DO at OR [facility] Left: Elbow SYNTHES 02.211.050 / / Screw Set [id number] - [id number] Implanted:Qty: 8 on 06/08/2024 by Khadar Mayer MD at OR [facility] N/A: Spine Cervical LUIZA : SPINE [id number] / / [place] Screw Implanted:Qty: 1 on 06/08/2024 by Khadar Mayer MD at OR [facility] N/A: Spine Cervical [id number] / / [place] Screw Implanted:Qty: 1 on 06/08/2024 by Khadar Mayer MD at OR [facility] N/A: Spine Cervical [id number] / / [place] Screw Implanted:Qty: 4 on 06/08/2024 by Khadar Mayer MD at OR [facility] N/A: Spine Cervical [id number] / / [place] Screw Implanted:Qty: 2 on 06/08/2024 by Khadar Mayer MD at OR [facility] N/A: Spine Cervical [id number] / / [place] 3.5 X 55mm Dolores Implanted:Qty: 2 on 06/08/2024 by Khadar Mayer MD at OR [facility] [id number] / / [employer]im[employer] [facility] - [id number] Implanted:Qty: 1 on 06/08/2024 by Khadar Mayer MD at OR [facility] N/A: Spine Cervical LUIZA : SPINE 10/30/2025 [id number] / / [id number] documented as of this encounter Procedures Procedure Name Priority Date/Time Associated Diagnosis Comments CBC Routine 06/12/2024 7:38 AM EDT XR C SPINE 2-3 VIEWS Routine 06/11/2024 9:15 AM EDT BASIC METABOLIC PANEL Routine 06/11/2024 7:55 AM EDT CBC Routine 06/11/2024 7:55 AM EDT BASIC METABOLIC PANEL Routine 06/10/2024 7:50 AM EDT CBC Routine 06/10/2024 7:50 AM EDT POTASSIUM Routine 06/09/2024 10:47 AM EDT BASIC METABOLIC PANEL Routine 06/09/2024 7:41 AM EDT CBC Routine 06/09/2024 7:41 AM EDT XR INTRA-OP C-ARM CASE Routine 06/08/2024 3:15 PM EDT Allograft, Morselized, for Spine Surgery 06/08/2024 6:45 AM EDT Spinal stenosis of cervical region SPINE SEG FIX, POST, 3-6 SEG, INSERT 06/08/2024 6:45 AM EDT Spinal stenosis of cervical region MICROSURGERY ADD-ON 06/08/2024 6 :45 AM EDT Spinal stenosis of cervical region SPINE FUSION, EACH ADD'L VERTEBRA 06/08/2024 6:45 AM EDT Spinal stenosis of cervical region NECK SPINE FUSION (CERV, BELOW C2) 06/08/2024 6:45 AM EDT Spinal stenosis of cervical region BASIC METABOLIC PANEL Routine 06/08/2024 4:08 AM EDT TYPE AND SCREEN Routine 06/08/2024 4:08 AM EDT PT INR Routine 06/08/2024 4:08 AM EDT APTT Routine 06/08/2024 4:08 AM EDT CBC Routine 06/08/2024 4:08 AM EDT MRI C SPINE W WO CONTRAST Routine 06/07/2024 11:42 PM EDT Other specified spondylopathies, cervical region (HCC) Obstructive hydrocephalus (HCC) Spinal stenosis, cervical region Unspecified cord compression (HCC) 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, cervical region XR HAND 3 OR MORE VIEWS Routine 06/07/2024 9:13 PM EDT CYCLIC CITRULLINATED PEPTIDE IGG ANTIBODY Routine 06/07/2024 7:50 PM EDT CRP (INFLAMMATORY MARKER) Add-on 06/07/2024 7:05 AM EDT BASIC METABOLIC PANEL Routine 06/07/2024 7:05 AM EDT RHEUMATOID FACTOR Add-on 06/07/2024 7:0 5 AM EDT ERYTHROCYTE SEDIMENTATION RATE (ESR) Add-on 06/07/2024 7:05 AM EDT CBC Routine 06/07/2024 7:05 AM EDT PHOSPHORUS Routine 06/06/2024 8:33 AM EDT MAGNESIUM Routine 06/06/2024 8:33 AM EDT XR C SPINE FLEXION AND EXTENSION VIEWS ONLY Routine 06/05/2024 9:12 PM EDT CTA NECK W CONTRAST Routine 06/05/2024 8 :27 AM EDT Occlusion and stenosis of right carotid artery Occlusion and stenosis of left carotid artery Other cervical disc degeneration, unspecified cervical region Spondylosis without myelopathy or radiculopathy, cervical region Spinal stenosis, site unspecified CT T SPINE WO CONTRAST Routine 06/05/2024 8:[address] C SPINE WO CONTRAST Routine 06/05/2024 8:27 AM EDT BASIC METABOLIC PANEL Routine 06/05/2024 6:55 AM EDT CBC Routine 06/05/2024 6:55 AM EDT documented in this encounter Results * CBC (06/12/2024 7:38 AM EDT) WBC 9.86 4.00 - 10.80 K/uL 06/12/2024 8:12 AM EDT [facility] RBC 4.19 4.50 - 5.25 M/uL 06/12/2024 8:12 AM EDT [facility] HGB 14.0 14.0 - 16.8 g/dL 06/12/2024 8:12 AM EDT [facility] HCT 42.8 40.0 - 48.4 % 06/12/2024 8:12 AM EDT [facility] MCV 102.1 82.0 - 99.5 fL 06/12/2024 8:12 AM EDT LABORATORY [facility] MCH 33.4 27.0 - 34.0 pg 06/12/2024 8:12 AM EDT LABORATORY [facility] MCHC 32.7 32.0 - 36.0 g/dL 06/12/2024 8:12 AM EDT LABORATORY [facility] RDW 13.0 11.5 - 15.5 % 06/12/2024 8:12 AM EDT LABORATORY [facility] PLT 224 140 - 400 K/uL 06/12/2024 8:12 AM EDT LABORATORY [facility] MPV 9.2 6.6 - 11.1 fL 06/12/2024 8:12 AM EDT LABORATORY [facility] nRBCs 0 <=0 /100 WBCs 06/12/2024 8:12 AM EDT LABORATORY [facility] Blood Venous blood specimen / Unknown Venipuncture / Unknown 06/12/2024 7:38 AM EDT 06/12/2024 8:00 AM EDT Colette Manzano MD LAB BLOOD ORDERA BLES Performing Organization Address City/State/[facility] Co de Phone Number LABORATORY [facility] [address] [place] [address] * XR C SPINE 2-3 VIEWS (06/11/2024 9:15 AM EDT) Anatomical Region Laterality Modality Vertebra, Spine, Cspine Computed Radiography 06/11/2024 10:0 3 AM EDT Impressions 06/11/2024 10:00 AM EDT IMPRESSION Expected postoperative appearance of the cervical spine following C1-4 fixation. Narrative 06/11/2024 10:00 AM EDT EXAM XR C SPINE 2-3 VIEWS - 06/11/2024 HISTORY post op TECHNIQUE Two radiographs of the cervical spine are acquired. COMPARISON XR C-spine dated 06/05/2024 FINDINGS Interval C1-4 posterior fixation with intact hardware in satisfactory alignment. No displaced fractures. Multilevel degenerative disc disease with marginal osteophyte formation and disc space narrowing. There is no prevertebral soft tissue widening. Surgical drain in the posterior soft tissues. Overlying skin marcela. Procedure Note Isaias Boo DO - 06/11/2024 EXAM XR C SPINE 2-3 VIEWS - 06/11/2024 HISTORY post op TECHNIQUE Two radiographs of the cervical spine are acquired. COMPARISON XR C-spine dated 06/05/2024 FINDINGS Interval C1-4 posterior fixation with intact hardware in satisfactoryalignment. No displaced fractures. Multilevel degenerative disc disease with marginal osteophyte formationand disc space narrowing. There is no prevertebral soft tissue widening. Surgical drain in theposterior soft tissues. Overlying skin marcela. IMPRESSION IMPRESSION Expected postoperative appearance of the cervical spine following C1-4fixation. Vania Roger DO RADIOLOGY (RAD GENER AL) * BASIC METABOLIC PANEL (06/11/2024 7:55 AM EDT) BUN 18 6 - 20 mg/dL 06/11/2024 8:38 AM EDT [facility] Creatinine 0.8 0.6 - 1.2 mg/dL 06/11/2024 8:38 AM EDT [facility] Estimated Glomerular Filtration Rate >90 >=60 mL/min 06/11/2024 8:38 AM EDT [facility] Comment:eGFR is calculated b ased on the CKD-EPI 2020 equation. Sodium 138 135 - 146 mmol/L 06/11/2024 8:38 AM EDT [facility] Potassium 4.0 3.5 - 5.1 mmol/L 06/11/2024 8:38 AM EDT [facility] Chloride 102 98 - 107 mmol/L 06/11/2024 8:38 AM EDT [facility] CO2 29 22 - 32 mmol/L 06/11/2024 8:38 AM EDT [facility] Anion Gap 7 7 - 15 mmol/L 06/11/2024 8:38 AM EDT [facility] Glucose 95 70 - 120 mg/dL 06/11/2024 8:38 AM EDT [facility] Calcium 8.4 8.4 - 10.2 mg/dL 06/11/2024 8:38 AM EDT [facility] Blood Venous blood specimen / Unknown Venipuncture / Unknown 06/11/2024 7:55 AM EDT 06/11/2024 8:09 AM EDT Colette Manzano MD LAB BLOOD ORDERA BLES [facility] [address] [place] [address] * (ABNORMAL) CBC (06/11/2024 7:55 AM EDT) WBC 8.34 4.00 - 10.80 K/uL 06/11/2024 8:18 AM EDT [facility] RBC 3.51 4.50 - 5.25 M/uL 06/11/2024 8:18 AM EDT [facility] HGB 11.7(L) 14.0 - 16.8 g/dL 06/11/2024 8:18 AM EDT [facility] HCT 36.1(L) 40.0 - 48.4 % 06/11/2024 8:18 AM EDT [facility] MCV 102.8 82.0 - 99.5 fL 06/11/2024 8:18 AM EDT [facility] MCH 33.3 27.0 - 34.0 pg 06/11/2024 8:18 AM EDT [facility] MCHC 32.4 32.0 - 36.0 g/dL 06/11/2024 8:18 AM EDT [facility] RDW 12.9 11.5 - 15.5 % 06/11/2024 8:18 AM EDT [facility] PLT 148 140 - 400 K/uL 06/11/2024 8:18 AM EDT [facility] MPV 9.4 6.6 - 11.1 fL 06/11/2024 8:18 AM EDT [facility] nRBCs 0 <=0 /100 WBCs 06/11/2024 8:18 AM EDT [facility] Blood Venous blood specimen / Unknown Venipuncture / Unknown 06/11/2024 7:55 AM EDT 06/11/2024 8:09 AM EDT Colette Manzano MD LAB BLOOD ORDERA BLES [facility] [address] [place] [address] * (ABNORMAL) BASIC METABOLIC PANEL (06/10/2024 7:50 AM EDT) BUN 21(H) 6 - 20 mg/dL 06/10/2024 8:35 AM EDT [facility] Creatinine 1.0 0.6 - 1.2 mg/dL 06/10/2024 8:35 AM EDT LAB[facility] Estimated Glomerular Filtration Rate 79 >=60 mL/min 06/10/2024 8:35 AM EDT [facility] Comment:eGFR is calculated b ased on the CKD-EPI 2020 equation. Sodium 139 135 - 146 mmol/L 06/10/2024 8:35 AM EDT [facility] Potassium 4.3 3.5 - 5.1 mmol/L 06/10/2024 8:35 AM EDT [facility] Chloride 102 98 - 107 mmol/L 06/10/2024 8:35 AM EDT [facility] CO2 29 22 - 32 mmol/L 06/10/2024 8:35 AM EDT [facility] Anion Gap 8 7 - 15 mmol/L 06/10/2024 8:35 AM EDT [facility] Glucose 93 70 - 120 mg/dL 06/10/2024 8:35 AM EDT [facility] Calcium 8.5 8.4 - 10.2 mg/dL 06/10/2024 8:35 AM EDT LABORATORY C Blood Venous blood specimen / Unknown Venipuncture / Unknown 06/10/2024 7:50 AM EDT 06/10/2024 8:07 AM EDT Colette Manzano MD LAB BLOOD ORDERA BLES [facility] [address] [place] [address] * (ABNORMAL) CBC (06/10/2024 7:50 AM EDT) WBC 9.20 4.00 - 10.80 K/uL 06/10/2024 8:19 AM EDT [facility] RBC 3.84 4.50 - 5.25 M/uL 06/10/2024 8:19 AM EDT [facility] HGB 12.8(L) 14.0 - 16.8 g/dL 06/10/2024 8:19 AM EDT [facility] HCT 39.1(L) 40.0 - 48.4 % 06/10/2024 8:19 AM EDT [facility] MCV 101.8 82.0 - 99.5 fL 06/10/2024 8:19 AM EDT [facility] MCH 33.3 27.0 - 34.0 pg 06/10/2024 8:19 AM EDT [facility] MCHC 32.7 32.0 - 36.0 g/dL 06/10/2024 8:19 AM EDT [facility] RDW 13.1 11.5 - 15.5 % 06/10/2024 8:19 AM EDT [facility] PLT 143 140 - 400 K/uL 06/10/2024 8:19 AM EDT [facility] MPV 9.5 6.6 - 11.1 fL 06/10/2024 8:19 AM EDT [facility] nRBCs 0 <=0 /100 WBCs 06/10/2024 8:19 AM EDT [facility] Blood Venous blood specimen / Unknown Venipuncture / Unknown 06/10/2024 7:50 AM EDT 06/10/2024 8:07 AM EDT Colette Manzano MD LAB BLOOD ORDERA BLES LABORATORY [facility] [address] [place] [address] * POTASSIUM (06/09/2024 10:47 AM EDT) [facility] Potassium 4.6 3.5 - 5.1 mmol/L 06/09/2024 11:19 AM EDT LAB[facility] Comment:Results may be false ly elevated due to hemolysis. Blood Venous blood specimen / Unknown Venipuncture / Unknown 06/09/2024 10:47 AM EDT 06/09/2024 10:58 AM EDT Colette Manzano MD LAB BLOOD ORDERA BLES LABORATORY [facility] [address] [place] [address] * (ABNORMAL) BASIC METABOLIC PANEL (06/09/2024 7:41 AM EDT) BUN 14 6 - 20 mg/dL 06/09/2024 8:23 AM EDT [facility] Creatinine 0.8 0.6 - 1.2 mg/dL 06/09/2024 8:23 AM EDT [facility] Estimated Glomerular Filtration Rate >90 >=60 mL/min 06/09/2024 8:23 AM EDT [facility] Comment:eGFR is calculated b ased on the CKD-EPI 2020 equation. Sodium 141 135 - 146 mmol/L 06/09/2024 8:23 AM EDT [facility] Potassium 5.2(H) 3.5 - 5.1 mmol/L 06/09/2024 8:23 AM EDT [facility] Chloride 105 98 - 107 mmol/L 06/09/2024 8:23 AM EDT [facility] CO2 26 22 - 32 mmol/L 06/09/2024 8:23 AM EDT LABORATORY C Anion Gap 10 7 - 15 mmol/L 06/09/2024 8:23 AM EDT [facility] Glucose 95 70 - 120 mg/dL 06/09/2024 8:23 AM EDT [facility] Calcium 8.6 8.4 - 10.2 mg/dL 06/09/2024 8:23 AM EDT LABORATORY C Blood Venous blood specimen / Unknown Venipuncture / Unknown 06/09/2024 7:41 AM EDT 06/09/2024 7:47 AM EDT Colette Manzano MD LAB BLOOD ORDERA BLES LABORATORY [facility] [address] [place] [address] * (ABNORMAL) CBC (06/09/2024 7:41 AM EDT) WBC 11.82(H) 4.00 - 10.80 K/uL 06/09/2024 8:06 AM EDT [facility] RBC 4.10 4.50 - 5.25 M/uL 06/09/2024 8:06 AM EDT [facility] HGB 14.1 14.0 - 16.8 g/dL 06/09/2024 8:06 AM EDT [facility] HCT 40.5 40.0 - 48.4 % 06/09/2024 8:06 AM EDT [facility] MCV 98.8 82.0 - 99.5 fL 06/09/2024 8:06 AM EDT [facility] MCH 34.4 27.0 - 34.0 pg 06/09/2024 8:06 AM EDT [facility] MCHC 34.8 32.0 - 36.0 g/dL 06/09/2024 8:06 AM EDT [facility] RDW 12.6 11.5 - 15.5 % 06/09/2024 8:06 AM EDT [facility] PLT 156 140 - 400 K/uL 06/09/2024 8:06 AM EDT [facility] MPV 9.8 6.6 - 11.1 fL 06/09/2024 8:06 AM EDT [facility] nRBCs 0 <=0 /100 WBCs 06/09/2024 8:06 AM EDT [facility] Blood Venous blood specimen / Unknown Venipuncture / Unknown 06/09/2024 7:41 AM EDT 06/09/2024 7:47 AM EDT Colette Manzano MD LAB BLOOD ORDERA BLES LABORATORY [facility] [address] [place] [address] * XR INTRA-OP C-ARM CASE (06/08/2024 3:15 PM EDT) Narrative Scheduling, Silent - 06/08/2024 3:15 PM EDT This procedure will not be read by a Radiologist. Please see operative note. Derick Marshall MD RADIOLOGY (RAD GENERAL) * (ABNORMAL) BASIC METABOLIC PANEL (06/08/2024 4:08 AM EDT) BUN 21(H) 6 - 20 mg/dL 06/08/2024 4:40 AM EDT [facility] Creatinine 0.9 0.6 - 1.2 mg/dL 06/08/2024 4:40 AM EDT [facility] Estimated Glomerular Filtration Rate 88 >=60 mL/min 06/08/2024 4:40 AM EDT [facility] Comment:eGFR is calculated b ased on the CKD-EPI 2020 equation. Sodium 138 135 - 146 mmol/L 06/08/2024 4:40 AM EDT [facility] Potassium 4.1 3.5 - 5.1 mmol/L 06/08/2024 4:40 AM EDT [facility] Chloride 104 98 - 107 mmol/L 06/08/2024 4:40 AM EDT [facility] CO2 27 22 - 32 mmol/L 06/08/2024 4:40 AM EDT [facility] Anion Gap 7 7 - 15 mmol/L 06/08/2024 4:40 AM EDT [facility] Glucose 106 70 - 120 mg/dL 06/08/2024 4:40 AM EDT [facility] Calcium 9.1 8.4 - 10.2 mg/dL 06/08/2024 4:40 AM EDT [facility] Blood Venous blood specimen / Unknown Venipuncture / Unknown 06/08/2024 4:08 AM EDT 06/08/2024 4:16 AM EDT Colette Manzano MD LAB BLOOD ORDERA BLES Performing Organization Address City/State/[facility] Co de Phone Number LABORATORY [facility] [address] [place] [address] * (ABNORMAL) CBC (06/08/2024 4:08 AM EDT) WBC 8.82 4.00 - 10.80 K/uL 06/08/2024 4:31 AM EDT [facility] RBC 3.97 4.50 - 5.25 M/uL 06/08/2024 4:31 AM EDT [facility] HGB 13.5(L) 14.0 - 16.8 g/dL 06/08/2024 4:31 AM EDT [facility] HCT 40.0 40.0 - 48.4 % 06/08/2024 4:31 AM EDT LABORATORY [facility] MCV 100.8 82.0 - 99.5 fL 06/08/2024 4:31 AM EDT LABORATORY [facility] MCH 34.0 27.0 - 34.0 pg 06/08/2024 4:31 AM EDT LABORATORY [facility] MCHC 33.8 32.0 - 36.0 g/dL 06/08/2024 4:31 AM EDT LABORATORY [facility] RDW 12.4 11.5 - 15.5 % 06/08/2024 4:31 AM EDT LABORATORY [facility] PLT 160 140 - 400 K/uL 06/08/2024 4:31 AM EDT LABORATORY [facility] MPV 9.2 6.6 - 11.1 fL 06/08/2024 4:31 AM EDT LABORATORY [facility] nRBCs 0 <=0 /100 WBCs 06/08/2024 4:31 AM EDT LABORATORY [facility] Blood Venous blood specimen / Unknown Venipuncture / Unknown 06/08/2024 4:08 AM EDT 06/08/2024 4:16 AM EDT Colette Manzano MD LAB BLOOD ORDERA BLES LABORATORY [facility] [address] [place] [address] * APTT (06/08/2024 4:08 AM EDT) aPTT 29 21 - 38 seconds 06/08/2024 4:46 AM EDT LABORATORY [facility] Blood Venous blood specimen / Unknown Venipuncture / Unknown 06/08/2024 4:08 AM EDT 06/08/2024 4:16 AM EDT Narrative LAB[facility]ATORY [facility] - 06/08/2024 4:46 AM EDT Anticoagulation may affect testing. Refer to [employer] Test Catalog for a list of effects. Derick Marshall MD LAB BLOOD ORDER RENETTA LABORATORY [facility] [address] [place], [place] [id number] * PT INR (06/08/2024 4:08 AM EDT) Prothrombin Time 12.8 11.6 - 15.2 seconds 06/08/2024 4:45 AM EDT LABORATORY [facility] INR 1.0 0.8 - 1.2 06/08/2024 4:45 AM EDT LABORATORY [facility] Blood Venous blood specimen / Unknown Venipuncture / Unknown 06/08/2024 4:08 AM EDT 06/08/2024 4:16 AM EDT Narrative LABORATORY [facility] - 06/08/2024 4:45 AM EDT Warfarin Therapy INR: 2.0-3.0 conventional anticoagulation INR: 2.5-3.5 high intensity anticoagulation Derick Marshall MD LAB BLOOD ORDER RENETTA Performing Organization Address City/[facility]/ZIP Co de Phone Number LABORATORY [facility] [address] [place] [address] * TYPE AND SCREEN (06/08/2024 4:08 AM EDT) ABO A 06/08/2024 5:00 AM EDT LABORATORY [facility] BLOOD BANK Rh Positive 06/08/2024 5:00 AM EDT LABORATORY [facility] BLOOD BANK Red Blood Cell Antibody Screen Negative 06/08/2024 5:00 AM EDT LABORATORY [facility] BLOOD BANK Specimen Expiration Date 06/11/2024 23:59 06/08/2024 5:00 AM EDT LABORATORY [facility] BLOOD BANK Blood Venous blood specimen / Unknown Venipuncture / Unknown 06/08/2024 4:08 AM EDT 06/08/2024 4:16 AM EDT Tim Leone DO LAB BLOOD BANK TEST ORDERABLES Performing Organization Address City/[facility]/ZIP Co de Phone Number LABORATORY [facility] BLOOD BANK [address] [place] [address] * MRI C SPINE W WO CONTRAST (06/07/2024 11:42 PM EDT) Anatomical Region Laterality Modality Vertebra, Spine Magnetic Resonan ce 06/08/2024 9:14 AM EDT Impressions 06/08/2024 9:11 AM EDT IMPRESSION 1. Prominent pannus formation at the C1-C2 level with erosive changes and enhancement of the odontoid and dorsal ligamentous thickening and enhancement. Findings contribute to severe spinal canal stenosis with asymmetric compression, T2 hyperintensity, and volume loss of the right hemicord at the C1-C2 level- consistent with myelomalacia. 2. Very advanced multilevel degenerative changes of the cervical spine, as described above. Narrative 06/08/2024 9:11 AM EDT EXAM MRI C SPINE W WO CONTRAST-06/07/2024 11:42 pm HISTORY assessment of spinal stenosis and surrounding structures and degree of inflammation given concern for RA COMPARISON Radiographs cervical spine dated 06/05/2024, CT cervical spine dated 06/05/2024, MRI cervical spine dated 02/24/2012 TECHNIQUE Multiplanar, multisequence magnetic resonance imaging of the cervical spine was performed before and after the administration of intravenous contrast. FINDINGS There is reversal of the cervical lordosis with moderate anterolisthesis of C2 on C3, mild anterolisthesis of C3 on C4, minimal stepwise retrolisthesis of C5 on C6 and C6 on C7, and moderate anterolisthesis of C7 on T1. Additionally, there is partially imaged mild anterolisthesis of T2 on T3 and T3 on T4. The vertebral body heights are maintained. Multilevel degenerative disc height loss is most advanced at C5-C6. Modic type 1 degenerative endplate marrow signal changes at C4-C5 through C6- C7. Prominent pannus formation is noted at the C1-C2 level with erosive changes and enhancement of the odontoid. Dorsal ligamentous thickening and enhancement are also noted. Findings contribute to severe spinal canal stenosis with asymmetric compression, T2 hyperintensity, and volume loss of the right hemicord at the C1- C2 level-consistent with myelomalacia. At C2-C3, broad-based disc osteophyte complex causes moderate spinal canal stenosis. Uncovertebral hypertrophy and facet arthropathy contribute to severe bilateral, left greater than right, neural foraminal narrowing. At C3-C4, disc osteophyte complex, asymmetric to the right, contributes to moderate spinal canal stenosis. Uncovertebral hypertrophy and facet arthropathy cause severe bilateral, right greater than left, neural foraminal narrowing. At C4-C5, broad-based disc osteophyte complex causes mild spinal canal stenosis. Uncovertebral hypertrophy and facet arthropathy cause severe bilateral neural foraminal narrowing. At C5-C6, broad-based disc osteophyte complex causes mild spinal canal stenosis. Uncovertebral hypertrophy and facet arthropathy cause severe bilateral, left greater than right, neural foraminal narrowing. At C6-C7, broad-based disc osteophyte complex effaces the ventral thecal sac without causing significant spinal canal stenosis. Uncovertebral hypertrophy contributes to moderate bilateral, left greater than right, neural foraminal narrowing. The spinal canal and neural foramina are otherwise patent. Procedure Note Isaias Alcazar MD - 06/08/2024 EXAM MRI C SPINE W WO CONTRAST-06/07/2024 11:42 pm HISTORY assessment of spinal stenosis and surrounding structures and degree ofinflammation given concern for RA COMPARISON Radiographs cervical spine dated 06/05/2024, CT cervical spine dated06/05/2024, MRI cervical spine dated 02/24/2012 TECHNIQUE Multiplanar, multisequence magnetic resonance imaging of the cervicalspine was performed before and after the administration of intravenouscontrast. FINDINGS There is reversal of the cervical lordosis with moderate anterolisthesisof C2 on C3, mild anterolisthesis of C3 on C4, minimal stepwiseretrolisthesis of C5 on C6 and C6 on C7, and moderate anterolisthesis ofC7 on T1. Additionally, there is partially imaged mild anterolisthesis ofT2 on T3 and T3 on T4. The vertebral body heights are maintained.Multilevel degenerative disc height loss is most advanced at C5-C6. Modictype 1 degenerative endplate marrow signal changes at C4-C5 throughC6-C7. Prominent pannus formation is noted at the C1-C2 level with erosivechanges and enhancement of the odontoid. Dorsal ligamentous thickeningand enhancement are also noted. Findings contribute to severe spinalcanal stenosis with asymmetric compression, T2 hyperintensity, and volumeloss of the right hemicord at the C1- C2 level-consistent withmyelomalacia. At C2-C3, broad-based disc osteophyte complex causes moderate spinal canalstenosis. Uncovertebral hypertrophy and facet arthropathy contribute tosevere bilateral, left greater than right, neural foraminal narrowing. At C3-C4, disc osteophyte complex, asymmetric to the right, contributes tomoderate spinal canal stenosis. Uncovertebral hypertrophy and facetarthropathy cause severe bilateral, right greater than left, neuralforaminal narrowing. At C4-C5, broad-based disc osteophyte complex causes mild spinal canalstenosis. Uncovertebral hypertrophy and facet arthropathy cause severebilateral neural foraminal narrowing. At C5-C6, broad-based disc osteophyte complex causes mild spinal canalstenosis. Uncovertebral hypertrophy and facet arthropathy cause severebilateral, left greater than right, neural foraminal narrowing. At C6-C7, broad-based disc osteophyte complex effaces the ventral thecalsac without causing significant spinal canal stenosis. Uncovertebralhypertrophy contributes to moderate bilateral, left greater than right,neural foraminal narrowing. The spinal canal and neural foramina are otherwise patent. IMPRESSION IMPRESSION 1. Prominent pannus formation at the C1-C2 level with erosive changes andenhancement of the odontoid and dorsal ligamentous thickening andenhancement. Findings contribute to severe spinal canal stenosis withasymmetric compression, T2 hyperintensity, and volume loss of the righthemicord at the C1-C2 level-consistent with myelomalacia. 2. Very advanced multilevel degenerative changes of the cervical spine, asdescribed above. Colette Manzano MD RAD MRI-MRA * XR HAND 3 OR MORE VIEWS (06/07/2024 9:13 PM EDT) Anatomical Region Laterality Modality Upper Extremity, Hand Digital Ra diography 06/08/2024 5:55 AM EDT Impressions 06/08/2024 5:53 AM EDT IMPRESSION 1. No discrete evidence of CPPD. 2. Minimal scattered interphalangeal joint osteoarthritis. Narrative 06/08/2024 5:53 AM EDT EXAM XR HAND 3 OR MORE VIEWS-06/07/2024 9:13 pm HISTORY eval for possible CPPD COMPARISON None TECHNIQUE Three views of each hand. FINDINGS Right hand: No fracture. Alignment is normal. Joint spacing is preserved minimal scattered interphalangeal joint osteoarthritis. No discrete evidence of CPPD. Left hand: No fracture. Alignment is normal. Joint spacing is preserved with minimal scattered interphalangeal joint osteoarthritis. No discrete evidence of CPPD. Procedure Note Feliciano Soria MD - 06/08/2024 EXAM XR HAND 3 OR MORE VIEWS-06/07/2024 9:13 pm HISTORY eval for possible CPPD COMPARISON None TECHNIQUE Three views of each hand. FINDINGS Right hand: No fracture. Alignment is normal. Joint spacing is preservedminimal scattered interphalangeal joint osteoarthritis. No discreteevidence of CPPD. Left hand: No fracture. Alignment is normal. Joint spacing is preservedwith minimal scattered interphalangeal joint osteoarthritis. No discreteevidence of CPPD. IMPRESSION IMPRESSION 1. No discrete evidence of CPPD. 2. Minimal scattered interphalangeal joint osteoarthritis. Colette Manzano MD RADIOLOGY (RAD G ENERAL) * CYCLIC CITRULLINATED PEPTIDE IGG ANTIBODY (06/07/2024 7:50 PM EDT) Pathologist [facility] Cyclic Citrullinated Peptide IgG Antibody Interpretation Negative Negative 06/08/2024 10:28 AM EDT LABORATORY [facility] Cyclic Citrullinated Peptide IgG Antibody Value 0.6 <7 U/mL 06/08/2024 10:28 AM EDT LABORATORY C Blood Venous blood specimen / Unknown Venipuncture / Unknown 06/07/2024 7:50 PM EDT 06/07/2024 8:03 PM EDT Colette Manzano MD LAB BLOOD ORDERA BLES Performing Organization Address [facility]/ZIP Co de Phone Number LABORATORY [facility] [address] [place] [address] * CRP (INFLAMMATORY MARKER) (06/07/2024 7:05 AM EDT) Pathologist [facility] CRP (Inflammatory Marker) <3 <=5 mg/L 06/07/2024 8:01 PM EDT LABORATORY [facility] Blood Venous blood specimen / Unknown Venipuncture / Unknown 06/07/2024 7:05 AM EDT 06/07/2024 7:18 AM EDT Colette Manzano MD LAB BLOOD ORDERA BLES LABORATORY [facility] [address] [place] [address] * ERYTHROCYTE SEDIMENTATION RATE (ESR) (06/07/2024 7:05 AM EDT) ESR 15 <20 mm/hour 06/07/2024 8:08 PM EDT LABORATORY [facility] Blood Venous blood specimen / Unknown Venipuncture / Unknown 06/07/2024 7:05 AM EDT 06/07/2024 7:18 AM EDT Colette Manzano MD LAB BLOOD ORDERA BLES Performing Organization Address [facility]/ZIP Co de Phone Number LABORATORY [facility] [address] [place] [address] * RHEUMATOID FACTOR (06/07/2024 7:05 AM EDT) Pathologist [facility] Rheumatoid Factor <10 <14 IU/mL 06/07/2024 8:01 PM EDT LABORATORY [facility] Blood Venous blood specimen / Unknown Venipuncture / Unknown 06/07/2024 7:05 AM EDT 06/07/2024 7:18 AM EDT Colette Manzano MD LAB BLOOD ORDERA BLES Performing Organization Address City/[facility]/ZIP Co de Phone Number LABORATORY [facility] [address] [place] [address] * (ABNORMAL) BASIC METABOLIC PANEL (06/07/2024 7:05 AM EDT) BUN 21(H) 6 - 20 mg/dL 06/07/2024 7:46 AM EDT LABORATORY [facility] Creatinine 0.9 0.6 - 1.2 mg/dL 06/07/2024 7:46 AM EDT LABORATORY [facility] Estimated Glomerular Filtration Rate 89 >=60 mL/min 06/07/2024 7:46 AM EDT LABORATORY [facility] Comment:eGFR is calculated b ased on the CKD-EPI 2020 equation. Sodium 140 135 - 146 mmol/L 06/07/2024 7:46 AM EDT LABORATORY [facility] Potassium 4.2 3.5 - 5.1 mmol/L 06/07/2024 7:46 AM EDT LABORATORY [facility] Chloride 105 98 - 107 mmol/L 06/07/2024 7:46 AM EDT LAB[facility]ATORY [facility] CO2 27 22 - 32 mmol/L 06/07/2024 7:46 AM EDT LAB[facility]ATORY [facility] Anion Gap 8 7 - 15 mmol/L 06/07/2024 7:46 AM EDT LAB[facility]ATORY [facility] Glucose 91 70 - 120 mg/dL 06/07/2024 7:46 AM EDT LAB[facility]ATORY [facility] Calcium 9.0 8.4 - 10.2 mg/dL 06/07/2024 7:46 AM EDT LAB[facility]ATORY [facility] Blood Venous blood specimen / Unknown Venipuncture / Unknown 06/07/2024 7:05 AM EDT 06/07/2024 7:18 AM EDT Colette Manzano MD LAB BLOOD ORDERA BLES LABORATORY [facility] [address] [place] [address] * (ABNORMAL) CBC (06/07/2024 7:05 AM EDT) WBC 9.32 4.00 - 10.80 K/uL 06/07/2024 7:33 AM EDT LABORATORY [facility] RBC 4.03 4.50 - 5.25 M/uL 06/07/2024 7:33 AM EDT LABORATORY [facility] HGB 13.5(L) 14.0 - 16.8 g/dL 06/07/2024 7:33 AM EDT LABORATORY [facility] HCT 41.3 40.0 - 48.4 % 06/07/2024 7:33 AM EDT LABORATORY [facility] MCV 102.5 82.0 - 99.5 fL 06/07/2024 7:33 AM EDT LAB[facility]ATORY [facility] MCH 33.5 27.0 - 34.0 pg 06/07/2024 7:33 AM EDT LABORATORY [facility] MCHC 32.7 32.0 - 36.0 g/dL 06/07/2024 7:33 AM EDT LAB[facility]ATORY [facility] RDW 12.6 11.5 - 15.5 % 06/07/2024 7:33 AM EDT LABORATORY [facility] PLT 169 140 - 400 K/uL 06/07/2024 7:33 AM EDT LABORATORY [facility] MPV 9.2 6.6 - 11.1 fL 06/07/2024 7:33 AM EDT LABORATORY [facility] nRBCs 0 <=0 /100 WBCs 06/07/2024 7:33 AM EDT LABORATORY C Blood Venous blood specimen / Unknown Venipuncture / Unknown 06/07/2024 7:05 AM EDT 06/07/2024 7:18 AM EDT Colette Mnazano MD LAB BLOOD ORDERA BLES Performing Organization Address City/[facility]/ZIP Co de Phone Number LABORATORY [facility] [address] [place] [address] * PHOSPHORUS (06/06/2024 8:33 AM EDT) Phosphorus 2.9 2.5 - 4.8 mg/dL 06/06/2024 9:31 AM EDT LABORATORY [facility] Blood Venous blood specimen / Unknown Venipuncture / Unknown 06/06/2024 8:33 AM EDT 06/06/2024 8:[address] Schofield MD LAB BLOOD ORDERABLES Performing Organization Address [facility] Co de Phone Number LABORATORY [facility] [address] [place] [address] * MAGNESIUM (06/06/2024 8:33 AM EDT) Magnesium 2.2 1.5 - 2.6 mg/dL 06/06/2024 9:31 AM EDT LABORATORY [facility] Blood Venous blood specimen / Unknown Venipuncture / Unknown 06/06/2024 8:33 AM EDT 06/06/2024 8:[address] Schofield MD LAB BLOOD ORDERABLES Performing Organization Address City/[facility]/ZIP Co de Phone Number LABORATORY [facility] [address] [place] [address] * XR C SPINE FLEXION AND EXTENSION VIEWS ONLY (06/05/2024 9:12 PM EDT) Anatomical Region Laterality Modality Cspine, Vertebra, Spine Digital Radiography 06/06/2024 7:35 AM EDT Impressions 06/06/2024 7:32 AM EDT IMPRESSION Increased widening of atlantodental interval on the lateral flexion view as suggested on the 06/05/[address] Extensive degenerative changes as outlined. Noted changes better demonstrated on the prior day's CT scan. Narrative 06/06/2024 7:32 AM EDT EXAM XR C SPINE FLEXION AND EXTENSION VIEWS ONLY-06/05/2024 9:12 pm HISTORY preop COMPARISON CT neck dated 06/05/2024 TECHNIQUE XR C SPINE FLEXION AND EXTENSION VIEWS ONLY FINDINGS As suggested on the 06/05/2024 CT of the cervical spine, widening of the atlantodental interval is noted on the lateral view with the cervical spine in flexion. Close approximation of the atlas and dens is noted with extension. As demonstrated on the CT scan, reversal of cervical lordotic curvature from C2 through C5-C6 level. Multiple spondylolistheses. No prevertebral soft tissue swelling. Extensive degenerative disc disease and endplate hypertrophy. Skull base structures and included facial structures are within normal limits. Scattered areas of ossification in the posterior paraspinous soft tissues. Procedure Note Obdulia Bhandari DO - 06/06/2024 EXAM XR C SPINE FLEXION AND EXTENSION VIEWS ONLY-06/05/2024 9:12 pm HISTORY preop COMPARISON CT neck dated 06/05/2024 TECHNIQUE XR C SPINE FLEXION AND EXTENSION VIEWS ONLY FINDINGS As suggested on the 06/05/2024 CT of the cervical spine, widening of theatlantodental interval is noted on the lateral view with the cervicalspine in flexion. Close approximation of the atlas and dens is noted withextension. As demonstrated on the CT scan, reversal of cervical lordotic curvaturefrom C2 through C5-C6 level. Multiple spondylolistheses. No prevertebralsoft tissue swelling. Extensive degenerative disc disease and endplatehypertrophy. Skull base structures and included facial structures arewithin normal limits. Scattered areas of ossification in the posteriorparaspinous soft tissues. IMPRESSION IMPRESSION Increased widening of atlantodental interval on the lateral flexion viewas suggested on the 06/05/[address] Extensive degenerative changes as outlined. Noted changes betterdemonstrated on the prior day's CT scan. Clovis Guerin MD RADIOLOGY (RAD GEN ERA) * CT T SPINE WO CONTRAST (06/05/2024 8:27 AM EDT) Anatomical Region Laterality Modality Tspine, Spine, Vertebra Computed Tomography 06/05/2024 10:5 9 AM EDT Impressions 06/05/2024 10:57 AM EDT IMPRESSION CERVICAL SPINE: 1. Chronic cystic/erosive changes of the dens with progression of dorsal pannus formation causing severe spinal canal stenosis at the C1-C2 level. These findings raise the possibility of underlying rheumatoid arthritis. Recommend dedicated MRI cervical spine to evaluate for underlying spinal cord compression. 2. 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 3. Multilevel degenerative changes throughout the cervical spine with at least moderate spinal canal stenosis at C2-C3, C3-C4, C4-C5, and C5-C6. 4. Multilevel neural foraminal narrowing, most severe bilaterally at C2-C3, C3- C4, C4-C5, and on the right at C5-C6. THORACIC SPINE: 1. Multilevel degenerative changes causing varying degrees of bilateral bony neural foraminal narrowing, most severe on the right at T11-T12 and on the left at T10- T11. 2. Additional chronic findings. Narrative 06/05/2024 10:[address] CERVICAL SPINE WITHOUT CONTRAST, CT THORACIC SPINE WITHOUT CONTRAST- 06/05/2024 HISTORY Degenerative disc disease, cervical spondylosis COMPARISON MRI cervical spine without contrast 12/31/2020 TECHNIQUE Contiguous images are acquired through the cervical and thoracic spine without IV contrast using standard protocol. Coronal and sagittal reformats are provided. FINDINGS CERVICAL SPINE: Reversal of the cervical lordosis with grade 1 anterolisthesis of C2 over C3 and C3 over C4, grade 1 retrolisthesis of C5 over C6 and C6 over C7, and grade 1 anterolisthesis of C7 over T1. Widening of the atlanto dens interval, which measures 5 mm. No basilar invagination. Asymmetry of the dens with respect to the lateral masses of C1, with widening on the right. The dens shows chronic cystic and erosive changes, and there is progression of dorsal pannus formation causing severe spinal canal stenosis at the C1-C2 level. Vertebral body heights are maintained. No fractures or destructive bony changes. Multilevel degenerative facet arthropathy. Multilevel degenerative disc height loss and endplate spondylitic changes, most pronounced at C4-C5, C5-C6, and C6-C7. Disc levels: C1-C2: Severe spinal canal stenosis due to prominent pannus overlying the dorsum of the dens. C2-C3: Disc/osteophyte complex causes at least moderate spinal canal stenosis. Severe bilateral neural foraminal narrowing. C3-C4: Disc/osteophyte complex causes at least moderate spinal canal stenosis. Severe bilateral neural foraminal narrowing. C4-C5: Disc/osteophyte complex causes at least spinal canal stenosis. Severe bilateral neural foraminal narrowing. C5-C6: Disc/osteophyte complex and retrolisthesis cause at least moderate spinal canal stenosis. Moderate/severe right and moderate left neural foraminal narrowing. C6-C7: Disc/osteophyte complex and retrolisthesis cause mild spinal canal stenosis. Moderate bilateral neural foraminal narrowing. C7-T1: No gross spinal canal stenosis or neural foraminal narrowing. Prevertebral soft tissues are grossly unremarkable. Bilateral carotid atherosclerotic calcifications. Lung apices are clear. Azygous lobe fissure is incidentally noted. THORACIC SPINE: 12 rib-bearing thoracic vertebrae. Right convex thoracic curvature. Alignment is otherwise anatomic, with preservation of the dorsal kyphosis. Vertebral body heights are maintained. No fracture or bony destructive changes. Multilevel degenerative disc height loss and endplate spondylitic changes. Vacuum disc phenomena several levels, most pronounced at T11-T12. Chronic inferior endplate Schmorl's nodes at T2 and T3. Multilevel degenerative facet arthropathy. Bony spinal canal caliber appears grossly normal. Varying degrees of bilateral bony neural foraminal narrowing, most severe on the right at T11-T12 and on the left at T10-T11. Within the limits of this study, no large disc herniations are demonstrated. Paraspinous soft tissues are grossly unremarkable. Bibasilar atelectatic changes. Atherosclerotic calcifications. Procedure Note Jeremiah Meza MD - 06/05/[address] CERVICAL SPINE WITHOUT CONTRAST, CT THORACIC SPINE WITHOUTCONTRAST-06/05/2024 HISTORY Degenerative disc disease, cervical spondylosis COMPARISON MRI cervical spine without contrast 12/31/2020 TECHNIQUE Contiguous images are acquired through the cervical and thoracic spinewithout IV contrast using standard protocol. Coronal and sagittalreformats are provided. FINDINGS CERVICAL SPINE: Reversal of the cervical lordosis with grade 1anterolisthesis of C2 over C3 and C3 over C4, grade 1 retrolisthesis of C5over C6 and C6 over C7, and grade 1 anterolisthesis of C7 over T1. Widening of the atlanto dens interval, which measures 5 mm. No basilarinvagination. Asymmetry of the dens with respect to the lateral masses ofC1, with widening on the right. The dens shows chronic cystic and erosive changes, and there isprogression of dorsal pannus formation causing severe spinal canalstenosis at the C1-C2 level. Vertebral body heights are maintained. No fractures or destructive bonychanges. Multilevel degenerative facet arthropathy. Multilevel degenerative disc height loss and endplate spondylitic changes,most pronounced at C4-C5, C5-C6, and C6-C7. Disc levels: C1-C2: Severe spinal canal stenosis due to prominent pannus overlying thedorsum of the dens. C2-C3: Disc/osteophyte complex causes at least moderate spinal canalstenosis. Severe bilateral neural foraminal narrowing. C3-C4: Disc/osteophyte complex causes at least moderate spinal canalstenosis. Severe bilateral neural foraminal narrowing. C4-C5: Disc/osteophyte complex causes at least spinal canal stenosis.Severe bilateral neural foraminal narrowing. C5-C6: Disc/osteophyte complex and retrolisthesis cause at least moderatespinal canal stenosis. Moderate/severe right and moderate left neuralforaminal narrowing. C6-C7: Disc/osteophyte complex and retrolisthesis cause mild spinal canalstenosis. Moderate bilateral neural foraminal narrowing. C7-T1: No gross spinal canal stenosis or neural foraminal narrowing. Prevertebral soft tissues are grossly unremarkable. Bilateral carotidatherosclerotic calcifications. Lung apices are clear. Azygous lobefissure is incidentally noted. THORACIC SPINE: 12 rib-bearing thoracic vertebrae. Right convex thoracic curvature. Alignment is otherwise anatomic, withpreservation of the dorsal kyphosis. Vertebral body heights are maintained. No fracture or bony destructivechanges. Multilevel degenerative disc height loss and endplate spondylitic changes.Vacuum disc phenomena several levels, most pronounced at T11-T12.Chronic inferior endplate Schmorl's nodes at T2 and T3. Multileveldegenerative facet arthropathy. Bony spinal canal caliber appears grossly normal. Varying degrees of bilateral bony neural foraminal narrowing, most severeon the right at T11-T12 and on the left at T10-T11. Within the limits ofthis study, no large disc herniations are demonstrated. Paraspinous soft tissues are grossly unremarkable. Bibasilar atelectaticchanges. Atherosclerotic calcifications. IMPRESSION IMPRESSION CERVICAL SPINE: 1. Chronic cystic/erosive changes of the dens with progression of dorsalpannus formation causing severe spinal canal stenosis at the C1-C2 level.These findings raise the possibility of underlying rheumatoid arthritis.Recommend dedicated MRI cervical spine to evaluate for underlying spinalcord compression. 2. 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 3. Multilevel degenerative changes throughout the cervical spine with atleast moderate spinal canal stenosis at C2-C3, C3-C4, C4-C5, and C5-C6. 4. Multilevel neural foraminal narrowing, most severe bilaterally atC2-C3, C3- C4, C4-C5, and on the right at C5-C6. THORACIC SPINE: 1. Multilevel degenerative changes causing varying degrees of bilateralbony neural foraminal narrowing, most severe on the right at T11-T12 andon the left at T10- T11. 2. Additional chronic findings. Clovis Guerin MD RAD CT * CTA NECK (06/05/2024 8:27 AM EDT) Anatomical Region Laterality Modality Neck, Head, Cspine, Spine Comput ed Tomography 06/05/2024 9:50 AM EDT Impressions 06/05/2024 9:47 AM EDT IMPRESSION 1. Focal atherosclerotic stenosis of the proximal right ICA measuring 65% by NASCET criteria. 2. Focal atherosclerotic stenosis of the proximal left ICA measuring 69% by NASCET criteria. 3. Focal stenoses involving the V2 segments of both vertebral arteries at the C5-6 level due to extrinsic compression by degenerative osteophytes. 4. Additional findings as above. Narrative 06/05/2024 9:47 AM EDT EXAM CTA NECK, 06/05/2024 HISTORY Cervical spondylosis, spinal canal stenosis TECHNIQUE CTA neck is performed using dynamic IV contrast bolus administration. Multiplanar, curved planar, MIP, and 3D images are reformatted on a separate workstation. COMPARISON None FINDINGS Aortic Arch and Great Vessels: There is conventional aortic arch branching anatomy. The origins of the great vessels are widely patent. The innominate artery and bilateral subclavian arteries show normal caliber. Right carotid artery: Common carotid artery is normal in caliber. Calcified plaque at the bifurcation causes focal stenosis the origin of the internal carotid artery (ICA) measuring 65% by NASCET criteria. Remainder of the ICA is normal in caliber. Left carotid artery: Common carotid artery is normal in caliber. Non flow- limiting calcified plaque at the bifurcation. Calcified plaque in the proximal ICA causes focal stenosis measuring 69% by NASCET criteria. Remainder of the cervical ICA is normal in caliber. Vertebral Arteries: Right and left vertebral arteries are patent. The right vertebral artery is slightly dominant. Both vertebral arteries show focal stenosis along the V2 segments at the C5-6 level due to extrinsic compression by degenerative osteophytes. Remaining cervical and intradural segments of both vertebral arteries are grossly normal in caliber. No intimal flap, intraluminal filling defects, or aneurysmal dilatation are noted. There is no extravasation of contrast. Other: The visualized upper lungs are clear. Azygous fissure is incidentally noted on the right. Advanced multilevel degenerative changes in the cervical spine. Procedure Note Jeremiah Meza MD - 06/05/2024 EXAM CTA NECK, 06/05/2024 HISTORY Cervical spondylosis, spinal canal stenosis TECHNIQUE CTA neck is performed using dynamic IV contrast bolus administration.Multiplanar, curved planar, MIP, and 3D images are reformatted on [employer] workstation. COMPARISON None FINDINGS Aortic Arch and Great Vessels: There is conventional aortic arch branchinganatomy. The origins of the great vessels are widely patent. Theinnominate artery and bilateral subclavian arteries show normal caliber. Right carotid artery: Common carotid artery is normal in caliber.Calcified plaque at the bifurcation causes focal stenosis the origin ofthe internal carotid artery (ICA) measuring 65% by NASCET criteria.Remainder of the ICA is normal in caliber. Left carotid artery: Common carotid artery is normal in caliber. Nonflow- limiting calcified plaque at the bifurcation. Calcified plaque inthe proximal ICA causes focal stenosis measuring 69% by NASCET criteria.Remainder of the cervical ICA is normal in caliber. Vertebral Arteries: Right and left vertebral arteries are patent. Theright vertebral artery is slightly dominant. Both vertebral arteries showfocal stenosis along the V2 segments at the C5-6 level due to extrinsiccompression by degenerative osteophytes. Remaining cervical andintradural segments of both vertebral arteries are grossly normal incaliber. No intimal flap, intraluminal filling defects, or aneurysmal dilatationare noted. There is no extravasation of contrast. Other: The visualized upper lungs are clear. Azygous fissure isincidentally noted on the right. Advanced multilevel degenerative changesin the cervical spine. IMPRESSION IMPRESSION 1. Focal atherosclerotic stenosis of the proximal right ICA measuring 65%by NASCET criteria. 2. Focal atherosclerotic stenosis of the proximal left ICA measuring 69%by NASCET criteria. 3. Focal stenoses involving the V2 segments of both vertebral arteries atthe C5- 6 level due to extrinsic compression by degenerative osteophytes. 4. Additional findings as above. Clovis Guerin MD RAD CT * CT C SPINE WO CONTRAST (06/05/2024 8:27 AM EDT) Anatomical Region Laterality Modality Cspine, Spine, Neck, Vertebra Co mputed Tomography 06/05/2024 10:5 9 AM EDT Impressions 06/05/2024 10:57 AM EDT IMPRESSION CERVICAL SPINE: 1. Chronic cystic/erosive changes of the dens with progression of dorsal pannus formation causing severe spinal canal stenosis at the C1-C2 level. These findings raise the possibility of underlying rheumatoid arthritis. Recommend dedicated MRI cervical spine to evaluate for underlying spinal cord compression. 2. 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 3. Multilevel degenerative changes throughout the cervical spine with at least moderate spinal canal stenosis at C2-C3, C3-C4, C4-C5, and C5-C6. 4. Multilevel neural foraminal narrowing, most severe bilaterally at C2-C3, C3- C4, C4-C5, and on the right at C5-C6. THORACIC SPINE: 1. Multilevel degenerative changes causing varying degrees of bilateral bony neural foraminal narrowing, most severe on the right at T11-T12 and on the left at T10- T11. 2. Additional chronic findings. Narrative 06/05/2024 10:[address] CERVICAL SPINE WITHOUT CONTRAST, CT THORACIC SPINE WITHOUT CONTRAST- 06/05/2024 HISTORY Degenerative disc disease, cervical spondylosis COMPARISON MRI cervical spine without contrast 12/31/2020 TECHNIQUE Contiguous images are acquired through the cervical and thoracic spine without IV contrast using standard protocol. Coronal and sagittal reformats are provided. FINDINGS CERVICAL SPINE: Reversal of the cervical lordosis with grade 1 anterolisthesis of C2 over C3 and C3 over C4, grade 1 retrolisthesis of C5 over C6 and C6 over C7, and grade 1 anterolisthesis of C7 over T1. Widening of the atlanto dens interval, which measures 5 mm. No basilar invagination. Asymmetry of the dens with respect to the lateral masses of C1, with widening on the right. The dens shows chronic cystic and erosive changes, and there is progression of dorsal pannus formation causing severe spinal canal stenosis at the C1-C2 level. Vertebral body heights are maintained. No fractures or destructive bony changes. Multilevel degenerative facet arthropathy. Multilevel degenerative disc height loss and endplate spondylitic changes, most pronounced at C4-C5, C5-C6, and C6-C7. Disc levels: C1-C2: Severe spinal canal stenosis due to prominent pannus overlying the dorsum of the dens. C2-C3: Disc/osteophyte complex causes at least moderate spinal canal stenosis. Severe bilateral neural foraminal narrowing. C3-C4: Disc/osteophyte complex causes at least moderate spinal canal stenosis. Severe bilateral neural foraminal narrowing. C4-C5: Disc/osteophyte complex causes at least spinal canal stenosis. Severe bilateral neural foraminal narrowing. C5-C6: Disc/osteophyte complex and retrolisthesis cause at least moderate spinal canal stenosis. Moderate/severe right and moderate left neural foraminal narrowing. C6-C7: Disc/osteophyte complex and retrolisthesis cause mild spinal canal stenosis. Moderate bilateral neural foraminal narrowing. C7-T1: No gross spinal canal stenosis or neural foraminal narrowing. Prevertebral soft tissues are grossly unremarkable. Bilateral carotid atherosclerotic calcifications. Lung apices are clear. Azygous lobe fissure is incidentally noted. THORACIC SPINE: 12 rib-bearing thoracic vertebrae. Right convex thoracic curvature. Alignment is otherwise anatomic, with preservation of the dorsal kyphosis. Vertebral body heights are maintained. No fracture or bony destructive changes. Multilevel degenerative disc height loss and endplate spondylitic changes. Vacuum disc phenomena several levels, most pronounced at T11-T12. Chronic inferior endplate Schmorl's nodes at T2 and T3. Multilevel degenerative facet arthropathy. Bony spinal canal caliber appears grossly normal. Varying degrees of bilateral bony neural foraminal narrowing, most severe on the right at T11-T12 and on the left at T10-T11. Within the limits of this study, no large disc herniations are demonstrated. Paraspinous soft tissues are grossly unremarkable. Bibasilar atelectatic changes. Atherosclerotic calcifications. Procedure Note Jeremiah Meza MD - 06/05/[address] CERVICAL SPINE WITHOUT CONTRAST, CT THORACIC SPINE WITHOUTCONTRAST-06/05/2024 HISTORY Degenerative disc disease, cervical spondylosis COMPARISON MRI cervical spine without contrast 12/31/2020 TECHNIQUE Contiguous images are acquired through the cervical and thoracic spinewithout IV contrast using standard protocol. Coronal and sagittalreformats are provided. FINDINGS CERVICAL SPINE: Reversal of the cervical lordosis with grade 1anterolisthesis of C2 over C3 and C3 over C4, grade 1 retrolisthesis of C5over C6 and C6 over C7, and grade 1 anterolisthesis of C7 over T1. Widening of the atlanto dens interval, which measures 5 mm. No basilarinvagination. Asymmetry of the dens with respect to the lateral masses ofC1, with widening on the right. The dens shows chronic cystic and erosive changes, and there isprogression of dorsal pannus formation causing severe spinal canalstenosis at the C1-C2 level. Vertebral body heights are maintained. No fractures or destructive bonychanges. Multilevel degenerative facet arthropathy. Multilevel degenerative disc height loss and endplate spondylitic changes,most pronounced at C4-C5, C5-C6, and C6-C7. Disc levels: C1-C2: Severe spinal canal stenosis due to prominent pannus overlying thedorsum of the dens. C2-C3: Disc/osteophyte complex causes at least moderate spinal canalstenosis. Severe bilateral neural foraminal narrowing. C3-C4: Disc/osteophyte complex causes at least moderate spinal canalstenosis. Severe bilateral neural foraminal narrowing. C4-C5: Disc/osteophyte complex causes at least spinal canal stenosis.Severe bilateral neural foraminal narrowing. C5-C6: Disc/osteophyte complex and retrolisthesis cause at least moderatespinal canal stenosis. Moderate/severe right and moderate left neuralforaminal narrowing. C6-C7: Disc/osteophyte complex and retrolisthesis cause mild spinal canalstenosis. Moderate bilateral neural foraminal narrowing. C7-T1: No gross spinal canal stenosis or neural foraminal narrowing. Prevertebral soft tissues are grossly unremarkable. Bilateral carotidatherosclerotic calcifications. Lung apices are clear. Azygous lobefissure is incidentally noted. THORACIC SPINE: 12 rib-bearing thoracic vertebrae. Right convex thoracic curvature. Alignment is otherwise anatomic, withpreservation of the dorsal kyphosis. Vertebral body heights are maintained. No fracture or bony destructivechanges. Multilevel degenerative disc height loss and endplate spondylitic changes.Vacuum disc phenomena several levels, most pronounced at T11-T12.Chronic inferior endplate Schmorl's nodes at T2 and T3. Multileveldegenerative facet arthropathy. Bony spinal canal caliber appears grossly normal. Varying degrees of bilateral bony neural foraminal narrowing, most severeon the right at T11-T12 and on the left at T10-T11. Within the limits ofthis study, no large disc herniations are demonstrated. Paraspinous soft tissues are grossly unremarkable. Bibasilar atelectaticchanges. Atherosclerotic calcifications. IMPRESSION IMPRESSION CERVICAL SPINE: 1. Chronic cystic/erosive changes of the dens with progression of dorsalpannus formation causing severe spinal canal stenosis at the C1-C2 level.These findings raise the possibility of underlying rheumatoid arthritis.Recommend dedicated MRI cervical spine to evaluate for underlying spinalcord compression. 2. 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 3. Multilevel degenerative changes throughout the cervical spine with atleast moderate spinal canal stenosis at C2-C3, C3-C4, C4-C5, and C5-C6. 4. Multilevel neural foraminal narrowing, most severe bilaterally atC2-C3, C3- C4, C4-C5, and on the right at C5-C6. THORACIC SPINE: 1. Multilevel degenerative changes causing varying degrees of bilateralbony neural foraminal narrowing, most severe on the right at T11-T12 andon the left at T10- T11. 2. Additional chronic findings. Clovis Guerin MD RAD CT * (ABNORMAL) BASIC METABOLIC PANEL (06/05/2024 6:55 AM EDT) BUN 21(H) 6 - 20 mg/dL 06/05/2024 7:33 AM EDT [facility] Creatinine 1.0 0.6 - 1.2 mg/dL 06/05/2024 7:33 AM EDT [facility] Estimated Glomerular Filtration Rate 82 >=60 mL/min 06/05/2024 7:33 AM EDT [facility] Comment:eGFR is calculated b ased on the CKD-EPI 2020 equation. Sodium 140 135 - 146 mmol/L 06/05/2024 7:33 AM EDT [facility] Potassium 4.3 3.5 - 5.1 mmol/L 06/05/2024 7:33 AM EDT [facility] Chloride 105 98 - 107 mmol/L 06/05/2024 7:33 AM EDT [facility] CO2 25 22 - 32 mmol/L 06/05/2024 7:33 AM EDT [facility] Anion Gap 10 7 - 15 mmol/L 06/05/2024 7:33 AM EDT [facility] Glucose 124(H) 70 - 120 mg/dL 06/05/2024 7:33 AM EDT [facility] Calcium 9.4 8.4 - 10.2 mg/dL 06/05/2024 7:33 AM EDT [facility] C Blood Venous blood specimen / Unknown Venipuncture / Unknown 06/05/2024 6:55 AM EDT 06/05/2024 7:08 AM EDT Danie ME[facility] BLOOD ORDERABL [facility] [address] [place] [address] * (ABNORMAL) CBC (06/05/2024 6:55 AM EDT) [facility] WBC 7.12 4.00 - 10.80 K/uL 06/05/2024 7:16 AM EDT [facility] RBC 4.14 4.50 - 5.25 M/uL 06/05/2024 7:16 AM EDT [facility] HGB 13.9(L) 14.0 - 16.8 g/dL 06/05/2024 7:16 AM EDT [facility] HCT 41.5 40.0 - 48.4 % 06/05/2024 7:16 AM EDT [facility] MCV 100.2 82.0 - 99.5 fL 06/05/2024 7:16 AM EDT [facility] MCH 33.6 27.0 - 34.0 pg 06/05/2024 7:16 AM EDT [facility] MCHC 33.5 32.0 - 36.0 g/dL 06/05/2024 7:16 AM EDT [facility] RDW 12.4 11.5 - 15.5 % 06/05/2024 7:16 AM EDT [facility] PLT 163 140 - 400 K/uL 06/05/2024 7:16 AM EDT [facility] MPV 9.2 6.6 - 11.1 fL 06/05/2024 7:16 AM EDT [facility] nRBCs 0 <=0 /100 WBCs 06/05/2024 7:16 AM EDT [facility] Blood Venous blood specimen / Unknown Venipuncture / Unknown 06/05/2024 6:55 AM EDT 06/05/2024 7:08 AM EDT Danie MEZA LAB BLOOD ORDER[facility]L [facility] [address] [place] [address] documented in this encounter Visit Diagnoses Diagnosis Generalized weakness- Primary Other malaise and fatigue Cervical nerve root compression Brachial neuritis or radiculitis nos Chest pain Chest pain, unspecified Occlusion and stenosis of right carotid artery Occlusion and stenosis of carotid artery without mention of cerebral infarction Occlusion and stenosis of left carotid artery Occlusion and stenosis of carotid artery without mention of cerebral infarction Other cervical disc degeneration, unspecified cervical region Spondylosis without myelopathy or radiculopathy, cervical region Spinal stenosis, site unspecified Other specified spondylopathies, cervical region (HCC) Obstructive hydrocephalus (HCC) Obstructive hydrocephalus Spinal stenosis, cervical region Unspecified cord compression (HCC) 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, cervical region Chronic bilateral low back pain without sciatica Chronic bilateral low back pain without sciatica Hyperlipidemia with target LDL less than 100 Other and unspecified hyperlipidemia HTN, goal below 140/90 Unspecified essential hypertension Prediabetes Other abnormal glucose S/P angioplasty with stent Postsurgical percutaneous transluminal coronary angioplasty status Degenerative cervical disc Degeneration of cervical intervertebral disc Benign neoplasm of colon Esophageal dysphagia Dysphagia, pharyngoesophageal phase History of heart artery stent Postsurgical percutaneous transluminal coronary angioplasty status Edema of spinal cord (HCC) Vascular myelopathies Atlantoaxial instability Other joint derangement, not elsewhere classified, other specified site Bone erosion Other disorders of bone and cartilage Arthralgia Pain in joint, site unspecified Cervical spinal stenosis Spinal stenosis in cervical region documented in this encounter Administered Medications Inactive Administered Medications - up to 3 most recent administrations Medication Order MAR Action Action Date Dose Rate Site Acetaminophen (Tylenol) tab 650 mg 650 mg, Oral, Q6H PRN Pain, Mild, Fever >38C(100.5F), Starting on Tue06/05/24 at 0512, Until Tue06/08/24 at 1557, Maximum of 4 grams (4000 mg) per day. Given 06/07/2024 8:37 PM EDT 650 mg Given 06/07/2024 6:48 AM EDT 650 mg Given 06/06/2024 11:02 PM EDT 650 mg Acetaminophen (Tylenol) tab 975 mg 975 mg, Oral, Q8H, First dose on Tue06/08/24 at 2200, Last dose on Tue06/13/24 at 1400, For 5 days, Avoid in patients with severe hepatic impairment or severe active liver disease. Use for 5 days, Post-op Given 06/12/2024 1:52 PM EDT 975 mg Given 06/12/2024 6:24 AM EDT 975 mg Given 06/11/2024 10:16 PM EDT 975 mg Acetaminophen (Tylenol) tab 975 mg 975 mg, Oral, Q6H PRN Pain, Mild, Starting on Tue06/13/24 at 0000, Until Tue06/12/24 at 1904, Begin after around the clock acetaminophen order discontinued (S+5). Maximum 4 g acetaminophen/day. Avoid in patients with severe hepatic impairment or severe active liver disease., Post-op aspirin enteric coated tab 81 mg 81 mg, Oral, Daily(AM), First dose on Tue06/05/24 at 0900, Until Discontinued Given 06/05/2024 8:07 AM EDT 81 mg atorvaSTATin (Lipitor) tab 80 mg 80 mg, Oral, DAILY(1900), First dose on Tue06/05/24 at 1900, Until Discontinued Given 06/11/2024 6:37 PM EDT 80 mg Given 06/10/2024 8:39 PM EDT 80 mg Given 06/09/2024 9:37 PM EDT 80 mg Bisacodyl (Dulcolax) supp 10 mg 10 mg, Rectal, ONCE, On Tue06/12/24 at 1015, For 1 dose Given 06/12/2024 10:15 AM EDT 10 mg cholecalciferol (VIT D3) (Vitamin D3) tab 5,000 Units 5,000 Units, Oral, Daily(AM), First dose on Tue06/05/24 at 0900, Until Discontinued Given 06/12/2024 7:57 AM EDT 5,000 Units Given 06/11/2024 8:03 AM EDT 5,000 Units Given 06/10/2024 8:47 AM EDT 5,000 Units CYANOCOBALAMIN (vitamin B-12) tab 1,000 mcg 1,000 mcg, Oral, Daily(AM), First dose on Tue06/05/24 at 0900, Until Discontinued Given 06/12/2024 7:58 AM EDT 1,000 mcg Given 06/11/2024 8:04 AM EDT 1,000 mcg Given 06/10/2024 8:49 AM EDT 1,000 mcg cyclobenzaprine (Flexeril) tab 10 mg 10 mg, Oral, TID PRN Muscle spasms, Starting on Tue06/05/24 at 0511, Until Tue06/12/24 at 1904 Given 06/11/2024 5:34 AM EDT 10 mg Given 06/10/2024 8:39 PM EDT 10 mg Given 06/09/2024 9:39 PM EDT 10 mg Enoxaparin (Lovenox) inj 40 mg 40 mg, Subcutaneous, Daily(AM), First dose on Tue06/05/24 at 0900, Until Discontinued, If patient is on warfarin, inform provider if daily INR value is 2 or greater! Given 06/05/2024 8:06 AM EDT 40 mg Abdomen Left Lower Enoxaparin (Lovenox) inj 40 mg 40 mg, Subcutaneous, Daily(AM), First dose on Tue06/07/24 at 0900, Until Discontinued, If patient is on warfarin, inform provider if daily INR value is 2 or greater! Given 06/07/2024 9:00 AM EDT 40 mg Abdomen Left Lower folic acid tab 1 mg 1 mg, Oral, Daily(AM), First dose on Tue06/05/24 at 0900, Until Discontinued Given 06/12/2024 7:57 AM EDT 1 mg Given 06/11/2024 8:03 AM EDT 1 mg Given 06/10/2024 8:49 AM EDT 1 mg Gabapentin (Neurontin) cap 600 mg 600 mg, Oral, TID(AM/NOON/HS), First dose on Tue06/05/24 at 0600, Until Discontinued Given 06/12/2024 10:59 AM EDT 600 mg Given 06/12/2024 6:24 AM EDT 600 mg Given 06/11/2024 10:17 PM EDT 600 mg gadobutrol (Gadavist) inj 7.6 mL 7.6 mL (rounded from 7.61 mL = 0.1 mL/kg 76.1 kg), Intravenous, ONCE, On Tue06/08/24 at 0015, For 1 dose, Radiology Medication Routing (Non-IR) Given 06/08/2024 12:15 AM EDT 8 mL hEParin inj 5,000 Units 5,000 Units, Subcutaneous, Q8H, First dose on Tue06/09/24 at 2200, Until Discontinued Given 06/12/2024 1:51 PM EDT 5,000 Units Abdomen Left Lower Given 06/12/2024 6:24 AM EDT 5,000 Units A bdomen Left Lower Given 06/11/2024 10:17 PM EDT 5,000 Units Abdomen Right Lower HYDROmorphone (Dilaudid) inj 0.25 mg 0.25 mg, IV Push, Q15 MIN PRN Pain, Severe, Starting on Tue06/08/24 at 1630, Until Tue06/08/24 at 1647, For 2 doses, Administer only postop in PACU. Hold for respiratory rate less than 12. Administer up to a total of 0.5mg., PACU Given 06/08/2024 4:47 PM EDT 0.25 mg Given 06/08/2024 4:35 PM EDT 0.25 mg HYDROmorphone (Dilaudid) inj 0.25 mg 0.25 mg, IV Push, Q15 MIN PRN Pain, Severe, Starting on Tue06/08/24 at 1706, Until Tue06/08/24 at 1730, For 2 doses, Administer only postop in PACU. Hold for respiratory rate less than 12. Administer up to a total of 0.5mg., PACU Given 06/08/2024 5:30 PM EDT 0.25 mg Given 06/08/2024 5:15 PM EDT 0.25 mg Iopamidol (Isovue 370) inj 65 mL 65 mL, Intravenous, ONCE, On Tue06/05/24 at 0900, For 1 dose, Radiology Medication Routing (Non-IR) Given 06/05/2024 9:00 AM EDT 65 mL isolyte-S pH 7.4 infusion Intravenous, at 25 mL/hr, All Patients EXCEPT Dialysis patients Plasma-LYTE 148, isolyte-S, and isolyte-S pH 7.4 are considered equivalent - including for MAR barcode scanning., CONTINUOUS, Starting on Tue06/08/24 at 0730, Until Tue06/09/24 at 1417, Pre-Op Rate Change 06/08/2024 3:26 PM EDT 50 mL/hr Rate Change 06/08/2024 10:09 AM EDT 100 mL/hr Rate Change 06/08/2024 10:00 AM EDT 300 mL/hr isosorbide mononitrate SA (Imdur) tab 60 mg 60 mg, Oral, Daily(AM), First dose on Tue06/05/24 at 0900, Until Discontinued, Hold for 24 hours prior to Stress Test and notify service if dose is held This med should NOT be Crushed or Chewed Given 06/12/2024 7:57 AM EDT 60 mg Given 06/11/2024 8:04 AM EDT 60 mg Given 06/10/2024 8:49 AM EDT 60 mg losartan (Cozaar) tab 100 mg 100 mg, Oral, HS, First dose on Tue06/05/24 at 2200, Until Discontinued Given 06/11/2024 10:17 PM EDT 100 mg Given 06/10/2024 8:39 PM EDT 100 mg Given 06/09/2024 9:39 PM EDT 100 mg melatonin tab 3 mg 3 mg, Oral, HS PRN Insomnia, Starting on Tue06/05/24 at 0512, Until Tue06/12/24 at 1904 Given 06/10/2024 8:39 PM EDT 3 mg Given 06/09/2024 9:38 PM EDT 3 mg Given 06/08/2024 8:52 PM EDT 3 mg Metoprolol Tartrate (Lopressor) tab 25 mg 25 mg, Oral, BID (.AM/PM), First dose on Tue06/05/24 at 0900, Until Discontinued, Hold for HR less than 60 or SBP below 100 and notify service if dose is held Given 06/12/2024 7:58 AM EDT 25 mg Given 06/11/2024 10:17 PM EDT 25 mg Given 06/11/2024 8:04 AM EDT 25 mg naloxone (Narcan) 0.4 MG/ML inj 0.08 mg 0.08 mg, IV Push, PRN Other, If patient is oversedated or Respiratory Rate less than 8, Starting on Tue06/08/24 at 1554, Until Tue06/12/24 at 1904, Call provider if patient is oversedated or Respiratory Rate is less than 8, Post-op oxyCODONE (Oxy IR) tab 10 mg 10 mg, Oral, Q6H PRN Pain, Severe, Starting on Tue06/08/24 at 1556, Until Tue06/12/24 at 1904 Given 06/12/2024 10:59 AM EDT 10 mg Given 06/10/2024 8:38 PM EDT 10 mg Given 06/09/2024 2:21 PM EDT 10 mg oxyCODONE (Oxy IR) tab 5 mg 5 mg, Oral, Q4H PRN Pain, Moderate, Starting on Tue06/08/24 at 1556, Until Tue06/12/24 at 1904 Given 06/09/2024 9:38 PM EDT 5 mg Given 06/09/2024 5:03 AM EDT 5 mg oxygen GAS Inhalation, OXYGEN, First dose on Tue06/08/24 at 1715, Until Discontinued, Device/Managed by: Low Flow Device, Goal SPO2 (%): 91-95, Starting Device: Nasal Cannula, Initial Flow Rate (LPM): 2, Lowest Support: Nasal Cannula: Flow 0-6 LPM. Titrate up/down by 1 LPM., Higher Support: Non-Rebreather (NRB) Mask: Minimum of 10 LPM. Titrate to maintain bag inflation., Titration Interval: Q2 minutes and as needed., Notify Provider: Other, Notify Provider [other]: If SpO2 less than 88% or NOT maintaining SpO2 greater than 92% notify physician immediately., Until awake OR SpO2 greater than 95% for 15 minutes, then Titrate O2 flow rate down to maintain SpO2 greater than 92% If SpO2 is less than 88% place patient on NRB mask at 10 LPM Oxygen On 06/08/2024 5:15 PM EDT oxygen GAS Inhalation, OXYGEN, First dose on Tue06/08/24 at 1745, Until Discontinued, Device/Managed by: Low Flow Device, Goal SPO2 (%): 91-95, Starting Device: Nasal Cannula, Initial Flow Rate (LPM): 2, Lowest Support: Nasal Cannula: Flow 0-6 LPM. Titrate up/down by 1 LPM., Higher Support: Non-Rebreather (NRB) Mask: Minimum of 10 LPM. Titrate to maintain bag inflation., Titration Interval: Q2 minutes and as needed., Notify Provider: Other, Notify Provider [other]: If SpO2 less than 88% or NOT maintaining SpO2 greater than 92% notify physician immediately., Until awake OR SpO2 greater than 95% for 15 minutes, then Titrate O2 flow rate down to maintain SpO2 greater than 92% If SpO2 is less than 88% place patient on NRB mask at 10 LPM Oxygen On 06/08/2024 5:45 PM EDT Polyethylene Glycol 3350 (Miralax) oral powder 17 g 17 g (1 Packet), Oral, Daily(AM), First dose on Tue06/09/24 at 1115, Until Discontinued, Mix in 8 oz of water, juice, soda, coffee, or tea. Given 06/10/2024 8:49 AM EDT 17 g Given 06/09/2024 12:30 PM EDT 17 g Polyethylene Glycol 3350 (Miralax) oral powder 17 g 17 g (1 Packet), Oral, BID (0900,2100), First dose (after last modification) on Tue06/10/24 at 2100, Until Discontinued, Mix in 8 oz of water, juice, soda, coffee, or tea. Given 06/11/2024 8:03 AM EDT 17 g Given 06/10/2024 8:37 PM EDT 17 g Polyethylene Glycol 3350 (Miralax) oral powder 17 g 17 g (1 Packet), Oral, TID(AM/NOON/HS), First dose (after last modification) on Tue06/11/24 at 1230, Until Discontinued, Mix in 8 oz of water, juice, soda, coffee, or tea. Given 06/12/2024 12:00 PM EDT 17 g Given 06/12/2024 6:24 AM EDT 17 g Given 06/11/2024 10:16 PM EDT 17 g predniSONE (Deltasone) tab 60 mg 60 mg, Oral, Daily(AM), First dose on Tue06/05/24 at 0615, Until Discontinued Given 06/07/2024 9:00 AM EDT 60 mg Given 06/06/2024 9:50 AM EDT 60 mg Given 06/05/2024 6:03 AM EDT 60 mg senna-docusate (Senokot-S) 1 Tablet 1 Tablet, Oral, BID (.AM/PM), First dose on Tue06/11/24 at 1230, Until Discontinued Given 06/12/2024 7:58 AM EDT 1 Tab let Given 06/11/2024 10:17 PM EDT 1 Tablet Given 06/11/2024 12:18 PM EDT 1 Tablet Vancomycin (Vancocin) 1,250 mg in NSS 250 mL ivpb 1,250 mg, IV Piggyback, ONCALL, 1 dose, Starting on Tue06/08/24 at 0116, Until Tue06/08/24 at 0850 New Bag 06/08/2024 7:20 AM EDT 1,250 mg 178.33 mL/hr Vancomycin (Vancocin) 1,250 mg in NSS 250 mL ivpb 1,250 mg, IV Piggyback, Q12H, 1 dose, First dose on Tue06/08/24 at 2000, Give 12 hours after preop dose, Post-op Restarted 06/08/2024 9:47 PM EDT 833.3 mg/hr 178 mL/hr New Bag 06/08/2024 9:40 PM EDT 1,250 mg 178.33 mL/hr documented in this encounter Active and Recently Administered Medications Times are shown in EDT. Scheduled Medication Order 06/10/2024 06/11/2024 06/12/2024 Acetaminophen (Tylenol) tab 975 mg 975 mg, Oral, Q8H, First dose on Tue06/08/24 at 2200, Last dose on Tue06/13/24 at 1400, For 5 days, Avoid in patients with severe hepatic impairment or severe active liver disease. Use for 5 days, Post-op 0505 (Given - Provider: Yoselin Waldron RN)1327 (Given - Provider: Mary Chaney RN)203 (Given - Provider: Yoselin Waldron RN) 0534 (Given - Provider: Yoselin Waldron RN)1345 (Given - Provider: Cathy Alegre, JOSE)2216 (Given - Provider: Zackary Atwood, JOSE) 0624 (Given - Provider: Zackary Atwood RN)1352 (Given - Provider: Cathy Alegre, JOSE) atorvaSTATin (Lipitor) tab 80 mg 80 mg, Oral, DAILY(1900), First dose on Tue06/05/24 at 1900, Until Discontinued 2038 (Given - Provider: Yoselin Waldron RN) 183 (Given - Provider: Cathy Alegre, JOSE) Bisacodyl (Dulcolax) supp 10 mg (COMPLETED) 10 mg, Rectal, ONCE, On Tue06/12/24 at 1015, For 1 dose 1015 (Given - Provider: Cathy Alegre RN) cholecalciferol (VIT D3) (Vitamin D3) tab 5,000 Units 5,000 Units, Oral, Daily(AM), First dose on Tue06/05/24 at 0900, Until Discontinued 0847 (Given - Provider: Mary Chaney RN) 0803 (Given - Provider: Cathy Alegre RN) 0757 (Given - Provider: Cathy Alegre RN) CYANOCOBALAMIN (vitamin B-12) tab 1,000 mcg 1,000 mcg, Oral, Daily(AM), First dose on Tue06/05/24 at 0900, Until Discontinued 0849 (Given - Provider: Mary Chaney RN) 0804 (Given - Provider: Cathy Alegre RN) 0758 (Given - Provider: Cathy Alegre RN) folic acid tab 1 mg 1 mg, Oral, Daily(AM), First dose on Tue06/05/24 at 0900, Until Discontinued 0849 (Given - Provider: Mary Chaney RN) 0803 (Given - Provider: Cathy Alegre RN) 0757 (Given - Provider: Cathy Alegre RN) Gabapentin (Neurontin) cap 600 mg 600 mg, Oral, TID(AM/NOON/HS), First dose on Tue06/05/24 at 0600, Until Discontinued 0505 (Given - Provider: Yoselin Waldron RN)1239 (Given - Provider: Mary Chaney RN)2039 (Given - Provider: Yoselin Waldron RN) 0534 (Given - Provider: Yoselin Waldron RN)1218 (Given - Provider: Cathy Alegre RN)2217 (Given - Provider: Zackary Atwood, RN) 0624 (Given - Provider: Zackary Atwood, RN)1059 (Given - Provider: Cathy Alegre, JOSE) hEParin inj 5,000 Units 5,000 Units, Subcutaneous, Q8H, First dose on Tue06/09/24 at 2200, Until Discontinued 0504 (Given - Provider: Yoselin Waldron RN)1328 (Given - Provider: Mary Chaney RN)2040 (Given - Provider: Yoselin Waldron RN) 0534 (Given - Provider: Yoselin Waldron RN)1345 (Given - Provider: Cathy Alegre RN)2217 (Given - Provider: Zackary Atwood, JOSE) 0624 (Given - Provider: Zackary Atwood RN)1351 (Given - Provider: Cathy Alegre RN) isosorbide mononitrate SA (Imdur) tab 60 mg 60 mg, Oral, Daily(AM), First dose on Tue06/05/24 at 0900, Until Discontinued, Hold for 24 hours prior to Stress Test and notify service if dose is held This med should NOT be Crushed or Chewed 0849 (Given - Provider: Mary Chaney RN) 08 (Given - Provider: Cathy Alegre RN) 075 (Given - Provider: Cathy Alegre RN) losartan (Cozaar) tab 100 mg 100 mg, Oral, HS, First dose on Tue06/05/24 at 2200, Until Discontinued 2038 (Given - Provider: Yoselin Waldron RN) 2216 (Given - Provider: Zackary Atwood RN) Metoprolol Tartrate (Lopressor) tab 25 mg 25 mg, Oral, BID (.AM/PM), First dose on Tue06/05/24 at 0900, Until Discontinued, Hold for HR less than 60 or SBP below 100 and notify service if dose is held 0849 (Given - Provider: Mary Chaney RN)2038 (Given - Provider: Yoselin Waldron RN) 08 (Given - Provider: Cathy Alegre RN)221 (Given - Provider: Zackary Atwood RN) 0758 (Given - Provider: Cathy Alegre RN) Polyethylene Glycol 3350 (Miralax) oral powder 17 g (CANCELED) 17 g (1 Packet), Oral, Daily(AM), First dose on Tue06/09/24 at 1115, Until Discontinued, Mix in 8 oz of water, juice, soda, coffee, or tea. 0849 (Given - Provider: Mary Chaney RN) Polyethylene Glycol 3350 (Miralax) oral powder 17 g (CANCELED) 17 g (1 Packet), Oral, BID (0900,2100), First dose (after last modification) on Tue06/10/24 at 2100, Until Discontinued, Mix in 8 oz of water, juice, soda, coffee, or tea. 2036 (Given - Provider: Yoselin Waldron RN) 0803 (Given - Provider: Cathy Alegre RN) Polyethylene Glycol 3350 (Miralax) oral powder 17 g 17 g (1 Packet), Oral, TID(AM/NOON/HS), First dose (after last modification) on Tue06/11/24 at 1230, Until Discontinued, Mix in 8 oz of water, juice, soda, coffee, or tea. 1218 (Given - Provider: Cathy Alegre RN)2216 (Given - Provider: Zackary Atwood RN) 0624 (Given - Provider: Zackary Atwood RN)1200 (Given - Provider: Cathy Alegre RN) senna-docusate (Senokot-S) 1 Tablet 1 Tablet, Oral, BID (.AM/PM), First dose on Tue06/11/24 at 1230, Until Discontinued 1218 (Given - Provider: Cathy Alegre RN)2217 (Given - Provider: Zackary Atwood RN) 0758 (Given - Provider: Cathy Alegre RN) PRN Medication Order 06/10/2024 06/11/2024 06/12/2024 Acetaminophen (Tylenol) tab 975 mg 975 mg, Oral, Q6H PRN Pain, Mild, Starting on Tue06/13/24 at 0000, Until Tue06/12/24 at 1904, Begin after around the clock acetaminophen order discontinued (S+5). Maximum 4 g acetaminophen/day. Avoid in patients with severe hepatic impairment or severe active liver disease., Post-op cyclobenzaprine (Flexeril) tab 10 mg 10 mg, Oral, TID PRN Muscle spasms, Starting on Tue06/05/24 at 0511, Until Tue06/12/24 at [id number] (Given - Provider: Yoselin Waldron RN) 0534 (Given - Provider: Yoselin Waldron RN) melatonin tab 3 mg 3 mg, Oral, HS PRN Insomnia, Starting on Tue06/05/24 at 0512, Until Tue06/12/24 at [id number] (Given - Provider: Yoselin Waldron RN) naloxone (Narcan) 0.4 MG/ML inj 0.08 mg 0.08 mg, IV Push, PRN Other, If patient is oversedated or Respiratory Rate less than 8, Starting on Tue06/08/24 at 1554, Until Tue06/12/24 at 1904, Call provider if patient is oversedated or Respiratory Rate is less than 8, Post-op ondansetron (Zofran) inj 4 mg 4 mg, IV Push, Q6H PRN Nausea, Starting on Tue06/05/24 at 0512, Until Tue06/12/24 at 190 oxyCODONE (Oxy IR) tab 10 mg 10 mg, Oral, Q6H PRN Pain, Severe, Starting on Tue06/08/24 at 1556, Until Tue06/12/24 at [id number] (Given - Provider: Yoselin Waldron RN) 1059 (Given - Provider: Cathy Alegre RN) oxyCODONE (Oxy IR) tab 5 mg 5 mg, Oral, Q4H PRN Pain, Moderate, Starting on Tue06/08/24 at 1556, Until Tue06/12/24 at 1904 sodium chloride 0.9 % flush/inj 3 mL 3 mL, IV Push, PRN Other, Line Patency, Starting on Tue06/05/24 at 0511, Until Tue06/12/24 at 190, Do not flush if lock, PICC, or central line not in place, IV infusing or unable to flush documented in this encounter Advance Directives * [...] File Name Relationship Healthcare Agent Relationship Communication [facility] Asha simpson (per Health Care Power of Public Accountant document) Care Teams [employer] Shrinker Relationship Specialty Start Date End Date Mayo Syed MD [address] [place] [address] D[place] [id number] PCP - General Family Medicine 02/28/24 documented as of this encounter
--- OUTSIDE RECORDS SUMMARY | 2024-06-15 19:25 | External Medical Summary ---
Author Name Unknown Address Unknown Organization [id number]:[facility]ATORY [facility] – [place], [place] - [address] [place] [address] Laboratory Report Ordering Provider Test Date Status CANDIE WEINER 06/07/2024 07:05:00 Final Observation Date Value Abnormality Reference (Units ) Status WBC, Total 06/07/2024 07:05:00 9.32 4.00-10.80 (K/uL) Final RBC 06/07/2024 07:05:00 4.03 4.50-5.25 (M/uL) Final Hemoglobin 06/07/2024 07:05:00 13.5 Below low normal 14.0-16.8 (g/dL) Final HCT 06/07/2024 07:05:00 41.3 40.0-48.4 (%) Final MCV 06/07/2024 07:05:00 102.5 82.0-99.5 (fL) Final MCH 06/07/2024 07:05:00 33.5 27.0-34.0 (pg) Final MCHC 06/07/2024 07:05:00 32.7 32.0-36.0 (g/dL) Final RDW 06/07/2024 07:05:00 12.6 11.5-15.5 (%) Final Platelets 06/07/2024 07:05:00 169 140-400 (K/uL) Final MPV 06/07/2024 07:05:00 9.2 6.6-11.1 (fL) Final Nucleated erythrocytes/100 leukocytes [Ratio] in Blood by Automated count 06/07/2024 07:05:00 0 <=0 (/100 WBCs) Final Performing Location [facility]ORY [facility] – [place], [place] - [address] [place] [address]
--- OUTSIDE RECORDS SUMMARY | 2024-06-15 19:25 | External Medical Summary ---
Author Name Unknown Address Unknown Organization [id number]:[facility] – [place], [place] - [address] [place] [address] Laboratory Report Ordering Provider Test Date Status AKIKODORIERASHEEDA 06/05/2024 06:55:00 Final Observation Date Value Abnormality Reference (Units ) Status WBC, Total 06/05/2024 06:55:00 7.12 4.00-10.80 (K/uL) Final RBC 06/05/2024 06:55:00 4.14 4.50-5.25 (M/uL) Final Hemoglobin 06/05/2024 06:55:00 13.9 Below low normal 14.0-16.8 (g/dL) Final HCT 06/05/2024 06:55:00 41.5 40.0-48.4 (%) Final MCV 06/05/2024 06:55:00 100.2 82.0-99.5 (fL) Final MCH 06/05/2024 06:55:00 33.6 27.0-34.0 (pg) Final MCHC 06/05/2024 06:55:00 33.5 32.0-36.0 (g/dL) Final RDW 06/05/2024 06:55:00 12.4 11.5-15.5 (%) Final Platelets 06/05/2024 06:55:00 163 140-400 (K/uL) Final MPV 06/05/2024 06:55:00 9.2 6.6-11.1 (fL) Final Nucleated erythrocytes/100 leukocytes [Ratio] in Blood by Automated count 06/05/2024 06:55:00 0 <=0 (/100 WBCs) Final Performing Location [facility]ORY [facility] – [place], [place] - [address] [place] [address]
--- OUTSIDE RECORDS SUMMARY | 2024-06-15 19:25 | External Medical Summary ---
Author Name Unknown Address Unknown Organization [id number]:[facility] – [place] - [facility] [address] [facility] [address] Laboratory Report Ordering Provider Test Date Status CANDIE WEINER 06/11/2024 07:55:00 Final Observation Date Value Abnormality Reference (Units ) Status WBC, Total 06/11/2024 07:55:00 8.34 4.00-10.80 (K/uL) Final RBC 06/11/2024 07:55:00 3.51 4.50-5.25 (M/uL) Final Hemoglobin 06/11/2024 07:55:00 11.7 Below low normal 14.0-16.8 (g/dL) Final HCT 06/11/2024 07:55:00 36.1 Below low normal 40.0-48.4 (%) Final MCV 06/11/2024 07:55:00 102.8 82.0-99.5 (fL) Final MCH 06/11/2024 07:55:00 33.3 27.0-34.0 (pg) Final MCHC 06/11/2024 07:55:00 32.4 32.0-36.0 (g/dL) Final RDW 06/11/2024 07:55:00 12.9 11.5-15.5 (%) Final Platelets 06/11/2024 07:55:00 148 140-400 (K/uL) Final MPV 06/11/2024 07:55:00 9.4 6.6-11.1 (fL) Final Nucleated erythrocytes/100 leukocytes [Ratio] in Blood by Automated count 06/11/2024 07:55:00 0 <=0 (/100 WBCs) Final Performing Location [facility] [place] - [address] [place] [address]
--- OUTSIDE RECORDS SUMMARY | 2024-06-15 19:25 | External Medical Summary ---
Author Name Unknown Address Unknown Organization [id number]:[facility] [place] [address] [place] [address] Laboratory Report Ordering Provider Test Date Status JUWAN WEINERL 06/07/2024 07:05:00 Final Observation Date Value Abnormality Reference (Units ) Status BUN 06/07/2024 07:05:00 21 Above high normal 6-20 (mg/dL) Final Creatinine 06/07/2024 07:05:00 0.9 0.6-1.2 (mg/dL) Final Glomerular filtration rate/1.73 sq M.predicted [Volume Rate/Area] in Serum, Plasma or Blood by Creatinine-based formula (CKD-EPI) 06/07/2024 07:05:00 89 >=60 (mL/min) Final eGFR is calculated based on the CKD-EPI 2020 equation. Sodium 06/07/2024 07:05:00 140 135-146 (m mol/L) Final Potassium 06/07/2024 07:05:00 4.2 3.5-5.1 (m mol/L) Final Cl 06/07/2024 07:05:00 105 98-107 (mm ol/L) Final CO2 06/07/2024 07:05:00 27 22-32 (mmo l/L) Final Anion gap 06/07/2024 07:05:00 8 7-15 (mmol /L) Final Glucose 06/07/2024 07:05:00 91 70-120 (mg /dL) Final Calcium 06/07/2024 07:05:00 9.0 8.4-10.2 ( mg/dL) Final Performing Location [facility] [place] [address] [place] [address]
--- OUTSIDE RECORDS SUMMARY | 2024-06-15 19:25 | External Medical Summary ---
Author Name Unknown Address Unknown Organization [id number]:LAB[facility]ATORY [facility] - [address] [place] [address] Laboratory Report Ordering Provider Test Date Status TRACE ADAMS 06/06/2024 08:33:00 Final Observation Date Value Abnormality Reference (Units ) Status Magnesium 06/06/2024 08:33:00 2.2 1.5-2.6 (m g/dL) Final Performing Location [facility]ATORY [facility] - [address] [place] [address]
--- OUTSIDE RECORDS SUMMARY | 2024-06-15 19:25 | External Medical Summary | Summary of Care ---
Author Name Unknown Organization [facility] Address [address] [place] [address] Phone [phone] Care Team Providers Care Laser Engraver Name Role Phone Mayo Friend MD Primary Care Provide r Reason for Visit * Reason Onset Date Comments Advice 05/31/2024 Encounter Details Date Type Department Care Team (Late st Contact Info) Description 05/31/2024 Telephone Family Medicine [address] [phone] Mayo Friend MD [address] [place] [address] [place] [id number] Advice Allergies Active Allergy Reactions Criticality Noted Date [...] as of this encounter (statuses as of 06/06/2024) Medications Medication Sig Dispensed Refills Start Date End Date Status NITROSTAT 0.4 MG SL SUBLIndications:Ot her chest pain DISSOLVE ONE TABLET UNDER TONGUE EVERY 5 MINUTES NEEDED FOR CHESTPAIN. MAX OF 3 TABLETS 25 Tab 5 4 Suspended Additional Information metoprolol tartrate (LOPRESSOR) 25 MG Tablet Take 1 Tablet by mouth in the morning and 1 Tablet before bedtime. Suspended aspirin enteric coated 81 MG TBEC Take 1 Tablet by mouth in the morning. Suspended losartan (COZAAR) 100 MG Tablet Take 1 Tablet by mouth at bedtime. Suspended Folic Acid 1 MG Oral Tablet Take 1 Tablet by mouth in the morning. 4 Suspended Diclofenac Sodium 1 % External Gel (Voltaren) Apply 2 g topically to affected area 4 times a day as needed for Pain. Apply to joints Suspended Isosorbide Mononitrate ER 60 MG Oral Tablet Extended Release 24 Hour (Imdur) Take 1 Tablet by mouth in the morning. Suspended Kuyum-8-Pixn Eth Est (Dietary) 1 GM Oral Capsule Take 1 g by mouth in the morning and 1 g before bedtime. Suspended Acetaminophen ER 650 MG Oral Tablet Extended Release (Acetaminophen 8 Hour) Take 1 Tablet by mouth every 8 hours as needed. Suspended Cyanocobalamin 1000 MCG Oral Tablet (Cyanocobalamin) Take 1 Tablet by mouth in the morning. Suspended Vitamin D 125 MCG (5000 UT) Oral Capsule Take by mouth. Suspended Atorvastatin Calcium 80 MG Oral Tablet (Lipitor)Indicatio ns:Coronary artery disease involving [place] coronary artery of [place] vie[place] heart without angina pectoris Take 1 Tablet by mouth every evening. 4 Suspended Potassium Chloride ER 20 MEQ Oral Tablet Extended Release Take 1 Tablet by mouth in the morning. 4 Suspended Gabapentin 300 MG Oral Capsule (Neurontin)Indicat ions:Chronic bilateral low back pain without sciatica Take 1 Capsule by mouth in the morning and 1 Capsule at noon and 1 Capsule before bedtime. 90 Capsule 5 4 06/01/20 24 Discontinued( Refill) Zoster Vac Recomb Adjuvanted 50 MCG/0.5ML Intramuscular Suspension Reconstituted (Shingrix)Indicati ons:Need for shingles vaccine Inject 0.5 mL into a large muscle now and repeat dose in 60 to 180 days 1 Each 1 4 Suspended Additional Information predniSONE 10 MG Oral Tablet (Deltasone)Indicat ions:Neck pain,DDD (degenerative disc disease), cervical Take 5 tabs for 2 days, 4 tabs for 2 days, 3 tabs for 2 days, 2 tabs for 2 days 1 tab for 2 days 30 Tablet 4 Suspended Additional Information Cyclobenzaprine HCl 10 MG Oral Tablet (Flexeril)Indicati ons:Neck pain,DDD (degenerative disc disease), cervical Take 1 Tablet by mouth at bedtime as needed for Pain. 20 Tablet 4 06/01/20 24 Discontinued( Refill) Gabapentin 300 MG Oral Capsule (Neurontin)Indicat ions:Chronic bilateral low back pain without sciatica Take 2 Capsules by mouth in the morning and 2 Capsules at noon and 2 Capsules before bedtime. 180 Capsule 2 4 Suspended Additional Information Cyclobenzaprine HCl 10 MG Oral Tablet (Flexeril)Indicati ons:Neck pain,DDD (degenerative disc disease), cervical Take 1 Tablet by mouth at bedtime as needed for Pain. 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 Biceps tendon rupture 01/25/20072023 Atherosclerosis of [place] coronary artery 10/29/2006 02/28/2024 Overview: stent to LAD PURE HYPERCHOLESTEROLEM 01/25/200309/02 Overview: Per Lipid Taxonomy. Arora's cyst of knee 024 Overview: left Postsurgical percutaneous tr ansluminal coronary angioplasty status 02/28/2024 Generalized osteoarthrosis, unspecified site 04/28/2015 Primary localized osteoarthrosis, lower leg 02/28/2024 Overview: especially left medial compartment knee documented as of this encounter (statuses as of 06/06/2024) Immunizations Name Administration Dates Next Due COVID-19 mRNA, LNP-s, No Pre serve, 2-Dose Series (Pfizer) 09/01/2021 Pneumococcal Polysaccharide PPV23 (Pneumovax) 11/17/2006 Seasonal Influenza, Trivalen t, (IIV3), with Preserv, (Fluzone) 07/03/2014,07/03/2013,06/13/2012,07/22,08/03/2006,08/19/2002 TD - Tetanus/Diptheria (ADULT) 01/16/2003 Varicella Zoster Vaccine (Adult) 06/14/2013 documented as [...] No 04/05/2020 documented as of this encounter Miscellaneous Notes * Telephone Encounter - Inna Adhikari CMA - 06/06/2024 4:25 PM EDT Patient is currently admitted to [facility]. * Telephone Encounter - Mayo Friend MD - 06/01/2024 12:28 PM EDT Please inform the pt that - I sent 600mg (higher dose) gabapentin TID along with flexeril qhs - for now would like to hold off on initiating prednisone again due to recent use * Telephone Encounter - Renee Epperson RN - 05/31/2024 2:08 PM EDT see my g * Telephone Encounter - Annia Curran OSA - 05/31/2024 10:30 AM EDT No Appointments Available Patient declined appointments?: Yes What Visit Type is needed? Acute If Acute Visit Type is needed, were surrounding clinics offered to patient (Yes/No)? N/A Was patient offered appointments with other available providers (Yes/No)? N/A See Call Details? (Yes or No): Yes documented in this encounter Plan of Treatment Upcoming Encounters Date Type Department Care Team (Latest Contact Info) Description 06/08/2024 7:30 AM EDT - 06/08/2024 12:25 PM EDT Surgery [facility], OPERATING ROOM [facility] [place], [facility] [address] [facility] [place] [address] Khadar Mayer MD [address] [place] [phone] ARTHRODESIS SPINE POSTERIOR CERVICAL 06/11/2024 11:00 AM EDT Scheduled Telephone Neurosurgery, [place] [address] [place] [phone] Nurse [place] Follow Up Phone Call Neurosurg [address] [phone] 06/25/2024 9:40 AM EDT Office Visit [address] [phone] Jenae Jolly PA-C [address] [place] [address] [place] [address] 06/26/2024 9:30 AM EDT Office Visit Neurosurgery, [facility] [address] [place] [address] Khadar Mayer MD [address] [place] [address] 10/08/2024 1:00 PM EST Office Visit Dermatology [address] [place] [address] Jeni Stevens PA-C [address] [place] [address] [place] [phone] 12/17/2024 10:00 AM EDT Office Visit Family Medicine [address] [place] [phone] Mayo Friend MD [address] [place] [address] [place] [phone] Scheduled Procedures Name Priority Associated Diagnoses Date/Ti me ARTHRODESIS SPINE POSTERIOR CERVICAL Spinal stenosis of cervical region 06/08/2024 7:30 AM EDT ARTHRODESIS SPINE POSTERIOR EACH ADDITIONAL VERTEBRAE Spinal stenosis of cervical region 06/08/2024 7:30 AM EDT MICROSURGICAL SURGERY REQUIRING MICROSCOPE LISTED SEPARATELY Spinal stenosis of cervical region 06/08/2024 7:30 AM EDT POSTERIOR SPINE SEGMENTAL INSTRUMENTATION 3 TO 6 PSF Spinal stenosis of cervical region 06/08/2024 7:30 AM EDT ALLOGRAFT FOR SPINE SURGERY MORSELIZED Spinal stenosis of cervical region 06/08/2024 7:30 AM EDT COLONOSCOPY FLEXIBLE PROXIMA L DIAGNOSTIC Recall History of colon polyps Health [...] 02/27/2025 02/28/2024 HbA1c 02/27/2025 02/28/2024, 10/28/2006 GFR 06/05/2025 06/05/2024, 07/0 10/2023, 02/28/2024, Additional history exists Colonoscopy 11/16/2025 11/16/2022, 11/03, [...] this encounter Medical Devices Implanted Type Area Platform Supervisor Device Identifier Shelf Expiration Date Model / Serial / Lot Plate 2.7 3.5 Prx Ol 2h Lt 73 - [id number] Implanted:Qty: 1 on 04/06/2020 by Van Virk DO at OR [facility] Left: Elbow SYNTHES [id number] / / Screw Slf Tap Strdr 2.7x38mm - [id number] Implanted:Qty: 1 on 04/06/2020 by Van Virk DO at OR [facility] Left: Elbow SYNTHES 02.118.538 / / Screw Selftap 3.5x24 204.824 - [id number] Implanted:Qty: 1 on 04/06/2020 by Van Virk DO at OR [facility] Left: Elbow SYNTHES 204.824 / / Screw Selftap 3.5x28 204.828 - [id number] Implanted:Qty: 1 on 04/06/2020 by Van Virk DO at OR [facility] Left: Elbow SYNTHES 204.828 / / Screw Slftap T8 2.7x16mm - [id number] Implanted:Qty: 1 on 04/06/2020 by Van Virk DO at OR [facility] Left: Elbow SYNTHES 02.211.016 / / Screw Slftap T8 2.7x10mm - [id number] Implanted:Qty: 2 on 04/06/2020 by Van Virk DO at OR [facility] Left: Elbow SYNTHES 02.211.010 / / Screw Slftap T8 2.7x12mm - [id number] Implanted:Qty: 1 on 04/06/2020 by Van Virk DO at OR [facility] Left: Elbow SYNTHES 02.211.012 / / Screw Slftap T8 2.7x50mm - [id number] Implanted:Qty: 1 on 04/06/2020 by Van Virk DO at OR [facility] Left: Elbow SYNTHES 02.211.050 / / documented as of this encounter Visit Diagnoses Diagnosis Chronic bilateral low back pain without sciatica Neck pain Cervicalgia DDD (degenerative disc disease), cervical Degeneration of cervical intervertebral disc Spinal stenosis of cervical region Spinal stenosis in cervical region documented in this encounter Advance Directives * Full Code (Latest Code Status on File) Date Activated Date Inactivated Comments 06/05/2024 5:12 AM This order refl ects the patients wishes and were consensually agreed [...] Name Relationship Healthcare Agent Relationship Communication [facility] calvin (per Health Care Power of Web Operations Specialist document) Care Teams Laser Engraver Relationship Specialty Start Date End Date Mayo Friend MD [address] [place] [address] [place] [phone] PCP - General Family Medicine 02/28/24 documented as of this encounter
--- OUTSIDE RECORDS SUMMARY | 2024-06-15 19:25 | External Medical Summary ---
Author Name Unknown Address Unknown Organization [id number]:[facility] [place] [address] [place] [address] Laboratory Report Ordering Provider Test Date Status JUWAN WEINERL 06/08/2024 04:08:00 Final Observation Date Value Abnormality Reference (Units ) Status BUN 06/08/2024 04:08:00 21 Above high normal 6-20 (mg/dL) Final Creatinine 06/08/2024 04:08:00 0.9 0.6-1.2 (mg/dL) Final Glomerular filtration rate/1.73 sq M.predicted [Volume Rate/Area] in Serum, Plasma or Blood by Creatinine-based formula (CKD-EPI) 06/08/2024 04:08:00 88 >=60 (mL/min) Final eGFR is calculated based on the CKD-EPI 2020 equation. Sodium 06/08/2024 04:08:00 138 135-146 (m mol/L) Final Potassium 06/08/2024 04:08:00 4.1 3.5-5.1 (m mol/L) Final Cl 06/08/2024 04:08:00 104 98-107 (mm ol/L) Final CO2 06/08/2024 04:08:00 27 22-32 (mmo l/L) Final Anion gap 06/08/2024 04:08:00 7 7-15 (mmol /L) Final Glucose 06/08/2024 04:08:00 106 70-120 (mg /dL) Final Calcium 06/08/2024 04:08:00 9.1 8.4-10.2 ( mg/dL) Final Performing Location [facility] [place] [address] [place] [address]
--- OUTSIDE RECORDS SUMMARY | 2024-06-15 19:25 | External Medical Summary ---
Author Name Unknown Address Unknown Organization [id number]:[facility] [place] [facility] [place] [address] Laboratory Report Ordering Provider Test Date Status CANDIE WEINER 06/12/2024 07:38:00 Final Observation Date Value Abnormality Reference (Units ) Status WBC, Total 06/12/2024 07:38:00 9.86 4.00-10.80 (K/uL) Final RBC 06/12/2024 07:38:00 4.19 4.50-5.25 (M/uL) Final Hemoglobin 06/12/2024 07:38:00 14.0 14.0-16.8 (g/dL) Final HCT 06/12/2024 07:38:00 42.8 40.0-48.4 (%) Final MCV 06/12/2024 07:38:00 102.1 82.0-99.5 (fL) Final MCH 06/12/2024 07:38:00 33.4 27.0-34.0 (pg) Final MCHC 06/12/2024 07:38:00 32.7 32.0-36.0 (g/dL) Final RDW 06/12/2024 07:38:00 13.0 11.5-15.5 (%) Final Platelets 06/12/2024 07:38:00 224 140-400 (K/uL) Final MPV 06/12/2024 07:38:00 9.2 6.6-11.1 (fL) Final Nucleated erythrocytes/100 leukocytes [Ratio] in Blood by Automated count 06/12/2024 07:38:00 0 <=0 (/100 WBCs) Final Performing Location LAB[facility]ORY [facility] [place] [address] [place] [address]
--- OUTSIDE RECORDS SUMMARY | 2024-06-15 19:25 | External Medical Summary ---
Author Name Unknown Address Unknown Organization [id number][place] [facility] [place] [address] [place] [address] Laboratory Report Ordering Provider Test Date Status DIETER WEINERENTEL 06/09/2024 10:47:00 Final Observation Date Value Abnormality Reference (Units ) Status Potassium 06/09/2024 10:47:00 4.6 3.5-5.1 (m mol/L) Final Results may be falsely eleva aimee due to hemolysis. Performing Location [facility] [facility] [place] [address] [place] [address]
--- OUTSIDE RECORDS SUMMARY | 2024-06-15 19:25 | External Medical Summary ---
Author Name Unknown Address Unknown Organization [id number]:LABORATORY [facility] [place] - [address] [place] [address] Laboratory Report Ordering Provider Test Date Status JUWAN WEINERL 06/10/2024 07:50:00 Final Observation Date Value Abnormality Reference (Units ) Status BUN 06/10/2024 07:50:00 21 Above high normal 6-20 (mg/dL) Final Creatinine 06/10/2024 07:50:00 1.0 0.6-1.2 (mg/dL) Final Glomerular filtration rate/1.73 sq M.predicted [Volume Rate/Area] in Serum, Plasma or Blood by Creatinine-based formula (CKD-EPI) 06/10/2024 07:50:00 79 >=60 (mL/min) Final eGFR is calculated based on the CKD-EPI 2020 equation. Sodium 06/10/2024 07:50:00 139 135-146 (m mol/L) Final Potassium 06/10/2024 07:50:00 4.3 3.5-5.1 (m mol/L) Final Cl 06/10/2024 07:50:00 102 98-107 (mm ol/L) Final CO2 06/10/2024 07:50:00 29 22-32 (mmo l/L) Final Anion gap 06/10/2024 07:50:00 8 7-15 (mmol /L) Final Glucose 06/10/2024 07:50:00 93 70-120 (mg /dL) Final Calcium 06/10/2024 07:50:00 8.5 8.4-10.2 ( mg/dL) Final Performing Location LABORATORY [facility] [place] - [address] [place] [address]
--- OUTSIDE RECORDS SUMMARY | 2024-06-15 19:25 | External Medical Summary ---
Author Name Unknown Address Unknown Organization [id number]:[facility]ORY [facility] [place] [address] [place] [address] Laboratory Report Ordering Provider Test Date Status JUWAN WEINERL 06/09/2024 07:41:00 Final Observation Date Value Abnormality Reference (Units ) Status BUN 06/09/2024 07:41:00 14 6-20 (mg/dL) Final Creatinine 06/09/2024 07:41:00 0.8 0.6-1.2 (mg/dL) Final Glomerular filtration rate/1.73 sq M.predicted [Volume Rate/Area] in Serum, Plasma or Blood by Creatinine-based formula (CKD-EPI) 06/09/2024 07:41:00 >90 >=60 (mL/min) Final eGFR is calculated based on the CKD-EPI 2020 equation. Sodium 06/09/2024 07:41:00 141 135-146 (m mol/L) Final Potassium 06/09/2024 07:41:00 5.2 Above high normal 3. 5-5.1 (mmol/L) Final Cl 06/09/2024 07:41:00 105 98-107 (mm ol/L) Final CO2 06/09/2024 07:41:00 26 22-32 (mmo l/L) Final Anion gap 06/09/2024 07:41:00 10 7-15 (mmol /L) Final Glucose 06/09/2024 07:41:00 95 70-120 (mg /dL) Final Calcium 06/09/2024 07:41:00 8.6 8.4-10.2 ( mg/dL) Final Performing Location LAB[facility]ORY [facility] [place] - [address] [place] [address]
--- OUTSIDE RECORDS SUMMARY | 2024-06-15 19:25 | External Medical Summary ---
Author Name Unknown Address Unknown Organization [id number]:[facility]ORY [facility] - [address] [place] [address] Laboratory Report Ordering Provider Test Date Status ANALIA BAUMANN 06/08/2024 04:08:00 Final Observation Date Value Abnormality Reference (Units ) Status ABO 06/08/2024 04:08:00 A Final RH 06/08/2024 04:08:00 Positive Final RED BLOOD CELL ANTIBODY SCREEN 06/08/2024 04:08:00 Negative Final SPECIMEN EXPIRATION DATE 06/08/2024 04:08:00 06/11/2024 23:59 Final Performing Location LABORATORY [facility] - [address] [place] [address]
--- OUTSIDE RECORDS SUMMARY | 2024-06-15 19:25 | External Medical Summary ---
Author Name Unknown Address Unknown Organization [id number][place] [facility] [place] [address] [place] [address] Laboratory Report Ordering Provider Test Date Status JUWAN WEINERL 06/11/2024 07:55:00 Final Observation Date Value Abnormality Reference (Units ) Status BUN 06/11/2024 07:55:00 18 6-20 (mg/dL) Final Creatinine 06/11/2024 07:55:00 0.8 0.6-1.2 (mg/dL) Final Glomerular filtration rate/1.73 sq M.predicted [Volume Rate/Area] in Serum, Plasma or Blood by Creatinine-based formula (CKD-EPI) 06/11/2024 07:55:00 >90 >=60 (mL/min) Final eGFR is calculated based on the CKD-EPI 2020 equation. Sodium 06/11/2024 07:55:00 138 135-146 (m mol/L) Final Potassium 06/11/2024 07:55:00 4.0 3.5-5.1 (m mol/L) Final Cl 06/11/2024 07:55:00 102 98-107 (mm ol/L) Final CO2 06/11/2024 07:55:00 29 22-32 (mmo l/L) Final Anion gap 06/11/2024 07:55:00 7 7-15 (mmol /L) Final Glucose 06/11/2024 07:55:00 95 70-120 (mg /dL) Final Calcium 06/11/2024 07:55:00 8.4 8.4-10.2 ( mg/dL) Final Performing Location [facility] [place] [address] [place] [address]
--- OUTSIDE RECORDS SUMMARY | 2024-06-15 19:25 | External Medical Summary ---
Author Name Unknown Address Unknown Organization [id number]:[facility]ORY [facility] [place] - [address] [place] [address] Laboratory Report Ordering Provider Test Date Status CANDIE WEINER 06/08/2024 04:08:00 Final Observation Date Value Abnormality Reference (Units ) Status WBC, Total 06/08/2024 04:08:00 8.82 4.00-10.80 (K/uL) Final RBC 06/08/2024 04:08:00 3.97 4.50-5.25 (M/uL) Final Hemoglobin 06/08/2024 04:08:00 13.5 Below low normal 14.0-16.8 (g/dL) Final HCT 06/08/2024 04:08:00 40.0 40.0-48.4 (%) Final MCV 06/08/2024 04:08:00 100.8 82.0-99.5 (fL) Final MCH 06/08/2024 04:08:00 34.0 27.0-34.0 (pg) Final MCHC 06/08/2024 04:08:00 33.8 32.0-36.0 (g/dL) Final RDW 06/08/2024 04:08:00 12.4 11.5-15.5 (%) Final Platelets 06/08/2024 04:08:00 160 140-400 (K/uL) Final MPV 06/08/2024 04:08:00 9.2 6.6-11.1 (fL) Final Nucleated erythrocytes/100 leukocytes [Ratio] in Blood by Automated count 06/08/2024 04:08:00 0 <=0 (/100 WBCs) Final Performing Location LAB[facility]ATORY [facility] [place] - [address] [place] [address]
--- OUTSIDE RECORDS SUMMARY | 2024-06-15 19:25 | External Medical Summary ---
Author Name Unknown Address Unknown Organization K01:[facility] [place] - [address] [place] [address] Laboratory Report Ordering Provider Test Date Status ERIC GONZALEZ 06/08/2024 04:08:00 Final Warfarin Therapy
INR: 2 .0-3.0 conventional anticoagulation
INR: 2.5- 3.5 high intensity anticoagulation Observation Date Value Abnormality Reference (Units ) Status PT 06/08/2024 04:08:00 12.8 11.6-15.2 (seconds) Final INR 06/08/2024 04:08:00 1.0 0.8-1.2 Final Performing Location LAB[facility]ORY [facility] [place] - [address] [place] [address]
--- OUTSIDE RECORDS SUMMARY | 2024-06-15 19:25 | External Medical Summary ---
Author Name Unknown Address Unknown Organization K01:LABORATORY [facility] - [address] [place] [address] Laboratory Report Ordering Provider Test Date Status MILADILANSERGIOBRODIEShad 06/06/2024 08:33:00 Final Observation Date Value Abnormality Reference (Units ) Status Phosphate 06/06/2024 08:33:00 2.9 2.5-4.8 (m g/dL) Final Performing Location LABORATORY [facility] - [address] [place] [address]
--- OUTSIDE RECORDS SUMMARY | 2024-06-15 19:25 | External Medical Summary ---
Author Name Unknown Address Unknown Organization K01:[facility]ORY [facility] [place] - [facility] [address] [address] [facility] [address] Laboratory Report Ordering Provider Test Date Status CANDIE WEINER 06/10/2024 07:50:00 Final Observation Date Value Abnormality Reference (Units ) Status WBC, Total 06/10/2024 07:50:00 9.20 4.00-10.80 (K/uL) Final RBC 06/10/2024 07:50:00 3.84 4.50-5.25 (M/uL) Final Hemoglobin 06/10/2024 07:50:00 12.8 Below low normal 14.0-16.8 (g/dL) Final HCT 06/10/2024 07:50:00 39.1 Below low normal 40.0-48.4 (%) Final MCV 06/10/2024 07:50:00 101.8 82.0-99.5 (fL) Final MCH 06/10/2024 07:50:00 33.3 27.0-34.0 (pg) Final MCHC 06/10/2024 07:50:00 32.7 32.0-36.0 (g/dL) Final RDW 06/10/2024 07:50:00 13.1 11.5-15.5 (%) Final Platelets 06/10/2024 07:50:00 143 140-400 (K/uL) Final MPV 06/10/2024 07:50:00 9.5 6.6-11.1 (fL) Final Nucleated erythrocytes/100 leukocytes [Ratio] in Blood by Automated count 06/10/2024 07:50:00 0 <=0 (/100 WBCs) Final Performing Location LABORATORY [facility] [place] - [address] [place] [address]
--- OUTSIDE RECORDS SUMMARY | 2024-06-15 19:25 | External Medical Summary ---
Author Name Unknown Address Unknown Organization K01:LABORATORY [facility] - [address] [place] [address] Laboratory Report Ordering Provider Test Date Status HINA WHARTON 06/05/2024 06:55:00 Final Observation Date Value Abnormality Reference (Units ) Status BUN 06/05/2024 06:55:00 21 Above high normal 6-20 (mg/dL) Final Creatinine 06/05/2024 06:55:00 1.0 0.6-1.2 (mg/dL) Final Glomerular filtration rate/1.73 sq M.predicted [Volume Rate/Area] in Serum, Plasma or Blood by Creatinine-based formula (CKD-EPI) 06/05/2024 06:55:00 82 >=60 (mL/min) Final eGFR is calculated based on the CKD-EPI 2020 equation. Sodium 06/05/2024 06:55:00 140 135-146 (m mol/L) Final Potassium 06/05/2024 06:55:00 4.3 3.5-5.1 (m mol/L) Final Cl 06/05/2024 06:55:00 105 98-107 (mm ol/L) Final CO2 06/05/2024 06:55:00 25 22-32 (mmo l/L) Final Anion gap 06/05/2024 06:55:00 10 7-15 (mmol /L) Final Glucose 06/05/2024 06:55:00 124 Above high normal 70 -120 (mg/dL) Final Calcium 06/05/2024 06:55:00 9.4 8.4-10.2 ( mg/dL) Final Performing Location LABORATORY [facility] - [address] [place] [address]
--- OUTSIDE RECORDS SUMMARY | 2024-06-15 19:25 | External Medical Summary ---
Author Name Unknown Address Unknown Organization K01:[facility] [place] [address] [facility] [address] [facility] [address] Laboratory Report Ordering Provider Test Date Status HUSAMSCHREIBER 06/07/2024 19:50:00 Final Observation Date Value Abnormality Reference (Units ) Status Cyclic citrullinated peptide IgG Ab [Presence] in Serum 06/07/2024 19:50:00 Negative Negative Final Cyclic citrullinated peptide IgA+IgG Ab [Units/volume] in Serum or Plasma by Immunoassay 06/07/2024 19:50:00 0.6 <7 (U/mL) Final Performing Location [facility] [place] [facility] [address] [facility] [address]
--- OUTSIDE RECORDS SUMMARY | 2024-06-15 19:25 | External Medical Summary ---
Author Name Unknown Address Unknown Organization K01:LABORATORY [facility] - [address] [place] [address] Laboratory Report Ordering Provider Test Date Status HUSAMDIETERSCHREIBER 06/07/2024 07:05:00 Final Observation Date Value Abnormality Reference (Units ) Status CRP, low-sensitivity 06/07/2024 07:05:00 <3 <=5 (mg/L) Final Performing Location LABORATORY [facility] - [address] [place] [address]
--- OUTSIDE RECORDS SUMMARY | 2024-06-15 19:25 | External Medical Summary ---
Author Name Unknown Address Unknown Organization [id number]:LABORATORY [facility] [place] - [address] [place] [address] Laboratory Report Ordering Provider Test Date Status ERIC GONZALEZ 06/08/2024 04:08:00 Final Anticoagulation may affect t esting. Refer to [email or web address] Test Catalog for a list of effects. Observation Date Value Abnormality Reference (Units ) Status aPTT panel - Platelet poor plasma 06/08/2024 04:08:00 29 21-38 (seconds) Final Performing Location LABORATORY [facility] [place] - [address] [place] [address]
--- OUTSIDE RECORDS SUMMARY | 2024-06-15 19:25 | External Medical Summary ---
Author Name Unknown Address Unknown Organization [id number]:LABORATORY [facility] [place] - [address] [place] [address] Laboratory Report Ordering Provider Test Date Status JUWAN WEINERL 06/07/2024 07:05:00 Final Observation Date Value Abnormality Reference (Units ) Status Rheumatoid Factor 06/07/2024 07:05:00 <10 <1 4 (IU/mL) Final Performing Location LABORATORY [facility] - [address] [place] [address]
--- OUTSIDE RECORDS SUMMARY | 2024-06-15 19:25 | External Medical Summary ---
Author Name Unknown Address Unknown Organization [id number]:LABORATORY [facility] [place] - [facility] [place] [address] Laboratory Report Ordering Provider Test Date Status CANDIE WEINER 06/09/2024 07:41:00 Final Observation Date Value Abnormality Reference (Units ) Status WBC, Total 06/09/2024 07:41:00 11.82 Above high normal 4.00-10.80 (K/uL) Final RBC 06/09/2024 07:41:00 4.10 4.50-5.25 (M/uL) Final Hemoglobin 06/09/2024 07:41:00 14.1 14.0-16.8 (g/dL) Final HCT 06/09/2024 07:41:00 40.5 40.0-48.4 (%) Final MCV 06/09/2024 07:41:00 98.8 82.0-99.5 (fL) Final MCH 06/09/2024 07:41:00 34.4 27.0-34.0 (pg) Final MCHC 06/09/2024 07:41:00 34.8 32.0-36.0 (g/dL) Final RDW 06/09/2024 07:41:00 12.6 11.5-15.5 (%) Final Platelets 06/09/2024 07:41:00 156 140-400 (K/uL) Final MPV 06/09/2024 07:41:00 9.8 6.6-11.1 (fL) Final Nucleated erythrocytes/100 leukocytes [Ratio] in Blood by Automated count 06/09/2024 07:41:00 0 <=0 (/100 WBCs) Final Performing Location LABORATORY [facility] [place] - [address] [place] [address]
[2024-06-15] MEDS ORDERED: NITROGLYCERIN SL 0.4 MG/TAB TAB SL PRN (19:38)
[2024-06-15] MEDS ORDERED: CYCLOBENZAPRINE HCL 10 MG TAB PO PRN ×2 (19:38→19:51)
[2024-06-15] MEDS: SODIUM CHLORIDE 0.9% 1,000 ML IV SCH (20:35)
[2024-06-15] MEDS: ACETAMINOPHEN 325 MG TAB PO PRN (20:38)
[2024-06-15] MEDS ORDERED: LOSARTAN POTASSIUM 50 MG TAB PO SCH (21:00)
[2024-06-15] MEDS: GABAPENTIN 300 MG CAP PO SCH (21:14)
[2024-06-15] MEDS: METOPROLOL TARTRATE 25 MG TAB PO SCH (21:14)
--- OUTSIDE RECORDS SUMMARY | 2024-06-15 22:42 | External Medical Summary | Summary of Care ---
Author Name Unknown Organization [facility] Address [address] [place] [address] Phone [phone] Care Team Providers Care Rag Willow Operator Name Role Phone Mayo Friend MD Primary Care Provide r Encounter Details Date Type Department Care Team (Latest Contact Info) Description 06/04/2024 5:25 PM EDT - 06/04/2024 11:59 PM EDT Hospital Encounter Radiology Film File [address] [place] [address] Arrived Discharge Disposition: Home - Self Care Allergies Active Allergy Reactions Criticality Noted Date [...] Tablet by mouth in the morning. Active Puxlq-0-Uvsj Eth Est (Dietary) 1 GM Oral Capsule [...] Oral Tablet (Lipitor)Indications: Coronary artery disease involving [place] coronary artery of [place] heart without angina pectoris Take 1 Tablet [...] Taxonomy. Biceps tendon rupture 01/25/20072023 Atherosclerosis of [place] coronary artery 10/29/2006 02/28/2024 Overview: stent to [...] mRNA, LNP-s, No Pre serve, 2-Dose Series ([employer]) 09/01/2021 Pneumococcal Polysaccharide PPV23 (Pneumovax) 11/17/2006 Seasonal [...] Description 06/20/2024 11:20 AM EDT Office Visit [address] [place] [address] Mayo Friend MD [address] [place] [address] [place] [id number] 06/25/2024 9:40 AM EDT Office Visit [address] [place] [address] Jenae Jolly PA-C [address] [place] [address] [place] [phone] 06/26/2024 9:30 AM EDT Office Visit Neurosurgery, [place] [address] [place] [address] Khadar Mayer MD [address] [place] [address] 10/08/2024 1:00 PM EST Office Visit Dermatology [address] [place] [address] Jeni Stevens PA-C [address] [place] [address] [place] [id number] 12/17/2024 10:00 AM EDT Office Visit [address] [place] [phone] Mayo Friend MD [address] [place] [address] [place] [id number] Scheduled Procedures Name Priority Associated Diagnoses Date/Ti [...] Ratio 02/27/2027 02/28/2024 Lipid Panel 02/27/2029 02/28/2024, 0611/2014, 05/03/2013, Additional history exists Pneumococcal Vaccine: 65+ [...] this encounter Medical Devices Implanted Type Area Accountant Clerk Device Identifier Shelf Expiration Date Model / Serial / Lot Plate 2.7 3.5 Prx Ol 2h Lt 73 - [id number] Implanted:Qty: 1 on 04/06/2020 by Van Virk, at OR [facility] Left: Elbow SYNTHES 02.107.102 / / Screw Slf Tap Strdr 2.7x38mm - [id number] Implanted:Qty: 1 on 04/06/2020 by Van Virk DO at OR [facility] Left: Elbow SYNTHES 02.118.538 / / Screw Selftap 3.5x24 204.824 - [id number] Implanted:Qty: 1 on 04/06/2020 by Van Virk DO at OR [facility] Left: Elbow SYNTHES 204.824 / / Screw Selftap 3.5x28 204.828 - [id number] Implanted:Qty: 1 on 04/06/2020 by Van Virk DO at OR [facility] Left: Elbow SYNTHES 204.828 / / Screw Slftap T8 2.7x16mm - [id number] Implanted:Qty: 1 on 04/06/2020 by Van Virk DO at OR [facility] Left: Elbow SYNTHES 02.211.016 / / Screw Slftap T8 2.7x10mm - [id number] Implanted:Qty: 2 on 04/06/2020 by Van Virk DO at OR [facility] Left: Elbow SYNTHES 02.211.010 / / Screw Slftap T8 2.7x12mm - [id number] Implanted:Qty: 1 on 04/06/2020 by Van Virk DO at OR [facility] Left: Elbow SYNTHES 02.211.012 / / Screw Slftap T8 2.7x50mm - [id number] Implanted:Qty: 1 on 04/06/2020 by Van Virk DO at OR [facility] Left: Elbow SYNTHES 02.211.050 / / Screw Set [id number] - [id number] Implanted:Qty: 8 on 06/08/2024 by Khadar Mayer MD at OR [facility] N/A: Spine Cervical LUIZA : SPINE [id number] / / [place] Screw Implanted:Qty: 1 on 06/08/2024 by Khadar Mayer MD at OR [facility] N/A: Spine Cervical [id number] / / [place] Screw Implanted:Qty: 1 on 06/08/2024 by Khadar Mayer MD at OR [facility] N/A: Spine Cervical [id number] / / [place] Screw Implanted:Qty: 4 on 06/08/2024 by Khadar Mayer MD at OR [facility] N/A: Spine Cervical [id number] / / [place] Screw Implanted:Qty: 2 on 06/08/2024 by Khadar Mayer MD at OR [facility] N/A: Spine Cervical [id number] / / [place] 3.5 X 55mm Abiel Implanted:Qty: 2 on 06/08/2024 by Khadar Mayer MD at OR [facility] [id number] / / Vitoss Bimodal Foam Pack 10 - [id number] Implanted:Qty: 1 on 06/08/2024 by Khadar Mayer MD at OR [facility] N/A: Spine Cervical LUIZA : SPINE 10/30/2025 [id number] / / [id number] documented as of this encounter Procedures Procedure [...] interpreted or resulted by a [facility] or [facility] contracted radiologist. Mayo Friend MD RADIOLOGY (RA [...] Name Relationship Healthcare Agent Relationship Communication [facility] calvin (per Health Care Power of Renal Medicine Specialist document) Care Teams Rag Willow Operator Relationship Specialty Start Date End Date Mayo Friend MD [address] [place] [address] [place] [phone] PCP - General Family Medicine 02/28/24 documented as of this encounter
[2024-06-16 07:38] VITALS: BP 124/75; PULSE 80; RESP 16; TEMP 98.6; O2SAT 92
[2024-06-16] MEDS: ATORVASTATIN 40 MG TAB PO SCH (08:14)
[2024-06-16] MEDS: ISOSORBIDE MONO EXTENDED REL 60 MG TABCR PO SCH (08:16)
[2024-06-16] MEDS: POTASSIUM CHLORIDE CRTAB 20 MEQ TABCR PO SCH (08:17)
[2024-06-16 08:24] LABS: Hematocrit (blood only) 36.9 % (42.0-52.0); Hemoglobin 12.5 g/dl (14.0-18.0); Mean Corpuscular Hemoglobin 33.3 pg (25.0-34.0); Mean Corpuscular Hgb Conc 33.9 g/dL (32.0-36.0); Mean Corpuscular Volume 98.4 fL (80.0-100.0); Mean Platelet Volume 8.6 fL (9.4-12.4); Platelet Count 198 K/uL (130-400); RDW Coefficient of Variation 13.2 % (11.5-14.5); RDW Standard Deviation 46.7 fL (36.4-46.3); Red Blood Count 3.75 M/uL (4.70-6.10)
[2024-06-16 08:43] LABS: Albumin Globulin Ratio 1.1 (0.9-2); Albumin Level 3.3 gm/dl (3.4-5.0); BUN Creatinine Ratio 21.9 (10-20); Bilirubin,Total 0.6 mg/dl (0.2-1.0); Calcium 8.9 mg/dl (8.6-10.3); Creatinine Clr Calc Pharmacy 64.1 ml/min; Est GFR (African American) 90.5 ml/min; Est GFR (Non-African American) 78.1 ml/min; Globulin 2.9 gm/dl (2.5-4.0); Magnesium 2.1 mg/dl (1.7-2.4); Phosphorus 2.9 mg/dl (2.5-4.9); Total Protein 6.2 gm/dl (6.0-8.3)
[2024-06-16] MEDS ORDERED: ASPIRIN 81 MG ECTAB PO SCH (09:00)
[2024-06-16 09:08] LABS: Folate (Folic Acid),Ser orPlas > 22.30 ng/ml (>5.38)
[2024-06-16 09:09] LABS: Vitamin B12 > 1500 pg/ml (180-914)
[2024-06-16 09:15] LABS: Ferritin 799.8 ng/ml (8-388)
--- NOTE | 2024-06-16 10:58 | Discharge Summary ---
Discharge Summary Date of Service June 16, 2024 Principal Dx & Hospital Course #1 = Principal Diagnosis (1) Syncope: Plan Mr. Dalton Hernandez is a 74y/o M with PMHx of HLD, HTN, esophageal dysphagia, generalized osteoarthritis, CAD s/p LAD stent placement, benign neoplasm of the colon, chronic lower back pain, chronic right-sided upper and lower extremity weakness, degenerative disc disease, prediabetes and other problems listed below who presented to the ED via EMS for evaluation after a syncopal episode on 06/15. Patient noted to be hypotensive. Patient s/p segmental fixation of posterior cervical canal 06/08 with n eurosurgery at [facility]. Patient reports not eating or drinking as he normal does without the [place] collar, but also taking all his blood pressure medications. Patient with ALEXANDRA which resolved with IVF. Patient with stable BP in 120s after holding home losartan. Patient adamant to go home and declined discussion about PT eval. On day of discahrge, patient states he feels notably improved. Ambulating at recent baseline and no acute concerns or further syncopal like episopes. #Syncopal Episode likley 2/[address] negative. CXR negative. Cervical spine CT shows expected post-surgical changes in this patient status post C1-C4 fixation. Syncope likely 2/2 dehydration and hypotension. Patient was hypotensive with SBP in 90s on arrival. SBP improved to 120s s/p 1L NSS in ED. +Orthostatic vitals positive. intake near 5 L since admission UA negative Continue to hold Losartan, resume if BP continuously >150 SBP Encourage PO intake #Cervical Radiculopathy s/p cervical fixation 06/08 Underwent segmental fixation of posterior cervical spine C1-C4 on 06/08/[address] [facility]. He has a [place] hard collar for OOB use and therapy. He is scheduled to see neurosurgery at [facility] on 06/26/24. ASA on hold until 06/23/24 per neurosurgery recommendations. . Can continue home Flexeril HS PRN, gabapentin. #Normocytic anemia, likely 2/2 blood loss from recent operation No signs of acute bleeding or hemorrhage Follow up OP labs #HTN: Continue Imdur continue metoprolol tartrate. Hold losartan #HLD: Chronic, stable. Continue home atorvastatin. Notes For Next Care Provider Patient improved after holding losartan and IVF. 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 History obtained from patient, family at bedside and associated chart review. Patient was recently seen in [facility] ED on 06/04/24 due to worsening chronic right- sided upper and lower extremity weakness. Patient has history of cervical radiculopathy. He was on steroids twice since that diagnosis was made in April. He was having significant difficulty ambulating due to the increasing weakness. Cervical spine MRI at that time revealed severe multilevel degenerative disc disease and facet arthrosis within the cervical spine in addition to minimal right-sided cord edema at the C1 level. Case was discussed with Dr. James - decided patient needed transferred. Ultimately patient was transferred to [facility] for further evaluation. He was evaluated by neurosurgery at [facility] and repeat imaging was obtained. 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 Multilevel degenerative changes causing varying degrees of bilateral bony neural foraminal narrowing, most severe on the right at T11-T12 and on the left at T10-T11. Neck CTA with focal atherosclerotic stenosis of the proximal right ICA measuring 65% by NASCET criteria. Focal atherosclerotic stenosis of the proximal left ICA measuring 69% by NASCET criteria. Focal stenoses involving the V2 segments of both vertebral arteries at the C5-6 level due to extrinsic compression by degenerative osteophytes. He underwent surgical intervention with neurosurgery on 06/08/24 including segmental fixation of posterior cervical spine C1 through C4. The patient was also evaluated by rheumatology while admitted given concern for possible inflammatory arthropathy. Rheumatoid factor and anti cyclic citrullinated protein antibodies were both negative. No other physical examination or imaging manifestations of rheumatoid arthritis were noted. He was advised to follow-up with rheumatology outpatient if he were to develop inflammatory symptoms in the future. His symptoms improved post-surgically with improved strength. He also worked with PT/OT - however he denied rehabilitation placement. He was discharged home from [facility] on 06/12/24 with home health services. ASA on hold until 06/23/24 per neurosurgery recommendations. He is scheduled to see neurosurgery at [facility] on 06/26/24. He has a [place] hard collar for OOB use and therapy [not needed while resting in bed/sleeping]. He was also instructed to follow-up with vascular surgery due to ICA stenosis noted on neck CTA. Patient reports he was passing a bowel movement on the toilet today when he subsequently passed out. Did not hit his head. His son was home to assist him immediately as this was a witnessed event. He is currently living at home with the assistance of his son since having his cervical spine operation done at [facility]. Patient states he has not been hydrating appropriately, but has been eating. Mentions he has not been that active recently since having his neck operation. He reports that they checked his blood pressure after the syncopal event and it was pretty low, he is unsure of the exact reading. Denies any lightheadedness or dizziness. Thought maybe his c-collar was too tight and that was what caused him to pass out. No chest pain or SOB. All imaging in the ED was negative for any acute findings. Reports he feels much better in the ED after receiving IV fluids. Agreeable to staying at least overnight for close observation and PT/OT evaluations in the morning. Admission Exam Per Admitting Provider General Appearance: WD/WN, vitals as above, NAD, laying back in bed, pleasant, conversing. A+Ox3, euthymic affect. HEENT: Normocephalic, atraumatic. PERRL, conjunctivae normal, anicteric sclerae, oropharynx appears mildly dry. Neck: Normal visual inspection, trachea midline, cervical collar in place. Respiratory: Normal respiratory effort, lungs clear to auscultation, no wheeze, rales, rhonchi. No accessory muscle use. Cardiovascular: Regular rate, rhythm, no murmur, normal peripheral pulses, no BLE edema. Vessels: No JVD. Abdomen/GI: Normal bowel sounds, soft, nontender, no hepatosplenomegaly. Extremities/Musculoskeletal: No cyanosis or clubbing, extremities motor strength significantly improved on the right side. Neurologic: EOMI, no focal deficits, CN's II-XI not formally tested but appear grossly intact bilaterally. Skin: No rashes, normal color, warm/dry. Discharge Exam Constitutional WD[facility]WN, [facility] Res[facility] normal respiratory effort, lungs clear to auscultation Cardiovascular RRR, no murmur, no edema Updated Medication List Medication Instructions Recorded Confirmed Type omega-3 acid ethyl esters 1 gram 1 cap PO BID 06/04/19 06/15/24 History capsule aspirin 81 mg tablet,delayed 81 mg PO UD 06/06/19 06/15/24 History release acetaminophen 650 mg 650 mg PO Q6H PRN Pain 03/13/20 06/15/24 History tablet,extended release (Tylenol Arthritis Pain) folic acid 1 mg tablet 1 mg PO DAILY #90 tabs 12/24/21 06/15/24 Rx losartan 100 mg tablet 100 mg PO HS #90 tabs 03/24/22 06/15/24 Rx cholecalciferol (vitamin D3) 125 125 mcg PO QAM 09/07/22 06/15/24 History mcg (5,000 unit) capsule cyanocobalamin (vitamin B-12) 1,000 mcg PO QAM 09/07/22 06/15/24 History 1,000 mcg tablet nitroglycerin 0.4 mg sublingual 0.4 mg sublingual UD PRN Chest Pain 09/07/22 06/15/24 History tablet atorvastatin 80 mg tablet 80 mg PO QAM #90 tabs 08/04/23 06/15/24 Rx isosorbide mononitrate 60 mg 60 mg PO QAM #90 tabs 08/11/23 06/15/24 Rx tablet,extended release 24 hr metoprolol tartrate 25 mg tablet 25 mg PO BID #180 tabs 04/18/24 06/15/24 Rx gabapentin 300 mg capsule 300 mg PO TID 04/21/24 06/15/24 History Biofreeze 1 applic topical DIRECTED PRN 06/15/24 06/15/24 History Pain cyclobenzaprine 10 mg tablet 10 mg PO HS PRN Pain 06/15/24 06/15/24 History oxycodone 5 mg tablet 5 mg PO Q8H PRN Severe Pain (Scale 06/15/24 06/15/24 History Score 7-10) polyethylene glycol 3350 17 17 g PO DAILY PRN Constipation 06/15/24 06/15/24 History gram/dose oral powder Hospital Stay Data Consultations 06/15/24 17:06 ED Decision to Admit Stat Diagnostic Imagining Performed 06/15/24 14:23 CT cervical spine wo con Stat CT head/brain wo con Stat Pending Results Patient Have Any Pending Studies at Discharge: No Discharge Instructions Given to Patient (Per Discharging Provider) You were admitted for hypotension or low blood pressure. You were noted to be dehydrated. You recieved fluids and your blood pressure stayed in good range while on Imdur and Metoprolol. Please hold your Losartan 100mg and resume if your blood pressure is consistently over 150 (top number/systolic) or as directed by your primary care provider. Please call Tuesday for a post hospitalization follow up with your PCP Total Time Total Time Spent Total Time Spent (In Minutes): 45
== END 2024-06-16 12:45 | disposition home or self-care (01) | DRG 312 ==
LOC: ED 14:12 → SUATTDRO 17:22 → 2W 17:22